=== PATIENT | female | born 1960 | race Caucasian/White ===

== ENCOUNTER 2021-01-13 15:55 | Outpatient (CLI) | payer MEDICARE, OTHER, SELFPAY ==
--- NOTE | 2021-01-13 | MR_ITS ---
WS: [id number] MRI RIGHT SHOULDER HISTORY: RIGHT ROTATOR CUFF COMPARISON: 12/24/2020 TECHNIQUE: Multiplanar sequences of the shoulder joint are submitted. Limited evaluation of the RIGHT shoulder. Patient refused to continue due to pain. Mild AC joint hypertrophy with fluid along the AC ligament. Small amount of fluid in the subacromial and subdeltoid bursa. Moderate size osteophyte from the distal acromion encroaches upon the rotator c uff. No os acromion. Biceps tendon remains in normal position. There is slight increased amount of fl uid along the tendon sheath. Subchondral cystic changes in the posterior lateral humeral head. Abnormal signal in the distal infraspinatus and supraspinatus muscles. There is marked tendinopathy, especially within the supraspinatus tendon with narrowing of the acromiohumeral space. There is a flu id gap in tear involving the insertion sites of the infraspinatus and supraspinatus tendons. Increase fluid in the glenohumeral joint. Severe narrowing of the glenohumeral joint due to osteophytes. MR/MR shoulder RT wo con* [id number] IMPRESSION: 1. Very limited evaluation of the shoulder. Patient was unable to tolerate thi s examination due to pain. 2. Moderate AC joint osteoarthritis with encroachment upon the supraspinatus m uscle and tendon. 3. Marked tendinopathy of the distal infraspinatus and supraspinatus tendons w ith additional insertion site tears. Additional evaluation of the rotator cuff tears is difficult without further sequences. 4. Advanced osteoarthritis at the glenohumeral joint. Loss of cartilage surrou nding the humeral head.
== END 2021-01-13 15:56 | disposition home or self-care (01) ==
PROVIDERS: PCP Family Medicine; Visit Provider Family Medicine
DX: M75.101 Unspecified rotator cuff tear or rupture of right shoulder, not specified as traumatic (principal); M19.011 Primary osteoarthritis, right shoulder
CPT/HCPCS: 73221

== ENCOUNTER 2021-02-10 15:03 | Outpatient (CLI) | payer MEDICARE, OTHER, SELFPAY ==
--- NOTE | 2021-02-10 15:10 | USCV_ITS ---
Lisa Magaña Age: 61 Gender: F : 1960 Exam Date: 02/10/2021 15:32 Ordering Phys: Fili Donahue MD Technologist: Sherin Rahman Exam Location: [facility] – [place] Indication: SVT BP: 159 / 107 HR: 102 Rhythm: Sinus Technical Quality: Very technically difficult study MEASUREMENTS (Male / Female) Normal Values 2D ECHO LV Diastolic Diameter PLAX 3.4 cm 4.2 - 5.9 / 3.9 - 5.3 cm LV Systolic Diameter PLAX 2.4 cm IVS Diastolic Thickness 1.9 cm 0.6 - 1.0 / 0.6 - 0.9 cm IVS Systolic Thickness 2.2 cm LVPW Diastolic Thickness 1.4 cm 0.6 - 1.0 / 0.6 - 0.9 cm LVPW Systolic Thickness 2.1 cm LVOT Diameter 2.0 cm LV Ejection Fraction 2D Teich 57.7 % LV Ejection Fraction MOD 2C 63.4 % LV Ejection Fraction 2C AL 63.4 % LA Diameter 3.5 cm Aorta at Sinotubular Diameter 3.0 cm M-MODE LV Diastolic Diameter MM 5.0 cm 4.2 - 5.9 / 3.9 - 5.3 cm LV Systolic Diameter MM 3.4 cm LV Ejection Fraction MM Teich 61.7 % IVS Diastolic Thickness MM 1.8 cm 0.6 - 1.0 / 0.6 - 0.9 cm IVS Systolic Thickness MM 2.6 cm LVPW Diastolic Thickness MM 1.4 cm 0.6 - 1.0 / 0.6 - 0.9 cm LVPW Systolic Thickness MM 2.1 cm Aortic Annulus Diameter 3.7 cm LA Ao Ratio MM 0.9 MV E Point Septal Separation 0.8 cm DOPPLER AV Peak Velocity 130.0 cm/s LVOT Peak Velocity 91.0 cm/s AV Area Cont Eq vti 2.3 cm squared AV Area Cont Eq pk 2.1 cm squared MV Area PHT 5.0 cm squared Mitral E to A Ratio 0.8 MV E' Velocity 41.2 cm/s Mitral E to MV E' Ratio 6.4 Mitral E to LV E' Lateral Ratio 5.3 Mitral E to LV E' Septal Ratio 8.0 TR Peak Velocity 314.0 cm/s TR Peak Gradient 39.4 mmHg Right Atrial Pressure 3.0 mmHg Pulmonary Artery Systolic Pressu 42.4 mmHg PV Peak Velocity 116.0 cm/s RV Acceleration Time 0.1 s RV Ejection Time 0.3 s RV AcT/ET 0.2 FINDINGS Left Ventricle Small left ventricle cavity, moderate left ventricular hypertrophy. Hyperdynamic left ventricular systolic function. Left ventricular ejection fraction is estimated at 75 %. Grade I/IV diastolic dysfunction (abnormal relaxation filling pattern), normal to mildly elevated filling pressures. Right Ventricle Right Atrium Left Atrium Mitral Valve Aortic Valve Aortic valve sclerosis. No aortic valve stenosis. Tricuspid Valve Pulmonic Valve Pericardium Aorta CONCLUSIONS Technically very difficult study therefore full interpretation is read is not possible 1-Small left ventricle cavity, moderate left ventricular hypertrophy. Hyperdynamic left ventricular systolic function. Left ventricular ejection fraction is estimated at 75 %. Grade I/IV diastolic dysfunction (abnormal relaxation filling pattern), normal to mildly elevated filling pressures. 2-Aortic valve sclerosis. No aortic valve stenosis. 3-Cannot comment on mitral tricuspid and pulmonic valves due to suboptimal study quality 4-Pulmonary artery systolic pressure is within normal limits. 5-There is no pericardial effusion. 6-Due to suboptimal quality study cannot compare with prior echocardiogram Shoshana Barreto MD (Electronically Signed) Final Date: 20 Feb 2021 18:52 S
== END 2021-02-10 15:04 | disposition home or self-care (01) ==
LOC: US 15:05
PROVIDERS: PCP Family Medicine; Visit Provider Family Medicine
DX: I47.1 Supraventricular tachycardia (principal); I35.8 Other nonrheumatic aortic valve disorders
CPT/HCPCS: 93306

== ENCOUNTER 2021-02-17 07:37 | Outpatient (CLI) | payer MEDICARE, OTHER, SELFPAY ==
--- NOTE | 2021-02-17 14:29 | PFTS_ITS ---
Date of Study:02/17/21 Date of Dictation: MECHANICS: Forced vital capacity (FVC) is normal. Forced expiratory volume in one second (FEV1) is normal. FEV1/FVC is normal. FLOW VOLUME LOOP: Normal. LUNG VOLUMES: Total lung capacity (TLC) is mildly reduced. Residual volume (RV) is reduced. DIFFUSING CAPACITY FOR CARBON MONOXIDE: Mild reduced. INTERPRETATION: The prebronchodilator spirometry is normal. Post bronchodilator spirometry was not performed. Lung volumes are consistent with mild restriction. A combination of normal spirometry with mildly reduced total lung capacity and residual volume could be seen in early interstitial lung disease. However, this could be a nonspecific finding as well. Gas exchange (DLCO) is mildly reduced. MTDD
== END 2021-02-17 07:38 | disposition home or self-care (01) ==
LOC: RT 07:41
PROVIDERS: PCP Family Medicine; Visit Provider Internal Medicine
DX: R06.02 Shortness of breath (principal)
CPT/HCPCS: 94060; 94726; 94729; J7611

== ENCOUNTER 2021-07-17 15:37 | Emergency (ER) | payer MEDICARE, OTHER, SELFPAY ==
[2021-07-17] VITALS (7 sets, daily range): BP systolic 113–134; BP diastolic 59–94; PULSE 80–88; RESP 17–28; TEMP 37.3; O2SAT 90–99; BMI 32.8
--- NOTE | 2021-07-17 15:38 | ED_ITS ---
HPI - Abdominal Pain General: Chief Complaint: Urogenital-Female Stated Complaint: FLANK PAIN Time Seen by Provider: 07/17/21 15:38 History of Present Illness: HPI narrative: Ms. Valladares is a 61-year-old lady with history of diabetes, breast and bladder cancer, extensive abdominal surgeries who presents emergency department due to pelvic pain. She reports a longstanding history of pressure which is primarily located along her perineum and radiates upwards however this typically improves with position changes and warm towels as well as medications which she takes for chronic pain. She has noticed over the past few weeks an increase in frequency as well as some incontinence when standing. Today she had recurrence of symptoms that is more intense, moderate to severe, and deep aching in the same location. She tried her typical treatments without significant improvement. She denies pain this bad in the past. No changes in bowel movements or blood in stool. She does have occasional episodes of chest discomfort primarily at night which is sharp and intermittent. No other specific changes in health, exacerbating, or relieving factors. Review of Systems General: Reports: 10 or more systems reviewed and unremarkable except in HPI and below PFSH ED PFSH: Medical History Depression Diabetes SVT (supraventricular tachycardia) Surgical History H/O total hysterectomy Hx of cholecystectomy Family History Father Diabetes Other Hypertension Social History Smoking and tobacco status: never smoked Physical Exam Narrative: EXAM NARRATIVE: GENERAL/CONSTITUTIONAL - well-appearing. Uncomfortable due to pain Eyes - PERRL, no conjunctival injection ENMT - Atraumatic external nose and ears. Moist mucous membranes NECK - supple. trachea midline CARDIOVASCULAR - regular rate and rhythm. Peripheral pulses 2+ and equal RESPIRATORY -clear to auscultation bilaterally. No retractions or accessory muscle use. ABDOMEN/GI - tenderness palpation in the lower abdomen.. No tenderness to percussion or evidence of peritonitis MSK - Extremities without obvious deformity or tenderness to palpation SKIN - Warm, Dry NEURO - alert and appropriately oriented. strength and sensation intact. Moves all extremities equally. PSYCH - Appropriate mood and affect Course ED course: - Patient was seen and evaluated by me at bedside - Patient placed on cardiac monitors, IV access obtained - Initial evaluation notable for uncomfortable due to pain, abdominal exam as noted above. Somewhat challenging history with many atypical features, patient is 61 and diabetic which expands the differential. She has a history of extensive abdominal surgeries as well which also further expands differential. -Symptom treatment ordered - Labs notable for no leukocytosis, microcytic anemia which is new since recent lab values though this was 2019. No significant metabolic abnormality to explain patient's symptoms. No evidence of urinary tract infection. - Imaging notable for negative chest x-ray. Nonspecific fat stranding noted on abdominal CT without other focal finding to explain patient's symptoms. - Upon serial reexamination after treatment the patient was improved with analgesia - Based on patient history, evaluation, labs, and imaging as interpreted the most likely cause of the patient's condition is unclear, the nature of patient's fat stranding is also unclear though given worsening of symptoms will be treated. Additionally I did offer patient pelvic exam though lower clinical suspicion in the absence of uterus and ovaries, given that patient has no vaginal discharge or vaginal pain/itching she deferred at this time. - The results of ED evaluation were discussed with the patient including prescriptions and/or symptomatic cares (if applicable) including appropriate and responsible use, followup plan, and return precautions. The patient verbalized understanding and felt safe for discharge. - Patient discharged in satisfactory condition. Vital Signs: Vital signs: Vital Signs Temperature 99.2 F 07/17/21 15:40 Pulse Rate 88 07/17/21 19:51 Respiratory Rate 22 H 07/17/21 20:38 Blood Pressure 113/59 07/17/21 19:51 Pulse Oximetry 98 07/17/21 19:51 MDM - Abdominal Pain Medical Records: Attestation: I reviewed the patient's medical records. Lab Data: Attestation: I reviewed the patient's lab results. Labs: Lab Results 07/17/21 07/17/21 07/17/21 16:04 16:04 16:04 WBC 5.7 10^3/uL 10^3/ uL (4.0-10.0) RBC 4.21 10^6/uL 10^6 /uL (4.1-5.3) Hgb 10.1 g/dL L g/dL (11.5-15.3) Hct 33.0 % L % (37.0-47.0) MCV 78.4 fl L fl (81-99) MCH 24.0 pg L pg (28.0-34.0) MCHC 30.6 g/dL g/dL (30.0-36.0) RDW 14.4 % % (12.1-15.1) Plt Count 200 10^3/cmm 10^3 /cmm (130-400) MPV 10.6 fL H fL (7.4-10.4) Neut % (Auto) 67.1 % % Lymph % (Auto) 19.4 % % [place] % (Auto) 9.4 % % Eos % (Auto) 2.8 % % Baso % (Auto) 1.0 % % Neut # (Auto) 3.84 10^3/uL 10^3 /uL (1.8-7.7) Lymph # (Auto) 1.1 10^3/uL 10^3/ uL (0.8-4.8) [place] # (Auto) 0.5 10^3/uL 10^3/ uL (0.2-0.9) Eos # (Auto) 0.2 10^3/uL 10^3/ uL (0.0-0.8) Baso # (Auto) 0.1 10^3/uL 10^3/ uL (0.0-0.1) Nucleated RBC % (a uto) 0 % % Nucleated RBCs # 0.0 /100WBC /100W BC Sodium 139 mmol/L mmol/L (136-145) Potassium 4.0 mmol/L mmol/L (3.5-5.1) Chloride 101 mmol/L mmol/L (98-107) Carbon Dioxide 25 mmol/L mmol/L (22-29) Anion Gap 17.0 (5-19) BUN 12 mg/dL mg/dL (8-23) Creatinine 0.5 mg/dL mg/dL (0.5-0.9) GFR Calculation 124.6 mL/min mL/m in (90-130) Glucose 191 mg/dL H mg/dL (65-115) Calculated Osmolal ity 293 mOsm/kg mOsm/ kg (285-295) Lactate 2.0 mmol/L mmol/L (0.5-2.2) Calcium 8.8 mg/dL mg/dL (8.5-10.5) Total Bilirubin 0.4 mg/dL mg/dL (0.15-1.2) AST 26 U/L U/L (0-32) ALT 15 U/L U/L (0-33) Alkaline Phosphata se 105 IU/L IU/L (35-105) Troponin T Baselin e Troponin T 120 Min [place] Troponin T Total Protein 6.8 g/dL g/dL (6.6-8.7) Albumin 3.9 g/dL g/dL (3.5-5.2) Globulin 2.9 g/dL g/dL (1.3-4.6) Lipase 58 U/L U/L (13-60) Urine Color Urine Appearance Urine pH Ur Specific Gravit y Urine Protein Urine Glucose (UA) Urine Ketones Urine Blood Urine Nitrate Urine Bilirubin Urine Urobilinogen Ur Leukocyte Isabel ase 07/17/21 07/17/21 07/17/21 16:04 16:36 18:10 WBC RBC Hgb Hct MCV MCH MCHC RDW Plt Count MPV Neut % (Auto) Lymph % (Auto) [place] % (Auto) Eos % (Auto) Baso % (Auto) Neut # (Auto) Lymph # (Auto) [place] # (Auto) Eos # (Auto) Baso # (Auto) Nucleated RBC % (a uto) Nucleated RBCs # Sodium Potassium Chloride Carbon Dioxide Anion Gap BUN Creatinine GFR Calculation Glucose Calculated Osmolal ity Lactate Calcium Total Bilirubin AST ALT Alkaline Phosphata se Troponin T Baselin e 8 ng/L ng/L (0-10) Troponin T 120 Min [place] 7.87 ng/L ng/L (0-10) Delta Troponin T -0.13 ABS# L ABS# (0-10) Total Protein Albumin Globulin Lipase Urine Color Straw (Yellow) Urine Appearance Clear (CLEAR) Urine pH 6 (5-7) Ur Specific Gravit y 1.005 (1.005-1.030) Urine Protein Neg (Negative) Urine Glucose (UA) Norm (Normal) Urine Ketones Negative (Negative) Urine Blood Neg (Negative) Urine Nitrate Negative (Negative) Urine Bilirubin Neg (Negative) Urine Urobilinogen Norm mg/dL mg/dL (Negative) Ur Leukocyte Isabel ase Negative (Negative) EKG Data ^: EKG 1: Attestation: I personally reviewed and interpreted this EKG as follows: EKG interpretation date: 07/17/21 EKG interpretation time: 16:52 Interpretation: Twelve-lead EKG shows a regular sinus rhythm at a rate of 84. CT interval 142, QRS duration 84, QTc 463. Left axis deviation. Interpretation: Sinus rhythm, occasional PVC. Discharge Plan Discharge Patient Disposition: Home Clinical Impression: Abdominal pain Condition: Stable Prescriptions: New Augmentin 875-125 mg tablet 1 tab PO BID Qty: 20 RF: 0 No Action metoprolol tartrate 50 mg tablet 50 mg PO BID RF: 0 metformin 500 mg tablet extended release 24 hr 500 mg PO DAILY RF: 0 pantoprazole 40 mg tablet,delayed release (DR/EC) 40 mg PO DAILY RF: 0 fluoxetine 20 mg capsule 20 mg PO DAILY RF: 0 zonisamide 100 mg capsule 200 mg PO DAILY RF: 0 clonazepam 0.5 mg tablet 0.25 mg PO TID PRN (Reason: Anxiety) RF: 0 trazodone 150 mg tablet 150 mg PO BEDTIME RF: 0 sumatriptan succinate [Imitrex] 100 mg tablet 100 mg PO Q2H PRN (Reason: Migraine Headache) RF: 0 Lantus U-100 Insulin 100 unit/mL Solution 8 unit SUBCUT BEDTIME RF: 0 acyclovir 400 mg tablet 400 mg PO BID RF: 0 oxycodone-acetaminophen 10-325 mg tablet 1 tab PO Q4H PRN (Reason: Pain) RF: 0 gabapentin 300 mg Capsule 300 mg PO TID RF: 0 Discharge Orders: Discharge ED (Routine); Ordered 07/17/21 Ordered By: Kenny Spring Referrals: Joseph Baker MD [Primary Care Provider] - Discharge Diet: Advance as tolerated Discharge Activity: Increase activity as tolerated Patient Instructions: Abdominal Pain (ED), Opioid Safety Activity Restrictions/Additional Instructions: Thank you for visiting the emergency department. You were seen and evaluated for abdominal pain. The exact cause of your symptoms is unclear, you have mild inflammation of intra-abdominal fat which could be infectious in nature or inflammatory. Please follow-up with your primary care provider. Please return the emergency department for uncontrolled symptoms or anything else that you are concerned about and feel needs emergency department evaluation. Coding Level of Care Code ED Spare Person for Magnolia Conley
--- NOTE | 2021-07-17 16:23 | CTR_ITS ---
PROCEDURE INFORMATION: Exam: CT Abdomen And Pelvis With Contrast Exam date and time: 07/17/2021 4:23 PM Age: 61 years old Clinical indication: Abdominal pain; Localized; Prior surgery; Surgery date: 6+ months; Surgery type: Gb, hyst, bladder, l-sp; Patient HX: C/O lower abd/pelvic pain and incontinence; Additional info: Lower abdominal/pelvic pain TECHNIQUE: Imaging protocol: Computed tomography of the abdomen and pelvis with contrast. Radiation optimization: All CT scans at this facility use at least one of these dose optimization techniques: automated exposure control; mA and/or kV adjustment per patient size (includes targeted exams where dose is matched to clinical indication); or iterative reconstruction. Contrast material: OMNI 300; Contrast volume: 95 ml; Contrast route: INTRAVENOUS (IV); COMPARISON: CT Abdomen/Pelvis w IV* [id number] 10/20/2018 6:54 PM RADIATION DOSE METRICS: Total DLP (mGy-cm): 1839.81 FINDINGS: Liver: Capsular surface of liver is mildly nodular. No focal intrahepatic mass. Gallbladder and bile ducts: Cholecystectomy. Nondilated biliary system. Pancreas: Atrophic pancreas without focal lesion. Spleen: Normal. No splenomegaly. Adrenal glands: Normal. No mass. Kidneys and ureters: Simple upper pole right renal cortical cyst. Negative for hydronephrosis. No renal stones. Stomach and bowel: Moderate fecal volume. No focal bowel wall mass identified. Negative for bowel obstruction. Negative for bowel perforation. Nonspecific fat stranding changes in the pericolic gutter regions of the lower abdomen. Appendix: No evidence of appendicitis. Intraperitoneal space: No free intraperitoneal air. No focal intraperitoneal fluid collection. Vasculature: Vascular structures are patent with no significant abnormality. Lymph nodes: Unremarkable. No enlarged lymph nodes. Urinary bladder: Unremarkable as visualized. Reproductive: Hysterectomy. Bones/joints: Multilevel laminectomy and posterior lumbar spine fusion extending L2 through L5 without complication. Soft tissues: No significant finding. Other findings: Nonspecific fat stranding changes in the perirectal space. CT/CT abdomen pelvis w con* [id number] IMPRESSION: 1. No focal acute abdominopelvic pathology is identified. 2. Mild nonspecific fat stranding changes in the pericolic gutters and the pelvis. 3. Mild nodularity of the liver capsular surface; underlying cirrhosis not excluded. COMMENTS: Consistent with the [employer]'s Incidental Findings Committee white paper (J Am Eda Radiol 2018): Any incidental renal lesion less than 1 cm or classified as too small to characterize, or any incidental cystic renal lesion characterized as simple-appearing, is likely benign. No follow-up imaging is recommended for these lesions per consensus recommendations based on imaging criteria. Radiation Dose CTDIVOL = (mGy): DLP = 1839.81 (mGy-cm)
--- NOTE | 2021-07-17 16:23 | XRR_ITS ---
PROCEDURE INFORMATION: Exam: XR Chest Exam date and time: 07/17/2021 4:23 PM Age: 61 years old Clinical indication: Pain; Chest pressure; Additional info: Chest pain TECHNIQUE: Imaging protocol: XR of the chest. Views: 1 view. COMPARISON: CR Chest 1 [place] [id number] 10/10/2018 2:19 PM FINDINGS: Lungs: Unremarkable. No consolidation. Pleural spaces: Unremarkable. No pleural effusion. No pneumothorax. Heart/Mediastinum: Unremarkable. No cardiomegaly. Bones/joints: Right shoulder arthroplasty. No acute thoracic fractures. Partially visible lower lumbar spine posterior fusion hardware. XR/XR chest 1V portable [id number] IMPRESSION: No focal acute pulmonary disease.
--- NOTE | 2021-07-17 16:24 | ECG_ITS ---
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1960 Requested By: Kenny Spring Order Number: [id number] Reading MD: JCARLOS THOMAS Measurements Intervals [place] Rate: 84 P: 83 CO: 142 QRS: -4 QRSD: 84 T: 46 QT: 390 QTc: 463 Interpretive Statements SINUS RHYTHM WITH OCCASIONAL SUPRAVENTRICULAR PREMATURE COMPLEXES NONSPECIFIC T-WAVE ABNORMALITY Compared to ECG 10/10/2018 22:02:16 Possible ischemia no longer present T-wave abnormality still present Electronically Signed On 07-17-2021 18:22:30 CDT by JCARLOS THOMAS [id number]
[2021-07-17 16:35] LABS: Basophils # 0.1 10^3/uL (0.0-0.1); Eosinophils # 0.2 10^3/uL (0.0-0.8); Eosinophils % 2.8 %; Hemoglobin 10.1 g/dL (11.5-15.3); Lymphocytes # 1.1 10^3/uL (0.8-4.8); Lymphocytes % 19.4 %; Mean Corpuscular HGB Conc 30.6 g/dL (30.0-36.0); Mean Corpuscular Volume 78.4 fl (81-99); Mean Platelet Volume 10.6 fL (7.4-10.4); Monocytes # 0.5 10^3/uL (0.2-0.9); Monocytes % 9.4 %; Neutrophils # 3.84 10^3/uL (1.8-7.7); Neutrophils % 67.1 %; Nucleated Red Blood Cells % 0 %; Platelet Count 200 10^3/cmm (130-400); Red Blood Count 4.21 10^6/uL (4.1-5.3); Red Cell Distribution Width 14.4 % (12.1-15.1); White Blood Count 5.7 10^3/uL (4.0-10.0)
[2021-07-17 16:42] LABS: Add Urine Microscopic? NO; Charge for UA Resulting for Rev
[2021-07-17 16:47] LABS: Bilirubin Urine Neg (Negative); Blood Urine Neg (Negative); Glucose Urine UA Norm (Normal); Ketones Urine Negative (Negative); Leukocyte Esterase Urine Negative (Negative); Nitrate Urine Negative (Negative); Protein Urine Neg (Negative); Specific Gravity, Urine 1.005 (1.005-1.030); Urine Appearance Clear (CLEAR); Urine Color Straw (Yellow); Urobilinogen Urine Norm (Negative); pH Urine 6 (5-7)
[2021-07-17] MEDS: ondansetron 2 mg/ML SDV 2 mL 4 MG IVP (16:52)
[2021-07-17] MEDS: morphine 4 mg/mL SDV 1 mL IVP (16:52)
[2021-07-17 17:04] LABS: Troponin(5th) Baseline 8 ng/L (0-10)
[2021-07-17 17:07] LABS: Alanine Aminotransferase 15 U/L (0-33); Albumin Level 3.9 g/dL (3.5-5.2); Alkaline Phosphatase 105 IU/L (35-105); Aspartate Amino Transferase 26 U/L (0-32); Blood Urea Nitrogen 12 mg/dL (8-23); Calcium 8.8 mg/dL (8.5-10.5); Carbon Dioxide 25 mmol/L (22-29); Chloride 101 mmol/L (98-107); Globulin 2.9 g/dL (1.3-4.6); Glomerular Filtration Rate 124.6 mL/min (90-130); Glucose 191 mg/dL (65-115); Lipase 58 U/L (13-60); Osmolality Calculated 293 mOsm/kg (285-295); Sodium 139 mmol/L (136-145); Total Bilirubin 0.4 mg/dL (0.15-1.2); Total Protein 6.8 g/dL (6.6-8.7)
[2021-07-17] MEDS: sodium chloride 0.9% 1,000 ML 999 ML IV (17:14)
[2021-07-17] MEDS: iohexol 300 mg/mL 100 mL Btl IV (17:37)
--- NOTE | 2021-07-17 18:24 | ECG_ITS ---
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
[2021-07-17 18:43] LABS: Troponin 5 2HR 7.87 ng/L (0-10)
[2021-07-17 18:56] LABS: Troponin 5 2HR Delta -0.13 ABS# (0-10)
--- NOTE | 2021-07-17 19:34 | PC.NURSE ---
dr in room at this time. still waiting on bladder scanner.
[2021-07-17] MEDS: morphine 4 mg/mL SDV 1 mL IM (20:38)
== END 2021-07-17 20:43 | disposition home or self-care (01) ==
PROVIDERS: Emergency Provider Emergency Medicine; PCP Family Medicine
DX: R10.9 Unspecified abdominal pain (principal); Z79.4 Long term (current) use of insulin; E11.9 Type 2 diabetes mellitus without complications
CPT/HCPCS: 71045; 74177; 80053; 81003; 83605; 83690; 84484; 85025; 93005; 96361; 96372; 96374; 96375; 99284; J2270; J2405; J7030; Q9967

== ENCOUNTER 2021-07-30 19:02 | Emergency (ER) | payer MEDICARE, OTHER, SELFPAY ==
[2021-07-30 19:17] VITALS: BP 164/90; PULSE 97; RESP 22; TEMP 36.9; O2SAT 97; BMI 33.4
--- NOTE | 2021-07-30 19:28 | W.ED.ABDPA2 ---
HPI - Abdominal Pain General: Chief Complaint: Abdominal Pain Stated Complaint: Abd pain Time Seen by Provider: 07/30/21 19:28 History of Present Illness: HPI narrative: Ms. Magaña is a 61-year-old lady with history of diabetes and abdominal pain who presents emergency department due to abdominal pain. Symptom onset was a few hours prior to presentation and acute. She was at her baseline health and had neck MRI earlier today. She had a large meal and subsequently developed severe lower abdominal pain and cramping. She denies abdominal trauma. Mild associated hematuria. No nausea or vomiting. She has been having normal bowel movements. Overall the course of symptoms has persisted. No other specific exacerbating or alleviating factors identified. Review of Systems General: Reports: 10 or more systems reviewed and unremarkable except in HPI and below PFSH ED PFSH: Medical History Depression Diabetes SVT (supraventricular tachycardia) Surgical History H/O total hysterectomy Hx of cholecystectomy Family History Father Diabetes Other Hypertension Social History Smoking and tobacco status: never smoked Physical Exam Narrative: EXAM NARRATIVE: GENERAL/CONSTITUTIONAL - well-appearing. Distress due to pain. Patient bent over in position of comfort. Eyes - PERRL, no conjunctival injection ENMT - Atraumatic external nose and ears. Moist mucous membranes NECK - supple. trachea midline CARDIOVASCULAR - regular rate and rhythm. RESPIRATORY -clear to auscultation bilaterally. ABDOMEN/GI -tenderness palpation in the lower quadrants. Degrees marked, no evidence of remote peritonitis MSK - Extremities without obvious deformity or tenderness to palpation SKIN - Warm, Dry NEURO - alert and appropriately oriented. Moves all extremities equally. Course ED course: - Patient was seen and evaluated by me at bedside - Patient placed on cardiac monitors, IV access obtained - Initial evaluation notable for marked discomfort. Nontoxic. No evidence of surgical abdomen. -Symptom treatment ordered - Labs notable for no leukocytosis, roughly the same hematologic abnormalities as previous, no significant metabolic abnormalities, no evidence of urinary tract infection however hematuria is present. - Imaging notable for colitis. No evidence of kidney stone. - Upon serial reexamination after treatment the patient was markedly improved - Based on patient history, evaluation, labs, and imaging as interpreted the most likely cause of the patient's condition is colitis. Patient's clinical presentation seemed more similar to kidney stone however no CT evidence is noted. Unclear etiology of blood in urine, may be a localized reaction in ureter secondary to intra-abdominal infection or some other cause - The results of ED evaluation were discussed with the patient including prescriptions and/or symptomatic cares (if applicable) including appropriate and responsible use, followup plan, and return precautions. The patient verbalized understanding and felt safe for discharge. - Patient discharged in satisfactory condition. Vital Signs: Vital signs: Vital Signs Temperature 98.4 F 07/30/21 19:17 Pulse Rate 78 07/31/21 00:07 Respiratory Rate 18 07/31/21 00:07 Blood Pressure 104/57 07/31/21 00:07 Pulse Oximetry 96 07/31/21 00:07 MDM - Abdominal Pain Medical Records: Attestation: I reviewed the patient's medical records. Lab Data: Attestation: I reviewed the patient's lab results. Labs: Lab Results 07/30/21 07/30/21 07/30/21 19:15 20:45 20:45 WBC 5.6 10^3/uL 10^3/ uL (4.0-10.0) RBC 4.34 10^6/uL 10^6 /uL (4.1-5.3) Hgb 10.0 g/dL L g/dL (11.5-15.3) Hct 33.0 % L % (37.0-47.0) MCV 76.0 fl L fl (81-99) MCH 23.0 pg L pg (28.0-34.0) MCHC 30.3 g/dL g/dL (30.0-36.0) RDW 13.8 % % (12.1-15.1) Plt Count 174 10^3/cmm 10^3 /cmm (130-400) MPV 9.5 fL fL (7.4-10.4) Neut % (Auto) 63.9 % % Lymph % (Auto) 22.6 % % Caldwell % (Auto) 9.0 % % Eos % (Auto) 3.2 % % Baso % (Auto) 1.1 % % Neut # (Auto) 3.56 10^3/uL 10^3 /uL (1.8-7.7) Lymph # (Auto) 1.3 10^3/uL 10^3/ uL (0.8-4.8) Caldwell # (Auto) 0.5 10^3/uL 10^3/ uL (0.2-0.9) Eos # (Auto) 0.2 10^3/uL 10^3/ uL (0.0-0.8) Baso # (Auto) 0.1 10^3/uL 10^3/ uL (0.0-0.1) Nucleated RBC % (a uto) 0 % % Nucleated RBCs # 0.0 /100WBC /100W BC Sodium 137 mmol/L mmol/L (136-145) Potassium 3.9 mmol/L mmol/L (3.5-5.1) Chloride 100 mmol/L mmol/L (98-107) Carbon Dioxide 22 mmol/L mmol/L (22-29) Anion Gap 18.9 (5-19) BUN 11 mg/dL mg/dL (8-23) Creatinine 0.5 mg/dL mg/dL (0.5-0.9) GFR Calculation 124.6 mL/min mL/m in (90-130) Glucose 169 mg/dL H mg/dL (65-115) Calculated Osmolal ity 287 mOsm/kg mOsm/ kg (285-295) Calcium 9.4 mg/dL mg/dL (8.5-10.5) Total Bilirubin 0.5 mg/dL mg/dL (0.15-1.2) AST 26 U/L U/L (0-32) ALT 10 U/L U/L (0-33) Alkaline Phosphata se 90 IU/L IU/L (35-105) Total Protein 6.8 g/dL g/dL (6.6-8.7) Albumin 4.0 g/dL g/dL (3.5-5.2) Globulin 2.8 g/dL g/dL (1.3-4.6) Lipase 56 U/L U/L (13-60) Urine Color Yellow (Yellow) Urine Appearance Sl hazy (CLEAR) Urine pH 5 (5-7) Ur Specific Gravit y 1.015 (1.005-1.030) Urine Protein Neg (Negative) Urine Glucose (UA) Norm (Normal) Urine Ketones Negative (Negative) Urine Blood 3+ H (Negative) Urine Nitrate Negative (Negative) Urine Bilirubin Neg (Negative) Urine Urobilinogen Norm mg/dL mg/dL (Negative) Ur Leukocyte Isabel ase Negative (Negative) Urine RBC 80-100 /hpf H /hp f (0-2) Urine WBC 0-4 /hpf H /hpf (0-5) Ur Squamous Epith Cells 0-4 /hpf H /hpf (0-5) Amorphous Sediment Not Reportable Urine Bacteria 1+ /hpf H /hpf (NONE) Discharge Plan Discharge Patient Disposition: Home Clinical Impression: Abdominal pain, Hematuria, Colitis Condition: Stable Prescriptions: New levofloxacin 750 mg tablet 750 mg PO DAILY 7 Days Qty: 7 RF: 0 oxycodone 5 mg tablet 5 mg PO Q4H PRN (Reason: pain) Qty: 10 RF: 0 No Action metoprolol tartrate 50 mg tablet 50 mg PO BID RF: 0 metformin 500 mg tablet extended release 24 hr 500 mg PO DAILY RF: 0 pantoprazole 40 mg tablet,delayed release (DR/EC) 40 mg PO DAILY RF: 0 fluoxetine 20 mg capsule 20 mg PO DAILY RF: 0 zonisamide 100 mg capsule 200 mg PO DAILY RF: 0 clonazepam 0.5 mg tablet 0.25 mg PO TID PRN (Reason: Anxiety) RF: 0 trazodone 150 mg tablet 150 mg PO BEDTIME RF: 0 sumatriptan succinate [Imitrex] 100 mg tablet 100 mg PO Q2H PRN (Reason: Migraine Headache) RF: 0 Lantus U-100 Insulin 100 unit/mL Solution 8 unit SUBCUT BEDTIME RF: 0 acyclovir 400 mg tablet 400 mg PO BID RF: 0 oxycodone-acetaminophen 10-325 mg tablet 1 tab PO Q4H PRN (Reason: Pain) RF: 0 gabapentin 300 mg Capsule 300 mg PO TID RF: 0 Augmentin 875-125 mg tablet 1 tab PO BID Qty: 20 RF: 0 Discharge Orders: Discharge ED (Routine); Ordered 07/30/21 Ordered By: Kenny Spring Referrals: Joseph Baker MD [Primary Care Provider] - Discharge Diet: Advance as tolerated and Clear Liquid Discharge Activity: Resume usual activity Patient Instructions: Hematuria (ED), Abdominal Pain (ED), Colitis (ED), Opioid Safety Activity Restrictions/Additional Instructions: Thank you for visiting the emergency department. You were seen and evaluated for abdominal pain. The exact cause of your symptoms is unclear however may be related to colitis. It is atypical that you would have recurrence of symptoms, will be sent with a new antibiotic. Please follow-up with your primary care provider. Please follow-up with GI. Please return the emergency department for anything that you are concerned about and feel needs emergency department evaluation. Coding Level of Care Code ED [employer] for [employer]
[2021-07-30 20:03] LABS: Add Urine Microscopic? YES; Bilirubin Urine Neg (Negative); Blood Urine 3+ (Negative); Glucose Urine UA Norm (Normal); Ketones Urine Negative (Negative); Leukocyte Esterase Urine Negative (Negative); Nitrate Urine Negative (Negative); Protein Urine Neg (Negative); Specific Gravity, Urine 1.015 (1.005-1.030); Urine Appearance SL Hazy (CLEAR); Urine Color Yellow (Yellow); Urobilinogen Urine Norm (Negative); pH Urine 5 (5-7)
--- NOTE | 2021-07-30 20:05 | CTR_ITS ---
PROCEDURE INFORMATION: Exam: CT Abdomen And Pelvis Without Contrast Exam date and time: 07/30/2021 8:05 PM Age: 61 years old Clinical indication: Abdominal pain; Prior surgery; Surgery type: Hysterectomy. Gb. ; Patient HX: Abd/back pain with hematuria. History of bladder cancer. ; Additional info: Abdominal pain, hematuria TECHNIQUE: Imaging protocol: Computed tomography of the abdomen and pelvis without contrast. Radiation optimization: All CT scans at this facility use at least one of these dose optimization techniques: automated exposure control; mA and/or kV adjustment per patient size (includes targeted exams where dose is matched to clinical indication); or iterative reconstruction. COMPARISON: CT abdomen pelvis w con* [id number] 07/17/2021 5:34 PM RADIATION DOSE METRICS: Total DLP (mGy-cm): 1865.89 FINDINGS: Liver: There is a mild nodular contour of the liver suggesting cirrhosis. Gallbladder and bile ducts: Status post cholecystectomy. Pancreas: Normal. No ductal dilation. Spleen: The spleen is mildly prominent measuring 15.1 cm AP dimension. Adrenal glands: Normal. No mass. Kidneys and ureters: There is a stable 2.5 cm cystic mass seen in the upper pole of the right kidney. Stomach and bowel: There are some persistent strandy and hazy opacity seen in the pelvic fat and fascia surrounding the rectum again appearing less prominent today. Appendix: No evidence of appendicitis. Intraperitoneal space: Strandy opacities are seen in the right pericolic gutter. There is some bowel wall thickening of the ascending colon seen and colitis cannot be excluded. This finding is similar to that seen on 07/17/2021. Minimal fluid and fat stranding is seen in the left pericolic gutter appearing less prominent today. Vasculature: Prominent perirectal portal veins are seen. Lymph nodes: Unremarkable. No enlarged lymph nodes. Urinary bladder: Unremarkable as visualized. Reproductive: Status post hysterectomy. Bones/joints: Status post PLIF L2-L5. Soft tissues: Unremarkable. CT/CT kidney stone [id number] IMPRESSION: 1. There is some bowel wall thickening of the ascending colon and surrounding fat stranding and haziness seen in the pericolonic fat, findings that may represent colitis. 2. Decreasing fat stranding seen in the left pericolic gutter and within the perirectal fat and fascia. 3. There is mild prominence of the perirectal portal veins. 4. Stable 2.5 cm upper pole right renal cyst. No further workup needed. 5. Mild nodular contour of the liver suggesting cirrhosis. 6. Mild splenomegaly Radiation Dose CTDIVOL = (mGy): DLP = 1865.89 (mGy-cm)
[2021-07-30 20:06] LABS: Add Urine Culture? Yes; Bacteria Urine 1+ /hpf; RBC Urine 80-100 /hpf (0-2); Squamous Epithelial Cell Urine 0-4 /hpf (0-5); WBC Urine 0-4 /hpf (0-5)
[2021-07-30] MEDS: lactated ringers 1,000 ML 999 ML IV (20:49)
[2021-07-30] MEDS: dicyclomine 10 mg Capsule PO (20:50)
[2021-07-30] MEDS: LORazepam 2 mg/mL INJ 1 mL 0.5 MG IVP (20:50)
[2021-07-30] MEDS: morphine 4 mg/mL SDV 1 mL IVP (20:50)
[2021-07-30 20:53] LABS: Basophils # 0.1 10^3/uL (0.0-0.1); Basophils % 1.1 %; Eosinophils # 0.2 10^3/uL (0.0-0.8); Eosinophils % 3.2 %; Lymphocytes # 1.3 10^3/uL (0.8-4.8); Lymphocytes % 22.6 %; Mean Corpuscular HGB Conc 30.3 g/dL (30.0-36.0); Mean Platelet Volume 9.5 fL (7.4-10.4); Monocytes # 0.5 10^3/uL (0.2-0.9); Neutrophils # 3.56 10^3/uL (1.8-7.7); Neutrophils % 63.9 %; Nucleated Red Blood Cells % 0 %; Platelet Count 174 10^3/cmm (130-400); Red Blood Count 4.34 10^6/uL (4.1-5.3); Red Cell Distribution Width 13.8 % (12.1-15.1); White Blood Count 5.6 10^3/uL (4.0-10.0)
[2021-07-30 21:12] VITALS: BP 172/93; PULSE 84; RESP 18; O2SAT 93
[2021-07-30 21:16] LABS: Alanine Aminotransferase 10 U/L (0-33); Alkaline Phosphatase 90 IU/L (35-105); Anion Gap 18.9 (5-19); Aspartate Amino Transferase 26 U/L (0-32); Blood Urea Nitrogen 11 mg/dL (8-23); Calcium 9.4 mg/dL (8.5-10.5); Carbon Dioxide 22 mmol/L (22-29); Chloride 100 mmol/L (98-107); Globulin 2.8 g/dL (1.3-4.6); Glomerular Filtration Rate 124.6 mL/min (90-130); Glucose 169 mg/dL (65-115); Lipase 56 U/L (13-60); Osmolality Calculated 287 mOsm/kg (285-295); Potassium 3.9 mmol/L (3.5-5.1); Sodium 137 mmol/L (136-145); Total Bilirubin 0.5 mg/dL (0.15-1.2); Total Protein 6.8 g/dL (6.6-8.7)
[2021-07-30] MEDS: acetaminophen 500 mg Tablet 1000 MG PO (22:38)
[2021-07-30] MEDS: ketorolac 30 mg/mL INJ 15 MG IVP (22:38)
[2021-07-30 22:39] VITALS: BP 106/66; PULSE 82; RESP 16; O2SAT 94
[2021-07-30 23:44] VITALS: RESP 22
[2021-07-30] MEDS: oxyCODONE 5 mg IR Tab/Cap PO (23:44)
[2021-07-31 00:07] VITALS: BP 104/57; PULSE 78; RESP 18; O2SAT 96
== END 2021-07-31 00:09 | disposition home or self-care (01) ==
PROVIDERS: Emergency Provider Emergency Medicine; PCP Family Medicine
DX: K52.9 Noninfective gastroenteritis and colitis, unspecified (principal); R31.9 Hematuria, unspecified; Z79.84 Long term (current) use of oral hypoglycemic drugs; Z79.4 Long term (current) use of insulin; E11.9 Type 2 diabetes mellitus without complications
CPT/HCPCS: 74176; 80053; 81001; 83690; 85025; 87086; 96361; 96374; 96375; 99284; J1885; J2060; J2270

== ENCOUNTER 2021-08-12 12:20 | Emergency (ER) | payer MEDICARE, OTHER, SELFPAY ==
[2021-08-12 12:50] VITALS: BP 162/97; PULSE 81; RESP 14; TEMP 36.9; O2SAT 95; BMI 33.4
[2021-08-12 16:56] LABS: Add Urine Microscopic? NO; Charge for UA Resulting for Rev
[2021-08-12 16:58] LABS: Urine Appearance Clear (CLEAR); Urine Color Yellow (Yellow)
[2021-08-12 16:59] LABS: Bilirubin Urine Neg (Negative); Blood Urine Neg (Negative); Glucose Urine UA Norm (Normal); Ketones Urine Negative (Negative); Leukocyte Esterase Urine Negative (Negative); Nitrate Urine Negative (Negative); Protein Urine Neg (Negative); Specific Gravity, Urine 1.005 (1.005-1.030); Urobilinogen Urine Norm (Negative); pH Urine 7 (5-7)
--- NOTE | 2021-08-12 17:05 | CTR_ITS ---
PROCEDURE INFORMATION: Exam: CT Abdomen And Pelvis With Contrast Exam date and time: 08/12/2021 5:05 PM Age: 61 years old Clinical indication: Nausea and vomiting; Abdominal pain; Generalized; Prior surgery; Surgery type: Back, gb, hyst, bladder; Additional info: Generalized pain TECHNIQUE: Imaging protocol: Computed tomography of the abdomen and pelvis with contrast. Total images: 258 Radiation optimization: All CT scans at this facility use at least one of these dose optimization techniques: automated exposure control; mA and/or kV adjustment per patient size (includes targeted exams where dose is matched to clinical indication); or iterative reconstruction. Contrast material: OMNI 300; Contrast volume: 95 ml; Contrast route: INTRAVENOUS (IV); COMPARISON: 1. CT kidney stone [id number] 07/30/2021 9:[address] abdomen pelvis w con* [id number] 07/17/2021 5:34:28 PM RADIATION DOSE METRICS: Total DLP (mGy-cm): 1619.04 FINDINGS: Lungs: Limited assessment of the lung bases fails to reveal evidence for active cardiopulmonary process. Liver: Hepatomegaly. Findings suggest the presence of mild cirrhosis of the liver. No visible hepatic mass or cystic structure. Gallbladder and bile ducts: Status post cholecystectomy. Pancreas: Pancreas is unremarkable. No visible pancreatic ductal ectasia. Spleen: Splenomegaly. Adrenal glands: Adrenal glands unremarkable. Kidneys and ureters: No hydronephrosis or perinephric fluid. No visible nephrolithiasis or visible ureterolithiasis. Stable simple cortical cyst superior pole right kidney. No follow-up recommended. Stomach and bowel: Nonobstructive bowel pattern. No visible adynamic or reactive ileus. Very heavy fecal residue consistent with constipation/obstipation. No evidence of significant diverticulosis coli or diverticulitis. Appendix: The appendix is visualized and appears noninflamed. Intraperitoneal space: No visible pneumoperitoneum or intraperitoneal ascites. Retroperitoneal space: Subtle haziness surrounding the celiac artery. Potential mild retroperitoneal fibrosis. This finding remains stable. Vasculature: Portal vein patent. The abdominal aorta is nonaneurysmal. Mild arteriosclerosis. Lymph nodes: No current visible evidence of active mesenteric or retroperitoneal lymphadenopathy. Urinary bladder: Urinary bladder unremarkable. Reproductive: Status post hysterectomy. Bones/joints: No visible active or acute osseous pathology. Status post inter pedicle screw and side bar fixation with fusion L2, L3, L4, and L5. Soft tissues: Unremarkable. Other findings: Obesity. CT/CT abdomen pelvis w con* [id number] IMPRESSION: 1. Currently no visible evidence for acute abdominal or pelvic pathologic process. 2. Marked constipation/obstipation. 3. Hepatosplenomegaly. 4. Findings of mild cirrhosis of the liver. 5. Other nonurgent, nonemergent, chronic, postoperative, and age related findings as detailed in text above. Radiation Dose CTDIVOL = (mGy): DLP = 1619.04 (mGy-cm)
--- NOTE | 2021-08-12 17:26 | ED_ITS ---
HPI - General Adult General: Chief complaint: General Medical Stated complaint: PCP SENT CONCERNS POSS GI BLEED Time Seen by Provider: 08/12/21 16:21 History of Present Illness: HPI narrative: 61-year-old female with a history of diabetes, recent back and shoulder surgery, fibromyalgia, bladder cancer in remission who presents the emergency room with complaints of generalized ache and upper abdominal pain x3 to 4 days. Patient says that she chronically has pain everywhere but over the last 3 to 4 days has had worsening of symptoms. Patient reports upper abdominal pain. Patient also reports occasional pelvic pain. Currently denies it. Patient denies any urinary symptoms, nausea/vomiting, fever/chills, decreased p.o. intake. Patient says that her medication at home has not been helping her with this pain. Patient follows with Dr. Espinoza as well as her primary care provider. Onset: 3 days ago Duration:3 days Location:home Severity: moderate Review of Systems Narrative: Constitutional: No fever, no chills. HEENT: No vision changes CV: No chest pain, no palpitations PULM: no cough, no dyspnea. GI: No abdominal pain, no N/V/D. : No dysuria MSKEL: No muscle pain SKIN: No new rashes, no lesions. NEURO: No headache, no focal weakness. +pain all over/+generalized weakness HEME: No visible bruises PSYCH: Normal mood PFSH ED PFSH: Medical History Depression Diabetes SVT (supraventricular tachycardia) Surgical History H/O total hysterectomy Hx of cholecystectomy Family History Father Diabetes Other Hypertension Social History Smoking and tobacco status: never smoked Physical Exam Narrative: EXAM NARRATIVE: Head: Atraumatic Eyes: PERRL, conjunctiva without injection ENT: Mucous membrane moist NECK: Supple, ROM intact LUNGS: LCTAB, no crackles/rhonchi CV: RRR ABDOMEN: Soft, + mild palpation to the upper abdomen, no guarding or rebound tenderness, no CVA tenderness, no suprapubic tenderness, no Ramirez sign, no McBurney's point tenderness EXTREMITY: Normal ROM SKIN: No rash or erythema NEURO: Awake and alert, no focal motor deficits PSYCH: Normal mood and affect Course Vital Signs: Vital signs: Vital Signs Temperature 98.5 F 08/12/21 12:50 Pulse Rate 84 08/12/21 20:09 Respiratory Rate 16 08/12/21 20:09 Blood Pressure 154/87 08/12/21 20:09 Pulse Oximetry 95 08/12/21 20:09 MDM - General Adult MDM Narrative: Medical decision making narrative: 61-year-old female with a history of shoulder and back surgery, fibromyalgia, prior bladder cancer who presents the emergency room for evaluation of generalized weakness and upper abdominal pain. Patient has no other GI symptoms at this time. On exam, patient has mild tenderness palpation in the upper abdomen. Rest of physical exam within normal limit Patient has a white count of 5.9 today. Abdominal labs within normal limit. CT did not show any signs of acute findings. Troponin x1 within normal limit. EKG is nonischemic this time. Patient received Toradol and morphine with significant improvement in pain. At this present time, I do not suspect any emergent intra-abdominal pathology. I doubt that this is ACS/unstable angina as patient has had symptoms for 3 days and has not had any troponin elevation or EKG changes. Patient is given strict follow-up with PCP today. Given unresolved pain, have given patient follow-up with rheumatology further evaluation at this time. I have given patient follow up with our pillowcase turner to be seen by our outpatient Rheumatology provider for further evaluation of pain. Patient aware of a call from our pillowcase turner to schedule for appointment(s) and verbalizes understanding of the importance of following up. Disposition: Discharge. Patient counseled regarding diagnostic impression, treatment plan. Patient given ED strict return precautions to return for continuation, worsening, or development of new symptoms. Instructed to f/u w/ PCP and Rheumatology regarding symptoms today. Patient verbalized understanding. Lab Data: Labs: Lab Results 08/12/21 08/12/21 08/12/21 16:48 17:20 17:20 WBC 5.9 10^3/uL 10^3/ uL (4.0-10.0) RBC 5.09 10^6/uL 10^6 /uL (4.1-5.3) Hgb 11.3 g/dL L g/dL (11.5-15.3) Hct 38.6 % % (37.0-47.0) MCV 75.8 fl L fl (81-99) MCH 22.2 pg L pg (28.0-34.0) MCHC 29.3 g/dL L g/dL (30.0-36.0) RDW 14.4 % % (12.1-15.1) Plt Count 204 10^3/cmm 10^3 /cmm (130-400) MPV 10.0 fL fL (7.4-10.4) Neut % (Auto) 63.7 % % Lymph % (Auto) 25.5 % % Bradley % (Auto) 8.8 % % Eos % (Auto) 1.2 % % Baso % (Auto) 0.5 % % Neut # (Auto) 3.75 10^3/uL 10^3 /uL (1.8-7.7) Lymph # (Auto) 1.5 10^3/uL 10^3/ uL (0.8-4.8) [place] # (Auto) 0.5 10^3/uL 10^3/ uL (0.2-0.9) Eos # (Auto) 0.1 10^3/uL 10^3/ uL (0.0-0.8) Baso # (Auto) 0.0 10^3/uL 10^3/ uL (0.0-0.1) Nucleated RBC % (a uto) 0 % % Nucleated RBCs # 0.0 /100WBC /100W BC Sodium 139 mmol/L mmol/L (136-145) Potassium 4.1 mmol/L mmol/L (3.5-5.1) Chloride 102 mmol/L mmol/L (98-107) Carbon Dioxide 25 mmol/L mmol/L (22-29) Anion Gap 16.1 (5-19) BUN 12 mg/dL mg/dL (8-23) Creatinine 0.6 mg/dL mg/dL (0.5-0.9) GFR Calculation 101.0 mL/min mL/m in (90-130) Glucose 130 mg/dL H mg/dL (65-115) Calculated Osmolal ity 290 mOsm/kg mOsm/ kg (285-295) Calcium 9.3 mg/dL mg/dL (8.5-10.5) Total Bilirubin 0.4 mg/dL mg/dL (0.15-1.2) AST 22 U/L U/L (0-32) ALT 11 U/L U/L (0-33) Alkaline Phosphata se 98 IU/L IU/L (35-105) Troponin T Gen 5 n g/L Total Protein 7.4 g/dL g/dL (6.6-8.7) Albumin 4.3 g/dL g/dL (3.5-5.2) Globulin 3.1 g/dL g/dL (1.3-4.6) Lipase Urine Color Yellow (Yellow) Urine Appearance Clear (CLEAR) Urine pH 7 (5-7) Ur Specific Gravit y 1.005 (1.005-1.030) Urine Protein Neg (Negative) Urine Glucose (UA) Norm (Normal) Urine Ketones Negative (Negative) Urine Blood Neg (Negative) Urine Nitrate Negative (Negative) Urine Bilirubin Neg (Negative) Urine Urobilinogen Norm mg/dL mg/dL (Negative) Ur Leukocyte Isabel ase Negative (Negative) 08/12/21 08/12/21 17:20 17:20 WBC RBC Hgb Hct MCV MCH MCHC RDW Plt Count MPV Neut % (Auto) Lymph % (Auto) [place] % (Auto) Eos % (Auto) Baso % (Auto) Neut # (Auto) Lymph # (Auto) Bradley # (Auto) Eos # (Auto) Baso # (Auto) Nucleated RBC % (a uto) Nucleated RBCs # Sodium Potassium Chloride Carbon Dioxide Anion Gap BUN Creatinine GFR Calculation Glucose Calculated Osmolal ity Calcium Total Bilirubin AST ALT Alkaline Phosphata se Troponin T Gen 5 n g/L 8 ng/L ng/L (0-10) Total Protein Albumin Globulin Lipase 63 U/L H U/L (13-60) Urine Color Urine Appearance Urine pH Ur Specific Gravit y Urine Protein Urine Glucose (UA) Urine Ketones Urine Blood Urine Nitrate Urine Bilirubin Urine Urobilinogen Ur Leukocyte Isabel ase Imaging Data^: Other Imaging: Radiologist's impression: [address] [id number] Scan ReportSigned Patient: Karoline Magaña #: [id number]: 8Acct#:[id number] x: 61 / FADM Date: 08/12/21Loc: ERRoom/Bed:Attending Dr: Ordering Provider/Ordering MD: Luis Hill MD Date of Service: 08/12/21 Procedure(s): CT abdomen pelvis w con* [id number] Accession Number(s): [id number] Report Number: [id number] PROCEDURE INFORMATION: Exam: CT Abdomen And Pelvis With Contrast Exam date and time: 08/12/2021 5:05 PM Age: 61 years old Clinical indication: Nausea and vomiting; Abdominal pain; Generalized; Prior surgery; Surgery type: Back, gb, hyst, bladder; Additional info: Generalized pain TECHNIQUE: Imaging protocol: Computed tomography of the abdomen and pelvis with contrast. Total images: 258 Radiation optimization: All CT scans at this facility use at least one of these dose optimization techniques: automated exposure control; mA and/or kV adjustment per patient size (includes targeted exams where dose is matched to clinical indication); or iterative reconstruction. Contrast material: OMNI 300; Contrast volume: 95 ml; Contrast route: INTRAVENOUS (IV); COMPARISON: 1. CT kidney stone [id number] 07/30/2021 9:[address] abdomen pelvis w con* [id number] 07/17/2021 5:34:28 PM RADIATION DOSE METRICS: Total DLP (mGy-cm): 1619.04 FINDINGS: Lungs: Limited assessment of the lung bases fails to reveal evidence for active cardiopulmonary process. Liver: Hepatomegaly. Findings suggest the presence of mild cirrhosis of the liver. No visible hepatic mass or cystic structure. Gallbladder and bile ducts: Status post cholecystectomy. Pancreas: Pancreas is unremarkable. No visible pancreatic ductal ectasia. Spleen: Splenomegaly. Adrenal glands: Adrenal glands unremarkable. Kidneys and ureters: No hydronephrosis or perinephric fluid. No visible nephrolithiasis or visible ureterolithiasis. Stable simple cortical cyst superior pole right kidney. No follow-up recommended. Stomach and bowel: Nonobstructive bowel pattern. No visible adynamic or reactive ileus. Very heavy fecal residue consistent with constipation/obstipation. No evidence of significant diverticulosis coli or diverticulitis. Appendix: The appendix is visualized and appears noninflamed. Intraperitoneal space: No visible pneumoperitoneum or intraperitoneal ascites. Retroperitoneal space: Subtle haziness surrounding the celiac artery. Potential mild retroperitoneal fibrosis. This finding remains stable. Vasculature: Portal vein patent. The abdominal aorta is nonaneurysmal. Mild arteriosclerosis. Lymph nodes: No current visible evidence of active mesenteric or retroperitoneal lymphadenopathy. Urinary bladder: Urinary bladder unremarkable. Reproductive: Status post hysterectomy. Bones/joints: No visible active or acute osseous pathology. Status post inter pedicle screw and side bar fixation with fusion L2, L3, L4, and L5. Soft tissues: Unremarkable. Other findings: Obesity. CT/CT abdomen pelvis w con* [id number] IMPRESSION: 1. Currently no visible evidence for acute abdominal or pelvic pathologic process. 2. Marked constipation/obstipation. 3. Hepatosplenomegaly. 4. Findings of mild cirrhosis of the liver. 5. Other nonurgent, nonemergent, chronic, postoperative, and age related findings as detailed in text above. Radiation Dose CTDIVOL = (mGy): DLP = 1619.04 (mGy-cm) Dictated By:Natalia Mckeon By:Natalia Mckeon Date/Time:08/12/211818DD/ 04 Discharge Plan Discharge Patient Disposition: Home Clinical Impression: Abdominal pain Condition: Stable Prescriptions: New Pepcid 20 mg tablet 20 mg PO BID PRN (Reason: abdominal pain) 10 Days Qty: 20 RF: 0 Maalox Advanced 1,000-60 mg tablet,chewable 1 tab PO TID PRN (Reason: abdominal pain) 10 Days Qty: 30 RF: 0 No Action metoprolol tartrate 50 mg tablet 50 mg PO BID RF: 0 metformin 500 mg tablet extended release 24 hr 500 mg PO DAILY RF: 0 pantoprazole 40 mg tablet,delayed release (DR/EC) 40 mg PO DAILY RF: 0 fluoxetine 20 mg capsule 20 mg PO DAILY RF: 0 zonisamide 100 mg capsule 200 mg PO DAILY RF: 0 clonazepam 0.5 mg tablet 0.25 mg PO TID PRN (Reason: Anxiety) RF: 0 trazodone 150 mg tablet 150 mg PO BEDTIME RF: 0 sumatriptan succinate [Imitrex] 100 mg tablet 100 mg PO Q2H PRN (Reason: Migraine Headache) RF: 0 Lantus U-100 Insulin 100 unit/mL Solution 8 unit SUBCUT BEDTIME RF: 0 acyclovir 400 mg tablet 400 mg PO BID RF: 0 oxycodone-acetaminophen 10-325 mg tablet 1 tab PO Q4H PRN (Reason: Pain) RF: 0 gabapentin 300 mg Capsule 300 mg PO TID RF: 0 Augmentin 875-125 mg tablet 1 tab PO BID Qty: 20 RF: 0 oxycodone 5 mg tablet 5 mg PO Q4H PRN (Reason: pain) Qty: 10 RF: 0 Discharge Orders: Discharge ED (Routine); Ordered 08/12/21 Ordered By: Luis Hill Referrals: Joseph Baker MD [Primary Care Provider] - Discharge Diet: Advance as tolerated Discharge Activity: Resume usual activity Patient Instructions: Abdominal Pain (ED) Coding Level of Care Code 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
[2021-08-12] MEDS: iohexol 300 mg/mL 100 mL Btl IV (17:28)
[2021-08-12 17:37] LABS: Basophils % 0.5 %; Eosinophils # 0.1 10^3/uL (0.0-0.8); Eosinophils % 1.2 %; Hematocrit 38.6 % (37.0-47.0); Hemoglobin 11.3 g/dL (11.5-15.3); Lymphocytes # 1.5 10^3/uL (0.8-4.8); Lymphocytes % 25.5 %; Mean Corpuscular HGB Conc 29.3 g/dL (30.0-36.0); Mean Corpuscular Hemoglobin 22.2 pg (28.0-34.0); Mean Corpuscular Volume 75.8 fl (81-99); Monocytes # 0.5 10^3/uL (0.2-0.9); Monocytes % 8.8 %; Neutrophils # 3.75 10^3/uL (1.8-7.7); Neutrophils % 63.7 %; Nucleated Red Blood Cells % 0 %; Platelet Count 204 10^3/cmm (130-400); Red Blood Count 5.09 10^6/uL (4.1-5.3); Red Cell Distribution Width 14.4 % (12.1-15.1); White Blood Count 5.9 10^3/uL (4.0-10.0)
[2021-08-12 18:03] LABS: Alanine Aminotransferase 11 U/L (0-33); Albumin Level 4.3 g/dL (3.5-5.2); Alkaline Phosphatase 98 IU/L (35-105); Anion Gap 16.1 (5-19); Aspartate Amino Transferase 22 U/L (0-32); Blood Urea Nitrogen 12 mg/dL (8-23); Calcium 9.3 mg/dL (8.5-10.5); Carbon Dioxide 25 mmol/L (22-29); Chloride 102 mmol/L (98-107); Globulin 3.1 g/dL (1.3-4.6); Glucose 130 mg/dL (65-115); Osmolality Calculated 290 mOsm/kg (285-295); Potassium 4.1 mmol/L (3.5-5.1); Sodium 139 mmol/L (136-145); Total Bilirubin 0.4 mg/dL (0.15-1.2); Total Protein 7.4 g/dL (6.6-8.7)
[2021-08-12 18:04] LABS: Lipase 63 U/L (13-60)
[2021-08-12] MEDS: ketorolac 30 mg/mL INJ IVP (18:20)
[2021-08-12 18:25] VITALS: RESP 18
[2021-08-12] MEDS: morphine 4 mg/mL SDV 1 mL IV (18:25)
--- NOTE | 2021-08-12 18:47 | ECG_ITS ---
[facility] Test Date: 2021-08-12 Pat Name: Lisa Magaña Department: Room: Gender: Female Hearing Care Practitioner: : 1960 Requested By: Luis Hill Order Number: [id number] Sary MD: Aida Trejo M.D. Measurements Intervals [place] Rate: 82 P: 264 MI: 145 QRS: -15 QRSD: 82 T: 25 QT: 371 QTc: 433 Interpretive Statements SINUS RHYTHM WITH OCCASIONAL VENTRICULAR PREMATURE COMPLEXES WITH FREQUENT SUPRAVENTRICULAR PREMATURE COMPLEXES NONSPECIFIC T-WAVE ABNORMALITY ABNORMAL RHYTHM ECG Compared to ECG 07/17/2021 18:33:01 Ventricular premature complex(es) now present T-wave abnormality still present Electronically Signed On 08-12-2021 23:57:44 CDT by Aida Trejo M.D. [email or web address] Softwaretwin city [id number] f
[2021-08-12 19:15] VITALS: BP 157/89; PULSE 80; RESP 16; O2SAT 95
[2021-08-12 19:51] LABS: Troponin T (5th) Once 8 ng/L (0-10)
[2021-08-12 20:09] VITALS: BP 154/87; PULSE 84; RESP 16; O2SAT 95
--- NOTE | 2021-08-13 12:52 | DCPLANNER ---
mine safety manager had message to schedule a follow up appointment for patient with rheumatology. mine safety manager called the rheumatology clinic. mine safety manager gave clinic patients information. mine safety manager was told that patients information would be printed and reviewed. Clinic will call patient with appointment information.
== END 2021-08-12 20:11 | disposition home or self-care (01) ==
PROVIDERS: Physician Assistant; Emergency Provider Emergency Medicine; PCP Family Medicine
DX: R10.10 Upper abdominal pain, unspecified (principal); R53.1 Weakness
CPT/HCPCS: 74177; 80053; 81003; 83690; 84484; 85025; 93005; 96374; 96375; 99284; J1885; J2270; Q9967

== ENCOUNTER 2021-08-30 18:23 | Emergency (ER) | payer MEDICARE, OTHER, SELFPAY ==
[2021-08-30 19:39] VITALS: BP 141/92; PULSE 80; RESP 18; TEMP 36.8; O2SAT 97; BMI 33.4
[2021-08-30 21:15] VITALS: BP 124/91; PULSE 75; RESP 18; O2SAT 95
[2021-08-30 22:08] LABS: Basophils % 0.1 %; Eosinophils % 0.1 %; Hematocrit 43.9 % (37.0-47.0); Hemoglobin 13.6 g/dL (11.5-15.3); Lymphocytes # 1.2 10^3/uL (0.8-4.8); Lymphocytes % 11.3 %; Mean Corpuscular Volume 74.3 fl (81-99); Mean Platelet Volume 10.1 fL (7.4-10.4); Monocytes # 1.2 10^3/uL (0.2-0.9); Neutrophils # 8.26 10^3/uL (1.8-7.7); Neutrophils % 77.2 %; Nucleated Red Blood Cells % 0 %; Platelet Count 196 10^3/cmm (130-400); Red Blood Count 5.91 10^6/uL (4.1-5.3); White Blood Count 10.7 10^3/uL (4.0-10.0)
[2021-08-30 22:29] LABS: Alanine Aminotransferase 22 U/L (0-33); Alkaline Phosphatase 69 IU/L (35-105); Anion Gap 19.8 (5-19); Aspartate Amino Transferase 21 U/L (0-32); Blood Urea Nitrogen 20 mg/dL (8-23); Calcium 9.1 mg/dL (8.5-10.5); Carbon Dioxide 18 mmol/L (22-29); Chloride 99 mmol/L (98-107); Globulin 3.2 g/dL (1.3-4.6); Glomerular Filtration Rate 72.4 mL/min (90-130); Glucose 182 mg/dL (65-115); Lipase 55 U/L (13-60); Osmolality Calculated 283 mOsm/kg (285-295); Potassium 3.8 mmol/L (3.5-5.1); Sodium 133 mmol/L (136-145); Total Bilirubin 0.5 mg/dL (0.15-1.2); Total Protein 7.2 g/dL (6.6-8.7)
--- NOTE | 2021-08-30 23:57 | W.ED.ABDPA2 ---
HPI - Abdominal Pain General: Chief Complaint: Abdominal Pain Stated Complaint: pain in bowels Time Seen by Provider: 08/30/21 23:57 History of Present Illness: HPI narrative: 61-year-old female comes in today with complaints of abdominal discomfort. Patient reports that she has had increased abdominal pain over the last month. Patient is awaiting a colonoscopy. Review of the record notes the patient's had 3 CT scans of the abdomen pelvis and the most is showing some colitis along with constipation. Patient appears mildly unwell but not toxic. Patient appears in mild to moderate pain. Review of Systems General: Reports: 10 or more systems reviewed and unremarkable except in HPI and below GI: Reports: abdominal pain PFSH ED PFSH: Medical History Depression Diabetes SVT (supraventricular tachycardia) Surgical History H/O total hysterectomy Hx of cholecystectomy Family History Father Diabetes Other Hypertension Social History Smoking and tobacco status: never smoked Physical Exam Const: COMMON NORMALS: no acute distress and patient oriented x3 GENERAL APPEARANCE: cooperative HENMT: COMMON NORMALS: normocephalic and Normal external nose present HEAD & SCALP: normal to inspection and normocephalic NOSE: Normal external nose present MOUTH: Normal oral and palatal mucosa present Eye: GENERAL EYE: appearance normal, both eyes and all related structures Neck/C-Spine: COMMON NORMALS: full ROM Lymph: LYMPHATIC: no lymphadenopathy noted Chest: COMMONS NORMALS: normal inspection of the chest Resp: COMMON NORMALS: normal respiratory effort EFFORT & INSPECTION: Yes able to speak in complete sentences Cardio: COMMON NORMALS: regular rate and regular rhythm RATE: regular rate RHYTHM: regular rhythm GI: COMMON NORMALS: Soft to palpation AUSCULTATION: Yes normoactive bowel sounds PALPATION: Yes Soft to palpation and Yes Tenderness to palpation present (GI) (Generalized, no guarding no rebound.) : COMMON NORMALS: Yes no CVA tenderness BLADDER/KIDNEY EXAM: Yes no CVA tenderness Back/Pelvis: COMMON NORMALS: no CVA tenderness and thoracic and lumbar spine normal to inspection Extremity: COMMON NORMALS: normal to inspection Neuro: COMMON NORMALS: patient oriented x3 and moves all extremities Psych: COMMON NORMALS: mental status grossly normal and cooperative Skin: COMMON NORMALS: no rashes or lesions noted GENERAL SKIN EXAM: no rashes or lesions noted Course Vital Signs: Vital signs: Vital Signs Temperature 98.2 F 08/30/21 19:39 Pulse Rate 72 08/31/21 01:00 Respiratory Rate 22 H 08/31/21 01:00 Blood Pressure 112/69 08/31/21 01:00 Pulse Oximetry 96 08/31/21 01:00 MDM - Abdominal Pain MDM Narrative: Medical decision making narrative: 61-year-old female comes in today with complaints of abdominal pain. Patient reports constipation. On exam abdomen soft with normal active bowel sounds. Skin is warm and dry. Vital signs are normal. Differential diagnosis includes but not limited to diverticulitis, colitis, constipation. Laboratory values were unremarkable. CT of the abdomen pelvis showed no acute abnormality. Urinalysis was clear. Patient was given 1 L of IV fluid and morphine for pain control. Patient had improvement in pain with morphine. There is no sign of significant abnormality or any sign for other concerns. Patient is very frustrated with the time he is taking for her to be set up for her colonoscopy and gastroenterology follow-up. I tried to reassure patient that there is nothing that indicates any acute illness at this time. I will place a case management request for assistance with colonoscopy follow-up with Dr. Chin as Dr. Baker has been trying to get. Maybe they can move her colonoscopy up for her. Patient was agreeable to this. I also recommended patient start using MiraLAX twice a day to help with her constipation. Lab Data: Labs: Lab Results 08/30/21 08/30/21 08/30/21 21:45 21:45 22:45 WBC 10.7 10^3/uL H 10 ^3/uL (4.0-10.0) RBC 5.91 10^6/uL H 10 ^6/uL (4.1-5.3) Hgb 13.6 g/dL g/dL (11.5-15.3) Hct 43.9 % % (37.0-47.0) MCV 74.3 fl L fl (81-99) MCH 23.0 pg L pg (28.0-34.0) MCHC 31.0 g/dL g/dL (30.0-36.0) RDW 18.0 % H % (12.1-15.1) Plt Count 196 10^3/cmm 10^3 /cmm (130-400) MPV 10.1 fL fL (7.4-10.4) Neut % (Auto) 77.2 % % Lymph % (Auto) 11.3 % % [place] % (Auto) 11.0 % % Eos % (Auto) 0.1 % % Baso % (Auto) 0.1 % % Neut # (Auto) 8.26 10^3/uL H 10 ^3/uL (1.8-7.7) Lymph # (Auto) 1.2 10^3/uL 10^3/ uL (0.8-4.8) [place] # (Auto) 1.2 10^3/uL H 10^ 3/uL (0.2-0.9) Eos # (Auto) 0.0 10^3/uL 10^3/ uL (0.0-0.8) Baso # (Auto) 0.0 10^3/uL 10^3/ uL (0.0-0.1) Nucleated RBC % (a uto) 0 % % Nucleated RBCs # 0.0 /100WBC /100W BC Sodium 133 mmol/L L mmol /L (136-145) Potassium 3.8 mmol/L mmol/L (3.5-5.1) Chloride 99 mmol/L mmol/L (98-107) Carbon Dioxide 18 mmol/L L mmol/ L (22-29) Anion Gap 19.8 H (5-19) BUN 20 mg/dL mg/dL (8-23) Creatinine 0.8 mg/dL mg/dL (0.5-0.9) GFR Calculation 72.4 mL/min L mL/ min (90-130) Glucose 182 mg/dL H mg/dL (65-115) Calculated Osmolal ity 283 mOsm/kg L mOs m/kg (285-295) Calcium 9.1 mg/dL mg/dL (8.5-10.5) Total Bilirubin 0.5 mg/dL mg/dL (0.15-1.2) AST 21 U/L U/L (0-32) ALT 22 U/L U/L (0-33) Alkaline Phosphata se 69 IU/L IU/L (35-105) Total Protein 7.2 g/dL g/dL (6.6-8.7) Albumin 4.0 g/dL g/dL (3.5-5.2) Globulin 3.2 g/dL g/dL (1.3-4.6) Lipase 55 U/L U/L (13-60) Urine Color Yellow (Yellow) Urine Appearance Clear (CLEAR) Urine pH 6.5 (5-7) Ur Specific Gravit y 1.010 (1.005-1.030) Urine Protein Neg (Negative) Urine Glucose (UA) Norm (Normal) Urine Ketones Negative (Negative) Urine Blood Neg (Negative) Urine Nitrate Negative (Negative) Urine Bilirubin Neg (Negative) Urine Urobilinogen Norm mg/dL mg/dL (Negative) Ur Leukocyte Isabel ase Negative (Negative) Discharge Plan Discharge Patient Disposition: Home Clinical Impression: Abdominal pain Qualifiers: Abdominal location: generalized Qualified Code(s): R10.84 - Generalized abdominal pain Constipation Qualifiers: Constipation type: unspecified constipation type Qualified Code(s): K59.00 - Constipation, unspecified Condition: Stable Prescriptions: New Miralax 17 gram powder in packet 17 g PO BID Qty: 60 RF: 0 No Action metoprolol tartrate 50 mg tablet 50 mg PO BID RF: 0 metformin 500 mg tablet extended release 24 hr 500 mg PO DAILY RF: 0 pantoprazole 40 mg tablet,delayed release (DR/EC) 40 mg PO DAILY RF: 0 fluoxetine 20 mg capsule 20 mg PO DAILY RF: 0 zonisamide 100 mg capsule 200 mg PO DAILY RF: 0 clonazepam 0.5 mg tablet 0.25 mg PO TID PRN (Reason: Anxiety) RF: 0 trazodone 150 mg tablet 150 mg PO BEDTIME RF: 0 sumatriptan succinate [Imitrex] 100 mg tablet 100 mg PO Q2H PRN (Reason: Migraine Headache) RF: 0 Lantus U-100 Insulin 100 unit/mL Solution 8 unit SUBCUT BEDTIME RF: 0 acyclovir 400 mg tablet 400 mg PO BID RF: 0 oxycodone-acetaminophen 10-325 mg tablet 1 tab PO Q4H PRN (Reason: Pain) RF: 0 gabapentin 300 mg Capsule 300 mg PO TID RF: 0 Augmentin 875-125 mg tablet 1 tab PO BID Qty: 20 RF: 0 oxycodone 5 mg tablet 5 mg PO Q4H PRN (Reason: pain) Qty: 10 RF: 0 Discharge Orders: Discharge ED (Routine); Ordered 08/31/21 Ordered By: David Spain Referrals: Joseph Baker MD [Primary Care Provider] - Discharge Diet: Usual diet Discharge Activity: Increase activity as tolerated Patient Instructions: Abdominal Pain (ED), Opioid Safety Activity Restrictions/Additional Instructions: home and rest, drink plenty of fluids. Follow-up with Dr. Baker office in morning. Return to ER for high fever or new concerns Coding Level of Care Code ED Graduate Internship for Chg Fwd Exam Comprehensive
--- NOTE | 2021-08-30 23:59 | CTR_ITS ---
PROCEDURE INFORMATION: Exam: CT Abdomen And Pelvis With Contrast Exam date and time: 08/30/2021 11:59 PM Age: 61 years old Clinical indication: Abdominal pain; Localized; Lower; Prior surgery; Surgery date: 6+ months; Surgery type: Gb, back, hyst; Additional info: Abd pain, R/O abscess or infection TECHNIQUE: Imaging protocol: Computed tomography of the abdomen and pelvis with contrast. Radiation optimization: All CT scans at this facility use at least one of these dose optimization techniques: automated exposure control; mA and/or kV adjustment per patient size (includes targeted exams where dose is matched to clinical indication); or iterative reconstruction. Contrast material: OMNI 300; Contrast volume: 95 ml; Contrast route: INTRAVENOUS (IV); COMPARISON: CT abdomen pelvis w con* [id number] 08/12/2021 5:24 PM RADIATION DOSE METRICS: Total DLP (mGy-cm): 1851.57 FINDINGS: Liver: Mild diffuse nodularity of the liver capsular surface. No focal liver mass. Gallbladder and bile ducts: Cholecystectomy. Nondilated biliary system. Pancreas: Small pancreatic cystic lesion in the distal body on axial series 2, image 33 measures 1.3 cm x 1.1 cm. Spleen: Normal. No splenomegaly. Adrenal glands: Normal. No mass. Kidneys and ureters: Simple right kidney upper pole cortical cyst measures 2.8 cm x 2.5 cm. Negative for hydronephrosis. No renal stones. Stomach and bowel: Unremarkable. No obstruction. No mucosal thickening. Appendix: No evidence of appendicitis. Intraperitoneal space: Unremarkable. No free air. No significant fluid collection. Vasculature: Unremarkable. No abdominal aortic aneurysm. Lymph nodes: Unremarkable. No enlarged lymph nodes. Urinary bladder: Unremarkable as visualized. Reproductive: Hysterectomy. Hysterectomy. Bones/joints: L2 through L5 posterior lumbar spine fusion without complication. Soft tissues: Unremarkable. CT/CT abdomen pelvis w con* [id number] IMPRESSION: Negative for acute abdominopelvic pathology. COMMENTS: Consistent with the [employer] [employer]'s Incidental Findings Committee white paper (J Am Eda Radiol 2018): Any incidental renal lesion less than 1 cm or classified as too small to characterize, or any incidental cystic renal lesion characterized as simple-appearing, is likely benign. No follow-up imaging is recommended for these lesions per consensus recommendations based on imaging criteria. Radiation Dose CTDIVOL = (mGy): DLP = 1851.57 (mGy-cm)
[2021-08-31] MEDS: morphine 4 mg/mL SDV 1 mL IVP ×2 (00:45→02:11)
[2021-08-31] MEDS: sodium chloride 0.9% 1,000 ML 999 ML IV (00:45)
[2021-08-31] MEDS: iohexol 300 mg/mL 100 mL Btl IV (00:46)
[2021-08-31 01:00] VITALS: BP 112/69; PULSE 72; RESP 22; O2SAT 96
[2021-08-31 01:07] LABS: Add Urine Microscopic? NO; Charge for UA Resulting for Rev
[2021-08-31 01:24] LABS: Bilirubin Urine Neg (Negative); Blood Urine Neg (Negative); Glucose Urine UA Norm (Normal); Ketones Urine Negative (Negative); Leukocyte Esterase Urine Negative (Negative); Nitrate Urine Negative (Negative); Protein Urine Neg (Negative); Urine Appearance Clear (CLEAR); Urine Color Yellow (Yellow); Urobilinogen Urine Norm (Negative); pH Urine 6.5 (5-7)
[2021-08-31 02:11] VITALS: RESP 18; O2SAT 99
[2021-08-31 02:12] VITALS: BP 145/101; PULSE 75; RESP 18; O2SAT 97
--- NOTE | 2021-08-31 12:27 | DCPLANNER ---
quality assurance test program manager had message to schedule a follow up appointment for patient with [facility] General Surgery. quality assurance test program manager emailed patients information to both Dary and Dolores at [facility] General Surgery / ENT clinic. Patients information will be printed and reviewed. Clinic will call patient with appointment information.
--- NOTE | 2021-09-01 14:16 | DCPLANNER ---
Addendum entered by Elena Arana 11/06/21 12:17: Patient had a follow up appointment scheduled with general surgery - patient did attend appointment. Original Note: Patient has a follow up appointment scheduled for Monday, September 06, 2021 at 9:[address] Sharp at [facility] General Surgery. Clinic will call patient with appointment information.
== END 2021-08-31 02:18 | disposition home or self-care (01) ==
PROVIDERS: Emergency Medicine; Emergency Provider Nurse Practitioner Family; PCP Family Medicine
DX: R10.84 Generalized abdominal pain (principal); K59.00 Constipation, unspecified; Z79.84 Long term (current) use of oral hypoglycemic drugs; Z79.4 Long term (current) use of insulin; E11.9 Type 2 diabetes mellitus without complications
CPT/HCPCS: 74177; 80053; 81003; 83690; 85025; 96361; 96374; 96376; 99284; J2270; J7030; Q9967

== ENCOUNTER → 2021-09-13 16:04 | Outpatient (BNVA) | payer MEDICARE, OTHER, SELFPAY | PROVIDERS: PCP Family Medicine; Visit Provider Surgery | DX: Z01.812 Encounter for preprocedural laboratory examination (principal); Z20.822 Contact with and (suspected) exposure to COVID-19 | CPT/HCPCS: 87635 ==

== ENCOUNTER 2021-09-15 09:35 | Day surgery (SDC) | payer MEDICARE, OTHER, SELFPAY ==
[2021-09-13 15:29] VITALS: BMI 33.4
--- NOTE | 2021-09-15 09:44 | W.PM.OPSUD ---
Surgery/Procedure H&P Update DATE OF PROCEDURE: September 15, 2021 DATE H&P PERFORMED: 09/06/21 H&P UPDATE INFORMATION: I have reviewed H&P completed within last 30 days, I have examined patient prior to procedure and No changes to prior documentation PREOP DIAGNOSIS: Change in bowel habits, anemia and abdominal pain PRIMARY INDICATION FOR PROCEDURE: The same PLANNED PROCEDURE: Operation Date: 09/15/21 11:00 Proposed Procedures p EGD [id number] k59.00 r10.84(Not Applicable) - Tommy Sharp MD s Colonoscopy(Not Applicable) - Tommy Sharp MD
--- NOTE | 2021-09-15 09:57 | P.ANESASSM_ITS ---
Pre-Anesthetic Assessment Pre-Anesthetic Assessment: Height/Weight: Height 1.73 m Weight 99.79 kg Preop Diagnosis: Change in bowel habits, anemia and abdominal pain Proposed Procedure: Operation Date: 09/15/21 11:00 Proposed Procedures p EGD [id number] k59.00 r10.84(Not Applicable) - Tommy Sharp MD s Colonoscopy(Not Applicable) - Tommy Sharp MD Was Beta Brook taken within 24 hours: Yes Was Clonidine taken within 24 hours: N/A Social: Social History: No alcohol and No tobacco Exam: Pre-Anes Outpt Exam: alert, oriented x 3, clear to auscultation bila terally and regular rate & rhythm Airway: Submandibular: WNL Cervical ROM: WNL MP: 2 Dentition: Chipped CV/HEM: CV/HEM: Anemia, Arrythmia (SVT) and HTN Metabolic: Metabolic: DM and Morbid obesity Neuropsych: Neuropsych: Anxiety and Depression Anesthetic Plan: ASA status: 3 Anesthesia: MAC Risk of > 500 ml blood loss (7ml/kg in children): No PFSH Anesthesia PFSH: Medical History Depression Diabetes SVT (supraventricular tachycardia) Surgical History H/O total hysterectomy Hx of cholecystectomy Family History Father Diabetes Other Hypertension Social History Smoking and tobacco status: never smoked Data Anesthesia Cardiac Studies: Holter Monitor 11/03/20
[2021-09-15 10:07] VITALS: BP 161/107; PULSE 97; RESP 18; TEMP 36.4; O2SAT 97
[2021-09-15] MEDS: sodium chloride 0.9% 1,000 ML 30 ML IV (10:13)
[2021-09-15 11:12] VITALS: BP 159/108; PULSE 111; RESP 16; TEMP 36.3; O2SAT 95
[2021-09-15 11:26] VITALS: BP 159/97; PULSE 101; RESP 15; O2SAT 97
--- NOTE | 2021-09-15 14:55 | ANE.PACU2 ---
Inpatient post-anesthesia follow up: Airway intact: Yes Vital signs: Temperature 97.3 F Pulse Rate 101 Respiratory Rate 15 Blood Pressure 159/97 Pulse Oximetry 97 Oxygen Delivery Me thod Room Air Oxygen Flow Rate Fraction of Inspir ed Oxygen Hydration adequate: Yes Nausea and vomiting: No Pain level: 1 Mental status: Baseline
[2021-09-16 12:54] LABS: H. Pylori / CLO Test Negative
== END 2021-09-15 12:20 | disposition home or self-care (01) ==
PROVIDERS: PCP Family Medicine; Visit Provider Surgery
PROC: 0DJ08ZZ Inspection of Upper Intestinal Tract, Via Natural or Artificial Opening Endoscopic (ICD-10-PCS; CPT 43235; principal; 2021-09-15 11:00)
PROC: 0DJD8ZZ Inspection of Lower Intestinal Tract, Via Natural or Artificial Opening Endoscopic (ICD-10-PCS; CPT 45378; 2021-09-15 11:00)
DX: K59.00 Constipation, unspecified (principal); R10.84 Generalized abdominal pain; K57.30 Diverticulosis of large intestine without perforation or abscess without bleeding; K21.00 Gastro-esophageal reflux disease with esophagitis, without bleeding; K29.70 Gastritis, unspecified, without bleeding; I10 Essential (primary) hypertension; E11.9 Type 2 diabetes mellitus without complications; E66.01 Morbid (severe) obesity due to excess calories; Z68.33 Body mass index [BMI] 33.0-33.9, adult; Z80.0 Family history of malignant neoplasm of digestive organs; Z79.4 Long term (current) use of insulin; Z79.84 Long term (current) use of oral hypoglycemic drugs; F32.9 Major depressive disorder, single episode, unspecified; Z82.49 Family history of ischemic heart disease and other diseases of the circulatory system; Z83.3 Family history of diabetes mellitus
CPT/HCPCS: 43239; 45378; 87077; 96360; 96361; J2405; J2704; J7030

== ENCOUNTER 2021-11-04 12:50 | Outpatient (CLI) | payer MEDICARE, OTHER, SELFPAY ==
[2021-11-04 13:35] VITALS: BP 118/87; PULSE 63; RESP 20; TEMP 36.5; O2SAT 96; BMI 32.5
[2021-11-04 14:06] VITALS: BP 95/65; PULSE 64; RESP 18; TEMP 36.5; O2SAT 93
[2021-11-04 14:59] VITALS: BP 95/70; PULSE 57; RESP 16; TEMP 36.5; O2SAT 93
== END 2021-11-04 12:51 | disposition home or self-care (01) ==
LOC: OPS 12:53
PROVIDERS: PCP Family Medicine; Visit Provider Family Medicine
DX: U07.1 COVID-19 (principal)
CPT/HCPCS: 96365

== ENCOUNTER 2021-12-01 18:00 | Outpatient (CLI) | payer MEDICARE, OTHER, SELFPAY ==
[2021-12-01 18:14] LABS: D Dimer 0.48 ug/mIFEU (0-0.59)
== END 2021-12-01 18:01 | disposition home or self-care (01) ==
PROVIDERS: PCP Family Medicine; Visit Provider Nurse Practitioner Family
DX: I49.9 Cardiac arrhythmia, unspecified (principal)
CPT/HCPCS: 85378

== ENCOUNTER 2022-06-07 18:13 | Emergency (ER) | payer MEDICARE, OTHER, SELFPAY ==
[2022-06-07 19:07] VITALS: PULSE 77; RESP 16; TEMP 36.4; O2SAT 93
[2022-06-07 20:42] VITALS: BP 120/76; PULSE 62; RESP 20; O2SAT 93
--- NOTE | 2022-06-07 20:48 | ECG_ITS ---
[facility] Test Date: 2022-06-07 Pat Name: Lisa Magaña Department: Room: Gender: Female [employer]: : 1960 Requested By: Candis Cates Order Number: [id number] Sary MD: Fili Donahue M.D. Measurements Intervals [place] Rate: 58 P: TX: QRS: 4 QRSD: 88 T: 52 QT: 435 QTc: 429 Interpretive Statements SINUS BRADYCARDIA NONSPECIFIC T-WAVE ABNORMALITY Compared to ECG 08/12/2021 18:56:50 Ventricular premature complex(es) no longer present T-wave abnormality still present Electronically Signed On 06-08-2022 0:16:42 CDT by Fili Donahue M.D. [id number]
--- NOTE | 2022-06-07 20:48 | XRR_ITS ---
PROCEDURE INFORMATION: Exam: XR Right Shoulder Exam date and time: 06/07/2022 8:58 PM Age: 62 years old Clinical indication: Injury or trauma; Fall; Blunt trauma (contusions or hematomas); Shoulder; Right TECHNIQUE: Imaging protocol: Radiologic exam of the Right shoulder. Views: 2 or more views. COMPARISON: MR shoulder RT wo con* [id number] 01/13/2021 4:30 PM FINDINGS: Bones/joints: Right shoulder hemiarthroplasty noted. Osseous structures are intact without fracture or dislocation. Soft tissues: Normal. XR/XR shoulder RT min 2V* [id number] IMPRESSION: No acute findings.
--- NOTE | 2022-06-07 20:48 | CTR_ITS ---
PROCEDURE INFORMATION: Exam: CT Head Without Contrast Exam date and time: 06/07/2022 9:15 PM Age: 62 years old Clinical indication: Injury or trauma; Fall; Blunt trauma (contusions or hematomas); Without loss of consciousness TECHNIQUE: Imaging protocol: Computed tomography of the head without contrast. Radiation optimization: All CT scans at this facility use at least one of these dose optimization techniques: automated exposure control; mA and/or kV adjustment per patient size (includes targeted exams where dose is matched to clinical indication); or iterative reconstruction. COMPARISON: MR cervical spin wo con* [id number] 03/21/2016 2:52 PM RADIATION DOSE METRICS: Total DLP (mGy-cm): 1111.67 FINDINGS: Brain: No hemorrhage. No edema. Mild diffuse cerebral atrophy. No significant white matter disease. No mass effect. Cerebral ventricles: No ventriculomegaly. Incidental note of intact cavum septum pellucidum and et vergae. Paranasal sinuses: Visualized sinuses are unremarkable. No fluid levels. Mastoid air cells: Visualized mastoid air cells are well aerated. Bones/joints: Unremarkable. No acute fracture. Soft tissues: Unremarkable. CT/CT head wo con* [id number] IMPRESSION: No acute intracranial abnormality.
--- NOTE | 2022-06-07 20:48 | CTR_ITS ---
PROCEDURE INFORMATION: Exam: CT Cervical Spine Without Contrast Exam date and time: 06/07/2022 9:21 PM Age: 62 years old Clinical indication: Injury or trauma; Blunt trauma; Patient HX: Patient sustained a fall yesterday. C/O neck pain. TECHNIQUE: Imaging protocol: Computed tomography of the cervical spine without contrast. Radiation optimization: All CT scans at this facility use at least one of these dose optimization techniques: automated exposure control; mA and/or kV adjustment per patient size (includes targeted exams where dose is matched to clinical indication); or iterative reconstruction. COMPARISON: MR cervical spin wo con* [id number] 03/21/2016 2:52 PM RADIATION DOSE METRICS: Total DLP (mGy-cm): 213.17 FINDINGS: Bones/joints: No acute fracture. Normal alignment. Discs/Spinal canal/Neural foramina: No significant disc protrusion. No severe spinal canal stenosis. No significant neural foraminal narrowing. Lungs: Lung apices are normal. Soft tissues: Unremarkable. CT/CT cervical spin wo con* [id number] IMPRESSION: No acute findings.
--- NOTE | 2022-06-07 20:48 | XRR_ITS ---
PROCEDURE INFORMATION: Exam: XR Left Knee Exam date and time: 06/07/2022 9:05 PM Age: 62 years old Clinical indication: Injury or trauma; Fall; Blunt trauma; Knee; Left TECHNIQUE: Imaging protocol: Radiologic exam of the Left knee. Views: 3 views. COMPARISON: CR XR knee LT 3V* [id number] 06/29/2020 11:45 AM FINDINGS: Bones/joints: Osseous structures are intact. Negative for fracture. Moderate DJD centered in the medial compartment. Soft tissues: Normal. XR/XR knee LT 3V* [id number] IMPRESSION: No acute findings.
--- NOTE | 2022-06-07 20:48 | CTR_ITS ---
PROCEDURE INFORMATION: Exam: CT Maxillofacial Without Contrast Exam date and time: 06/07/2022 9:17 PM Age: 62 years old Clinical indication: Injury or trauma; Fall; Blunt trauma (contusions or hematomas); Cheek bone and eyelid and forehead; Upper right TECHNIQUE: Imaging protocol: Computed tomography of the of the face without contrast. Radiation optimization: All CT scans at this facility use at least one of these dose optimization techniques: automated exposure control; mA and/or kV adjustment per patient size (includes targeted exams where dose is matched to clinical indication); or iterative reconstruction. COMPARISON: CT head wo con* [id number] 06/07/2022 9:15 PM RADIATION DOSE METRICS: Total DLP (mGy-cm): 560.88 FINDINGS: Orbital cavities: Orbits are normal. Globes are unremarkable. Bones/joints: No acute fracture. Paranasal sinuses: Normal. No air-fluid levels. Soft tissues: Right cheek laceration and hematoma noted. CT/CT facial bones wo con* [id number] IMPRESSION: No acute osseous abnormalities of the maxillofacial structures.
--- NOTE | 2022-06-07 20:56 | ED_ITS ---
HPI - Trauma General: Chief Complaint: Trauma Stated Complaint: fall sent by [facility] Time Seen by Provider: 06/07/22 20:41 Source: patient Mode of arrival: ambulatory Limitations: no limitations History of Present Illness: 62-year-old female states that she has been had anemia for quite some time and had presyncopal events for months. States that last night she had gotten up at midnight was walking felt lightheaded and fell. She states she did not syncopized but then she fell and landed into an iron dog gate. She did hit her head face has had neck pain large contusion right side of her face states she also has some right shoulder pain left knee pain. Denies any loss of consciousness rates her pain a 5 out of 10 been ambulatory since the event. Associated symptoms: Reports headache(s); Denies abdominal pain, chills, dental pain, fever(s), nausea or vomiting Review of Systems Const: Denies: fever(s), chills, body aches or change in appetite Eyes: Denies: blurry vision or eye discomfort ENMT: Denies: throat pain or dental pain Card: Reports: pre-syncope Resp: Denies: dyspnea GI: Denies: abdominal pain, nausea, vomiting or diarrhea : Denies: dysuria Musc: Reports: neck pain and extremity pain Skin/Breast: Denies: rash Neuro: Reports: headache(s) Psych: Denies: depression Hai/Lymph: Denies: easy bruising All/Imm: Denies: urticaria PFSH ED PFSH: Medical History Depression Diabetes SVT (supraventricular tachycardia) Surgical History H/O total hysterectomy Hx of cholecystectomy Family History Father Diabetes Other Hypertension Social History Smoking and tobacco status: never smoked Physical Exam Const: COMMON NORMALS: patient oriented x3 and healthy appearing HENMT: COMMON NORMALS: normocephalic; head/scalp not atraumatic (Contusion to right side of the head along with contusion right face) HEAD & SCALP: normocephalic; not atraumatic (Contusion to right side of the head along with contusion right face) Eye: COMMON NORMALS: Equal, round and reactive pupils present and EOMs intact bilaterally PUPIL: Yes Equal, round and reactive pupils present Neck/C-Spine: COMMON NORMALS: full ROM and supple Chest: COMMONS NORMALS: normal inspection of the chest and normal palpation of entire chest wall Resp: COMMON NORMALS: normal respiratory effort, No retractions, No use of accessory muscles and clear to auscultation bilaterally AUSCULTATION: clear to auscultation bilaterally Cardio: COMMON NORMALS: regular rate, regular rhythm and No murmurs present (Cardio) RATE: regular rate RHYTHM: regular rhythm GI: COMMON NORMALS: Normal to inspection, nondistended, normoactive bowel sounds present, Soft to palpation, non-tender and no masses PALPATION: Yes Soft to palpation Extremity: COMMON NORMALS: normal to inspection and full ROM Neuro: COMMON NORMALS: patient oriented x3, moves all extremities and no focal motor deficits Psych: COMMON NORMALS: mental status grossly normal, Normal thought process present and cooperative THOUGHT PROCESS: Normal thought process present Skin: COMMON NORMALS: no rashes or lesions noted and no wounds GENERAL SKIN EXAM: no rashes or lesions noted Course Vital Signs: Vital signs: Vital Signs Temperature 97.5 F L 06/07/22 19:07 Pulse Rate 66 06/07/22 22:50 Respiratory Rate 14 06/07/22 22:50 Blood Pressure 99/56 06/07/22 22:50 Pulse Oximetry 96 06/07/22 22:50 Oxygen Delivery Me thod 06/07/22 21:55 MDM - Trauma Medical Decision Making Patient presents here with closed head injury from a fall with a near syncopal event her blood work here is all normal her vitals been normal she is well- appearing here and stable for discharge she is to follow-up PCP and return if worsening. Lab Data : 06/07/22 22:00 06/07/22 22:00 Radiology Impressions Cervical Spine CT 06/07/22 20:48 IMPRESSION: No acute findings. Face CT 06/07/22 20:48 IMPRESSION: No acute osseous abnormalities of the maxillofacial structures. Head CT 06/07/22 20:48 IMPRESSION: No acute intracranial abnormality. Knee X-Ray 06/07/22 20:48 IMPRESSION: No acute findings. Shoulder X-Ray 06/07/22 20:48 IMPRESSION: No acute findings. Laboratory Results WBC 4.4 10^3/uL (4.0-10.0) 06/07/22 22:00 RBC 4.63 10^6/uL (4.1-5.3) 06/07/22 22:00 Hgb 14.0 g/dL (11.5-15.3) 06/07/22 22:00 Hct 42.2 % (37.0-47.0) 06/07/22 22:00 MCV 91.1 fl (81-99) 06/07/22 22:00 MCH 30.2 pg (28.0-34.0) 06/07/22 22:00 MCHC 33.2 g/dL (30.0-36.0) 06/07/22 22:00 RDW 13.2 % (12.1-15.1) 06/07/22 22:00 Plt Count 131 10^3/cmm (130-400) 06/07/22 22:00 MPV 10.2 fL (7.4-10.4) 06/07/22 22:00 Neut % (Auto) 49.7 % 06/07/22 22:00 Lymph % (Auto) 36.3 % 06/07/22 22:00 [place] % (Auto) 10.4 % 06/07/22 22:00 Eos % (Auto) 2.0 % 06/07/22 22:00 Baso % (Auto) 1.4 % 06/07/22 22:00 Neut # (Auto) 2.19 10^3/uL (1.8-7.7) 06/07/22 22:00 Lymph # (Auto) 1.6 10^3/uL (0.8-4.8) 06/07/22 22:00 [place] # (Auto) 0.5 10^3/uL (0.2-0.9) 06/07/22 22:00 Eos # (Auto) 0.1 10^3/uL (0.0-0.8) 06/07/22 22:00 Baso # (Auto) 0.1 10^3/uL (0.0-0.1) 06/07/22 22:00 Nucleated RBC % (auto) 0 % 06/07/22 22:00 Nucleated RBCs # 0.0 /100WBC 06/07/22 22:00 Sodium 140 mmol/L (136-145) 06/07/22 22:00 Potassium 3.9 mmol/L (3.5-5.1) 06/07/22 22:00 Chloride 102 mmol/L (98-107) 06/07/22 22:00 Carbon Dioxide 27 mmol/L (22-29) 06/07/22 22:00 Anion Gap 14.9 (5-19) 06/07/22 22:00 BUN 12 mg/dL (8-23) 06/07/22 22:00 Creatinine 0.6 mg/dL (0.5-0.9) 06/07/22 22:00 GFR Calculation 100.6 mL/min (90-130) 06/07/22 22:00 Glucose 114 mg/dL (65-115) 06/07/22 22:00 Calculated Osmolality 291 mOsm/kg (285-295) 06/07/22 22:00 Calcium 9.3 mg/dL (8.5-10.5) 06/07/22 22:00 Discharge Plan Discharge Patient Disposition: Home Clinical Impression: CHI (closed head injury), Contusion of face, Near syncope Condition: Stable Prescriptions: No Action metoprolol tartrate 50 mg tablet 50 mg PO BID metformin 500 mg tablet extended release 24 hr 500 mg PO DAILY pantoprazole 40 mg tablet,delayed release (DR/EC) 40 mg PO DAILY fluoxetine 20 mg capsule 20 mg PO DAILY zonisamide 100 mg capsule 200 mg PO DAILY clonazepam 0.5 mg tablet 0.25 mg PO TID PRN (Reason: Anxiety) trazodone 150 mg tablet 150 mg PO BEDTIME sumatriptan succinate [Imitrex] 100 mg tablet 100 mg PO Q2H PRN (Reason: Migraine Headache) Rx Instructions: do not exceed 2 doses per 24 hrs lactulose 10 gram/15 mL solution 15 ml PO BID 7 Days Qty: 210 3RF Lantus U-100 Insulin 100 unit/mL Solution 8 unit SUBCUT BEDTIME acyclovir 400 mg tablet 400 mg PO BID Discharge Orders: Discharge ED (Routine); Ordered 06/07/22 Ordered By: Candis Cates Referrals: Joseph Baker MD [Primary Care Provider] - 1-3 days Discharge Diet: Advance as tolerated Discharge Activity: Resume usual activity Patient Instructions: Head Injury (ED), Near Syncope (ED) Coding Level of Care Code ED Emergency Management System Director for [facility] Exam Comprehensive
[2022-06-07 21:55] VITALS: BP 106/65; PULSE 60; RESP 16; O2SAT 92
[2022-06-07 21:56] VITALS: RESP 16; O2SAT 96
[2022-06-07] MEDS: morphine 4 mg/mL SDV 1 mL IVP (21:56)
[2022-06-07] MEDS: ondansetron 2 mg/ML SDV 2 mL 4 MG IVP (21:56)
[2022-06-07 22:00] VITALS: BP 103/62; PULSE 59; RESP 15; O2SAT 91
[2022-06-07 22:06] LABS: Basophils # 0.1 10^3/uL (0.0-0.1); Basophils % 1.4 %; Eosinophils # 0.1 10^3/uL (0.0-0.8); Hematocrit 42.2 % (37.0-47.0); Lymphocytes # 1.6 10^3/uL (0.8-4.8); Lymphocytes % 36.3 %; Mean Corpuscular HGB Conc 33.2 g/dL (30.0-36.0); Mean Corpuscular Hemoglobin 30.2 pg (28.0-34.0); Mean Corpuscular Volume 91.1 fl (81-99); Mean Platelet Volume 10.2 fL (7.4-10.4); Monocytes # 0.5 10^3/uL (0.2-0.9); Monocytes % 10.4 %; Neutrophils # 2.19 10^3/uL (1.8-7.7); Neutrophils % 49.7 %; Nucleated Red Blood Cells % 0 %; Platelet Count 131 10^3/cmm (130-400); Red Blood Count 4.63 10^6/uL (4.1-5.3); Red Cell Distribution Width 13.2 % (12.1-15.1); White Blood Count 4.4 10^3/uL (4.0-10.0)
[2022-06-07 22:33] LABS: Anion Gap 14.9 (5-19); Blood Urea Nitrogen 12 mg/dL (8-23); Calcium 9.3 mg/dL (8.5-10.5); Carbon Dioxide 27 mmol/L (22-29); Chloride 102 mmol/L (98-107); Glomerular Filtration Rate 100.6 mL/min (90-130); Glucose 114 mg/dL (65-115); Osmolality Calculated 291 mOsm/kg (285-295); Potassium 3.9 mmol/L (3.5-5.1); Sodium 140 mmol/L (136-145)
[2022-06-07 22:50] VITALS: BP 99/56; PULSE 66; RESP 14; O2SAT 96
== END 2022-06-07 22:51 | disposition home or self-care (01) ==
PROVIDERS: Emergency Provider Emergency Medicine; PCP Family Medicine
DX: R55 Syncope and collapse (principal); S09.8XXA Other specified injuries of head, initial encounter; S00.83XA Contusion of other part of head, initial encounter; Z79.84 Long term (current) use of oral hypoglycemic drugs; Z79.4 Long term (current) use of insulin; E11.9 Type 2 diabetes mellitus without complications; W18.30XA Fall on same level, unspecified, initial encounter
CPT/HCPCS: 36415; 70450; 70486; 72125; 73030; 73562; 80048; 85025; 93005; 96374; 96375; 99285; J2270; J2405

== ENCOUNTER 2022-06-10 09:11 | Emergency (ER) | payer MEDICARE, OTHER, SELFPAY ==
[2022-06-10 09:46] VITALS: BP 123/73; PULSE 64; RESP 18; TEMP 36.8; O2SAT 95; BMI 31.3
--- NOTE | 2022-06-10 10:10 | ED_ITS ---
HPI - Dizziness General: Chief Complaint: Dizziness Stated Complaint: Pain on right side face, headaches Time Seen by Provider: 06/10/22 10:10 History of Present Illness: HPI Narrative: Ms. Magaña is a 62-year-old lady with significant past medical history of diabetes and recent ED visit on 06/07 for head trauma after fall presenting for concern over worsening generalized symptoms. She reports nausea, vomiting, dizziness, and headache. Additionally she has noticed intermittent spots in the vision of her right eye. She does endorse associated generalized malaise and abdominal pain which is exacerbated since the fall. Overall course of symptoms has worsened intensity is moderate to severe. No other specific changes in health, exacerbating, or alleviating factors identified. Onset (ago): day(s) Severity: severe Context: trauma Exacerbating factors: movement/ambulation Associated symptoms: Reports nausea, vomiting and other Review of Systems General: Reports: 10 or more systems reviewed and unremarkable except in HPI and below GI: Reports: nausea and vomiting PFS ED PFSH: Medical History Depression Diabetes SVT (supraventricular tachycardia) Surgical History H/O total hysterectomy Hx of cholecystectomy Family History Father Diabetes Other Hypertension Social History Smoking and tobacco status: never smoked Physical Exam Const: COMMON NORMALS: alert GENERAL APPEARANCE: cooperative and well developed HENMT: COMMON NORMALS: normocephalic HEAD & SCALP: normocephalic THROAT: posterior oropharynx normal OTHER: Ecchymosis noted to the right periorbital region and tracking down right side of face towards the mandible Eye: COMMON NORMALS: conjunctivae normal CONJUNCTIVA: Yes conjunctivae normal SCLERA: sclerae normal Neck/C-Spine: COMMON NORMALS: supple GENERAL: Yes trachea midline Resp: COMMON NORMALS: normal respiratory effort and clear to auscultation b ilaterally EFFORT & INSPECTION: Yes able to speak in complete sentences AUSCULTATION: clear to auscultation bilaterally Cardio: COMMON NORMALS: regular rate and regular rhythm RATE: regular rate RHYTHM: regular rhythm GI: COMMON NORMALS: Soft to palpation PALPATION: Yes Soft to palpation, Yes Tenderness to palpation present (GI), No Guarding due to palpation present (GI) and No Rigid due to palpation Extremity: GENERAL: Yes normal exam except as noted and No edema Neuro: COMMON NORMALS: moves all extremities SENSORIUM/ORIENTATION: Yes alert and No Orientation impaired Psych: COMMON NORMALS: mental status grossly normal and Normal thought process present THOUGHT PROCESS: Normal thought process present Course ED course: - Patient was seen and evaluated by me at bedside - Patient placed on cardiac monitors, IV access obtained - Initial evaluation notable for exam as above - Labs personally interpreted by me -Symptom treatment, analgesia, fluids given - Labs notable for no significant hematologic or metabolic abnormalities to explain symptoms. Urinalysis concerning for UTI. Antibiotic given. - Imaging notable for negative head CT. Abdominal CT without acute abnormality to explain symptoms. Incidental findings discussed. - Upon serial reexamination after treatment the patient was improved - Based on patient history, evaluation, and testing as interpreted the most likely cause of the patient's condition is UTI, postconcussive syndrome. - The results of ED evaluation were discussed with the patient including prescriptions and/or symptomatic cares (if applicable) including appropriate and responsible use, followup plan, and return precautions. The patient verbalized understanding and felt safe for discharge. - Patient discharged in satisfactory condition. Note: Click bubbles or prepopulated patel in note writing are used for assistance with data collection and billing and are inherently more limited than narrative and other text portions of this note. Please use narrative for additional clinical history and defer to narrative/free test for any case of contradictory information. If information appears in only free text or click bubble it should be considered present or absent as reported. Please contact note engineering technical writer for clarifications of clinical information or contradictory information. MDM is a brief summary, contradictory or erroneous seeming information should be clarified and full note should be reviewed. Vital Signs: Vital signs: Vital Signs Temperature 98.3 F 06/10/22 09:46 Pulse Rate 64 06/10/22 14:31 Respiratory Rate 16 06/10/22 14:31 Blood Pressure 111/67 06/10/22 14:31 Pulse Oximetry 96 06/10/22 14:31 Oxygen Delivery Me thod 06/10/22 09:46 MDM - Dizziness Medical Decision Making 62-year-old lady presenting with neurologic symptoms after head injury as well as abdominal symptoms. Most likely etiology is UTI and postconcussive syndrome. Satisfactory for outpatient management. Medical Records I reviewed the patient's medical records. Lab Data I reviewed the patient's lab results. : 06/10/22 10:54 06/10/22 10:54 Radiology Impressions Abdomen/Pelvis CT 06/10/22 11:44 IMPRESSION: 1. Incidental small fat-containing umbilical hernia. No herniated bowel. 2. Cirrhotic liver with mild splenomegaly. 3. Normal caliber abdominal aorta. 4. Normal appendix in the RIGHT lower quadrant. No evidence of acute ap pendicitis. 5. No other acute findings. Head CT 06/10/22 11:44 IMPRESSION: 1. No evidence of intracranial hemorrhage or mass effect. 2. Mild small vessel changes. Mild parenchymal line loss. 3. No acute intracranial findings. Laboratory Results WBC 5.0 10^3/uL (4.0-10.0) 06/10/22 10:54 RBC 4.56 10^6/uL (4.1-5.3) 06/10/22 10:54 Hgb 13.7 g/dL (11.5-15.3) 06/10/22 10:54 Hct 42.2 % (37.0-47.0) 06/10/22 10:54 MCV 92.5 fl (81-99) 06/10/22 10:54 MCH 30.0 pg (28.0-34.0) 06/10/22 10:54 MCHC 32.5 g/dL (30.0-36.0) 06/10/22 10:54 RDW 12.9 % (12.1-15.1) 06/10/22 10:54 Plt Count 132 10^3/cmm (130-400) 06/10/22 10:54 MPV 10.9 fL (7.4-10.4) H 06/10/22 10:54 Neut % (Auto) 54.8 % 06/10/22 10:54 Lymph % (Auto) 29.5 % 06/10/22 10:54 [place] % (Auto) 9.7 % 06/10/22 10:54 Eos % (Auto) 4.8 % 06/10/22 10:54 Baso % (Auto) 1.2 % 06/10/22 10:54 Neut # (Auto) 2.71 10^3/uL (1.8-7.7) 06/10/22 10:54 Lymph # (Auto) 1.5 10^3/uL (0.8-4.8) 06/10/22 10:54 [place] # (Auto) 0.5 10^3/uL (0.2-0.9) 06/10/22 10:54 Eos # (Auto) 0.2 10^3/uL (0.0-0.8) 06/10/22 10:54 Baso # (Auto) 0.1 10^3/uL (0.0-0.1) 06/10/22 10:54 Nucleated RBC % (auto) 0 % 06/10/22 10:54 Nucleated RBCs # 0.0 /100WBC 06/10/22 10:54 Sodium 142 mmol/L (136-145) 06/10/22 10:54 Potassium 4.3 mmol/L (3.5-5.1) 06/10/22 10:54 Chloride 104 mmol/L (98-107) 06/10/22 10:54 Carbon Dioxide 29 mmol/L (22-29) 06/10/22 10:54 Anion Gap 13.3 (5-19) 06/10/22 10:54 BUN 11 mg/dL (8-23) 06/10/22 10:54 Creatinine 0.5 mg/dL (0.5-0.9) 06/10/22 10:54 GFR Calculation 124.2 mL/min (90-130) 06/10/22 10:54 Glucose 137 mg/dL (65-115) H 06/10/22 10:54 Calculated Osmolality 296 mOsm/kg (285-295) H 06/10/22 10:54 Calcium 9.4 mg/dL (8.5-10.5) 06/10/22 10:54 Magnesium 1.7 mg/dL (1.7-2.3) 06/10/22 10:54 Total Bilirubin 0.8 mg/dL (0.15-1.2) 06/10/22 10:54 AST 24 U/L (0-32) 06/10/22 10:54 ALT 10 U/L (0-33) 06/10/22 10:54 Alkaline Phosphatase 69 U/L (35-105) 06/10/22 10:54 Total Protein 6.7 g/dL (6.6-8.7) 06/10/22 10:54 Albumin 3.9 g/dL (3.5-5.2) 06/10/22 10:54 Globulin 2.8 g/dL (1.3-4.6) 06/10/22 10:54 Lipase 41 U/L (13-60) 06/10/22 10:54 TSH 2.07 uIU/mL (0.27-4.20) 06/10/22 10:54 Urine Color Dark yellow (Yellow) 06/10/22 10:54 Urine Appearance Clear (CLEAR) 06/10/22 10:54 Urine pH 6.5 (5-7) 06/10/22 10:54 Ur Specific [place] 1.025 (1.005-1.030) 06/10/22 10:54 Urine Protein 1+ (Negative) H 06/10/22 10:54 Urine Glucose (UA) Norm (Normal) 06/10/22 10:54 Urine Ketones Negative (Negative) 06/10/22 10:54 Urine Blood 2+ (Negative) H 06/10/22 10:54 Urine Nitrate Positive (Negative) H 06/10/22 10:54 Urine Bilirubin 2+ (Negative) H 06/10/22 10:54 Urine Urobilinogen 4 mg/dL (Negative) H 06/10/22 10:54 Ur Leukocyte Esterase 1+ (Negative) H 06/10/22 10:54 Urine RBC Not Reportable 06/10/22 10:54 Urine WBC Not Reportable 06/10/22 10:54 Ur Squamous Epith Cells Not Reportable 06/10/22 10:54 Amorphous Sediment Not Reportable 06/10/22 10:54 Urine Bacteria Not Reportable 06/10/22 10:54 Discharge Plan Discharge Patient Disposition: Home Clinical Impression: Post concussive syndrome, UTI (urinary tract infection) Condition: Stable Prescriptions: New Reglan 10 mg tablet 10 mg PO Q6H PRN (Reason: nausea and vomiting) Qty: 20 0RF Benadryl 25 mg capsule 25 mg PO Q6H PRN (Reason: nausea and vomiting) Qty: 20 0RF No Action metoprolol tartrate 50 mg tablet 50 mg PO BID metformin 500 mg tablet extended release 24 hr 500 mg PO DAILY pantoprazole 40 mg tablet,delayed release (DR/EC) 40 mg PO DAILY fluoxetine 20 mg capsule 20 mg PO DAILY zonisamide 100 mg capsule 200 mg PO DAILY clonazepam 0.5 mg tablet 0.25 mg PO TID PRN (Reason: Anxiety) trazodone 150 mg tablet 150 mg PO BEDTIME sumatriptan succinate [Imitrex] 100 mg tablet 100 mg PO Q2H PRN (Reason: Migraine Headache) Rx Instructions: do not exceed 2 doses per 24 hrs lactulose 10 gram/15 mL solution 15 ml PO BID 7 Days Qty: 210 3RF Lantus U-100 Insulin 100 unit/mL Solution 8 unit SUBCUT BEDTIME acyclovir 400 mg tablet 400 mg PO BID Discharge Orders: Discharge ED (Routine); Ordered 06/10/22 Ordered By: Kenny Spring Referrals: Joseph Baker MD [Primary Care Provider] - Discharge Diet: Usual diet Discharge Activity: Increase activity as tolerated Patient Instructions: Urinary Tract Infection in Women (ED), Post Concussion Syndrome (ED) Activity Restrictions/Additional Instructions: Thank you for visiting the emergency department. You were seen and evaluated for symptoms after head injury. The most likely cause of this is postconcussive syndrome. The treatment, as discussed, is largely supportive including brain rest. Additionally I will prescribe medications for headache and other symptom control. You were found to have a urinary tract infection which will be treated with antibiotics. Please follow-up with your primary care provider. Please establish with a primary care provider if you do not currently have 1. For the visual disturbances I recommend following up with ophthalmology. Please return to the emergency department for anything that you are concerned about and feel needs emergency department evaluation. 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
[2022-06-10] MEDS: diphenhydrAMINE 50 mg/mL SDV 1mL 25 MG IVP (11:02)
[2022-06-10] MEDS: metoclopramide 5 mg/mL SDV 2 mL 10 MG IVP (11:05)
[2022-06-10] MEDS: ketorolac 30 mg/mL INJ 15 MG IVP (11:06)
[2022-06-10] MEDS: lactated ringers 1,000 ML 999 ML IV (11:10)
[2022-06-10 11:20] LABS: Basophils # 0.1 10^3/uL (0.0-0.1); Basophils % 1.2 %; Eosinophils # 0.2 10^3/uL (0.0-0.8); Eosinophils % 4.8 %; Hematocrit 42.2 % (37.0-47.0); Hemoglobin 13.7 g/dL (11.5-15.3); Lymphocytes # 1.5 10^3/uL (0.8-4.8); Lymphocytes % 29.5 %; Mean Corpuscular HGB Conc 32.5 g/dL (30.0-36.0); Mean Corpuscular Volume 92.5 fl (81-99); Mean Platelet Volume 10.9 fL (7.4-10.4); Monocytes # 0.5 10^3/uL (0.2-0.9); Monocytes % 9.7 %; Neutrophils # 2.71 10^3/uL (1.8-7.7); Neutrophils % 54.8 %; Nucleated Red Blood Cells % 0 %; Platelet Count 132 10^3/cmm (130-400); Red Blood Count 4.56 10^6/uL (4.1-5.3); Red Cell Distribution Width 12.9 % (12.1-15.1)
[2022-06-10 11:39] LABS: Charge for UA Resulting for Rev
[2022-06-10 11:44] LABS: Add Urine Microscopic? YES; Bilirubin Urine 2+ (Negative); Blood Urine 2+ (Negative); Glucose Urine UA Norm (Normal); Ketones Urine Negative (Negative); Leukocyte Esterase Urine 1+ (Negative); Nitrate Urine Positive (Negative); Protein Urine 1+ (Negative); Specific Gravity, Urine 1.025 (1.005-1.030); Urine Appearance Clear (CLEAR); Urine Color Dark Yellow (Yellow); Urobilinogen Urine 4 mg/dL (Negative); pH Urine 6.5 (5-7)
--- NOTE | 2022-06-10 11:44 | CT_ITS ---
WS: [id number] CT ABDOMEN PELVIS TECHNIQUE: Noncontrast CT of the abdomen and pelvis with coronal and sagittal reformatted images. CLINICAL INFORMATION: Periumbilical abdominal pain, nausea, vomiting COMPARISON: September 10, 2021 DLP: 1005.[address] scans at [facility] use at least one of these dose optimization techniques: automated e xposure control; mA and/or kV adjustment per patient size (includes targeted exams where dose is matc hed to clinical indication); or iterative reconstruction. FINDINGS: Cirrhotic liver. Mild splenomegaly. Normal GE junction. Lung bases are well aerated. Adrenal glands a re normal. No hydronephrosis in either kidney. RIGHT renal cyst measuring 2.4 CM. Pelvic phleboliths. Splenic artery calcification. Noncontrast pancreas appears normal. Cholecystectomy. Normal caliber a bdominal aorta. Mild aortic calcification. Normal sigmoid colon. Mild sigmoid colon constipation. No evidence of high-grade small or large bowel destruction. Low-lying cecum in the RIGHT lower quadrant. Normal appendix. No evidence of acute appe ndicitis. Small fat-containing umbilical hernia. Postoperative changes lumbar spine with pedicle scre w fixation CT/CT abdomen pelvis wo con [id number] IMPRESSION: 1. Incidental small fat-containing umbilical hernia. No herniated bowel. 2. Cirrhotic liver with mild splenomegaly. 3. Normal caliber abdominal aorta. 4. Normal appendix in the RIGHT lower quadrant. No evidence of acute appendici tis. 5. No other acute findings.
--- NOTE | 2022-06-10 11:44 | CT_ITS ---
WS: [id number] CT HEAD TECHNIQUE: Noncontrast CT of the head obtained from the skullbase to the vertex. CLINICAL INFORMATION: Severe postconcussive type symptoms COMPARISON: June 07, 2022 DLP: 1070.[address] scans at [facility] use at least one of these dose optimization techniques: automated e xposure control; mA and/or kV adjustment per patient size (includes targeted exams where dose is matc hed to clinical indication); or iterative reconstruction. FINDINGS: No evidence of intracranial hemorrhage or mass effect. Ventricular system and basal cisterns are aguila nt. Mild small vessel changes with mild parenchymal volume loss. Incidental cavum septum pellucidum a nd vergae. Dystrophic calcification along the falx. No extra-axial fluid collections. No evidence of mass or mass effect. Paranasal sinuses and mastoid air cells are well aerated. .Normal visualized soft tissues. CT/CT head wo con* [id number] IMPRESSION: 1. No evidence of intracranial hemorrhage or mass effect. 2. Mild small vessel changes. Mild parenchymal line loss. 3. No acute intracranial findings.
[2022-06-10 11:45] LABS: Add Urine Culture? Yes
[2022-06-10 11:56] LABS: Alanine Aminotransferase 10 U/L (0-33); Albumin Level 3.9 g/dL (3.5-5.2); Alkaline Phosphatase 69 U/L (35-105); Blood Urea Nitrogen 11 mg/dL (8-23); Calcium 9.4 mg/dL (8.5-10.5); Carbon Dioxide 29 mmol/L (22-29); Chloride 104 mmol/L (98-107); Globulin 2.8 g/dL (1.3-4.6); Glomerular Filtration Rate 124.2 mL/min (90-130); Glucose 137 mg/dL (65-115); Lipase 41 U/L (13-60); Magnesium 1.7 mg/dL (1.7-2.3); Osmolality Calculated 296 mOsm/kg (285-295); Sodium 142 mmol/L (136-145); Thyroid Stimulating Hormone 2.07 uIU/mL (0.27-4.20); Total Bilirubin 0.8 mg/dL (0.15-1.2); Total Protein 6.7 g/dL (6.6-8.7)
[2022-06-10 12:05] LABS: Anion Gap 13.3 (5-19); Aspartate Amino Transferase 24 U/L (0-32); Potassium 4.3 mmol/L (3.5-5.1)
[2022-06-10] MEDS: cefTRIAXone 1,000 MG in sodium chloride 0.9% (plus) 50 ML 100 MG IV (13:05)
[2022-06-10 13:39] VITALS: RESP 16; O2SAT 96
[2022-06-10] MEDS: morphine 4 mg/mL SDV 1 mL IVP (13:39)
[2022-06-10] MEDS: meclizine 25 mg tablet PO (13:39)
[2022-06-10 14:31] VITALS: BP 111/67; PULSE 64; RESP 16; O2SAT 96
== END 2022-06-10 14:32 | disposition home or self-care (01) ==
PROVIDERS: Emergency Provider Emergency Medicine; PCP Family Medicine
DX: F07.81 Postconcussional syndrome (principal); N39.0 Urinary tract infection, site not specified; Z79.84 Long term (current) use of oral hypoglycemic drugs; Z79.4 Long term (current) use of insulin; E11.9 Type 2 diabetes mellitus without complications
CPT/HCPCS: 70450; 74176; 80053; 81001; 81003; 83690; 83735; 84443; 85025; 87086; 96365; 96375; 99285; J0696; J1200; J1885; J2270; J2765; J8597

== ENCOUNTER 2022-12-13 09:31 | Outpatient (CLI) | payer MEDICARE, OTHER, SELFPAY ==
--- NOTE | 2022-12-13 09:40 | CT_ITS ---
WS: [id number] CT ABDOMEN AND PELVIS WITH CONTRAST HISTORY: ACUTE ABDOMINAL PAIN TECHNIQUE: Imaging performed of the abdomen and pelvis with IV contrast. Single phase imaging of the abdomen. Coronal and sagittal reformats are submitted. All CT scans at [facility] use at [address] one of these dose optimization techniques: automated exposure control; mA and/or kV adjustment per patient size (includes targeted exams where dose is matched to clinical indication); or iterative re construction. IV CONTRAST: Omnipaque 350; 100 mL IV. Oral contrast: Yes. DLP: 824.33 mGy.cm COMPARISON: 06/10/2022 Lower thorax: Lung bases are clear. Heart is normal size. No hiatal hernia. Liver/biliary system: Liver is normal size. Nodular surface of the liver from cirrhosis. No mass iden tified. No bile duct dilatation. No thrombus but very poor opacification of the portal vein. Gallbladder: Status post cholecystectomy. Pancreas: Normal size pancreas and pancreatic duct. No adjacent inflammation. Spleen: Normal size spleen. No mass or infarct. Adrenal glands: Normal. Right kidney: Normal size kidney. Simple cyst upper pole measures 3.1 cm. Minimal increase in size si nce 06/10/2022. No renal obstruction. Left kidney: Normal. Aorta: Mild atherosclerosis with no aneurysm. Lymphadenopathy: None. Free fluid: None. GI tract: Negative stomach. There is mild diffuse wall thickening involving the duodenal C-loop. Dive rticulum versus ulceration along the medial second portion of the duodenum. This was not definitely p resent on the prior study. Diffuse constipation. The appendix is normal. Cecum is medially displaced and markedly distended with fecal material. There are a few small diverticula associated with the cec um. Mild distal colonic diverticula. Abdominal wall: Fat containing umbilical hernia. Pelvis: Nondistended urinary bladder. No free fluid in the pelvis. Prior hysterectomy. Bones: Posterior lumbar fusion extends from L2 to L5. Large laminectomy defects posteriorly. CT/CT abdomen pelvis w con* [id number] IMPRESSION: 1. Circumferential soft tissue thickening involving the duodenal C-loop. This is new since 06/10/2022. Differential includes duodenitis and neoplasm. There is an additional ulceration versus diverticulum along the medial curvature of the second portion of the duodenum. Consider follow-up endoscopy to evaluate the s econd portion of the duodenum to exclude neoplasm. 2. Markedly distended cecum with fecal material. There are a few diverticula i n the cecum. 3. Normal appendix. 4. Prior cholecystectomy. 5. Cirrhotic liver. 6. RIGHT renal cyst. 7. Diffuse marked constipation.
[2022-12-13] MEDS: iohexol 350 mg/mL 500 mL Btl (per mL) PO (11:11)
[2022-12-13] MEDS: iohexol 350 mg/mL 500 mL Btl (per mL) IV (11:12)
== END 2022-12-13 09:32 | disposition home or self-care (01) ==
LOC: RAD 09:34
PROVIDERS: PCP Family Medicine; Visit Provider Family Medicine
DX: R10.9 Unspecified abdominal pain (principal); K74.60 Unspecified cirrhosis of liver; N28.1 Cyst of kidney, acquired
CPT/HCPCS: 74177; Q9967

== ENCOUNTER 2022-12-19 13:55 | Outpatient (CLI) | payer MEDICARE, OTHER, SELFPAY ==
--- NOTE | 2022-12-19 14:14 | MM_ITS ---
WS: [id number] BILATERAL 3D TOMOSYNTHESIS DIGITAL DIAGNOSTIC MAMMOGRAPHY WITH CAD CLINICAL INFORMATION: BREAST ASYNMMETRY HISTORY: LEFT breast pain COMPARISON: TECHNIQUE: Bilateral CC, MLO, and ML views. FINDINGS: History of breast reduction. Scattered fibroglandular densities bilaterally. Palpable marker upper outer LEFT breast. No underlyin g suspicious parenchymal abnormalities. Ultrasound described below. RIGHT breast is unchanged since 2016. ULTRASOUND BREAST LEFT TECHNIQUE: Ultrasound left breast focused area of concern. CLINICAL INFORMATION: BREAST ASYNMMETRY FINDINGS: Ultrasound 2:00 position area of concern. No cystic or solid lesions. Normal underlying parenchymal t issue. No suspicious findings. Recommend return to annual screening mammography. MM/[place] [id number] IMPRESSION: BI-RADS: 2-Benign FOLLOW UP: 1 Year Follow-up Recommend return to annual screening mammography.
== END 2022-12-19 13:56 | disposition home or self-care (01) ==
PROVIDERS: PCP Family Medicine; Visit Provider Family Medicine
DX: N64.89 Other specified disorders of breast (principal)
CPT/HCPCS: 76642; 77062; G0279

== ENCOUNTER 2023-03-18 19:51 | Emergency (ER) | payer MEDICARE, OTHER, SELFPAY ==
[2023-03-18 20:03] VITALS: BP 162/113; PULSE 122; RESP 16; TEMP 37.1; O2SAT 96; BMI 30.4
--- NOTE | 2023-03-18 20:07 | XRR_ITS ---
PROCEDURE INFORMATION: Exam: XR Chest Exam date and time: 03/18/2023 8:10 PM Age: 63 years old Clinical indication: Pain; Chest pressure; Additional info: Cp TECHNIQUE: Imaging protocol: Radiologic exam of the chest. Views: 1 view. COMPARISON: CR XR chest 1V portable [id number] 07/17/2021 5:00 PM FINDINGS: Lungs: Unremarkable. No consolidation. Pleural spaces: Unremarkable. No pleural effusion. No pneumothorax. Heart/Mediastinum: Unremarkable. No cardiomegaly. Bones/joints: Unremarkable. XR/XR chest 1V portable [id number] IMPRESSION: No acute findings.
--- NOTE | 2023-03-18 20:14 | ECG_ITS ---
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 Measurements Intervals [place] Rate: 130 P: 204 NH: 75 QRS: -10 QRSD: 95 T: 83 QT: 341 QTc: 502 Interpretive Statements SINUS TACHYCARDIA WITH SHORT NH INTERVAL MODERATE ST DEPRESSION [0.05+ mV ST DEPRESSION] Compared to ECG 06/07/2022 22:07:01 Short NH interval now present ST (T wave) deviation now present Sinus bradycardia no longer present T-wave abnormality no longer present Electronically Signed On 03-18-2023 22:33:14 CDT by Fili Donahue M.D. [email or web address]
[2023-03-18 20:51] VITALS: PULSE 112; RESP 19; O2SAT 95
[2023-03-18] MEDS: metoprolol tartrate 1 mg/1 mL SDV 5 mL 5 MG IVP (21:06)
[2023-03-18 21:09] VITALS: BP 163/113; PULSE 97; RESP 18; O2SAT 95
[2023-03-18 21:11] LABS: Basophils # 0.1 10^3/uL (0.0-0.1); Eosinophils # 0.1 10^3/uL (0.0-0.8); Eosinophils % 1.6 %; Hematocrit 41.8 % (37.0-47.0); Hemoglobin 13.8 g/dL (11.5-15.3); Lymphocytes # 1.7 10^3/uL (0.8-4.8); Mean Corpuscular Hemoglobin 28.6 pg (28.0-34.0); Mean Corpuscular Volume 86.5 fl (81-99); Mean Platelet Volume 9.8 fL (7.4-10.4); Monocytes # 0.7 10^3/uL (0.2-0.9); Neutrophils # 3.61 10^3/uL (1.8-7.7); Neutrophils % 58.1 %; Nucleated Red Blood Cells % 0 %; Platelet Count 157 10^3/cmm (130-400); Red Blood Count 4.83 10^6/uL (4.1-5.3); Red Cell Distribution Width 12.7 % (12.1-15.1); White Blood Count 6.2 10^3/uL (4.0-10.0)
--- NOTE | 2023-03-18 21:23 | W.ED.CHESTPA ---
HPI - Chest Pain General: Chief Complaint: Chest Pain Stated Complaint: chest pressuer/ SOB Time Seen by Provider: 03/18/23 20:30 History of Present Illness: 63-year-old female with a history of diabetes. She presents with left-sided chest/chest wall discomfort. This started last night. She noted it as a stabbing pain to the left upper chest. Her heart rate is also significantly elevated. She has been mildly short of breath. She has noticed some swelling to her lower extremities and as well. MD complaint: chest pain Pertinent past history: other Onset (ago): hour(s) Timing of current episode: constant Prior episodes: Yes Onset: during rest Pain location: left chest Pain radiation: left arm Quality: sharp Relieving factors: nothing Exacerbating factors: nothing Associated symptoms: Reports dyspnea, leg edema, nausea and palpitations; Deny abdominal pain, diaphoresis, fever(s) or vomiting Treatment prior to arrival: aspirin Review of Systems Const: Denies: fever(s) or diaphoresis Eyes: Denies: change in vision ENMT: Denies: throat pain Card: Reports: chest pain and palpitations Resp: Reports: dyspnea GI: Reports: nausea; Denies: abdominal pain or vomiting Musc: Reports: neck pain (Chronic) Skin/Breast: Denies: rash PFSH ED PFSH: Medical History Depression Diabetes SVT (supraventricular tachycardia) Surgical History H/O total hysterectomy Hx of cholecystectomy Family History Father Diabetes Other Hypertension Social History Smoking and tobacco status: never smoked Physical Exam Const: COMMON NORMALS: no acute distress GENERAL APPEARANCE: cooperative; not ill appearing and not frail appearing HENMT: COMMON NORMALS: normocephalic, atraumatic and Normal external nose present HEAD & SCALP: normocephalic and atraumatic FACE & SINUS: normal facial exam and face symmetric NOSE: Normal external nose present Eye: COMMON NORMALS: Equal, round and reactive pupils present and EOMs intact bilaterally PUPIL: Yes Equal, round and reactive pupils present Neck/C-Spine: GENERAL: Yes trachea midline Chest: CHEST: Yes Symmetrical chest wall rise and Yes tenderness (left chest wall) Resp: COMMON NORMALS: normal respiratory effort, No retractions, No use of accessory muscles and clear to auscultation bilaterally AUSCULTATION: clear to auscultation bilaterally Cardio: COMMON NORMALS: regular rhythm RATE: tachycardic RHYTHM: regular rhythm GI: COMMON NORMALS: Normal to inspection, nondistended, normoactive bowel sounds present Extremity: COMMON NORMALS: no pedal edema Neuro: CIERA COMA SCALE: document GCS findings [place] coma scale eye opening: Spontaneous [place] coma scale verbal response: Orientated [place] coma scale motor response: Obey commands [place] coma scale total score: 15 SENSORY EXAM: Yes extremities (intact) Psych: COMMON NORMALS: speech normal SPEECH: Yes normal speech Skin: COMMON NORMALS: no rashes or lesions noted GENERAL SKIN EXAM: no rashes or lesions noted Course Vital Signs: Vital signs: Vital Signs Temperature 98.8 F 03/18/23 20:03 Pulse Rate 88 03/18/23 22:53 Respiratory Rate 16 03/18/23 22:53 Blood Pressure 153/98 03/18/23 22:53 Pulse Oximetry 91 03/18/23 22:53 Oxygen Delivery Me thod Room Air 03/18/23 21:09 MDM - Chest Pain Medical Decision Making 63-year-old female with what seems like ongoing chest discomfort on and off. On arrival, her heart rate was in the 120s to 130s. She was hypertensive as well. Both of improved after administration of IV metoprolol. And her pain is resolving. CBC is normal. Bicarb level is 21. BMP is otherwise not remarkable. TSH is normal. Her troponin is 8. BNP is 174. D-dimer is normal at 0.52. Other electrolytes and renal function as well as liver enzymes are normal. Chest x-ray is negative. EKG shows clear P waves, but is irregular. This is improved significantly after 5 mg of IV metoprolol. She has had pain constantly for the past few days she says. With this history, would not expect her 2-hour troponin to change at all. Pain is improved after medication. Will increase dose of metoprolol from 50 twice daily to 100 twice daily given her tachycardia and hypertension. We will have her follow-up with cardiology. Lab Data 03/18/23 21:00 03/18/23 21:00 Radiology Impressions Chest X-Ray 03/18/23 20:07 IMPRESSION: No acute findings. Laboratory Results WBC 6.2 10^3/uL (4.0-10.0) 03/18/23 21:00 RBC 4.83 10^6/uL (4.1-5.3) 03/18/23 21:00 Hgb 13.8 g/dL (11.5-15.3) 03/18/23 21:00 Hct 41.8 % (37.0-47.0) 03/18/23 21:00 MCV 86.5 fl (81-99) 03/18/23 21:00 MCH 28.6 pg (28.0-34.0) 03/18/23 21:00 MCHC 33.0 g/dL (30.0-36.0) 03/18/23 21:00 RDW 12.7 % (12.1-15.1) 03/18/23 21:00 Plt Count 157 10^3/cmm (130-400) 03/18/23 21:00 MPV 9.8 fL (7.4-10.4) 03/18/23 21:00 Neut % (Auto) 58.1 % 03/18/23 21:00 Lymph % (Auto) 28.0 % 03/18/23 21:00 [place] % (Auto) 11.0 % 03/18/23 21:00 Eos % (Auto) 1.6 % 03/18/23 21:00 Baso % (Auto) 1.0 % 03/18/23 21:00 Neut # (Auto) 3.61 10^3/uL (1.8-7.7) 03/18/23 21:00 Lymph # (Auto) 1.7 10^3/uL (0.8-4.8) 03/18/23 21:00 [place] # (Auto) 0.7 10^3/uL (0.2-0.9) 03/18/23 21:00 Eos # (Auto) 0.1 10^3/uL (0.0-0.8) 03/18/23 21:00 Baso # (Auto) 0.1 10^3/uL (0.0-0.1) 03/18/23 21:00 Nucleated RBC % (auto) 0 % 03/18/23 21:00 Nucleated RBCs # 0.0 /100WBC 03/18/23 21:00 D-Dimer 0.52 ug/mIFEU (0-0.59) 03/18/23 21:00 Sodium 140 mmol/L (136-145) 03/18/23 21:00 Potassium 3.9 mmol/L (3.5-5.1) 03/18/23 21:00 Chloride 105 mmol/L (98-107) 03/18/23 21:00 Carbon Dioxide 21 mmol/L (22-29) L 03/18/23 21:00 Anion Gap 17.9 (5-19) 03/18/23 21:00 BUN 14 mg/dL (8-23) 03/18/23 21:00 Creatinine 0.6 mg/dL (0.5-0.9) 03/18/23 21:00 GFR Calculation 100.3 mL/min (90-130) 03/18/23 21:00 Glucose 120 mg/dL (65-115) H 03/18/23 21:00 Calculated Osmolality 292 mOsm/kg (285-295) 03/18/23 21:00 Calcium 8.8 mg/dL (8.5-10.5) 03/18/23 21:00 Total Bilirubin 0.4 mg/dL (0.15-1.2) 03/18/23 21:00 AST 29 U/L (0-32) 03/18/23 21:00 ALT 16 U/L (0-33) 03/18/23 21:00 Alkaline Phosphatase 88 U/L (35-105) 03/18/23 21:00 Troponin T Baseline 8 ng/L (0-10) 03/18/23 21:00 NT-Pro-B Natriuret Pep 174 pg/mL (0-125) H 03/18/23 21:00 Total Protein 6.7 g/dL (6.6-8.7) 03/18/23 21:00 Albumin 4.0 g/dL (3.5-5.2) 03/18/23 21:00 Globulin 2.7 g/dL (1.3-4.6) 03/18/23 21:00 TSH 1.29 uIU/mL (0.27-4.20) 03/18/23 21:00 Discharge Plan Discharge Patient Disposition: Home Clinical Impression: Chest pain, Hypertension, Sinus tachycardia Condition: Stable Prescriptions: New metoprolol tartrate 100 mg tablet 100 mg PO BID Qty: 60 0RF Discontinued metoprolol tartrate 50 mg tablet 50 mg PO BID No Action metformin 500 mg tablet extended release 24 hr 500 mg PO DAILY pantoprazole 40 mg tablet,delayed release (DR/EC) 40 mg PO DAILY fluoxetine 20 mg capsule 20 mg PO DAILY zonisamide 100 mg capsule 200 mg PO DAILY clonazepam 0.5 mg tablet 0.25 mg PO TID PRN (Reason: Anxiety) trazodone 150 mg tablet 150 mg PO BEDTIME sumatriptan succinate [Imitrex] 100 mg tablet 100 mg PO Q2H PRN (Reason: Migraine Headache) Rx Instructions: do not exceed 2 doses per 24 hrs lactulose 10 gram/15 mL solution 15 ml PO BID 7 Days Qty: 210 3RF Lantus U-100 Insulin 100 unit/mL Solution 8 unit SUBCUT BEDTIME acyclovir 400 mg tablet 400 mg PO BID Reglan 10 mg tablet 10 mg PO Q6H PRN (Reason: nausea and vomiting) Qty: 20 0RF Benadryl 25 mg capsule 25 mg PO Q6H PRN (Reason: nausea and vomiting) Qty: 20 0RF Discharge Orders: Discharge ED (Routine); Ordered 03/18/23 Ordered By: Julio Vivas Referrals: Joseph Baker MD [Primary Care Provider] - 1-3 days Patient Instructions: Hypertension (ED), Tachycardia (ED) Activity Restrictions/Additional Instructions: Increase your dose of metoprolol from 50 mg twice daily to 100 twice daily as we discussed. Monitor your heart rate and blood pressure at least twice daily. Report these numbers to your doctor. If you notice your heart rate going below 65, or your blood pressure sinking below 100 systolic (the top number), you may decrease your dosage back down to 50 mg twice daily return for repeated episodes of chest discomfort, worsening discomfort, worsening shortness of breath, or any other concerning symptoms. Case management will make you a follow-up with one of the heart doctors. 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
[2023-03-18 21:39] LABS: D Dimer 0.52 ug/mIFEU (0-0.59)
[2023-03-18 21:43] LABS: Troponin(5th) Baseline 8 ng/L (0-10)
[2023-03-18 21:51] LABS: Alanine Aminotransferase 16 U/L (0-33); Alkaline Phosphatase 88 U/L (35-105); Anion Gap 17.9 (5-19); Aspartate Amino Transferase 29 U/L (0-32); Blood Urea Nitrogen 14 mg/dL (8-23); Calcium 8.8 mg/dL (8.5-10.5); Carbon Dioxide 21 mmol/L (22-29); Chloride 105 mmol/L (98-107); Creatinine Clr Calc Pharmacy 82.5952; Globulin 2.7 g/dL (1.3-4.6); Glomerular Filtration Rate 100.3 mL/min (90-130); Glucose 120 mg/dL (65-115); NT Pro B Type Natriuretic Pept 174 pg/mL (0-125); Osmolality Calculated 292 mOsm/kg (285-295); Potassium 3.9 mmol/L (3.5-5.1); Sodium 140 mmol/L (136-145); Thyroid Stimulating Hormone 1.29 uIU/mL (0.27-4.20); Total Bilirubin 0.4 mg/dL (0.15-1.2); Total Protein 6.7 g/dL (6.6-8.7)
--- NOTE | 2023-03-18 22:02 | ECG_ITS ---
[facility] Test Date: 2023-03-18 Pat Name: Lisa Magaña Department: Room: Gender: Female Communications Department Head: : 1960 Requested By: Candis Cates Order Number: [id number] Sary MD: Fili Donahue M.D. Measurements Intervals [place] Rate: 91 P: 0 WI: 0 QRS: -8 QRSD: 95 T: 36 QT: 351 QTc: 433 Interpretive Statements Sinus rhythm with premature atrial complexes NONSPECIFIC T-WAVE ABNORMALITY Compared to ECG 03/18/2023 20:14:28 T-wave abnormality now present Sinus tachycardia no longer present Short WI interval no longer present ST (T wave) deviation no longer present Electronically Signed On 03-18-2023 22:34:51 CDT by Fili Donahue M.D. [id number]
[2023-03-18 22:53] VITALS: BP 153/98; PULSE 88; RESP 16; O2SAT 91
--- NOTE | 2023-03-20 08:21 | DCPLANNER ---
Addendum entered by Elena Arana 03/29/23 10:12: Patient had a follow up appointment scheduled with heart care - patient did attend appointment. Addendum entered by Elena Arana 03/21/23 09:22: Patient has a follow up appointment scheduled for Tuesday, March 28, 2023 at 12:[address] Quarles at [facility]. Original Note: [facility] had message to schedule a follow up appointment for patient with cardiology. [facility] sent patients information to the front office staff at [facility]. Patients information will be printed and reviewed. Clinic will call patient with appointment information.
== END 2023-03-18 22:52 | disposition home or self-care (01) ==
PROVIDERS: Emergency Medicine; Emergency Provider Emergency Medicine; PCP Family Medicine
DX: R07.89 Other chest pain (principal); I10 Essential (primary) hypertension; R00.0 Tachycardia, unspecified
CPT/HCPCS: 71045; 80053; 83880; 84443; 84484; 85025; 85378; 93005; 96374; 99285; J3490

== ENCOUNTER → 2023-03-28 11:58 | Outpatient (BNVA) | payer MEDICARE, OTHER, SELFPAY | PROVIDERS: PCP Family Medicine; Visit Provider Internal Medicine Cardiovascular Disease | DX: E11.9 Type 2 diabetes mellitus without complications (principal); Z79.4 Long term (current) use of insulin; F32.9 Major depressive disorder, single episode, unspecified; K21.9 Gastro-esophageal reflux disease without esophagitis; R07.9 Chest pain, unspecified; I47.1 Supraventricular tachycardia | CPT/HCPCS: 99214 ==

== ENCOUNTER 2023-04-19 09:24 | Outpatient (CLI) | payer MEDICARE, OTHER, SELFPAY ==
[2023-04-19 10:03] VITALS: BMI 30.4
--- NOTE | 2023-04-19 10:06 | ECG_ITS ---
[facility] Test Date: 2023-04-19 Pat Name: Lisa Magaña Department: Room: Gender: Female Clinical Science Consultant: : 1960 Requested By: Aleksandr Quarles Order Number: [id number] Sary MD: Aida Trejo M.D. Interpretive Statements NAME OF STUDY: LEXISCAN SESTAMIBI STRESS TEST INDICATION: Chest Pain PROCEDURE: At the baseline, the EKG revealed multifocal atrial tachycardia. The baseline heart was 135 bpm with a blood pressue of 151/104 mm of Hg Lexiscan was infused over a period of 20 seconds. A total of 0.4 milligrams of Lexiscan was infused. The stress phase was continued for a total of 5 minutes. Heart rate at the end of the stress phase was 139 bpm with a blood pressure 151/104 mm of Hg. The EKG at the peak infusion revealed no significant changes. Sestamibi was injected 20 seconds after the Lexiscan infusion. Heart rate at the end of the recovery phase was 128 bpm with a blood pressure of 137/94 mm of Hg. CONCLUSION: 1. No significant EKG changes with the LexiScan infusion 2. No LexiScan induced chest pain or cardiac arrhythmia 3. Normal blood pressure and heart rate response 4. Sestamibi/sestamibi perfusion scan pending; see separate report. Electronically Signed On 04-20-2023 18:02:08 CDT by Aida Trejo M.D. [id number]
--- NOTE | 2023-04-19 10:06 | NMCV_ITS ---
NM luisito perf SPECT r/s* [id number] Lisa Magaña Age: 63 Gender: F : 1960 Exam Date: 04/19/2023 10:06 Ordering Phys: Aleksandr Quarles MD ([email or web address]) Technologist: JUSTICE Pretty Exam Location: [facility] Indications: Chest Pain STRESS TEST Please see separate stress test report in [facility] for full findings IMAGE PROTOCOL Rest/Stress 1 Lexiscan Day Radiopharmaceutical Dose (mCi) Administration Site Administered by Rest: Tc-99m 11.0 IV JUSTICE Jimenez Sestamibi Stress:Tc-99m 32.6 IV JUSTICE Jimenez Sestamibi Rest: 19-Apr-2023 60 Discovery 630 Stress: 19-Apr-2023 30 Discovery 630 0.4mg Lexiscan. Images obtained in supine and prone position. SPECT RESULTS Technical Quality: Excellent Raw Data Analysis: Breast attenuation, Adequate Image Corrections: No attenuation or motion correction applied Summed Stress Score: 0 Summed Rest Score: 1 Summed Difference Score: 0 PERFUSION FINDINGS Fairly uniform myocardial tracer uptake with no significant perfusion abnormalities FUNCTIONAL RESULTS (calculated via Gated SPECT) Stress Image LV EF (%): 76 Stress EDV (mL):54 TID: 1.44 Stress ESV (mL):13 FUNCTIONAL FINDINGS: Segmental wall motion analysis revealing no gross wall motion abnormalities IMPRESSIONS 1. Unremarkable Myocardial perfusion imaging 2. Normal LV ejection fraction of 76% 3. LV wall motion analysis revealing no gross wall motion abnormalities. 4. Normal LV volume 5. Elevated transient ischemic dilatation ratio of 1.44 may suggest endocardial ischemia. However in the absence of any other abnormal objective findings, the positive predictive value of this finding is limited Dr Aida Trejo MD [facility] (Electronically Signed) Final Date: 19 April 2023 17:53 S
[2023-04-19] MEDS: regadenoson 0.4 Mg/5 ml Syringe IVP (11:18)
[2023-04-19] MEDS: aminophylline 25 mg/mL SDV 10 mL IVP (11:29)
[2023-04-19] MEDS: metoprolol tartrate 50 mg Tablet 100 MG PO (11:29)
[2023-04-19 11:55] VITALS: BP 132/86; PULSE 123
== END 2023-04-19 09:25 | disposition home or self-care (01) ==
LOC: CDL 09:25
PROVIDERS: PCP Family Medicine; Visit Provider Internal Medicine Cardiovascular Disease
DX: R07.9 Chest pain, unspecified (principal)
CPT/HCPCS: 36415; 78452; 93017; 96374; 96375; A9500; J0280; J2785

== ENCOUNTER 2023-05-20 11:30 | Emergency (ER) | payer MEDICARE, OTHER, SELFPAY ==
--- NOTE | 2023-05-20 12:01 | ECG_ITS ---
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 Measurements Intervals [place] Rate: 70 P: -62 MD: 132 QRS: -1 QRSD: 86 T: 35 QT: 383 QTc: 414 Interpretive Statements Normal sinus rhythm with a short MD interval LOW QRS VOLTAGE IN PRECORDIAL LEADS [QRS DEFLECTION < 1.0 mV IN CHEST LEADS] Nonspecific T wave changes ABNORMAL RHYTHM ECG Compared to ECG 03/18/2023 22:02:09 Junctional rhythm now present Low QRS voltage now present Sinus rhythm no longer present Atrial premature complex(es) no longer present Electronically Signed On 05-20-2023 13:10:21 CDT by Aida Trejo M.D. [id number]
--- NOTE | 2023-05-20 12:40 | ED_ITS ---
HPI - Chest Pain General: Chief Complaint: Chest Pain Stated Complaint: Swelling in legs, head pain, pain left arm Time Seen by Provider: 05/20/23 12:40 History of Present Illness: Ms. Magaña is a 63-year-old lady with complex history including diabetes, SVT, liver disease, psychiatric illness presenting to emergency department for generalized illness. She notes onset of symptoms probably yesterday and today. She recently traveled for vacation to [place] and has started to have chest pain with radiation of the left arm some shortness of breath, headache, generalized malaise, lower extremity swelling. Moderate intensity. Persistent course. No other specific changes in health, exacerbating, or alleviating factors identified. Onset (ago): day(s) Onset: awoke with symptoms Exacerbating factors: exertion Review of Systems General: Reports: 10 or more systems reviewed and unremarkable except in HPI and below PFSH ED PFSH: Medical History Depression Diabetes SVT (supraventricular tachycardia) Surgical History H/O total hysterectomy Hx of cholecystectomy Family History Father Diabetes Other Hypertension Social History Smoking and tobacco status: never smoked Physical Exam Const: COMMON NORMALS: alert GENERAL APPEARANCE: cooperative and well developed HENMT: COMMON NORMALS: normocephalic and atraumatic HEAD & SCALP: normocephalic and atraumatic Eye: COMMON NORMALS: conjunctivae normal CONJUNCTIVA: Yes conjunctivae normal SCLERA: sclerae normal Neck/C-Spine: COMMON NORMALS: supple GENERAL: Yes trachea midline Resp: COMMON NORMALS: clear to auscultation bilaterally EFFORT & INSPECTION: Yes able to speak in complete sentences AUSCULTATION: clear to auscultation bilaterally Cardio: COMMON NORMALS: regular rate and regular rhythm RATE: regular rate RHYTHM: regular rhythm GI: COMMON NORMALS: Soft to palpation PALPATION: Yes Soft to palpation and No Tenderness to palpation present (GI) Extremity: GENERAL: Yes normal exam except as noted and Yes edema Neuro: COMMON NORMALS: moves all extremities SENSORIUM/ORIENTATION: Yes alert and No Orientation impaired Psych: COMMON NORMALS: mental status grossly normal and Normal thought process present THOUGHT PROCESS: Normal thought process present Course Vital Signs: Vital signs: Vital Signs Pulse Rate 73 05/20/23 15:52 Respiratory Rate 18 05/20/23 13:18 Blood Pressure 151/87 05/20/23 15:11 Pulse Oximetry 92 05/20/23 15:52 Oxygen Delivery Me thod Room Air 05/20/23 15:00 MDM - Chest Pain Medical Decision Making 63-year-old lady presenting with generalized illness for weeks. Exam as above. Nontoxic. EKG demonstrates sinus rhythm with left axis deviation and nonspecific ST segment abnormalities, no STEMI. Labs notable for unremarkable hematologic panel with exception of mild thrombocytopenia. No evidence of bleeding on exam. Metabolic panel without electrolyte arrangement. BNP is elevated. No UTI. COVID-negative. Chest x-ray with no lobar consolidation or pneumothorax. Shoulder x-ray negative. Patient cannot be ruled out by PERC/Wells and therefore D-dimer obtained which was elevated. CTA without acute finding of the chest. Treated with aspirin, morphine, Zofran, Lasix, muscle relaxer. The results of ED evaluation were discussed with the patient including prescriptions and/or symptomatic cares (if applicable) including appropriate and responsible use, followup plan, and return precautions. The patient verbalized understanding and felt safe for discharge. Medical Records I reviewed the patient's medical records. Lab Data I reviewed the patient's lab results. 05/20/23 13:28 05/20/23 13:28 Radiology Impressions Chest X-Ray 05/20/23 12:51 IMPRESSION: 1. Metallic right shoulder arthroplasty in good position 2. Otherwise No acute chest abnormalities. Shoulder X-Ray 05/20/23 12:51 IMPRESSION: No acute findings. Chest CTA 05/20/23 13:54 IMPRESSION: No acute findings. Negative for pulmonary embolism. Negative for right heart strain. Negative for aortic aneurysm or dissection Laboratory Results WBC 4.2 10^3/uL (4.0-10.0) 05/20/23 13:28 RBC 4.63 10^6/uL (4.1-5.3) 05/20/23 13:28 Hgb 13.1 g/dL (11.5-15.3) 05/20/23 13:28 Hct 40.4 % (37.0-47.0) 05/20/23 13:28 MCV 87.3 fl (81-99) 05/20/23 13:28 MCH 28.3 pg (28.0-34.0) 05/20/23 13:28 MCHC 32.4 g/dL (30.0-36.0) 05/20/23 13:28 RDW 13.4 % (12.1-15.1) 05/20/23 13:28 Plt Count 106 10^3/cmm (130-400) L 05/20/23 13:28 MPV 10.2 fL (7.4-10.4) 05/20/23 13:28 Neut % (Auto) 63.5 % 05/20/23 13:28 Lymph % (Auto) 23.9 % 05/20/23 13:28 [place] % (Auto) 8.0 % 05/20/23 13:28 Eos % (Auto) 3.5 % 05/20/23 13:28 Baso % (Auto) 0.9 % 05/20/23 13:28 Neut # (Auto) 2.68 10^3/uL (1.8-7.7) 05/20/23 13:28 Lymph # (Auto) 1.0 10^3/uL (0.8-4.8) 05/20/23 13:28 [place] # (Auto) 0.3 10^3/uL (0.2-0.9) 05/20/23 13:28 Eos # (Auto) 0.2 10^3/uL (0.0-0.8) 05/20/23 13:28 Baso # (Auto) 0.0 10^3/uL (0.0-0.1) 05/20/23 13:28 Nucleated RBC % (auto) 0 % 05/20/23 13:28 Nucleated RBCs # 0.0 /100WBC 05/20/23 13:28 D-Dimer 0.87 ug/mIFEU (0-0.59) H 05/20/23 13:28 Sodium 140 mmol/L (136-145) 05/20/23 13:28 Potassium 4.3 mmol/L (3.5-5.1) 05/20/23 13:28 Chloride 103 mmol/L (98-107) 05/20/23 13:28 Carbon Dioxide 27 mmol/L (22-29) 05/20/23 13:28 Anion Gap 14.3 (5-19) 05/20/23 13:28 BUN 13 mg/dL (8-23) 05/20/23 13:28 Creatinine 0.5 mg/dL (0.5-0.9) 05/20/23 13:28 GFR Calculation 123.8 mL/min (90-130) 05/20/23 13:28 Glucose 133 mg/dL (65-115) H 05/20/23 13:28 Calculated Osmolality 292 mOsm/kg (285-295) 05/20/23 13:28 Calcium 9.2 mg/dL (8.5-10.5) 05/20/23 13:28 Total Bilirubin 0.7 mg/dL (0.15-1.2) 05/20/23 13:28 AST 25 U/L (0-32) 05/20/23 13:28 ALT 15 U/L (0-33) 05/20/23 13:28 Alkaline Phosphatase 87 U/L (35-105) 05/20/23 13:28 Troponin T Baseline 7 ng/L (0-10) 05/20/23 13:28 NT-Pro-B Natriuret Pep 1090 pg/mL (0-125) H 05/20/23 13:28 Total Protein 6.6 g/dL (6.6-8.7) 05/20/23 13:28 Albumin 4.0 g/dL (3.5-5.2) 05/20/23 13:28 Globulin 2.6 g/dL (1.3-4.6) 05/20/23 13:28 Lipase 33 U/L (13-60) 05/20/23 13:28 Urine Color Dark yellow (Yellow) 05/20/23 14:35 Urine Appearance Clear (CLEAR) 05/20/23 14:35 Urine pH 7 (5-7) 05/20/23 14:35 Ur Specific [place] 1.010 (1.005-1.030) 05/20/23 14:35 Urine Protein Neg (Negative) 05/20/23 14:35 Urine Glucose (UA) Norm (Normal) 05/20/23 14:35 Urine Ketones Negative (Negative) 05/20/23 14:35 Urine Blood Neg (Negative) 05/20/23 14:35 Urine Nitrate Negative (Negative) 05/20/23 14:35 Urine Bilirubin 1+ (Negative) H 05/20/23 14:35 Urine Urobilinogen 8 mg/dL (Negative) H 05/20/23 14:35 Ur Leukocyte Esterase Negative (Negative) 05/20/23 14:35 SARS-CoV-2 Ag (Rapid) negative (Negative) 05/20/23 13:28 Discharge Plan Discharge Patient Disposition: Home Clinical Impression: Malaise and fatigue, Chest pain, Edema, Arm pain Condition: Stable Prescriptions: New Lasix 20 mg tablet 20 mg PO DAILY Qty: 7 0RF potassium chloride 8 mEq capsule, extended release 8 meq PO DAILY Qty: 7 0RF Valium 2 mg tablet 2 mg PO TID PRN (Reason: muscle spasm) Qty: 10 0RF No Action metformin 500 mg tablet extended release 24 hr 500 mg PO QAM pantoprazole 40 mg tablet,delayed release (DR/EC) 40 mg PO DAILY fluoxetine 20 mg capsule 40 mg PO QAM clonazepam 0.5 mg tablet 0.5 mg PO TID sumatriptan succinate [Imitrex] 100 mg tablet 100 mg PO Q2H PRN (Reason: Migraine Headache) Rx Instructions: do not exceed 2 doses per 24 hrs gabapentin 100 mg capsule See Rx Instructions .ROUTE .COMPLEX Rx Instructions: 3 caps (300mg) qam and 2 caps (200mg) qpm acyclovir 400 mg tablet 400 mg PO BID metoprolol tartrate 100 mg tablet 100 mg PO BID Qty: 60 0RF hydrocodone-acetaminophen 5-325 mg tablet 1 tab PO TID PRN (Reason: Pain) ondansetron HCl 8 mg tablet 8 mg PO Q8H PRN (Reason: Nausea And Vomiting) rosuvastatin 10 mg tablet 10 mg PO DAILY duloxetine 60 mg capsule,delayed release(DR/EC) 60 mg PO DAILY Levemir FlexPen 100 unit/mL (3 mL) insulin pen 8 unit SUBCUT BEDTIME ferrous gluconate 324 mg (38 mg iron) tablet 324 mg PO DAILY Discharge Orders: Discharge ED (Routine); Ordered 05/20/23 Ordered By: Kenny Spring Referrals: Joseph Baker MD [Primary Care Provider] - Discharge Diet: Usual diet Discharge Activity: Increase activity as tolerated Patient Instructions: Furosemide (By mouth), Diazepam (By mouth), Chest Pain (ED), Leg Edema (ED), Arm Pain (ED), Opioid Safety Activity Restrictions/Additional Instructions: Thank you for visiting the emergency department. You were seen and followed for chest pain, arm pain, generalized illness, leg swelling. The exact cause of your symptoms is unclear. You may have evidence of slight volume overload based on BNP. Given prior evaluation I do not believe that you need hospitalization at this time We will prescribe muscle relaxer called Valium, use this cautiously as it can cause sedation and do not combine it with other benzodiazepines or pain/sedating medications. You may use [id number] medications such as acetaminophen and ibuprofen for pain however please do not exceed the daily recommended dosage as listed on the packaging and please keep in mind that many namebrand medications contain the same active ingredients. Please avoid these medications if prev iously instructed to do so by another physician due to other underlying medical condition. Follow-up with your primary care provider. I will message case management for cardiology follow-up. I will prescribe Lasix for 1 week as discussed. Return for uncontrolled symptoms or anything else that you are concerned about and feel needs emergency department evaluation. 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
--- NOTE | 2023-05-20 12:51 | XRR_ITS ---
PROCEDURE INFORMATION: Exam: XR Chest Exam date and time: 05/20/2023 1:02 PM Age: 63 years old Clinical indication: Shortness of breath; Additional info: Pee, ESCOBAR TECHNIQUE: Imaging protocol: Radiologic exam of the chest. Views: 1 view. COMPARISON: CR XR chest 1V portable [id number] 03/18/2023 8:10 PM FINDINGS: Lungs: Unremarkable. No consolidation. Pleural spaces: Unremarkable. No pleural effusion. No pneumothorax. Heart/Mediastinum: Unremarkable. No cardiomegaly. Bones/joints: Metallic right shoulder arthroplasty is present in good position. XR/XR chest 1V portable [id number] IMPRESSION: 1. Metallic right shoulder arthroplasty in good position 2. Otherwise No acute chest abnormalities.
--- NOTE | 2023-05-20 12:51 | XRR_ITS ---
PROCEDURE INFORMATION: Exam: XR Left Shoulder Exam date and time: 05/20/2023 1:02 PM Age: 63 years old Clinical indication: Pain; Shoulder; Left; Additional info: Pain, weakness TECHNIQUE: Imaging protocol: Radiologic exam of the left shoulder. Views: 2 or more views. COMPARISON: CR XR chest 1V portable [id number] 03/18/2023 8:10 PM FINDINGS: Bones/joints: Normal. Soft tissues: Normal. XR/XR shoulder LT min 2V* [id number] IMPRESSION: No acute findings.
--- NOTE | 2023-05-20 12:59 | ECG_ITS ---
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 Measurements Intervals [place] Rate: 69 P: -11 [place]: 146 QRS: -15 QRSD: 96 T: 12 QT: 388 QTc: 418 Interpretive Statements SINUS RHYTHM LOW QRS VOLTAGE IN PRECORDIAL LEADS [QRS DEFLECTION < 1.0 mV IN CHEST LEADS] PATTERN CONSISTENT WITH PULMONARY DISEASE Compared to ECG 05/20/2023 12:03:51 Junctional rhythm no longer present Electronically Signed On 05-20-2023 13:10:30 CDT by Aida Trejo M.D. [id number]
[2023-05-20 13:18] VITALS: RESP 18
[2023-05-20] MEDS: aspirin 81 mg Chew Tablet 324 MG PO (13:18)
[2023-05-20] MEDS: methocarbamol 750 mg Tablet PO (13:18)
[2023-05-20] MEDS: ketorolac 30 mg/mL INJ 15 MG IVP (13:18)
[2023-05-20] MEDS: morphine 4 mg/mL SDV 1 mL IVP (13:18)
[2023-05-20] MEDS: ondansetron 2 mg/ML SDV 2 mL 4 MG IVP (13:18)
[2023-05-20 13:34] VITALS: BP 147/92; PULSE 70; O2SAT 93
[2023-05-20 13:39] LABS: Basophils % 0.9 %; Eosinophils # 0.2 10^3/uL (0.0-0.8); Eosinophils % 3.5 %; Hematocrit 40.4 % (37.0-47.0); Hemoglobin 13.1 g/dL (11.5-15.3); Lymphocytes % 23.9 %; Mean Corpuscular HGB Conc 32.4 g/dL (30.0-36.0); Mean Corpuscular Hemoglobin 28.3 pg (28.0-34.0); Mean Corpuscular Volume 87.3 fl (81-99); Mean Platelet Volume 10.2 fL (7.4-10.4); Monocytes # 0.3 10^3/uL (0.2-0.9); Neutrophils # 2.68 10^3/uL (1.8-7.7); Neutrophils % 63.5 %; Nucleated Red Blood Cells % 0 %; Platelet Count 106 10^3/cmm (130-400); Red Blood Count 4.63 10^6/uL (4.1-5.3); Red Cell Distribution Width 13.4 % (12.1-15.1); White Blood Count 4.2 10^3/uL (4.0-10.0)
--- NOTE | 2023-05-20 13:40 | PC.NURSE ---
Patient hooked up to continuous bedside cardiac monitoring.
[2023-05-20 13:49] LABS: D Dimer 0.87 ug/mIFEU (0-0.59)
--- NOTE | 2023-05-20 13:54 | CTR_ITS ---
PROCEDURE INFORMATION: Exam: CTA Chest With Contrast Exam date and time: 05/20/2023 2:37 PM Age: 63 years old Clinical indication: Pain; Chest pressure; Prior surgery; Surgery date: 6+ months; Surgery type: RT shoulde, lumbar; Additional info: Travel, chest pain, shortness of breath, elevated d-dimer TECHNIQUE: Imaging protocol: Computed tomographic angiography of the chest with contrast. Exam focused on the arteries. 3D rendering (Not supervised by radiologist): MIP and/or 3D reconstructed images were created by the technologist. Radiation optimization: All CT scans at this facility use at least one of these dose optimization techniques: automated exposure control; mA and/or kV adjustment per patient size (includes targeted exams where dose is matched to clinical indication); or iterative reconstruction. Contrast material: OMNI 350; Contrast volume: 80 ml; Contrast route: INTRAVENOUS (IV); REPORTING DATA: Count of CT and Cardiac NM exams in prior 12 months: This patient has received 7 known CTs and 0 known cardiac nuclear medicine studies in the 12 months prior to the current study. COMPARISON: CR XR chest 1V portable [id number] 05/20/2023 1:02 PM RADIATION DOSE METRICS: Total DLP (mGy-cm): 501.79 FINDINGS: Pulmonary arteries: Normal. No pulmonary emboli. Aorta: Unremarkable. No aortic aneurysm. No aortic dissection. Lungs: Unremarkable. No consolidation. No masses. Pleural spaces: Unremarkable. No pneumothorax. No pleural effusion. Heart: Unremarkable. No cardiomegaly. No pericardial effusion. Lymph nodes: Unremarkable. No enlarged lymph nodes. Bones/joints: Dorsal spine osteoarthritis No acute fracture. Soft tissues: Unremarkable. CT/CT angio chest PE protcl [id number] IMPRESSION: No acute findings. Negative for pulmonary embolism. Negative for right heart strain. Negative for aortic aneurysm or dissection
[2023-05-20 14:00] LABS: SARS Covid-2 Antigen negative (Negative)
[2023-05-20 14:08] LABS: Troponin(5th) Baseline 7 ng/L (0-10)
[2023-05-20 14:23] LABS: Alanine Aminotransferase 15 U/L (0-33); Alkaline Phosphatase 87 U/L (35-105); Anion Gap 14.3 (5-19); Aspartate Amino Transferase 25 U/L (0-32); Blood Urea Nitrogen 13 mg/dL (8-23); Calcium 9.2 mg/dL (8.5-10.5); Carbon Dioxide 27 mmol/L (22-29); Chloride 103 mmol/L (98-107); Creatinine Clr Calc Pharmacy 82.5952; Globulin 2.6 g/dL (1.3-4.6); Glomerular Filtration Rate 123.8 mL/min (90-130); Glucose 133 mg/dL (65-115); Lipase 33 U/L (13-60); NT Pro B Type Natriuretic Pept 1090 pg/mL (0-125); Osmolality Calculated 292 mOsm/kg (285-295); Potassium 4.3 mmol/L (3.5-5.1); Sodium 140 mmol/L (136-145); Total Bilirubin 0.7 mg/dL (0.15-1.2); Total Protein 6.6 g/dL (6.6-8.7)
[2023-05-20] MEDS: iohexol 350 mg/mL 500 mL Btl (per mL) IV (14:41)
[2023-05-20 14:47] LABS: Add Urine Microscopic? NO; Charge for UA Resulting for Rev
--- NOTE | 2023-05-20 14:52 | ECG_ITS ---
[facility] Test Date: 2023-05-20 Pat Name: Lisa Magaña Department: Room: Gender: Female Whizzer: : 1960 Requested By: Kenny Spring Order Number: [id number] Sary MD: Aida Trejo M.D. Measurements Intervals [place] Rate: 74 P: 12 ID: 150 QRS: 3 QRSD: 80 T: 20 QT: 386 QTc: 429 Interpretive Statements SINUS RHYTHM LOW QRS VOLTAGE IN PRECORDIAL LEADS [QRS DEFLECTION < 1.0 mV IN CHEST LEADS] Compared to ECG 05/20/2023 12:59:18 No significant changes Electronically Signed On 05-21-2023 19:57:32 CDT by Aida Trejo M.D. [id number]
[2023-05-20 14:56] LABS: Bilirubin Urine 1+ (Negative); Blood Urine Neg (Negative); Glucose Urine UA Norm (Normal); Ketones Urine Negative (Negative); Leukocyte Esterase Urine Negative (Negative); Nitrate Urine Negative (Negative); Protein Urine Neg (Negative); Urine Appearance Clear (CLEAR); Urine Color Dark Yellow (Yellow); Urobilinogen Urine 8 mg/dL (Negative); pH Urine 7 (5-7)
--- NOTE | 2023-05-20 14:59 | PC.PHAR ---
pt states she takes care of her own medications-ext shows clonazepam 0.5mg tid prn filled 04/27/23 pt states she takes 0.5mg tid-pt states she takes fluoxetine 40mg qam ext shows last filled 03/20/23 90d/s 20mg qam-
[2023-05-20 15:00] VITALS: BP 161/100; PULSE 76; O2SAT 91
[2023-05-20 15:11] VITALS: BP 151/87
[2023-05-20] MEDS: FUROsemide 10 mg/mL SDV 2mL 20 MG IVP (15:42)
[2023-05-20] MEDS: diazePAM 2 mg Tablet PO (15:42)
[2023-05-20 15:52] VITALS: PULSE 73; O2SAT 92
== END 2023-05-20 15:57 | disposition home or self-care (01) ==
PROVIDERS: Emergency Provider Emergency Medicine; PCP Family Medicine
DX: R07.9 Chest pain, unspecified (principal); R60.0 Localized edema; R53.81 Other malaise; R53.83 Other fatigue; M79.602 Pain in left arm; E11.9 Type 2 diabetes mellitus without complications; Z79.4 Long term (current) use of insulin; Z79.84 Long term (current) use of oral hypoglycemic drugs; Z20.822 Contact with and (suspected) exposure to COVID-19
CPT/HCPCS: 71045; 71275; 73030; 80053; 81003; 83690; 83880; 84484; 85025; 85378; 87426; 93005; 96374; 96375; 99285; J1885; J1940; J2270; J2405; Q9967

== ENCOUNTER 2024-03-03 06:51 | Emergency (ER) | payer MEDICARE, SELFPAY ==
[2024-03-03 07:09] VITALS: BP 181/112; PULSE 75; RESP 18; TEMP 36.4; O2SAT 97; BMI 30.4
--- NOTE | 2024-03-03 07:09 | XRR_ITS ---
PROCEDURE INFORMATION: Exam: XR Left Knee Exam date and time: 03/03/2024 7:15 AM Age: 64 years old Clinical indication: Pain; Left; Prior surgery; Surgery date: <1 month; Surgery type: Lt knee; Additional info: Knee pain TECHNIQUE: Imaging protocol: Radiologic exam of the left knee. Views: 3 views. COMPARISON: CR XR knee LT 3V* [id number] 06/07/2022 9:05 PM FINDINGS: Bones/joints: A left knee arthroplasty appears appropriately positioned. No hardware complication is identified. Probable knee joint effusion. No acute fracture, dislocation or subluxation is identified. Soft tissues: Soft tissue swelling about the knee. XR/XR knee LT 3V* [id number] IMPRESSION: 1. A left knee arthroplasty appears appropriately positioned. No hardware complication is identified. 2. Probable knee joint effusion. 3. Soft tissue swelling about the knee.
--- NOTE | 2024-03-03 07:34 | ED_ITS ---
HPI - Extremity Problem 2 General: Chief complaint: Extremity Injury, Lower Stated complaint: left leg pain, knee replacement 02/28/24 Time Seen by Provider: 03/03/24 06:55 Source: patient Mode of arrival: ambulatory History of Present Illness: Six 4-year-old female presents emergency room she is postop 4 days from a left knee arthroplasty immediately postop states she had little to no pain she was actually very active doing as much activity as allowed last several days she got home she twisted yesterday felt a popping sensation/crunching sensation while she was doing some exercises and's been increasingly painful since she has not had any fevers or chills no chest pain or shortness of breath minimal swelling in the lower extremity. She is not on any anticoagulants. Associated symptoms: Deny chest pain, fever(s) or rash Review of Systems 2 Const: Denies: fever(s) or chills Card: Denies: chest pain Resp: Denies: dyspnea GI: Denies: abdominal pain : Denies: dysuria, urinary frequency or urinary urgency Musc: Denies: neck pain or back pain Skin/Breast: Denies: rash, pruritus or erythema PFSH ED 2 PFSH: Medical History SVT (supraventricular tachycardia) Depression Diabetes Surgical History H/O total hysterectomy Hx of cholecystectomy Family History Father Diabetes Other Hypertension Social History Smoking and tobacco/nicotine status: never used tobacco/nicotine Physical Exam 2 Const: COMMON NORMALS: no acute distress GENERAL APPEARANCE: cooperative and comfortable ORIENTATION/CONSCIOUSNESS: Yes awake, Yes oriented to person, Yes oriented to place and Yes oriented to time HENMT: COMMON NORMALS: normocephalic, atraumatic and hearing grossly normal bilaterally HEAD & SCALP: normocephalic and atraumatic Resp: COMMON NORMALS: normal respiratory effort, No retractions, No use of accessory muscles and clear to auscultation bilaterally AUSCULTATION: clear to auscultation bilaterally Cardio: COMMON NORMALS: regular rate, regular rhythm and No murmurs present (Cardio) RATE: regular rate RHYTHM: regular rhythm GI: COMMON NORMALS: Soft to palpation and No hepatosplenomegaly present A USCULTATION: Yes normoactive bowel sounds PALPATION: Yes Soft to palpation, No Tenderness to palpation present (GI), No Guarding due to palpation present (GI) and Yes No hepatosplenomegaly present Extremity: COMMON NORMALS: capillary refill normal, no clubbing, cyanosis or edema, no calf tenderness and no pedal edema OTHER: Posterior thigh bruising consistent with recent surgery wound edges well approximated no sign of dehiscence no localized erythema or swelling and no drainage no induration. No calf tenderness Neuro: SENSORIUM/ORIENTATION: Yes oriented to person, Yes oriented to place and Yes oriented to time Skin: COMMON NORMALS: no rashes or lesions noted GENERAL SKIN EXAM: no rashes or lesions noted Course 2 Vital Signs: Vital signs: Vital Signs Temperature 97.6 F 03/03/24 07:09 Pulse Rate 75 03/03/24 07:09 Respiratory Rate 18 03/03/24 07:09 Blood Pressure 181/112 03/03/24 07:09 Pulse Oximetry 97 03/03/24 07:09 Oxygen Delivery Me thod Room Air 03/03/24 07:09 MDM - Extremity (Nontraumatic) Medical Decision Making Significant amount of posterior thigh bruising consistent with recent surgery. Wound is well-healed no sign of dehiscence no significant swelling erythema or induration. X-ray shows hardware in good position no white count. Suspect this may be related to activity will increase her pain medications Percocet and lieu of the hydrocodone and have her follow-up with her orthopedist tomorrow. Medical Records I reviewed the patient's medical records. Lab Data I reviewed the patient's lab results. 03/03/24 08:16 Radiology Impressions Knee X-Ray 03/03/24 07:09 IMPRESSION: 1. A left knee arthroplasty appears appropriately positioned. No hardware complication is identified. 2. Probable knee joint effusion. 3. Soft tissue swelling about the knee. Laboratory Results Sodium 139 mmol/L (136-145) 03/03/24 08:16 Potassium 4.2 mmol/L (3.5-5.1) 03/03/24 08:16 Chloride 106 mmol/L (98-107) 03/03/24 08:16 Carbon Dioxide 21 mmol/L (22-29) L 03/03/24 08:16 Anion Gap 16.2 (5-19) 03/03/24 08:16 BUN 20 mg/dL (8-23) 03/03/24 08:16 Creatinine 0.5 mg/dL (0.5-0.9) 03/03/24 08:16 GFR Calculation 123.4 mL/min (90-130) 03/03/24 08:16 Glucose 166 mg/dL (65-115) H 03/03/24 08:16 Calculated Osmolality 294 mOsm/kg (285-295) 03/03/24 08:16 Calcium 8.8 mg/dL (8.5-10.5) 03/03/24 08:16 Total Bilirubin 1.1 mg/dL (0.15-1.2) 03/03/24 08:16 AST 26 U/L (0-32) 03/03/24 08:16 ALT 12 U/L (0-33) 03/03/24 08:16 Alkaline Phosphatase 100 U/L (35-105) 03/03/24 08:16 Total Protein 6.5 g/dL (6.6-8.7) L 03/03/24 08:16 Albumin 3.6 g/dL (3.5-5.2) 03/03/24 08:16 Globulin 2.9 g/dL (1.3-4.6) 03/03/24 08:16 All radiology interpretation(s) finalized by discharge Discharge Plan Discharge Patient Disposition: Home Clinical Impression: S/P total knee arthroplasty Condition: Stable Prescriptions: New Percocet 5-325 mg tablet 1 tab PO Q6H PRN (Reason: pain) Qty: 20 0RF No Action metformin 500 mg tablet extended release 24 hr 500 mg PO QAM pantoprazole 40 mg tablet,delayed release (DR/EC) 40 mg PO DAILY fluoxetine 20 mg capsule 40 mg PO QAM clonazepam 0.5 mg tablet 0.5 mg PO TID sumatriptan succinate [Imitrex] 100 mg tablet 100 mg PO Q2H PRN (Reason: Migraine Headache) Rx Instructions: do not exceed 2 doses per 24 hrs gabapentin 100 mg capsule See Rx Instructions .ROUTE .COMPLEX Rx Instructions: 3 caps (300mg) qam and 2 caps (200mg) qpm acyclovir 400 mg tablet 400 mg PO BID metoprolol tartrate 100 mg tablet 100 mg PO BID Qty: 60 0RF hydrocodone-acetaminophen 5-325 mg tablet 1 tab PO TID PRN (Reason: Pain) ondansetron HCl 8 mg tablet 8 mg PO Q8H PRN (Reason: Nausea And Vomiting) rosuvastatin 10 mg tablet 10 mg PO DAILY duloxetine 60 mg capsule,delayed release(DR/EC) 60 mg PO DAILY Levemir FlexPen 100 unit/mL (3 mL) insulin pen 8 unit SUBCUT BEDTIME ferrous gluconate 324 mg (38 mg iron) tablet 324 mg PO DAILY Lasix 20 mg tablet 20 mg PO DAILY Qty: 7 0RF potassium chloride 8 mEq capsule, extended release 8 meq PO DAILY Qty: 7 0RF Valium 2 mg tablet 2 mg PO TID PRN (Reason: muscle spasm) Qty: 10 0RF Discharge Orders: Discharge ED (Routine); Ordered 03/03/24 Ordered By: Shahriar Mir Referrals: Joseph Baker MD [Primary Care Provider] - Discharge Diet: Usual diet Discharge Activity: Limit activity as instructed Patient Instructions: Opioid Safety, Pain Management Activity Restrictions/Additional Instructions: Thank you for choosing [facility] for your healthcare needs today. Please realize this is an emergency room and that we are providing you with a medical screening exam and this may not be complete and all inclusive of all the testing and or work up that you may need to determine your ailment or severity of your illness. It is very important that you follow up as instructed or that you return to the Emergency Department should you have concerns or if your condition changes or worsens in any way. You were seen today for knee pain there is bruising consistent with your recent surgery clinically on exam there is no evidence of DVT. 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
[2024-03-03 08:43] LABS: Alanine Aminotransferase 12 U/L (0-33); Albumin Level 3.6 g/dL (3.5-5.2); Alkaline Phosphatase 100 U/L (35-105); Aspartate Amino Transferase 26 U/L (0-32); Blood Urea Nitrogen 20 mg/dL (8-23); Calcium 8.8 mg/dL (8.5-10.5); Carbon Dioxide 21 mmol/L (22-29); Chloride 106 mmol/L (98-107); Creatinine Clr Calc Pharmacy 81.4939; Globulin 2.9 g/dL (1.3-4.6); Glomerular Filtration Rate 123.4 mL/min (90-130); Glucose 166 mg/dL (65-115); Osmolality Calculated 294 mOsm/kg (285-295); Sodium 139 mmol/L (136-145); Total Bilirubin 1.1 mg/dL (0.15-1.2); Total Protein 6.5 g/dL (6.6-8.7)
[2024-03-03 08:54] LABS: Anion Gap 16.2 (5-19); Potassium 4.2 mmol/L (3.5-5.1)
== END 2024-03-03 09:22 | disposition home or self-care (01) ==
PROVIDERS: Emergency Provider Family Medicine; PCP Family Medicine
DX: S70.12XA Contusion of left thigh, initial encounter (principal); Z96.652 Presence of left artificial knee joint; E11.9 Type 2 diabetes mellitus without complications; Z79.84 Long term (current) use of oral hypoglycemic drugs; Z79.4 Long term (current) use of insulin; X58.XXXA Exposure to other specified factors, initial encounter
CPT/HCPCS: 73562; 80053; 99283

== ENCOUNTER 2025-04-05 06:39 | Emergency (ER) | payer MEDICARE, OTHER, SELFPAY ==
[2025-04-05 06:54] VITALS: BP 152/98; PULSE 94; RESP 18; TEMP 36.7; O2SAT 98; BMI 33.4
--- NOTE | 2025-04-05 07:02 | W.ED.HEATRA ---
HPI - Head Injury General: Chief complaint: Head Injury Stated complaint: fall Time Seen by Provider: 04/05/25 06:40 History of Present Illness: 65-year-old female who presents to the emergency room for ground-level mechanical fall. She tripped and fell 2 days ago hit her head she has bruising bilaterally to her eyes. She has also some mild discomfort to her knees she previous had bilateral knee arthroplasties there is no loss conscious she does have a bit of a residual headache no vomiting or diarrhea she is began have some bruising around the eyes. She was not seen after the initial fall denies any chest or abdominal pain. Associated symptoms: Deny neck pain Related Data Home Medications ?Medication ?Instructions ?Recorded ?Confirmed clonazepam 0.5 mg tablet 0.5 mg PO TID 01/18/21 05/20/23 fluoxetine 20 mg capsule 40 mg PO QAM 01/18/21 05/20/23 metformin 500 mg tablet,extended 500 mg PO QAM 01/18/21 05/20/23 release 24 hr pantoprazole 40 mg tablet,delayed 40 mg PO DAILY 01/18/21 05/20/23 release sumatriptan succinate 100 mg 100 mg PO Q2H PRN Migraine Headache 01/18/21 05/20/23 tablet (Imitrex) acyclovir 400 mg tablet 400 mg PO BID 07/17/21 05/20/23 gabapentin 100 mg capsule See Rx Instructions .Route .COMPLEX 03/28/23 05/20/23 duloxetine 60 mg capsule,delayed 60 mg PO DAILY 05/20/23 05/20/23 release ferrous gluconate 324 mg (38 mg 324 mg PO DAILY 05/20/23 05/20/23 iron) tablet hydrocodone 5 mg-acetaminophen 325 1 tab PO TID PRN Pain 05/20/23 05/20/23 mg tablet insulin detemir U-100 100 unit/mL 8 unit SUBCUT BEDTIME 05/20/23 05/20/23 (3 mL) subcutaneous pen (Levemir FlexPen) ondansetron HCl 8 mg tablet 8 mg PO Q8H PRN Nausea And Vomiting 05/20/23 05/20/23 rosuvastatin 10 mg tablet 10 mg PO DAILY 05/20/23 05/20/23 Previous Rx's ?Medication ?Instructions ?Recorded metoprolol tartrate 100 mg tablet 100 mg PO BID #60 tabs 03/18/23 diazepam 2 mg tablet (Valium) 2 mg PO TID PRN muscle spasm #10 05/20/23 tabs furosemide 20 mg tablet (Lasix) 20 mg PO DAILY #7 tabs 05/20/23 potassium chloride 8 mEq 8 meq PO DAILY #7 caps 05/20/23 capsule,extended release oxycodone-acetaminophen 5 mg-325 1 tab PO Q6H PRN pain #20 tabs 03/03/ mg tablet (Percocet) Allergies Allergy/AdvReac Type Severity Reaction Status Date / Time No Known Allergies Allergy Verified 05/20/23 14:51 Review of Systems Const: Denies: fever(s) or chills Card: Denies: chest pain Resp: Denies: dyspnea GI: Denies: abdominal pain : Denies: dysuria, urinary frequency or urinary urgency Musc: Denies: neck pain or back pain Skin/Breast: Denies: rash PFSH ED PFSH: Medical History SVT (supraventricular tachycardia) Depression Diabetes Surgical History H/O total hysterectomy Hx of cholecystectomy Family History Father Diabetes Other Hypertension Social History Smoking and tobacco/nicotine status: never used tobacco/nicotine Physical Exam Const: GENERAL APPEARANCE: cooperative ORIENTATION/CONSCIOUSNESS: Yes awake, Yes oriented to person, Yes oriented to place and Yes oriented to time HENMT: COMMON NORMALS: normocephalic and hearing grossly normal bilaterally HEAD & SCALP: normocephalic OTHER: Bruising across the forehead with ecchymosis extending to the lower eyelids. Examination eyes pupils equal rectal extraocular is intact no subconjunctival hematomas no hyphema. Abrasion on the upper forehead and over the left left zygomatic arch laterally Resp: COMMON NORMALS: normal respiratory effort, No retractions, No use of accessory muscles and clear to auscultation bilaterally AUSCULTATION: clear to auscultation bilaterally Cardio: COMMON NORMALS: regular rate, regular rhythm and No murmurs present (Cardio) RATE: regular rate RHYTHM: regular rhythm GI: COMMON NORMALS: Soft to palpation and No hepatosplenomegaly present AUSCULTATION: Yes normoactive bowel sounds PALPATION: Yes Soft to palpation, No Tenderness to palpation present (GI), No Guarding due to palpation present (GI) and Yes No hepatosplenomegaly present Extremity: COMMON NORMALS: normal to inspection, capillary refill normal, no clubbing, cyanosis or edema, no calf tenderness and no pedal edema Neuro: SENSORIUM/ORIENTATION: Yes oriented to person, Yes oriented to place and Yes oriented to time Skin: COMMON NORMALS: no rashes or lesions noted GENERAL SKIN EXAM: no rashes or lesions noted Course Vital Signs: Vital signs: Vital Signs Temperature 98.1 F 04/05/25 06:54 Pulse Rate 80 04/05/25 08:14 Respiratory Rate 18 04/05/25 06:54 Blood Pressure 130/81 04/05/25 08:14 Pulse Oximetry 98 04/05/25 08:14 Oxygen Delivery Me thod Room Air 04/05/25 06:54 MDM - Head Injury Medcial Decision Making Labs and imaging reviewed. No acute fractures or significantly abnormal findings patient's tetanus is not up-to-date will give her Tdap. Additionally can use topical antibiotic ointment [id number] to the wounds. Tylenol ibuprofen for the aches and pains or previously prescribed pain medications. Medical Records I reviewed the patient's medical records. Lab Data I reviewed the patient's lab results. 04/05/25 07:13 04/05/25 07:13 Radiology Impressions Cervical Spine CT 04/05/25 07:14 IMPRESSION: No acute cervical spine fracture. Face CT 04/05/25 07:14 IMPRESSION: No acute findings. Head CT 04/05/25 07:14 IMPRESSION: No acute intracranial abnormality. Knee X-Ray 04/05/25 07:14 IMPRESSION: No acute findings. Laboratory Results WBC 3.74 10^3/uL (3.29-11.43) 04/05/25 07:13 RBC 4.83 10^6/uL (3.85-5.65) 04/05/25 07:13 Hgb 14.20 g/dL (11.27-16.99) 04/05/25 07:13 Hct 43.8 % (36-47) 04/05/25 07:13 MCV 90.7 fl (85-98) 04/05/25 07:13 MCH 29.4 pg (27-33) 04/05/25 07:13 MCHC 32.4 g/dL (30-55) 04/05/25 07:13 RDW 12.4 % (12.1-15.1) 04/05/25 07:13 Plt Count 106 10^3/cmm (157-399) L 04/05/25 07:13 MPV 10.3 fL (7.4-10.4) 04/05/25 07:13 Neut % (Auto) 59.6 % 04/05/25 07:13 Lymph % (Auto) 27.5 % 04/05/25 07:13 [place] % (Auto) 8.6 % 04/05/25 07:13 Eos % (Auto) 2.9 % 04/05/25 07:13 Baso % (Auto) 1.1 % 04/05/25 07:13 Neut # (Auto) 2.23 10^3/uL (1.8-7.7) 04/05/25 07:13 Lymph # (Auto) 1.0 10^3/uL (0.8-4.8) 04/05/25 07:13 [place] # (Auto) 0.3 10^3/uL (0.2-0.9) 04/05/25 07:13 Eos # (Auto) 0.1 10^3/uL (0.0-0.8) 04/05/25 07:13 Baso # (Auto) 0.0 10^3/uL (0.0-0.1) 04/05/25 07:13 Nucleated RBC % (auto) 0 % 04/05/25 07:13 Nucleated RBCs # 0.0 /100WBC 04/05/25 07:13 Sodium 142 mmol/L (136-145) 04/05/25 07:13 Potassium 4.1 mmol/L (3.5-5.1) 04/05/25 07:13 Chloride 105 mmol/L (98-107) 04/05/25 07:13 Carbon Dioxide 25 mmol/L (22-29) 04/05/25 07:13 Anion Gap 16.1 (5-19) 04/05/25 07:13 BUN 11 mg/dL (8-23) 04/05/25 07:13 Creatinine 0.5 mg/dL (0.5-0.9) 04/05/25 07:13 GFR Calculation 123.1 mL/min (90-130) 04/05/25 07:13 Glucose 133 mg/dL (65-115) H 04/05/25 07:13 Calculated Osmolality 295 mOsm/kg (285-295) 04/05/25 07:13 Calcium 9.2 mg/dL (8.5-10.5) 04/05/25 07:13 Total Bilirubin 1.2 mg/dL (0.15-1.2) 04/05/25 07:13 AST 28 U/L (0-32) 04/05/25 07:13 ALT 14 U/L (0-33) 04/05/25 07:13 Alkaline Phosphatase 77 U/L (35-105) 04/05/25 07:13 Total Protein 6.3 g/dL (6.6-8.7) L 04/05/25 07:13 Albumin 4.1 g/dL (3.5-5.2) 04/05/25 07:13 Globulin 2.2 g/dL (1.3-4.6) 04/05/25 07:13 All radiology interpretation(s) finalized by discharge Discharge Plan Discharge Patient Disposition: Home Clinical Impression: Fall Qualifiers: Encounter type: initial encounter Qualified Code(s): W19.XXXA - Unspecified fall, initial encounter Abrasion of face Qualifiers: Encounter type: initial encounter Qualified Code(s): S00.81XA - Abrasion of other part of head, initial encounter Condition: Stable Prescriptions: No Action metformin 500 mg tablet extended release 24 hr 500 mg PO QAM pantoprazole 40 mg tablet,delayed release (DR/EC) 40 mg PO DAILY fluoxetine 20 mg capsule 40 mg PO QAM clonazepam 0.5 mg tablet 0.5 mg PO TID sumatriptan succinate [Imitrex] 100 mg tablet 100 mg PO Q2H PRN (Reason: Migraine Headache) Rx Instructions: do not exceed 2 doses per 24 hrs gabapentin 100 mg capsule See Rx Instructions .ROUTE .COMPLEX Rx Instructions: 3 caps (300mg) qam and 2 caps (200mg) qpm acyclovir 400 mg tablet 400 mg PO BID Percocet 5-325 mg tablet 1 tab PO Q6H PRN (Reason: pain) Qty: 20 0RF metoprolol tartrate 100 mg tablet 100 mg PO BID Qty: 60 0RF hydrocodone-acetaminophen 5-325 mg tablet 1 tab PO TID PRN (Reason: Pain) ondansetron HCl 8 mg tablet 8 mg PO Q8H PRN (Reason: Nausea And Vomiting) rosuvastatin 10 mg tablet 10 mg PO DAILY duloxetine 60 mg capsule,delayed release(DR/EC) 60 mg PO DAILY Levemir FlexPen 100 unit/mL (3 mL) insulin pen 8 unit SUBCUT BEDTIME ferrous gluconate 324 mg (38 mg iron) tablet 324 mg PO DAILY Lasix 20 mg tablet 20 mg PO DAILY Qty: 7 0RF potassium chloride 8 mEq capsule, extended release 8 meq PO DAILY Qty: 7 0RF Valium 2 mg tablet 2 mg PO TID PRN (Reason: muscle spasm) Qty: 10 0RF Discharge Orders: Discharge ED (Routine); Ordered 04/05/25 Ordered By: Shahriar Mir Referrals: Joseph Baker MD [Primary Care Provider, Family Practice] Discharge Diet: Usual diet Discharge Activity: Resume usual activity Patient Instructions: Opioid Safety, Pain Management Activity Restrictions/Additional Instructions: Thank you for choosing [facility] for your healthcare needs today. It is very important that you follow up as instructed or that you return to the Emergency Department should you have concerns or if your condition changes or worsens in any way. You were seen in the emergency room after a fall. Labs and imaging were normal. Can apply topical antibiotic ointment to the abrasions on the face until they are healed. 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
--- NOTE | 2025-04-05 07:14 | CTR_ITS ---
PROCEDURE INFORMATION: Exam: CT Maxillofacial Without Contrast Exam date and time: 04/05/2025 7:28 AM Age: 65 years old Clinical indication: Injury or trauma; Fall; Blunt trauma (contusions or hematomas); Forehead and orbit/periorbital; Bilateral TECHNIQUE: Imaging protocol: Computed tomography of the face without contrast. Radiation optimization: All CT scans at this facility use at least one of these dose optimization techniques: automated exposure control; mA and/or kV adjustment per patient size (includes targeted exams where dose is matched to clinical indication); or iterative reconstruction. COMPARISON: CT facial bones wo con* [id number] 06/07/2022 9:17 PM RADIATION DOSE METRICS: Total DLP (mGy-cm): 482.2 FINDINGS: Paranasal sinuses: No air-fluid levels. Orbital cavities: Orbits are normal. Globes are unremarkable. Bones: No acute fracture. Soft tissues: Unremarkable. CT/CT facial bones wo con* [id number] IMPRESSION: No acute findings.
--- NOTE | 2025-04-05 07:14 | XRR_ITS ---
PROCEDURE INFORMATION: Exam: XR Left Knee Exam date and time: 04/05/2025 7:32 AM Age: 65 years old Clinical indication: Injury or trauma; Fall; Blunt trauma; Knee; Bilateral TECHNIQUE: Imaging protocol: Radiologic exam of the left knee. Views: 3 views. COMPARISON: CR XR knee LT 3V* [id number] 03/03/2024 7:15 AM FINDINGS: Bones/joints: Total knee replacement. Anatomic alignment. Bone and metal are intact. No fracture or dislocation.. Soft tissues: Normal. XR/XR knee LT 3V* [id number] IMPRESSION: No acute findings.
--- NOTE | 2025-04-05 07:14 | XRR_ITS ---
PROCEDURE INFORMATION: Exam: XR Right Knee Exam date and time: 04/05/2025 7:35 AM Age: 65 years old Clinical indication: Injury or trauma; Fall; Blunt trauma; Knee; Bilateral TECHNIQUE: Imaging protocol: Radiologic exam of the right knee. Views: 3 views. COMPARISON: CR XR knee RT 3V* [id number] 06/29/2020 11:54 AM FINDINGS: Bones/joints: Total knee replacement. Anatomic alignment. Bone and metal are intact. No fracture or dislocation. Soft tissues: Normal. XR/XR knee RT 3V* [id number] IMPRESSION: Normal following replacement.
--- NOTE | 2025-04-05 07:14 | CTR_ITS ---
PROCEDURE INFORMATION: Exam: CT Head Without Contrast Exam date and time: 04/05/2025 7:28 AM Age: 65 years old Clinical indication: Injury or trauma; Fall; Blunt trauma (contusions or hematomas); Without loss of consciousness TECHNIQUE: Imaging protocol: Computed tomography of the head without contrast. Radiation optimization: All CT scans at this facility use at least one of these dose optimization techniques: automated exposure control; mA and/or kV adjustment per patient size (includes targeted exams where dose is matched to clinical indication); or iterative reconstruction. COMPARISON: CT head wo con* [id number] 06/10/2022 11:58 AM RADIATION DOSE METRICS: Total DLP (mGy-cm): 311 FINDINGS: Brain: Normal. No hemorrhage. Unremarkable white matter. No mass effect. Cerebral ventricles: No ventriculomegaly. Cavum septum pellucidum. Paranasal sinuses: Visualized sinuses are unremarkable. No fluid levels. Mastoid air cells: Visualized mastoid air cells are well aerated. Bones: Unremarkable. No acute fracture. Soft tissues: Unremarkable. CT/CT head wo con* [id number] IMPRESSION: No acute intracranial abnormality.
--- NOTE | 2025-04-05 07:14 | CTR_ITS ---
PROCEDURE INFORMATION: Exam: CT Cervical Spine Without Contrast Exam date and time: 04/05/2025 7:28 AM Age: 65 years old Clinical indication: Injury or trauma; Fall; Blunt trauma TECHNIQUE: Imaging protocol: Computed tomography of the cervical spine without contrast. Radiation optimization: All CT scans at this facility use at least one of these dose optimization techniques: automated exposure control; mA and/or kV adjustment per patient size (includes targeted exams where dose is matched to clinical indication); or iterative reconstruction. COMPARISON: CT cervical spin wo con* [id number] 06/07/2022 9:21 PM RADIATION DOSE METRICS: Total DLP (mGy-cm): 263.4 FINDINGS: Bones: No acute fracture. Normal alignment. No significant disc bulge or herniation. No severe spinal canal stenosis. No significant neural foraminal narrowing. Lungs: Lung apices are normal. Soft tissues: Unremarkable. CT/CT cervical spin wo con* [id number] IMPRESSION: No acute cervical spine fracture.
[2025-04-05 07:30] LABS: Basophils % 1.1 %; Eosinophils # 0.1 10^3/uL (0.0-0.8); Eosinophils % 2.9 %; Hematocrit 43.8 % (36-47); Lymphocytes % 27.5 %; Mean Corpuscular HGB Conc 32.4 g/dL (30-55); Mean Corpuscular Hemoglobin 29.4 pg (27-33); Mean Corpuscular Volume 90.7 fl (85-98); Mean Platelet Volume 10.3 fL (7.4-10.4); Monocytes # 0.3 10^3/uL (0.2-0.9); Monocytes % 8.6 %; Neutrophils # 2.23 10^3/uL (1.8-7.7); Neutrophils % 59.6 %; Nucleated Red Blood Cells % 0 %; Platelet Count 106 10^3/cmm (157-399); Red Blood Count 4.83 10^6/uL (3.85-5.65); Red Cell Distribution Width 12.4 % (12.1-15.1); White Blood Count 3.74 10^3/uL (3.29-11.43)
[2025-04-05 07:45] LABS: Alanine Aminotransferase 14 U/L (0-33); Albumin Level 4.1 g/dL (3.5-5.2); Alkaline Phosphatase 77 U/L (35-105); Aspartate Amino Transferase 28 U/L (0-32); Blood Urea Nitrogen 11 mg/dL (8-23); Calcium 9.2 mg/dL (8.5-10.5); Carbon Dioxide 25 mmol/L (22-29); Chloride 105 mmol/L (98-107); Creatinine Clr Calc Pharmacy 84.3018; Globulin 2.2 g/dL (1.3-4.6); Glomerular Filtration Rate 123.1 mL/min (90-130); Glucose 133 mg/dL (65-115); Osmolality Calculated 295 mOsm/kg (285-295); Sodium 142 mmol/L (136-145); Total Bilirubin 1.2 mg/dL (0.15-1.2); Total Protein 6.3 g/dL (6.6-8.7)
[2025-04-05 08:03] LABS: Anion Gap 16.1 (5-19); Potassium 4.1 mmol/L (3.5-5.1)
[2025-04-05 08:14] VITALS: BP 130/81; PULSE 80; O2SAT 98
== END 2025-04-05 08:16 | disposition home or self-care (01) ==
PROVIDERS: Emergency Provider Family Medicine; PCP Family Medicine
DX: S00.81XA Abrasion of other part of head, initial encounter (principal); W19.XXXA Unspecified fall, initial encounter; E11.9 Type 2 diabetes mellitus without complications
CPT/HCPCS: 36415; 70450; 70486; 72125; 73562; 80053; 85025; 99284

== ENCOUNTER 2025-09-15 21:17 | Emergency (ER) | payer MEDICARE, OTHER, SELFPAY ==
[2025-09-15] VITALS (16 sets, daily range): BP systolic 143–155; BP diastolic 87–95; PULSE 102–111; RESP 11–28; TEMP 39.3; O2SAT 93–97; BMI 31.9
--- OUTSIDE RECORDS SUMMARY | 2025-09-15 21:25 | XMS_ITS | Encounter Summary ---
Author Organization [facility] Address [address] [place] [address] Care Team Providers Care Auto Body Service Mechanic Name Role Phone Joseph Baker MD Primary Care Provider [phone] Reason for Visit * Reason Onset Date Comments Hospital Follow Up 04/08/2021 Day 2 Encounter Details Date Type Department Care Team (Late st Contact Info) Description 04/08/2021 Telephone [facility] Case Management [address] [place] [address] Damian Winn MD [address] [place] [address] Hospital Follow Up (Day 2) Social History Tobacco Use Types Packs/Day Years Used Date Smoking Tobacco: Never Smokeless Tobacco: Never Alcohol Use Standard Drinks/Week Comments No 0 (1 standard drink = 0.6 oz pur e alcohol) Comments No Sex and Gender Information Value Date Recorded Sex Assigned at Not on file Legal Sex Female 3:39 AM ADDICTION PSYCHIATRIST Gender Identity Not on file Sexual Orientation Not on file COVID-19 Exposure Response Date Recorded In the last month, have you been in contact with someone who was confirmed or suspected to have Coronavirus / COVID-19? No / Unsure 04/05/2021 7:24 AM CDT documented as of this encounter Plan of Treatment Not on file documented as of this encounter Visit Diagnoses Not on filedocumented in this encounter Care Teams Auto Body Service Mechanic Relationship Specialty Start Date End Date Joseph Baker MD [address] [address] PCP - General 12/09/08 documented as of this encounter
--- OUTSIDE RECORDS SUMMARY | 2025-09-15 21:25 | XMS_ITS | Clinical Summary ---
Author Organization [facility] Address [address] [place] [address] Care Team Providers Care Marketing Support Coordinator Name Role Phone Joseph Baker MD Primary Care Provider [phone] Allergies No known active allergies Medications IMITREX 100 mg Oral TabIndications: Lumbar radiculopathy,C ervical radiculopathy,T horacic radiculitis Take 100 mg by mouth see administration instructions. Active clonazePAM (KlonoPIN) 0.5 mg Tablet Take 0.5 mg by mouth 4 times daily . Active cpap medical librarian 2 L . Active acyclovir (ZOVIRAX) 400 mg tabletIndicatio ns:Lumbosacral spondylosis without myelopathy,Thor acic spondylosis without myelopathy,Thor acic radiculitis,Idi opathic peripheral neuropathy Take 400 mg by mouth 2 times daily. 10/06/20 16 Active metoprolol tartrate (LOPRESSOR) 25 mg tablet Take 25 mg by mouth 2 times daily . 12/27/19 17 Active pramipexole (MIRAPEX) 0.5 mg tablet 10/22/19 19 Active traZODone (DESYREL) 150 mg tablet 10/22/19 19 Active ondansetron (ZOFRAN) 8 mg Tablet 06/10/20 19 Active pantoprazole (PROTONIX) 40 mg Tablet, Delayed Release (E.C.) 06/10/20 19 Active pregabalin (LYRICA) 75 mg Capsule 06/04/20 19 Active DULoxetine (CYMBALTA) 60 mg Capsule, Delayed Release(E.C.) 06/10/20 19 Active cyclobenzaprine (FLEXERIL) 10 mg tabletIndicatio ns:Sacroiliac pain,Lumbosacra l spondylosis without myelopathy,Thor acic spondylosis without myelopathy,Thor acic radiculitis,Idi opathic peripheral neuropathy,Spas m TAKE 1 TABLET BY MOUTH THREE TIMES DAILY NEEDED FOR SPASM 90 Tablet 1 03/01/20 21 Active Zonisamide (ZONEGRAN) 100 mg capsule Take 100 mg by mouth daily. Active insulin glargine (LANTUS) 100 unit/mL injection Inject 8 Units by subcutaneous injection one time only. Evening Active semaglutide (Ozempic) 0.25 mg or 0.5 mg(2 mg/1.5 mL) Pen Injector Inject 0.25 mg by subcutaneous injection. Once a week on Fridays. Active ondansetron (Zofran) 4 mg Tablet Take 1 Tablet (4 mg) by mouth every 6 hours as needed for Nausea. 15 Tablet 04/05/20 21 Active oxyCODONE-aceta minophen (Percocet) 5-325 mg tabletIndicatio ns:S/P shoulder replacement, right Take 1 Tablet by mouth every 4 hours as needed for Pain, Moderate or Pain, Severe. Max Daily Amount: 6 Tablets 42 Tablet 04/06/2021 3:16 PM CDT 04/05/20 21 Active naloxone (NARCAN) 4 mg/spray [place], Non-Aerosol EMERGENCY USE ONLY: Administer 1 spray (4 mg) in one nostril one time. May repeat in alternating nostrils every 2-3 min until responsive or EMS arrives. 2 Each 3 04/06/20 21 Active Active Problems Problem Noted Date Diagnosed Date S/P shoulder replacement, right 04/05/2021 Chronic right shoulder pain 03/25/2021 GERD (gastroesophageal reflux disease) Type 2 diabetes mellitus wit h hyperglycemia, with long-term current use of insulin 03/25/2021 Obesity (BMI 30.0-34.9) 03/25/2021 Elevated SGOT (AST) 03/25/2021 Preoperative general physical examination 2016 Tachycardia 05/11/2017 Essential hypertension 05/11/2017 Lumbosacral spondylosis without myelopathy 11/01 Thoracic spondylosis without myelopathy 11/01/19 17 Thoracic radiculitis 11/01/2016 Idiopathic peripheral neuropathy 11/01/2016 Cervical radiculitis 01/14/2009 Post-operative nausea and vomiting Renal cyst, right Overview (05/11/2017): Per patient Anxiety and depression Confusion Hypoxia Family History Medical History Relation Name Comments Crohn's Disease Brother Ham Healthy Daughter 1 Suzanne Healthy Daughter 2 Karmen Diabetes Father Heart Disease Father Kidney Disease Father Healthy Mother Diabetes Sister 1 Cheo Diabetes Sister 2 Winifred Relation Name Status Comments Brother Ham Alive Daughter 1 Suzanne Alive Daughter 2 Karmen Alive Father (Age 75) Mother Alive Sister 1 Cheo Alive Sister 2 Winifred Alive Social History Tobacco Use Types Packs/Day Years Used Date Smoking Tobacco: Never Smokeless Tobacco: Never Alcohol Use Standard Drinks/Week Comments No 0 (1 standard drink = 0.6 oz pur e alcohol) Comments No Sex and Gender Information Value Date Recorded Sex Assigned at Not on file 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 Sex 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 Gender Identity Not on file Sexual Orientation Not on file Last Filed Vital Signs Vital Sign Reading Time Taken Comments Blood Pressure 140/72 04/06/2021 3:40 PM CDT Pulse 88 04/06/2021 3:40 PM CDT Temperature 37.1 C (98.8 F) 04/06/2021 3:40 PM CDT Respiratory Rate 16 04/06/2021 3:40 PM CDT Oxygen Saturation 94% 04/06/2021 3:40 PM CDT Inhaled Oxygen Concentration - - Weight 106.1 kg (234 lb) 04/05/2021 6:20 AM CDT Height 172.7 cm (5' 8 ) 04/05/2021 6:20 AM CDT Body Mass Index 35.58 04/05/2021 6:20 AM CDT Plan of Treatment Health Maintenance Due Date Last Done Comments DIABETES ANNUAL FOOT EXAM 01/18/1976 DIABETES ANNUAL RETINAL EXAM 01/18/1976 DIABETES MICROALBUMIN ANNUAL SCREEN 01/18/1976 DTAP/TDAP/TD VACCINES (1 - Tdap) 1977 PNEUMOCOCCAL VACCINE 50+ YEARS (1 of 2 - PCV) 01/17/19 77 LDL CHOLESTEROL ANNUAL 10/13/2001 10/13/2000 FIT-DNA Q 3 years 2003 FIT/FOBT Q 1 year 2003 Flex Sig/CT Colonography Q 5 years 2003 RSV VACCINE (60+ or ) (1 - Risk 50-74 years 1-dose series) 01/18/2008 ZOSTER VACCINE (1 of 2) 01/18/2008 BREAST CANCER SCREENING 03/21/2017 03/21/2016 DIABETES HBA1C Q 6 MONTHS 09/24/2021 03/25/2021 OSTEOPOROSIS SCREENING 2023 INFLUENZA VACCINE (#1) 2025 COLORECTAL SCREENING 11/30/2028 11/30/2018 Colorectal Cancer Screening 11/30/2028 Medical Devices Implanted Type Area Supervisor Broadloom Device Identifier Shelf Expiration Date Model / Serial / Lot Cement Palacos Mv Zirconium Dioxide St Lf Disp [id number] - [id number] Implanted:Qty : 1 on 04/05/2021 by Damian Winn MD at [facility] Cement Right: Shoulder [employer] [id number] 11/15/2022 [id number] / / [id number] Hemostatic Gelfoam Powder 1gm [id number] - Sn/A Implanted:Qty : 2 on 05/24/2017 by Guillermo Talley MD at [facility] Hemostatic N/A: Spine Lumbar PFIZER- PHARM 08/15/2019 [id number] / N/A / [id number] Hemostatic Gelfoam Spng 12-7mm [id number] - Csc - Sn/A Implanted:Qty : 1 on 05/24/2017 by Guillermo Talley MD at [facility] Hemostatic N/A: Spine Lumbar PFIZER- PHARM 06/15/2019 [id number] / N/A / [id number] Bubba Xia3 Ti Riccardo Rad [id number] - [id number] Implanted:Qty : 1 on 05/24/2017 by Guillermo Talley MD at [facility] Bubba GAYATRI- SPINE [id number] / / [id number] Bubba Xia3 Ti Riccardo Rad [id number] - [id number] Implanted:Qty : 1 on 05/24/2017 by Guillermo Talley MD at [facility] Bubba GAYATRI- SPINE [id number] / / [id number] Screw Xia3 Pa 6.5x50mm [id number] - [id number] Implanted:Qty : 4 on 05/24/2017 by Guillermo Talley MD at [facility] Screw GAYATRI- SPINE [id number] / / [id number] Screw Xia3 Pa 7.0x50mm [id number] - [id number] Implanted:Qty : 4 on 05/24/2017 by Guillermo Talley MD at [facility] Screw GAYATRI- SPINE [id number] / / [id number] Head Hum Simpliciti [id number] - [id number] Implanted:Qty : 1 on 04/05/2021 by Damian Winn MD at [facility] Shoulder Right: Shoulder [employer] 11/04/2025 [id number] / / [id number] Comp Head Hum Simpliciti Nucls Sz2 [id number] - [id number] Implanted:Qty : 1 on 04/05/2021 by Damian Winn MD at [facility] Shoulder Right: Shoulder [employer] [id number] 11/19/2025 [id number] / / 2025-11-19 Comp Cortiloc Rt 15 Med [id number] - [id number] Implanted:Qty : 1 on 04/05/2021 by Damian Winn MD at [facility] Shoulder Right: Shoulder [employer] [id number] 04/22/2025 [id number] / / 2025-04-22 Brook Xia3 [id number] - [id number] Implanted:Qty : 8 on 05/24/2017 by Guillermo Talley MD at [facility] Spine GAYATRI- SPINE [id number] / / [id number] Crsscnctr Xia3 43-54mm [id number] - [id number] Implanted:Qty : 1 on 05/24/2017 by Guillermo Talley MD at [facility] Spine GAYATRI- SPINE [id number] / / [id number] Explanted Type Area Supervisor Broadloom Device Identifier Shelf Expiration Date Model / Serial / Lot Screw Xia3 Pa 6.5x50mm [id number] - [id number] Implanted:Guillermo Talley MD (Quantity not on file) Explanted:Qty: 1 on 05/24/2017 by Guillermo Talley MD at [facility] Screw GAYATRI- SPINE [id number] / / [id number] Brook Xia3 [id number] - [id number] Implanted:Guillermo Talley MD (Quantity not on file) Explanted:Qty: 1 on 05/24/2017 by Guillermo Talley MD at [facility] Spine GAYATRI- SPINE [id number] / / [id number] Procedures Procedure Name Priority Date/Time Associated Diagnosis Comments HEMOGLOBIN A1C Routine 03/25/2021 8:44 AM CDT from Last 3 Months or Most Recently Relevant to Health Maintenance Results * (ABNORMAL) HEMOGLOBIN A1C (03/25/2021 8:44 AM CDT) HEMOGLOBIN A1C 6.4(H) <=5.6 % 03/25/2021 9:23 AM CDT [facility] EST. AVG GLUCOSE, A1C 137 mg/dL 03/25/2021 9:[address] [facility] Blood Venipuncture / Unknown 03/25/2021 8:44 AM CDT 03/25/2021 8:52 AM CDT Narrative [facility] - 03/25/2021 9:23 AM CDT HGB A1C INTERPRETATION NORMAL: <5.7% PRE-DIABETES: 5.7 - 6.4% DIABETES: 6.5% OR GREATER us Simon Acosta MD CHEMISTRY ORDERABLES Final Resu lt [facility] CLIA #[id number] [address] [place] [address] from Last 3 Months or Most Recently Relevant to Health Maintenance Insurance MEDICARE PART A AND B [facility] RX [employer] RX Member Subscriber Plan / Payer (Ef fective 2021-Present) Name:Benja Magañabari Camargo Relation to Subscriber:Not on file Name:BENJA MAGAÑABARI Camargo Subscriber ID:Not on file Payer ID:Not on file Group ID:[id number] Type:RX Medicare Part D Address: [address] Advance Directives For more information, please contact: [phone] * Full Code (Latest Code Status on File) Date Activated Date Inactivated Comments 04/05/2021 11:59 AM 04/06/2021 7:17 PM * Full Code Date Activated Date Inactivated Comments 04/05/2021 6:49 AM 04/05/2021 11:59 AM * Full Code Date Activated Date Inactivated Comments 04/05/2021 6:22 AM 04/05/2021 6:48 AM * Full Code Date Activated Date Inactivated Comments 05/24/2017 7:43 PM 05/28/2017 4:51 PM Care Teams Marketing Support Coordinator Relationship Specialty Start Date End Date Joseph Baker MD [address] [phone] PCP - General 12/09/08
--- OUTSIDE RECORDS SUMMARY | 2025-09-15 21:26 | XMS_ITS | Encounter Summary ---
Author Organization [facility] Address [address] [place] [address] Care Team Providers Care Velvet Cutter Name Role Phone Joseph Baker MD Primary Care Provider [phone] Encounter Details Date Type Department Care Team (Latest Contact Info) Description 10/27/2003 Outpatient Historical [facility] Operating Room [address] [place] [id number] Levon Ho MD NO ADDRESS ON FILE FIBROSCLEROSIS OF BREAST (Primary Dx) Social History Tobacco Use Types Packs/Day Years Used Date Smoking Tobacco: Never Assessed Comments Unknown Sex and Gender Information Value Date Recorded Sex Assigned at Not on file Legal Sex Female 3:39 AM 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
--- OUTSIDE RECORDS SUMMARY | 2025-09-15 21:26 | XMS_ITS | Encounter Summary ---
Author Organization [facility] Address [address] [place] [address] Care Team Providers Care Paper Rewinder Operator Name Role Phone Joseph Baker MD Primary Care Provider [phone] Encounter Details Date Type Department Care Team (Latest Contact Info) Description 06/04/2007 Outpatient Historical [facility] [address] [facility] [address] [place] [address] Chino Addison Unspecified Backache (Primary Dx) Social History Tobacco Use Types Packs/Day Years Used Date Smoking Tobacco: Never Assessed Comments Unknown Sex and Gender Information Value Date Recorded Sex Assigned at Not on file Legal Sex Female 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
--- OUTSIDE RECORDS SUMMARY | 2025-09-15 21:26 | XMS_ITS | Encounter Summary ---
Author Organization [facility] Address [address] [place] [address] Care Team Providers Care Fish Drier Name Role Phone Joseph Baker MD Primary Care Provider [phone] Encounter Details Date Type Department Care Team (Latest Contact Info) Description 11/15/2001 Outpatient Historical [facility] Otto Aldridge MD [address] [place] [address] LUMBAGO (Primary Dx); DEPRESSIVE DISORDER NEC; MYALGIA AND MYOSITIS NOS; MIGRAINE NOS W/O MENTN INTRACTABLE Social History Tobacco Use Types Packs/Day Years Used Date Smoking Tobacco: Never Assessed Comments Unknown Sex and Gender Information Value Date Recorded Sex Assigned at Not on file Legal Sex Female 3:39 AM COMMERCIAL CENSUS TAKER Gender Identity Not on file Sexual Orientation Not on file documented as of this encounter Plan of Treatment Not on file documented as of this encounter Visit Diagnoses Diagnosis Lumbago- Primary Depressive disorder, not elsewhere classified Myalgia and myositis, unspecified Mylagia and myositis, unspecified Migraine, unspecified, without mention of intractable migraine without mention of status migrainosus documented in this encounter Care Teams Fish Drier Relationship Specialty Start Date End Date Joseph Baker MD [address] [place] [address] [place] [phone] PCP - General 12/09/08 documented as of this encounter
--- OUTSIDE RECORDS SUMMARY | 2025-09-15 21:26 | XMS_ITS | Encounter Summary ---
Author Organization [facility] Address [address] [place] [address] Care Team Providers Care Defect Cutter Name Role Phone Joseph Baker MD Primary Care Provider [phone] Encounter Details Date Type Department Care Team (Late st Contact Info) Description 09/15/2008 Outpatient Historical [facility] [address] [place] [address] Chino Addison Social History Tobacco Use Types Packs/Day Years Used Date Smoking Tobacco: Never Assessed Comments Unknown Sex and Gender Information Value Date Recorded Sex Assigned at Not on file Legal Sex Female 3:39 AM GUSSET RIPPER Gender Identity Not on file Sexual Orientation Not on file documented as of this encounter Plan of Treatment Not on file documented as of this encounter Visit Diagnoses Not on filedocumented in this encounter Care Teams Defect Cutter Relationship Specialty Start Date End Date Joseph Baker MD 5 [facility] 1 [place] [address] PCP - General 12/09/08 documented as of this encounter
--- OUTSIDE RECORDS SUMMARY | 2025-09-15 21:26 | XMS_ITS | Encounter Summary ---
Author Organization [facility] Address [address] [place] [address] Care Team Providers Care Auction Assistant Name Role Phone Joseph Baker MD Primary Care Provider [phone] Encounter Details Date Type Department Care Team (Latest Contact Info) Description 12/13/2005 Outpatient Historical [facility] [address] [place] [phone] Chino Addison LUMBOSACRAL NEURITIS NOS (Primary Dx); Thoracic disc displacmnt Social History Tobacco Use Types Packs/Day Years Used Date Smoking Tobacco: Never Assessed Comments Unknown Sex and Gender Information Value Date Recorded Sex Assigned at Not on file Legal Sex Female 3:39 AM TEACHER AIDE Gender Identity Not on file Sexual Orientation Not on file documented as of this encounter Plan of Treatment Not on file documented as of this encounter Visit Diagnoses Diagnosis Thoracic or lumbosacral neuritis or radiculitis, unspecified- Primary Thoracic disc displacmnt Displacement of thoracic intervertebral disc without myelopathy documented in this encounter Care Teams Auction Assistant Relationship Specialty Start Date End Date Joseph Baker MD 805 [facility] 1 [place] [address] PCP - General 12/09/08 documented as of this encounter
--- OUTSIDE RECORDS SUMMARY | 2025-09-15 21:26 | XMS_ITS | Encounter Summary ---
Author Organization [facility] Address [address] [place] [address] Care Team Providers Care External Relations Manager Name Role Phone Joseph Baker MD Primary Care Provider [phone] Encounter Details Date Type Department Care Team (Late st Contact Info) Description 12/01/2005 Outpatient [facility] [address] [place] [address] [facility] [address] [place] [address] [place] [address] [facility] [address] [place] [address] LUMB/LUMBOSAC DISC DEGEN (Primary Dx) Social History Tobacco Use Types Packs/Day Years Used Date Smoking Tobacco: Never Assessed Comments Unknown Sex and Gender Information Value Date Recorded Sex Assigned at Not on file Legal Sex Female 3:39 AM OPERATIONS AGENT Gender Identity Not on file Sexual Orientation Not on file documented as of this encounter Plan of Treatment Not on file documented as of this encounter Visit Diagnoses Diagnosis Degeneration of lumbar or lumbosacral intervertebral disc- Primary documented in this encounter Care Teams External Relations Manager Relationship Specialty Start Date End Date Joseph Baker MD [address] [facility] 1 [place] [phone] PCP - General 12/09/08 documented as of this encounter
--- OUTSIDE RECORDS SUMMARY | 2025-09-15 21:26 | XMS_ITS | Encounter Summary ---
Author Organization [facility] Address [address] [place] [address] Care Team Providers Care Chemistry Intern Name Role Phone Joseph Baker MD Primary Care Provider [phone] Encounter Details Date Type Department Care Team (Late st Contact Info) Description 10/04/2005 Outpatient Historical [facility] [place] Social History Tobacco Use Types Packs/Day Years Used Date Smoking Tobacco: Never Assessed Comments Unknown Sex and Gender Information Value Date Recorded Sex Assigned at Not on file Legal Sex Female 3:39 AM ANESTHESIOLOGY FACULTY Gender Identity Not on file Sexual Orientation Not on file documented as of this encounter Plan of Treatment Not on file documented as of this encounter Visit Diagnoses Not on filedocumented in this encounter Care Teams Chemistry Intern Relationship Specialty Start Date End Date Joseph Baker MD 805 [facility] 1 [place] [phone] PCP - General 12/09/08 documented as of this encounter
--- OUTSIDE RECORDS SUMMARY | 2025-09-15 21:26 | XMS_ITS | Encounter Summary ---
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
--- OUTSIDE RECORDS SUMMARY | 2025-09-15 21:26 | XMS_ITS | Encounter Summary ---
Author Organization [facility] Address [address] [place] [address] Care Team Providers Care Service Station Equipment Mechanic Name Role Phone Joseph Baker MD Primary Care Provider [phone] Encounter Details Date Type Department Care Team (Latest Contact Info) Description 12/16/2003 Outpatient Historical HIS [facility] Levon Ho MD NO ADDRESS ON FILE HYPERTROPHY OF BREAST (Primary Dx) Social History Tobacco Use Types Packs/Day Years Used Date Smoking Tobacco: Never Assessed Comments Unknown Sex and Gender Information Value Date Recorded Sex Assigned at Not on file Legal Sex Female 3:39 AM MANAGER SAFE Gender Identity Not on file Sexual Orientation Not on file documented as of this encounter Plan of Treatment Not on file documented as of this encounter Visit Diagnoses Diagnosis Hypertrophy of breast- Primary documented in this encounter Care Teams Service Station Equipment Mechanic Relationship Specialty Start Date End Date Joseph Baker MD 5 [facility] 1 [place] [address] PCP - General 12/09/08 documented as of this encounter
--- OUTSIDE RECORDS SUMMARY | 2025-09-15 21:26 | XMS_ITS | Encounter Summary ---
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
--- OUTSIDE RECORDS SUMMARY | 2025-09-15 21:26 | XMS_ITS | Encounter Summary ---
Author Organization [facility] Address [address] [place] [address] Care Team Providers Care Pairing Machine Operator Name Role Phone Joseph Baker MD Primary Care Provider [phone] Encounter Details Date Type Department Care Team (Late st Contact Info) Description 09/19/2005 Outpatient [facility] [address] [place] [address] [facility] [address] [place] [address] [place] [address] [facility] [address] [place] [address] LUMB/LUMBOSAC DISC DEGEN (Primary Dx) Social History Tobacco Use Types Packs/Day Years Used Date Smoking Tobacco: Never Assessed Comments Unknown Sex and Gender Information Value Date Recorded Sex Assigned at Not on file Legal Sex Female 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
--- OUTSIDE RECORDS SUMMARY | 2025-09-15 21:26 | XMS_ITS | Encounter Summary ---
Author Organization [facility] Address [address] [place] [address] Care Team Providers Care Electromechanic Name Role Phone Joseph Baker MD Primary Care Provider [phone] Encounter Details Date Type Department Care Team (Latest Contact Info) Description 07/11/2007 Outpatient Historical [facility] Pain Management Procedures [address] [place] [phone] [place] Unspecified Backache (Primary Dx) Social History Tobacco Use Types Packs/Day Years Used Date Smoking Tobacco: Never Assessed Comments Unknown Sex and Gender Information Value Date Recorded Sex Assigned at Not on file Legal Sex Female 3:39 AM BREAD WRAPPER Gender Identity Not on file Sexual Orientation Not on file documented as of this encounter Plan of Treatment Not on file documented as of this encounter Visit Diagnoses Diagnosis Backache, unspecified- Primary documented in this encounter Care Teams Electromechanic Relationship Specialty Start Date End Date Joseph Baker MD 805 [facility] 1 [place] [address] PCP - General 12/09/08 documented as of this encounter
--- OUTSIDE RECORDS SUMMARY | 2025-09-15 21:26 | XMS_ITS | Encounter Summary ---
Author Organization [facility] Address [address] [place] [address] Care Team Providers Care Mold Stacker Name Role Phone Joseph Baker MD Primary Care Provider [phone] Encounter Details Date Type Department Care Team (Latest Contact Info) Description 06/19/2007 Outpatient Historical [place] [facility] Pain Management Procedures [address] [place] [phone] [place] Pain in Thoracic Spine (Primary Dx) Social History Tobacco Use Types Packs/Day Years Used Date Smoking Tobacco: Never Assessed Comments Unknown Sex and Gender Information Value Date Recorded Sex Assigned at Not on file Legal Sex Female 3:39 AM DRAW BENCH OPERATOR Gender Identity Not on file Sexual Orientation Not on file documented as of this encounter Plan of Treatment Not on file documented as of this encounter Visit Diagnoses Diagnosis Pain in thoracic spine- Primary documented in this encounter Care Teams Mold Stacker Relationship Specialty Start Date End Date Joseph Baker MD 805 [facility] 1 [place] [address] PCP - General 12/09/08 documented as of this encounter
--- OUTSIDE RECORDS SUMMARY | 2025-09-15 21:26 | XMS_ITS | Encounter Summary ---
Author Organization [facility] Address [address] [place] [address] Care Team Providers Care Study Abroad Advisor Name Role Phone Joseph Baker MD Primary Care Provider [phone] Encounter Details Date Type Department Care Team (Latest Contact Info) Description 03/25/1998 Outpatient Historical [facility] [place] [address] [place] [address] Dipesh Magana MD [address] [place] [address] Painful respiration (Primary Dx) Social History Tobacco Use Types Packs/Day Years Used Date Smoking Tobacco: Never Assessed Comments Unknown Sex and Gender Information Value Date Recorded Sex Assigned at Not on file Legal Sex Female 3:39 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
--- OUTSIDE RECORDS SUMMARY | 2025-09-15 21:26 | XMS_ITS | Encounter Summary ---
Author Organization [facility] Address [address] [place] [address] Care Team Providers Care Finish Patcher Name Role Phone Joseph Baker MD Primary Care Provider [phone] Encounter Details Date Type Department Care Team (Late st Contact Info) Description 03/20/1998 Outpatient Historical [facility] [place] [address] [place] [address] Social History Tobacco Use Types Packs/Day Years Used Date Smoking Tobacco: Never Assessed Comments Unknown Sex and Gender Information Value Date Recorded Sex Assigned at Not on file Legal Sex Female 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
--- OUTSIDE RECORDS SUMMARY | 2025-09-15 21:26 | XMS_ITS | Encounter Summary ---
Author Organization [facility] [facility] Address [address] [place] [address] Care Team Providers Care Tool Trouble Shooter Name Role Phone Joseph Baker MD Primary Care Provider [phone] Encounter Details Date Type Department Care Team (Latest Contact Info) Description 08/26/2002 Outpatient Historical HIS [facility] Otto Aldridge MD [address] [place] [phone] DYSURIA (Primary Dx); LUMBAGO; MYALGIA AND MYOSITIS NOS; SOMATIC DYSFUNCTION NEC Social History Tobacco Use Types Packs/Day Years Used Date Smoking Tobacco: Never Assessed Comments Unknown Sex and Gender Information Value Date Recorded Sex Assigned at Not on file Legal Sex Female 3:39 AM DIET COUNSELOR Gender Identity Not on file Sexual Orientation Not on file documented as of this encounter Plan of Treatment Not on file documented as of this encounter Visit Diagnoses Diagnosis Dysuria- Primary Lumbago Myalgia and myositis, unspecified Mylagia and myositis, unspecified Nonallopathic lesion of abdomen and other sites, not elsewhere classified documented in this encounter Care Teams Tool Trouble Shooter Relationship Specialty Start Date End Date Joseph Baker MD 805 [facility] 1 [place] [address] PCP - General 12/09/08 documented as of this encounter
--- OUTSIDE RECORDS SUMMARY | 2025-09-15 21:26 | XMS_ITS | Encounter Summary ---
Author Organization [facility] Address [address] [place] [address] Care Team Providers Care Hydrologist Name Role Phone Joseph Baker MD Primary Care Provider [phone] Encounter Details Date Type Department Care Team (Latest Contact Info) Description 07/20/2000 Outpatient Historical HIS [facility] Otto Aldridge MD [address] [place] [address] Insomnia, unspecified (Primary Dx); Depressive disorder, not elsewhere classified Social History Tobacco Use Types Packs/Day Years Used Date Smoking Tobacco: Never Assessed Comments Unknown Sex and Gender Information Value Date Recorded Sex Assigned at Not on file Legal Sex Female 3:39 AM MOLD HOLDER Gender Identity Not on file Sexual Orientation Not on file documented as of this encounter Plan of Treatment Not on file documented as of this encounter Visit Diagnoses Diagnosis Insomnia, unspecified- Primary Depressive disorder, not elsewhere classified documented in this encounter Care Teams Hydrologist Relationship Specialty Start Date End Date Joseph Baker MD 805 [facility] 1 [place] [address] PCP - General 12/09/08 documented as of this encounter
--- OUTSIDE RECORDS SUMMARY | 2025-09-15 21:26 | XMS_ITS | Encounter Summary ---
Author Organization [facility] Address [address] [place] [address] Care Team Providers Care Residential Manager Name Role Phone Joseph Baker MD Primary Care Provider [phone] Encounter Details Date Type Department Care Team (Latest Contact Info) Description 09/19/2008 Outpatient Historical [facility] Pain Management Procedures [address] [place] [phone] [place] Brachial Neuritis or Radiculitis NOS; Unspecified Arthropathy, Site Unspecified; Depressive Disorder, not Elsewhere Classified Social History Tobacco Use Types Packs/Day Years Used Date Smoking Tobacco: Never Assessed Comments Unknown Sex and Gender Information Value Date Recorded Sex Assigned at Not on file Legal Sex Female 3:39 AM FLASK PUSHER Gender Identity Not on file Sexual Orientation Not on file documented as of this encounter Plan of Treatment Not on file documented as of this encounter Procedures Procedure Name Priority Date/Time Associated Diagnosis Comments XR FLUORO GREATER THAN 1 HOUR Routine 09/22/2008 12:24 PM FLASK PUSHER documented in this encounter Results * XR FLUORO > 1 HOUR (09/22/2008 12:24 PM FLASK PUSHER) Anatomical Region Laterality Modality Other 09/22/2008 12:2 4 PM FLASK PUSHER Narrative 04/17/2013 8:33 AM CDT This exam has been autofinalized. Procedure Note Sgf Vida Bo, Radiologist, - 04/17/2013 This exam has been autofinalized. us [place] DIAGNOSTIC IMAGING ORDERABLES Fi nal Result documented in this encounter Visit Diagnoses Diagnosis Brachial neuritis or radiculitis NOS Brachial neuritis or radiculitis nos Arthropathy, unspecified, site unspecified Depressive disorder, not elsewhere classified documented in this encounter Care Teams Residential Manager Relationship Specialty Start Date End Date Joseph Baker MD [address] [phone] PCP - General 12/09/08 documented as of this encounter
--- OUTSIDE RECORDS SUMMARY | 2025-09-15 21:26 | XMS_ITS | Encounter Summary ---
Author Organization [facility] Address [address] [place] [address] Care Team Providers Care Novelty Twister Operator Name Role Phone Joseph Baker MD Primary Care Provider [phone] Encounter Details Date Type Department Care Team (Late st Contact Info) Description 07/18/2007 Outpatient Historical [facility] Pain Management Procedures [address] [place] [phone] [place] Social History Tobacco Use Types Packs/Day Years Used Date Smoking Tobacco: Never Assessed Comments Unknown Sex and Gender Information Value Date Recorded Sex Assigned at Not on file Legal Sex Female 3:39 AM PHOTO SPECIALIST Gender Identity Not on file Sexual Orientation Not on file documented as of this encounter Plan of Treatment Not on file documented as of this encounter Visit Diagnoses Not on filedocumented in this encounter Care Teams Novelty Twister Operator Relationship Specialty Start Date End Date Joseph Baker MD 5 [facility] 1 [place] [address] PCP - General 12/09/08 documented as of this encounter
--- OUTSIDE RECORDS SUMMARY | 2025-09-15 21:26 | XMS_ITS | Encounter Summary ---
Author Organization [facility] Address [address] [place] [address] Care Team Providers Care Business Analysis Consultant Name Role Phone Joseph Baker MD Primary Care Provider [phone] Encounter Details Date Type Department Care Team (Latest Contact Info) Description 02/26/1998 Outpatient Historical [facility] Cardiology- [place] [address] [place] [address] Dipesh Magana MD [address] [place] [address] Chest pain, unspecified (Primary Dx) Social History Tobacco Use Types Packs/Day Years Used Date Smoking Tobacco: Never Assessed Comments Unknown Sex and Gender Information Value Date Recorded Sex Assigned at Not on file Legal Sex Female 3:39 AM STAFFING RECRUITER Gender Identity Not on file Sexual Orientation Not on file documented as of this encounter Plan of Treatment Not on file documented as of this encounter Visit Diagnoses Diagnosis Chest pain, unspecified- Primary documented in this encounter Care Teams Business Analysis Consultant Relationship Specialty Start Date End Date Joseph Baker MD 805 [facility] 1 [place] [address] PCP - General 12/09/08 documented as of this encounter
--- OUTSIDE RECORDS SUMMARY | 2025-09-15 21:26 | XMS_ITS | Encounter Summary ---
Author Organization [facility] [facility] Address [address] [place] [address] Care Team Providers Care Field Laboratory Operator Name Role Phone Joseph Baker MD Primary Care Provider [phone] Encounter Details Date Type Department Care Team (Latest Contact Info) Description 05/17/2000 Outpatient Historical HIS [facility] Phil Estrella MD [address] [facility] [place] [address] Follow-up examination following surgery (Primary Dx) Social History Tobacco Use Types Packs/Day Years Used Date Smoking Tobacco: Never Assessed Comments Unknown Sex and Gender Information Value Date Recorded Sex Assigned at Not on file Legal Sex Female 3:39 AM SAFETY AND HEALTH MANAGER Gender Identity Not on file Sexual Orientation Not on file documented as of this encounter Plan of Treatment Not on file documented as of this encounter Visit Diagnoses Diagnosis Follow-up examination following surgery- Primary documented in this encounter Care Teams Field Laboratory Operator Relationship Specialty Start Date End Date Joseph Baker MD 805 [facility] 1 [place] [address] PCP - General 12/09/08 documented as of this encounter
--- OUTSIDE RECORDS SUMMARY | 2025-09-15 21:26 | XMS_ITS | Encounter Summary ---
Author Organization [facility] Address [address] [place] [address] Care Team Providers Care Form Tamper Name Role Phone Joseph Baker MD Primary Care Provider [phone] Encounter Details Date Type Department Care Team (Late st Contact Info) Description 09/19/2005 Outpatient Historical [facility] [address] [place] [address] [place] [address] [facility] [address] [place] [address] LUMB/LUMBOSAC DISC DEGEN (Primary Dx); BACKACHE NOS; OTHER BACK SYMPTOMS Social History Tobacco Use Types Packs/Day Years Used Date Smoking Tobacco: Never Assessed Comments Unknown Sex and Gender Information Value Date Recorded Sex Assigned at Not on file Legal Sex Female 3:39 AM GRAPPLE OPERATOR Gender Identity Not on file Sexual Orientation Not on file documented as of this encounter Plan of Treatment Not on file documented as of this encounter Visit Diagnoses Diagnosis Degeneration of lumbar or lumbosacral intervertebral disc- Primary Backache, unspecified Other symptoms referable to back documented in this encounter Care Teams Form Tamper Relationship Specialty Start Date End Date Joseph Baker MD 805 [facility] 1 [place] [address] PCP - General 12/09/08 documented as of this encounter
--- OUTSIDE RECORDS SUMMARY | 2025-09-15 21:26 | XMS_ITS | Encounter Summary ---
Author Organization [facility] Address [address] [place] [address] Care Team Providers Care Meat Cutting Teacher Name Role Phone Joseph Baker MD Primary Care Provider [phone] Encounter Details Date Type Department Care Team (Latest Contact Info) Description 06/04/2007 Outpatient Historical [facility] [address] [place] [address] Nano Morlaes PA NO ADDRESS ON FILE Lumbosacral Spondylosis (Primary Dx); Thoracic or Lumbosacral Neuritis or Radiculitis, Unspecified; Thoracic Spondylosis Social History Tobacco Use Types Packs/Day Years Used Date Smoking Tobacco: Never Assessed Comments Unknown Sex and Gender Information Value Date Recorded Sex Assigned at Not on file Legal Sex Female 3:39 AM SWITCHER Gender Identity Not on file Sexual Orientation Not on file documented as of this encounter Plan of Treatment Not on file documented as of this encounter Visit Diagnoses Diagnosis Lumbosacral spondylosis- Primary Lumbosacral spondylosis without myelopathy Thoracic or lumbosacral neuritis or radiculitis, unspecified Thoracic spondylosis Thoracic spondylosis without myelopathy documented in this encounter Care Teams Meat Cutting Teacher Relationship Specialty Start Date End Date Joseph Baker MD 805 [facility] 1 [place] [address] PCP - General 12/09/08 documented as of this encounter
--- OUTSIDE RECORDS SUMMARY | 2025-09-15 21:26 | XMS_ITS | Encounter Summary ---
Author Organization [facility] Address [address] [place] [address] Care Team Providers Care Medical Device Name Role Phone Joseph Baker MD Primary Care Provider [phone] Encounter Details Date Type Department Care Team (Latest Contact Info) Description 08/26/2003 Outpatient Historical [facility] Levon Ho MD NO ADDRESS ON FILE HYPERTROPHY OF BREAST (Primary Dx); CERVICALGIA; JOINT PAIN-SHLDER Social History Tobacco Use Types Packs/Day Years Used Date Smoking Tobacco: Never Assessed Comments Unknown Sex and Gender Information Value Date Recorded Sex Assigned at Not on file Legal Sex Female 3: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
--- OUTSIDE RECORDS SUMMARY | 2025-09-15 21:26 | XMS_ITS | Encounter Summary ---
Author Organization [facility] Address [address] [place] [address] Care Team Providers Care Gui Developer Name Role Phone Joseph Baker MD Primary Care Provider [phone] Encounter Details Date Type Department Care Team (Late st Contact Info) Description 12/01/2005 Outpatient Historical [facility] [address] [place] [id number] [place] [id number] [facility] [address] [place] [address] LUMB/LUMBOSAC DISC DEGEN (Primary Dx); OTHER BACK SYMPTOMS Social History Tobacco Use Types Packs/Day Years Used Date Smoking Tobacco: Never Assessed Comments Unknown Sex and Gender Information Value Date Recorded Sex Assigned at Not on file Legal Sex Female 3:39 AM TIME SIGNAL WIRER Gender Identity Not on file Sexual Orientation Not on file documented as of this encounter Plan of Treatment Not on file documented as of this encounter Visit Diagnoses Diagnosis Degeneration of lumbar or lumbosacral intervertebral disc- Primary Other symptoms referable to back documented in this encounter Care Teams Gui Developer Relationship Specialty Start Date End Date Joseph Baker MD [address] [facility] [address] [place] [phone] PCP - General 12/09/08 documented as of this encounter
--- OUTSIDE RECORDS SUMMARY | 2025-09-15 21:26 | XMS_ITS | Encounter Summary ---
[facility] Organization [facility] Address [address] [place] [address] Care Team Providers Care Dev Manager Name Role Phone Joseph Baker MD Primary Care Provider [phone] Encounter Details Date Type Department Care Team (Latest Contact Info) Description 09/27/2006 Outpatient Historical [facility] CANCELLED ADMISSION [facility] Encounters for Unspecified Administrative Purpose (Primary Dx) Social History Tobacco Use Types Packs/Day Years Used Date Smoking Tobacco: Never Assessed Comments Unknown Sex and Gender Information Value Date Recorded Sex Assigned at Not on file Legal Sex Female 3:39 AM [employer]OCHET BEADER Gender Identity Not on file Sexual Orientation Not on file documented as of this encounter Plan of Treatment Not on file documented as of this encounter Visit Diagnoses Diagnosis Encounters for unspecified administrative purpose- Primary documented in this encounter Care Teams Dev Manager Relationship Specialty Start Date End Date Joseph Baker MD [address] [place] [id number] PCP - General 12/09/08 documented as of this encounter
--- OUTSIDE RECORDS SUMMARY | 2025-09-15 21:26 | XMS_ITS | Data Portability ---
Author Organization [facility]IANA Gomez [facility] Address [address] [facility] [address] [place] [address] Care Team Providers Care Reptile Keeper Name Role Phone BAKERKEELY Valles Primary Care Provider Assessment Encounter Date Assessment Date Assessment LastModified by Organization Details LastModified Time 06/26/2024 06/26/2024 sugars are much better controlled with some around 100-110 so i will not increase basal insulin Not available 06/26/2024 10:28:31 Plan of Treatment Reminders Order Date Submit Date Provider Last Modified By Organization Details Last Modified Time Details Appointments None recorded. Lab microalbumi n/creatinin e, mass ratio, urine 2024 025 [facility], [address] [place] [address], [facility] [address] [place], [address], 16:19:10 hemoglobin A1C/hemoglo bin total, QN, blood 2024 025 [facility], [address] [facility], [facility] [address], [place], [address], 11:29:39 PT/INR 2024 025 [facility] ([facility]), [address] [place], [address], 11:19:53 afp (alpha-feto protein) tumor marker, serum or plasma 2024 025 [facility], [address] [place] [address] 248, [address], [place], [address], 5 16:19:11 CMP, serum or plasma 2024 025 [facility], [address], [facility] 1, [place], [address], 11:59:21 CBC 2024 025 [facility], [address], [facility] 1, [place], [address], 5 11:20:37 lipid panel, blood 2024 025 [facility], [address], [facility] 1, [place], [address], 11:59:23 urinalysis, complete [email or web address] [place] [address] Lab, [address], [facility] 1, [place], [address], 16:10:26 culture, urine 2024 025 [facility], [address] [place] [address] 248, [address] [place], [address], 5 20:11:25 CMP, serum or plasma 2024 025 [facility], [address], [facility] 1, [place], [address], 5 16:49:23 hemoglobin A1C/hemoglo bin total, QN, blood 2024 025 [email or web address] [facility], [address], [address], [place], [address], 5 16:59:09 microalbumi n/creatinin e, mass ratio, urine 2024 025 [facility], [address] [place] [address] 248, [address], [place], [place], [address], 5 12:35:28 hemoglobin A1C/hemoglo bin total, QN, blood 2024 025 [facility], [address], [address], [place], [address], 5 16:23:50 PT/INR 2024 025 [facility] ([facility]), [address] [place] [address], [address], 5 16:11:55 afp (alpha-feto protein) tumor marker, serum or plasma 2024 025 [facility], [address] [place] [address], [address], [place], [address], 5 12:35:30 CBC 2024 025 [facility], [address], [address], [place], [address], 5 16:18:10 urinalysis, complete 2023 024 [facility] ([facility]), [address] [place], [address], 4 11:06:44 culture, urine 2023 024 [facility], [address] [place] [address], [address], [place], [address], 4 16:15:01 CBC 2023 024 [facility] [employer] [facility], [address], [address], 4 11:05:53 ferritin, serum or plasma 2023 024 [email or web address] [facility], [address] [place] [address], [address], [place], [address], 4 08:17:58 vitamin B12, serum 2023 024 NABEEL [facility], [address] [place] [address], [address], [place], [address], 4 16:15:00 folate, serum 2023 024 [place] [facility], [address] [place] [address], [address], [place], [address], 4 16:15:00 iron + TIBC + ferritin, serum 2023 024 [employer] [facility], [address] [place] [address], [address], [place], [address], 4 16:14:59 ESR (erythrocyt e sedimentati on rate), blood 2023 024 [facility] ([facility]), [address] [place], [address], 4 12:12:11 Referral psychiatris t referral 2024 025 [email or web address] [facility], [address] [place], [address], 5 14:52:47 Procedures None recorded. Surgeries None recorded. Imaging US, duplex, venous, lower extremity, unilateral - [id number] Right Leg 2023 024 [facility] ([facility]), [address] [place], [address], 09:58:36 Medication Orders bisacodyl 5 mg tablet 2024 025 NABEEL [facility], [address] [place] [address], [address], [place], [id number], 15:21:25 doxycycline hyclate 100 mg capsule 2024 025 [email or web address] [facility], [address] [place] [address], [address], [place], [place], [id number], 14:56:55 Patient TargetsNo targets recorded. Patient Instructions Encounter Date Encounter Id Patient Instructions Last Modified By Organization Details Last Modified Time 01/15/2025 [id number] mask fitting* [email or web address] Not available 0 01/22/2025 08:07:07 Reason for Referral Psychiatrist Referral for Ch ronic depression Referring Physician: Keely Baker, Family Medicine, Encounter Date: 08/04/2025 Results Created Date Observation Date Name Description Value Unit Range Abnormal Flag Note LastModifiedBy Organization Detail LastModifiedTime 06/13/2006/13/2024 CBC WBC 6.9 x10 4.0-10 .5 Not Available [facility] [address] [facility] 1, [place], [address], 06/13/2024 11:55:09 06/13/20 24 06/13/2024 CBC RBC 3.66 x10 3.50-5 .50 Not Available [facility] [address] [facility] 1, [place], [address], 06/13/2024 11:55:09 06/13/20 24 06/13/2024 CBC HGB 10.1 g/dL 12.0-1 6.0 low Not Available [facility] [address] [facility] 1, [place], [address], 06/13/2024 11:55:09 06/13/20 24 06/13/2024 CBC HCT 30.9 % 37.0-4 7.0 low Not Available [facility] [address] [facility] 1, [place], [address], 06/13/2024 11:55:09 06/13/20 24 06/13/2024 CBC MCV 84.5 fL 80.0-9 9.9 Not Available [facility] [address] [facility] 1, [place], [address], 06/13/2024 11:55:09 06/13/20 24 06/13/2024 CBC MCH 27.7 pg 27.0-3 2.0 Not Available [facility] [address] [place] [facility] 1, [place], [address], 06/13/2024 11:55:09 06/13/20 24 06/13/2024 CBC MCHC 32.8 g/dL 32.0-3 6.0 Not Available [facility] [address] [facility] 1, [place], [address], 06/13/2024 11:55:09 06/13/20 24 06/13/2024 CBC RDW 16.3 % 11.5-1 4.5 high Not Available [facility] [address] [facility] 1, [place], [address], 06/13/2024 11:55:09 06/13/20 24 06/13/2024 CBC plt 222.5 x10 140.0- 451.0 Not Available [facility] [address] [facility] 1, [place], [address], 06/13/2024 11:55:09 06/13/20 24 06/13/2024 CBC lymphocytes % 14.5 % 20.0-5 0.0 low Not Available [facility] [address] [facility] 1, [place], [address], 06/13/2024 11:55:09 06/13/20 24 06/13/2024 CBC granulcytes % 72.1 % 30.0-7 0.0 high Not Available [facility] [address] [facility] [facility] 1, [place], [address], 06/13/2024 11:55:09 06/13/20 24 06/13/2024 CBC monocytes % 9.4 % 2.0-16 .0 Not Available [facility] [address] [place] [facility], [place], [address], 06/13/2024 11:55:09 06/13/20 24 06/13/2024 CBC granulcytes# 5.0 x10 Not Veronica ilable [facility] [address] [address], [place], [address], 06/13/2024 11:55:09 06/13/20 24 06/13/2024 CBC lymphocytes # 1.0 x10 Not Available [facility] [address] [facility], [place], [address], 06/13/2024 11:55:09 06/13/20 24 06/13/2024 CBC monocytes # 0.7 x10 Not Avai lable [facility] [address] [facility], [place], [address], 06/13/2024 11:55:09 06/13/20 24 06/13/2024 CMP (FEMA LE) glucose 240.0 mg/dL 60.0-9 9.0 high Not Available [facility] [address] [place] [facility], [place], [address], 06/13/2024 12:22:50 06/13/20 24 06/13/2024 CMP (FEMA LE) BUN (blood urea nitrogen) 13.0 mg/dL 10.0-2 6.0 Not Available [facility] [address] [facility], [place], [address], 06/13/2024 12:22:50 06/13/20 24 06/13/2024 CMP (FEMA LE) creatinine (serum) 0.6 mg/dL 0.4-1. 5 Not Available [facility] [address] [facility] 1, [place], [address], 06/13/2024 12:22:50 06/13/20 24 06/13/2024 CMP (FEMA LE) BUN/creatini ne ratio 23.21 ratio Not Available [facility] [address] [facility] 1, [place], [address], 06/13/2024 12:22:50 06/13/20 24 06/13/2024 CMP (FEMA LE) eGFR calculated 115.1 Not Available [facility] [address] [facility] 1, [place], [address], 06/13/2024 12:22:50 06/13/20 24 06/13/2024 CMP (FEMA LE) total protein 6.5 g/dL 6.0-8. 5 Not Available [facility] [address] [address], [place], [address], 06/13/2024 12:22:50 06/13/20 24 06/13/2024 CMP (FEMA LE) total bilirubin 1.4 mg/dL 0.2-1. 3 high Not Available [facility] [address] [facility] 1, [place], [address], 06/13/2024 12:22:50 06/13/20 24 06/13/2024 CMP (FEMA LE) albumin 3.8 g/dL 3.5-5. 5 Not Available [facility] [address] [place] [facility] 1, [place], [address], 06/13/2024 12:22:50 06/13/20 24 06/13/2024 CMP (FEMA LE) globulin 2.7 calc Not Available [facility] [address] [facility] 1, [place], [address], 06/13/2024 12:22:50 06/13/20 24 06/13/2024 CMP (FEMA LE) AST (SGOT) 42.0 U/L 0.0-46 .0 Not Available [facility] [address] [facility] 1, [place], [address], 06/13/2024 12:22:50 06/13/20 24 06/13/2024 CMP (FEMA LE) altv (SGPT) 19.0 U/L 13.0-6 9.0 normal Not Available [facility] [address] [facility] 1, [place], [address], 06/13/2024 12:22:50 06/13/20 24 06/13/2024 CMP (FEMA LE) A/G ratio 1.4 ratio Not Available [facility] [address] [address], [place], [address], 06/13/2024 12:22:50 06/13/20 24 06/13/2024 CMP (FEMA LE) ALP phos 142.0 U/L 30.0-1 40.0 abnormal Not Available [facility] [address] [facility] 1, [place], [address], 06/13/2024 12:22:50 06/13/20 24 06/13/2024 CMP (FEMA LE) calcium 8.9 mg/dL 8.4-10 .5 Not Available [facility] [address] [facility] [facility] 1, [place], [address], 06/13/2024 12:22:50 06/13/20 24 06/13/2024 CMP (FEMA LE) sodium 141.0 mmol/ L 136.0- 145.0 Not Available [facility] [address] [facility] [address], [place], [address], 06/13/2024 12:22:50 06/13/20 24 06/13/2024 CMP (FEMA LE) potassium 4.2 mmol/ L 3.5-5. 1 Not Available [facility] [address] [facility] 1, [place], [address], 06/13/2024 12:22:50 06/13/20 24 06/13/2024 CMP (FEMA LE) chloride 112.0 mmol/ L 98.0-1 10.0 abnormal Not Available [facility] [address] [facility] 1, [place], [address], 06/13/2024 12:22:50 06/13/20 24 06/13/2024 CMP (FEMA LE) C02 24.0 mmol/ L 22.0-3 1.0 Not Available [facility] [address] [facility] 1, [place], [address], 06/13/2024 12:22:50 06/13/20 24 06/13/2024 CMP (FEMA LE) anion gap 5.0 calc Not Available [facility] [address] [facility] 1, [place], [address], 06/13/2024 12:22:50 06/13/20 24 06/13/2024 CMP (FEMA LE) osmolality 298.3 calc Not Available [facility] [address] [facility] 1, [place], [address], 06/13/2024 12:22:50 06/13/20 24 06/14/2024 ALBUM IN, RANDO M URINE W/CRE ATINI NE creatinine, random urine 172 mg/dL 20-275 normal Not Available [address] [address] [place], [address], 06/14/2024 15:18:06 06/13/20 24 06/14/2024 ALBUM IN, RANDO M URINE W/CRE ATINI NE albumin, urine 5.7 mg/dL see note: normal Refer ence Range : Refer ence Range Not estab lishe d Not Available [address] [address] [place], [address], 06/14/2024 15:18:06 06/13/20 24 06/14/2024 ALBUM IN, RANDO M URINE W/CRE ATINI NE albumin/crea tinine ratio, random urine 33 mg/g_ creat <30 high The ADA defin es abnor malit ies in album in excre tion as follo ws: Album inuri a Categ ory Resul t (mg/g creat inine ) Mariann l to Mildl y incre ased <30 Moder ately incre ased 30-29 9 Sever di incre ased > OR = 300 The ADA recom mends that at least two of three speci mens colle cted withi n a 3-6 month perio d be abnor mal befor e consi mira g a patie nt to be withi n a diagn ostic categ ory. Not Available [address], [address], 06/14/2024 15:18:06 06/13/20 24 06/14/2024 C-DENISE CTIVE PROTE IN C-reactive protein 9.7 mg/L <8.0 high Not Available [address], [address], 06/14/2024 15:18:06 06/13/20 24 06/13/2024 HbA1c (hemo globi n A1c), blood HbA1c 6.9 Not Available [facility] ([facility]) [address] [place], [address], 06/13/2024 10:50:02 06/26/20 24 06/26/2024 CBC WBC 6.7 x10 4.0-10 .5 Not Available [facility] [address] [facility] 1, [place], [address], 06/26/2024 11:05:53 06/26/20 24 06/26/2024 CBC RBC 4.46 x10 3.50-5 .50 Not Available [facility] [address] [facility] 1, [place], [address], 06/26/2024 11:05:53 06/26/20 24 06/26/2024 CBC HGB 11.7 g/dL 12.0-1 6.0 low Not Available [facility] [address] [facility] 1, [place], [address], 06/26/2024 11:05:53 06/26/20 24 06/26/2024 CBC HCT 35.7 % 37.0-4 7.0 low Not Available [facility] [address] [facility] 1, [place], [address], 06/26/2024 11:05:53 06/26/20 24 06/26/2024 CBC MCV 80.1 fL 80.0-9 9.9 Not Available [facility] [address] [facility] 1, [place], [address], 06/26/2024 11:05:53 06/26/20 24 06/26/2024 CBC MCH 26.3 pg 27.0-3 2.0 low Not Available [facility] [address] [facility] 1, [place], [address], 06/26/2024 11:05:53 06/26/20 24 06/26/2024 CBC MCHC 32.9 g/dL 32.0-3 6.0 Not Available [facility] [address] [facility] 1, [place], [address], 06/26/2024 11:05:53 06/26/20 24 06/26/2024 CBC RDW 15.8 % 11.5-1 4.5 high Not Available [facility] [address] [facility] 1, [place], [address], 06/26/2024 11:05:53 06/26/20 24 06/26/2024 CBC plt 255.7 x10 140.0- 451.0 Not Available [facility] [address] [facility] 1, [place], [address], 06/26/2024 11:05:53 06/26/20 24 06/26/2024 CBC lymphocytes % 23.4 % 20.0-5 0.0 Not Available [facility] [address] [facility] 1, [place], [address], 06/26/2024 11:05:53 06/26/20 24 06/26/2024 CBC granulcytes % 61.4 % 30.0-7 0.0 Not Available [facility] [address] [facility] 1, [place], [address], 06/26/2024 11:05:53 06/26/20 24 06/26/2024 CBC monocytes % 10.3 % 2.0-16 .0 Not Available [facility] [address] [facility] 1, [place], [address], 06/26/2024 11:05:53 06/26/2006/26/2024 CBC granulcytes# 4.1 x10 Not Veronica ilable [facility] [address] [facility] 1, [place], [address], 06/26/2024 11:05:53 06/26/20 24 06/26/2024 CBC lymphocytes # 1.6 x10 Not Available [facility] [address] [facility] [address], [place], [address], 06/26/2024 11:05:53 06/26/20 24 06/26/2024 CBC monocytes # 0.7 x10 Not Avai lable [facility] [address] [facility] [address], [place], [address], 06/26/2024 11:05:53 06/26/20 24 06/28/2024 IRON, TIBC AND CHRISTINE TIN PANEL iron, total 54 mcg/d L 45-160 normal Not Available [address], [address], 06/28/2024 16:14:59 06/26/20 24 06/28/2024 IRON, TIBC AND CHRISTINE TIN PANEL iron binding capacity 580 mcg/d L_(ca lc) 250-45 0 high Not Available [address], [address], 06/28/2024 16:14:59 06/26/20 24 06/28/2024 IRON, TIBC AND CHRISTINE TIN PANEL % saturation 9 %_(ca lc) 16-45 low Not Available [address], [address], 06/28/2024 16:14:59 06/26/20 24 06/28/2024 IRON, TIBC AND CHRISTINE TIN PANEL ferritin 31 NG/mL 16-288 normal Not Available [address], [address], 06/28/2024 16:14:59 06/26/20 24 06/28/2024 FOLAT E, SERUM folate, serum 13.7 NG/mL normal Refer ence Range Low: <3.4 Borde rline : 3.4-5 .4 Mariann l: >5.4 Not Available [address] [place], [address], 06/28/2024 16:15:00 06/26/20 24 06/28/2024 VITAM IN B12 vitamin B12 431 pg/mL 200-11 00 normal Not Available [facility] [address] [address] [place], [address], 06/28/2024 16:15:00 06/26/20 24 06/28/2024 CULTU RE, URINE , ROUTI NE culture, urine, routine SEE NOTE abnormal CULTU RE, URINE , ROUTI NE Micro Numbe r: [id number] Test Statu s: Final Speci men Sourc e: Urine Speci men Quali ty: Adequ ate Resul t: Great er than 100,0 00 CFU/m L of Klebs iella pneum oniae K.pne umoni ae ----- ----- ----- - INT NILE AMOX/ CLAVU LANAT E S <=2 AMP/S ULBAC CAGLE S 4 CEFAZ MILLER NR <=4 2 CEFEP BRAULIO S <=0.1 2 CEFTA ZIDIM E S <=1 CEFTR IAXON E S <=0.2 5 CIPRO FLOXA WILLIAMS S <=0.0 6 GENTA MICIN S <=1 IMIPE NEM S <=0.2 5 LEVOF LOXAC IN S <=0.1 2 MEROP ENEM S <=0.2 5 NITRO FURAN TOIN S <=16 PIP/T AZOBA CTAM S <=4 TRIME THOPR IM/MCDONALD LFA S <=20 S = Susce ptibl e I = Inter media te R = Resis tant NS = Not susce ptibl e SDD = Susce ptibl e Dose Depen dent * = Not Teste d NR = Not Repor luis antonio NN = See Thera py Comme nts THERA PY COMME NTS Note 1: For infec tions other than uncom plica luis antonio UTI cause d by E. coli, K. pneum oniae or P. mirab ilis: Cefaz miller is resis tant if NILE > or = 8 mcg/m L. (Dist ingui shing susce ptibl e versu s inter media te for isola gwendolyn with NILE < or = 4 mcg/m L requi res addit ional testi ng.) Note 2: For uncom plica luis antonio UTI cause d by E. coli, K. pneum oniae or P. mirab ilis: Cefaz miller is susce ptibl e if NILE <32 mcg/m L and predi cts susce ptibl e to the oral agent s cefac aleshia, cefdi azucena, cefpo doxim e, cefpr ozil, cefur oxime , cepha lexin and lorac arbef . Not Available [facility] [address] [place], [address], 06/28/2024 16:15:01 06/26/20 24 06/26/2024 ESR (eryt hrocy te sedim entat ion rate) , blood SedRate 37 Not Available [facility] ([facility]) [address] [place] [address], [address], 06/26/2024 10:30:07 06/26/20 24 06/26/2024 urina lysis , compl ete color yellow Not Available [facility] ([facility]) [address] [place], [address], 06/26/2024 10:22:59 06/26/20 24 06/26/2024 urina lysis , compl ete clarity slight ly cloudy clear abnormal Not Available [facility] ([facility]) [address] [place], [address], 06/26/2024 10:22:59 06/26/20 24 06/26/2024 urina lysis , compl ete glucose NG negati ve Not Available [facility] ([facility]) [address] [place], [address], 06/26/2024 10:22:59 06/26/20 24 06/26/2024 urina lysis , compl ete bilirubin NG negati ve Not Available [facility] ([facility]) [address] [place], [address], 06/26/2024 10:22:59 06/26/20 24 06/26/2024 urina lysis , compl ete ketones NG negati ve Not Available [facility] ([facility]) [address] [place], [address], 06/26/2024 10:22:59 06/26/20 24 06/26/2024 urina lysis , compl ete specific gravity >=1.03 0 1.005- 1.025 Not Available [facility] ([facility]) [address] [place], [address], 06/26/2024 10:22:59 06/26/20 24 06/26/2024 urina lysis , compl ete pH 5.5 5.0-7. 0 Not Available [facility] ([facility]) [address] [place], [address], 06/26/2024 10:22:59 06/26/20 24 06/26/2024 urina lysis , compl ete protein trace abnormal Not Available [facility] ([facility]) [address] [place], [address], 06/26/2024 10:22:59 06/26/20 24 06/26/2024 urina lysis , compl ete uro 1.0 Not Available [facility] ([facility]) [address] [place], [address], 06/26/2024 10:22:59 06/26/20 24 06/26/2024 urina lysis , compl ete nitrate positi ve negati ve abnormal Not Available [facility] ([facility]) [address] [place], [address], 06/26/2024 10:22:59 06/26/20 24 06/26/2024 urina lysis , compl ete blood trace negati ve abnormal Not Available [facility] ([facility]) [address] [place], [address], 06/26/2024 10:22:59 06/26/20 24 06/26/2024 urina lysis , compl ete leukocytes 1+ negati ve abnormal Not Available [facility] ([facility]) [address] [place], [address], 06/26/2024 10:22:59 06/26/20 24 06/26/2024 urina lysis , compl ete WBC >100 packed 0 abnormal Not Available [facility] ([facility]) [address] [place], [address], 06/26/2024 10:22:59 06/26/20 24 06/26/2024 urina lysis , compl ete RBC NG 0 Not Available [facility] ([facility]) [address] [place], [address], 06/26/2024 10:22:59 06/26/20 24 06/26/2024 urina lysis , compl ete epi cells NG 0 Not Available [facility] ([facility]) [address] [place], [address], 06/26/2024 10:22:59 06/26/20 24 06/26/2024 urina lysis , compl ete bacteria NG Not Available [facility] ([facility]) [address] [place], [address], 06/26/2024 10:22:59 06/26/20 24 06/26/2024 urina lysis , compl ete other NG Not Available [facility] ([facility]) [address] [place], [address], 06/26/2024 10:22:59 01/16/20 25 01/15/2025 URINA LYSIS WITH MICRO color YELLOW Not Available [facility] [address], [place], [address], 01/15/2025 15:33:59 01/16/20 25 01/15/2025 URINA LYSIS WITH MICRO clarity CLEAR Not Available [facility] [address], [place], [address], 01/15/2025 15:33:59 01/16/20 25 01/15/2025 URINA LYSIS WITH MICRO glu NEGATI VE Not Available [facility] [address], [place], [address], 01/15/2025 15:33:59 01/16/20 25 01/15/2025 URINA LYSIS WITH MICRO bili NEGATI VE Not Available [facility] [address], [place], [address], 01/15/2025 15:33:59 01/16/20 25 01/15/2025 URINA LYSIS WITH MICRO ket NEGATI VE Not Available [facility] [address], [place], [address], 01/15/2025 15:33:59 01/16/20 25 01/15/2025 URINA LYSIS WITH MICRO S.g >1.030 1.005- 1.025 high > Not Available [facility] [address], [place], [address], 01/15/2025 15:33:59 01/16/20 25 01/15/2025 URINA LYSIS WITH MICRO pH 6.0 5.0-7. 0 Not Available [facility] [address], [place], [address], 01/15/2025 15:33:59 01/16/20 25 01/15/2025 URINA LYSIS WITH MICRO pro 1+ Not Available [facility] [address], [place], [address], 01/15/2025 15:33:59 01/16/20 25 01/15/2025 URINA LYSIS WITH MICRO uro 2.0 E.U./D L Not Available [facility] [address], [place], [address], 01/15/2025 15:33:59 01/16/20 25 01/15/2025 URINA LYSIS WITH MICRO nit NEGATI VE Not Available [facility] [address], [place], [address], 01/15/2025 15:33:59 01/16/20 25 01/15/2025 URINA LYSIS WITH MICRO blo NEGATI VE Not Available [facility] [address] [facility] [address], [place], [address], 01/15/2025 15:33:59 01/16/20 25 01/15/2025 URINA LYSIS WITH MICRO maverick NEGATI VE Not Available [facility] [address] [facility] [address], [place], [address], 01/15/2025 15:33:59 01/16/20 25 01/15/2025 URINA LYSIS WITH MICRO WBC 1-2 Not Available [facility] [address] [facility], [place], [address], 01/15/2025 15:33:59 01/16/20 25 01/15/2025 URINA LYSIS WITH MICRO RBC 0-1 Not Available [facility] [address], [place], [address], 01/15/2025 15:33:59 01/16/20 25 01/15/2025 URINA LYSIS WITH MICRO epi cells 12-15 abnormal Not Available [facility] [address] [facility] 1, [place], [address], 01/15/2025 15:33:59 01/16/20 25 01/15/2025 URINA LYSIS WITH MICRO bacteria TRACE OF MIXED KINDRA abnormal Not Available [facility] [address] [facility], [place], [address], 01/15/2025 15:33:59 01/16/20 25 01/15/2025 URINA LYSIS WITH MICRO other NG Not Available [facility] [address] [facility], [place], [address], 01/15/2025 15:33:59 02/05/20 25 02/04/2025 CBC WBC 6.7 x10 4.0-10 .5 Not Available [facility] [address] [facility], [place], [address], 02/04/2025 16:18:10 02/05/20 25 02/04/2025 CBC RBC 4.97 x10 3.50-5 .50 Not Available [facility] [address] [facility], [place], [address], 02/04/2025 16:18:10 02/05/20 25 02/04/2025 CBC HGB 14.9 g/dL 12.0-1 6.0 Not Available [facility] [address] [facility], [place], [address], 02/04/2025 16:18:10 02/05/20 25 02/04/2025 CBC HCT 45.1 % 37.0-4 7.0 Not Available [facility] [address] [facility] 1, [place], [address], 02/04/2025 16:18:10 02/05/20 25 02/04/2025 CBC MCV 90.8 fL 80.0-9 9.9 Not Available [facility] [address] [facility] 1, [place], [address], 02/04/2025 16:18:10 02/05/20 25 02/04/2025 CBC MCH 30.0 pg 27.0-3 2.0 Not Available [facility] [address] [facility], [place], [address], 02/04/2025 16:18:10 02/05/20 25 02/04/2025 CBC MCHC 33.1 g/dL 32.0-3 6.0 Not Available [facility] [address] [facility] 1, [place], [address], 02/04/2025 16:18:10 02/05/20 25 02/04/2025 CBC RDW 15.0 % 11.5-1 4.5 high Not Available [facility] [address] [facility], [place], [address], 02/04/2025 16:18:10 02/05/20 25 02/04/2025 CBC plt 152.3 x10 140.0- 451.0 Not Available [facility] [address] [facility], [place], [address], 02/04/2025 16:18:10 02/05/20 25 02/04/2025 CBC lymphocytes % 22.5 % 20.0-5 0.0 Not Available [facility] [address] [facility] 1, [place], [address], 02/04/2025 16:18:10 02/05/20 25 02/04/2025 CBC granulcytes % 65.1 % 30.0-7 0.0 Not Available [facility] [address] [facility] 1, [place], [address], 02/04/2025 16:18:10 02/05/20 25 02/04/2025 CBC monocytes % 11.0 % 2.0-16 .0 Not Available [facility] [address] [facility] [address] [address], [place], [address], 02/04/2025 16:18:10 02/05/20 25 02/04/2025 CBC granulcytes# 4.4 x10 Not Veronica ilable [facility] [address] [address], [place], [address], 02/04/2025 16:18:10 02/05/20 25 02/04/2025 CBC lymphocytes # 1.5 x10 Not Available [facility] [address] [address], [place], [address], 02/04/2025 16:18:10 02/05/20 25 02/04/2025 CBC monocytes # 0.7 x10 Not Avai lable [facility] [address] [address], [place], [address], 02/04/2025 16:18:10 02/05/20 25 02/04/2025 HBA1C hemaglobin A1C 7.3 4.2-6. 5 high Not Available [facility] [address] [address], [place], [address], 02/04/2025 16:23:49 02/05/20 25 02/04/2025 CMP (FEMA LE) glucose 126.0 mg/dL 60.0-9 9.0 high Not Available [facility] [address] [address], [place], [address], 02/04/2025 16:49:23 02/05/20 25 02/04/2025 CMP (FEMA LE) BUN (blood urea nitrogen) 18.0 mg/dL 10.0-2 6.0 Not Available [facility] [address] [facility] [address] [address], [place], [address], 02/04/2025 16:49:23 02/05/20 25 02/04/2025 CMP (FEMA LE) creatinine (serum) 0.7 mg/dL 0.4-1. 5 Not Available [facility] [address] [facility], [place], [address], 02/04/2025 16:49:23 02/05/20 25 02/04/2025 CMP (FEMA LE) BUN/creatini ne ratio 25.71 ratio Not Available [facility] [address] [facility], [place], [address], 02/04/2025 16:49:23 02/05/20 25 02/04/2025 CMP (FEMA LE) eGFR calculated 88.7 Not Available [facility] [address] [facility] [address] [address], [place], [address], 02/04/2025 16:49:23 02/05/20 25 02/04/2025 CMP (FEMA LE) total protein 7.5 g/dL 6.0-8. 5 Not Available [facility] [address] [facility] [address] [address], [place], [address], 02/04/2025 16:49:23 02/05/20 25 02/04/2025 CMP (FEMA LE) total bilirubin 1.3 mg/dL 0.2-1. 3 Not Available [facility] [address] [facility] [address] [address], [place], [address], 02/04/2025 16:49:23 02/05/20 25 02/04/2025 CMP (FEMA LE) albumin 4.5 g/dL 3.5-5. 5 Not Available [facility] [address] [facility] [address] [address], [place], [address], 02/04/2025 16:49:23 02/05/20 25 02/04/2025 CMP (FEMA LE) globulin 3.0 calc Not Available [facility] [address] [facility] [address], [place], [address], 02/04/2025 16:49:23 02/05/20 25 02/04/2025 CMP (FEMA LE) AST (SGOT) 34.0 U/L 0.0-46 .0 Not Available [facility] [address] [facility] [address], [place], [address], 02/04/2025 16:49:23 02/05/20 25 02/04/2025 CMP (FEMA LE) altv (SGPT) 27.0 U/L 13.0-6 9.0 normal Not Available [facility] [address] [facility] [address], [place], [address], 02/04/2025 16:49:23 02/05/20 25 02/04/2025 CMP (FEMA LE) A/G ratio 1.5 ratio Not Available [facility] [address] [facility] [address], [place], [address], 02/04/2025 16:49:23 02/05/20 25 02/04/2025 CMP (FEMA LE) ALP phos 59.0 U/L 30.0-1 40.0 normal Not Available [facility] [address] [facility] [address], [place], [address], 02/04/2025 16:49:23 02/05/20 25 02/04/2025 CMP (FEMA LE) calcium 9.6 mg/dL 8.4-10 .5 Not Available [facility] [address] [facility] [address], [place], [address], 02/04/2025 16:49:23 02/05/20 25 02/04/2025 CMP (FEMA LE) sodium 140.0 mmol/ L 136.0- 145.0 Not Available [facility] [address] [facility] [address], [place], [address], 02/04/2025 16:49:23 02/05/20 25 02/04/2025 CMP (FEMA LE) potassium 4.2 mmol/ L 3.5-5. 1 Not Available [facility] [address] [facility] [address], [place], [address], 02/04/2025 16:49:23 02/05/20 25 02/04/2025 CMP (FEMA LE) chloride 106.0 mmol/ L 98.0-1 10.0 normal Not Available [facility] [address] [facility] [address], [place], [address], 02/04/2025 16:49:23 02/05/20 25 02/04/2025 CMP (FEMA LE) C02 26.0 mmol/ L 22.0-3 1.0 Not Available [facility] [address] [facility] [address], [place], [address], 02/04/2025 16:49:23 02/05/20 25 02/04/2025 CMP (FEMA LE) anion gap 8.0 calc Not Available [facility] [address] [facility] [address], [place], [address], 02/04/2025 16:49:23 02/05/20 25 02/04/2025 CMP (FEMA LE) osmolality 292.3 calc Not Available [facility] [address] [facility] 1, [place], [address], 02/04/2025 16:49:23 02/05/20 25 02/05/2025 CULTU RE, URINE , ROUTI NE culture, urine, routine SEE NOTE CULTU RE, URINE , ROUTI NE Micro Numbe r: [id number] Test Statu s: Final Speci men Sourc e: Urine Speci men Quali ty: Adequ ate Resul t: Mixed genit al kindra isola luis antonio. These super ficia l bacte wendy are not indic ative of a urina ry tract infec tion. No furth er organ ism ident ifica tion is warra nted on this speci men. If clini rosibel indic ated, recol lect clean -catc h, mid-s tream urine and trans zeke immed iatel y to Urine Cultu re Trans port Tube. Not Available [address] [address] [place], [address], 02/05/2025 20:11:25 02/05/20 25 02/06/2025 ALBUM IN, RANDO M URINE W/CRE ATINI NE creatinine, random urine 264 mg/dL 20-275 normal Not Available [address] [address] [place], [address], 02/06/2025 12:35:28 02/05/20 25 02/06/2025 ALBUM IN, RANDO M URINE W/CRE ATINI NE albumin, urine 2.0 mg/dL see note: normal Refer ence Range : Refer ence Range Not estab lishe d Not Available [address] [address] [place], [address], 02/06/2025 12:35:28 02/05/20 25 02/06/2025 ALBUM IN, RANDO M URINE W/CRE ATINI NE albumin/crea tinine ratio, random urine 8 mg/g_ creat <30 normal The ADA defin es abnor malit ies in album in excre tion as follo ws: Album inuri a Categ ory Resul t (mg/g creat inine ) Mariann l to Mildl y incre ased <30 Moder ately incre ased 30-29 9 Sever di incre ased > OR = 300 The ADA recom mends that at least two of three speci mens colle cted withi n a 3-6 month perio d be abnor mal befor e consi mira g a patie nt to be withi n a diagn ostic categ ory. Not Available [facility] [address] [place], [address], 02/06/2025 12:35:28 02/05/20 25 02/06/2025 ALPHA FETOP ROTEI N, TUMOR MARKE R alpha fetoprotein, tumor marker 6.2 NG/mL high Refer ence Range : <6.1 The use of AFP as a tumor marke r in pregn ant femal es is not recom dudley d. This test was perfo rmed using the Beckm an Coult er chemi lumin escen t metho d. Value s obtai melissa from diffe rent assay metho ds canno t be used inter [place] eably . AFP level s, regar dless of value , shoul d not be inter prete d as absol capitan grande evide nce of the prese nce or absen ce of disea se. Not Available [facility] [address] [place], [address], 02/06/2025 12:35:30 02/06/20 25 02/05/2025 PT/IN R Protime 13.0 Not Available [facility] ([facility]) [address] [place] [address], [address], 01/15/2025 15:21:37 02/06/20 25 02/05/2025 PT/IN R INR 1.1 Not Available [facility] ([facility]) [address] [place] [address], [address], 01/15/2025 15:21:37 07/17/20 25 07/17/2025 CBC WBC 4.5 x10 4.0-10 .5 Not Available [place] [address], [address], 07/17/2025 11:20:37 07/17/20 25 07/17/2025 CBC RBC 5.18 x10 3.50-5 .50 Not Available [facility] [address] [place], [address], 07/17/2025 11:20:37 07/17/2007/17/2025 CBC HGB 15.5 g/dL 12.0-1 6.0 Not Available [facility] [address] [facility] 1, [place], [address], 07/17/2025 11:20:37 07/17/2007/17/2025 CBC HCT 46.9 % 37.0-4 7.0 Not Available [facility] [address] [facility] 1, [place], [address], 07/17/2025 11:20:37 07/17/2007/17/2025 CBC MCV 90.6 fL 80.0-9 9.9 Not Available [facility] [address] [facility] [facility] 1, [place], [address], 07/17/2025 11:20:37 07/17/20 25 07/17/2025 CBC MCH 29.9 pg 27.0-3 2.0 Not Available [facility] [address] [facility] 1, [place], [address], 07/17/2025 11:20:37 07/17/20 25 07/17/2025 CBC MCHC 33.1 g/dL 32.0-3 6.0 Not Available [facility] [address] [facility] 1, [place], [address], 07/17/2025 11:20:37 07/17/20 25 07/17/2025 CBC RDW 13.9 % 11.5-1 4.5 Not Available [facility] [address] [facility] 1, [place], [address], 07/17/2025 11:20:37 07/17/20 25 07/17/2025 CBC plt 109.3 x10 140.0- 451.0 low Not Available [facility] [address] [facility] [address], [place], [address], 07/17/2025 11:20:37 07/17/20 25 07/17/2025 CBC lymphocytes % 21.7 % 20.0-5 0.0 Not Available [facility] [address] [facility] [address], [place], [address], 07/17/2025 11:20:37 07/17/20 25 07/17/2025 CBC granulcytes % 69.1 % 30.0-7 0.0 Not Available [facility] [address] [facility] [address], [place], [address], 07/17/2025 11:20:37 07/17/20 25 07/17/2025 CBC monocytes % 7.5 % 2.0-16 .0 Not Available [facility] [address] [address], [place], [address], 07/17/2025 11:20:37 07/17/20 25 07/17/2025 CBC granulcytes# 3.1 x10 Not Veronica ilable [facility] [address] [facility] [address], [place], [address], 07/17/2025 11:20:37 07/17/20 25 07/17/2025 CBC lymphocytes # 1.0 x10 Not Available [facility] [address] [address], [place], [address], 07/17/2025 11:20:37 07/17/20 25 07/17/2025 CBC monocytes # 0.3 x10 Not Avai lable [facility] [address] [facility] [address], [place], [address], 07/17/2025 11:20:37 07/17/20 25 07/17/2025 HBA1C hemaglobin A1C 5.9 4.2-6. 5 Not Available [facility] [address] [facility] 1, [place], [address], 07/17/2025 11:29:38 07/17/20 25 07/17/2025 CMP (FEMA LE) glucose 165.0 mg/dL 60.0-9 9.0 high Not Available [facility] [address] [facility] 1, [place], [address], 07/17/2025 11:59:21 07/17/20 25 07/17/2025 CMP (FEMA LE) BUN (blood urea nitrogen) 11.0 mg/dL 10.0-2 6.0 Not Available [facility] [address] [facility] 1, [place], [address], 07/17/2025 11:59:21 07/17/20 25 07/17/2025 CMP (FEMA LE) creatinine (serum) 0.6 mg/dL 0.4-1. 5 Not Available [facility] [address] [facility] 1, [place], [address], 07/17/2025 11:59:21 07/17/20 25 07/17/2025 CMP (FEMA LE) BUN/creatini ne ratio 18.33 ratio Not Available [facility] [address] [facility] 1, [place], [address], 07/17/2025 11:59:21 07/17/20 25 07/17/2025 CMP (FEMA LE) eGFR calculated 106.0 Not Available [facility] [address] [facility] 1, [place], [address], 07/17/2025 11:59:21 07/17/20 25 07/17/2025 CMP (FEMA LE) total protein 7.2 g/dL 6.0-8. 5 Not Available [facility] [address] [facility] 1, [place], [address], 07/17/2025 11:59:21 07/17/20 25 07/17/2025 CMP (FEMA LE) total bilirubin 1.2 mg/dL 0.2-1. 3 Not Available [facility] [address] [facility] 1, [place], [address], 07/17/2025 11:59:21 07/17/20 25 07/17/2025 CMP (FEMA LE) albumin 4.3 g/dL 3.5-5. 5 Not Available [facility] [address] [facility], [place], [address], 07/17/2025 11:59:21 07/17/20 25 07/17/2025 CMP (FEMA LE) globulin 2.9 calc Not Available [facility] [address] [facility], [place], [address], 07/17/2025 11:59:21 07/17/20 25 07/17/2025 CMP (FEMA LE) AST (SGOT) 38.0 U/L 0.0-46 .0 Not Available [facility] [address] [facility], [place], [address], 07/17/2025 11:59:21 07/17/20 25 07/17/2025 CMP (FEMA LE) altv (SGPT) 21.0 U/L 13.0-6 9.0 normal Not Available [facility] [address] [facility], [place], [address], 07/17/2025 11:59:21 07/17/20 25 07/17/2025 CMP (FEMA LE) A/G ratio 1.5 ratio Not Available [facility] [address] [facility], [place], [address], 07/17/2025 11:59:21 10/02/20 25 07/17/2025 CMP (FEMA LE) ALP phos 81.0 U/L 30.0-1 40.0 normal Not Available [facility] [address] [facility] 1, [place], [address], 07/17/2025 11:59:21 07/17/20 25 07/17/2025 CMP (FEMA LE) calcium 9.7 mg/dL 8.4-10 .5 Not Available [facility] [address] [facility] 1, [place], [address], 07/17/2025 11:59:21 07/17/2007/17/2025 CMP (FEMA LE) sodium 141.0 mmol/ L 136.0- 145.0 Not Available [facility] [address] [facility] 1, [place], [address], 07/17/2025 11:59:21 07/17/20 25 07/17/2025 CMP (FEMA LE) potassium 4.6 mmol/ L 3.5-5. 1 Not Available [facility] [address] [facility] 1, [place], [address], 07/17/2025 11:59:21 07/17/20 25 07/17/2025 CMP (FEMA LE) chloride 104.0 mmol/ L 98.0-1 10.0 normal Not Available [facility] [address] [facility] 1, [place], [address], 07/17/2025 11:59:21 07/17/20 25 07/17/2025 CMP (FEMA LE) C02 30.0 mmol/ L 22.0-3 1.0 Not Available [facility] [address] [facility] 1, [place], [address], 07/17/2025 11:59:21 07/17/2007/17/2025 CMP (FEMA LE) anion gap 7.0 calc Not Available [facility] [address] [facility] [address], [place], [address], 07/17/2025 11:59:21 07/17/20 25 07/17/2025 CMP (FEMA LE) osmolality 293.9 calc Not Available [facility] [address] [facility] [address], [place], [address], 07/17/2025 11:59:21 07/17/20 25 07/17/2025 LIPID PROFI LE (FEMA LE) cholesterol 186.0 mg/dL 0.0-20 0.0 Not Available [facility] [address] [facility] [address], [place], [address], 07/17/2025 11:59:23 07/17/20 25 07/17/2025 LIPID PROFI LE (FEMA LE) trig 131.0 mg/dL 0.0-15 0.0 Not Available [facility] [address] [facility] [address], [place], [address], 07/17/2025 11:59:23 07/17/20 25 07/17/2025 LIPID PROFI LE (FEMA LE) HDL - direct 49.0 mg/dL >40.0 Not Available [facility] [address] [facility] 1, [place], [address], 07/17/2025 11:59:23 07/17/20 25 07/17/2025 LIPID PROFI LE (FEMA LE) VLDL - direct 26.2 mg/dL Not Available [facility] [address] [facility] 1, [place], [address], 07/17/2025 11:59:23 07/17/20 25 07/17/2025 LIPID PROFI LE (FEMA LE) LDL - direct 110.8 mg/dL 0.0-13 0.0 Not Available [facility] [address] [facility] [address], [place], [address], 07/17/2025 11:59:23 07/17/2007/23/2025 ALBUM IN, RANDO M URINE W/CRE ATINI NE creatinine, random urine 55 mg/dL 20-275 normal Not Available [place] [address] [place], [address], 07/23/2025 16:19:10 07/17/2007/23/2025 ALBUM IN, RANDO M URINE W/CRE ATINI NE albumin, urine 0.3 mg/dL see note: normal Refer ence Range : Refer ence Range Not estab lishe d Not Available [place] [address] [place], [address], 07/23/2025 16:19:10 07/17/20 25 07/23/2025 ALBUM IN, RANDO M URINE W/CRE ATINI NE albumin/crea tinine ratio, random urine 5 mg/g_ creat <30 normal The ADA defin es abnor malit ies in album in excre tion as follo ws: Album inuri a Categ ory Resul t (mg/g creat inine ) Mariann l to Mildl y incre ased <30 Moder ately incre ased 30-29 9 Sever di incre ased > OR = 300 The ADA recom mends that at least two of three speci mens colle cted withi n a 3-6 month perio d be abnor mal befor e consi mira g a patie nt to be withi n a diagn ostic categ ory. Not Available [facility] [address] [place], [address], 07/23/2025 16:19:10 07/17/2007/23/2025 ALPHA FETOP ROTEI N, TUMOR MARKE R alpha fetoprotein, tumor marker 6.1 NG/mL high Refer ence Range : <6.1 The use of AFP as a tumor marke r in pregn ant femal es is not recom dudley d. This test was perfo rmed using the Beckm an Coult er chemi lumin escen t metho d. Value s obtai melissa from diffe rent assay metho ds canno t be used inter [place] eamaddie . AFP level s, regar dless of value , shoul d not be inter prete d as absol capitan grande evide nce of the prese nce or absen ce of disea se. Not Available [facility] [address] [place], [address], 07/23/2025 16:19:11 07/17/20 25 07/17/2025 PT/IN R Protime 12.7 Not Available [facility] ([facility]) [address] [place], [address], 07/17/2025 10:33:44 07/17/20 25 07/17/2025 PT/IN R INR 1.1 Not Available [facility] ([facility]) [address] [place], [address], 07/17/2025 10:33:44 06/27/20 24 06/26/2024 , anatoly x, kevin s, [facility] mity, unila teral No observ ation record ed. [email or web address] [place], [address], 06/27/2024 14:07:02 01/28/20 25 12/05/2013 polys omnog fanta , with CPAP (PROC ) No observ ation record ed. [id number] Not Available 01/28 09:33:57 Result Notes None recorded. Problems Name Problem SNOMED Code Status Onset Date Resolution Date Notes Provider Name and Address Organization Details Recorded Time Gastroes ophageal reflux disease 085566683 Active SHU ramires [facility], [facility] 13:39:46 Gastriti s 5161269 Completed 04/28/2025 hx of Mago ramires [facility] 5 20:58:30 Anxiety state 738197922 Completed 201102/02/2012 anxiety - Status is Inactive ; 02/02/20 12 1:42PM by Shu Bean LPN, Annotati on/Adden dum; Promoted ; acuity set as *; Not Available [facility] 03:08:48 Oophorec roxane Completed 201210/23/2012 oophorec roxane, unilater al - Status is Inactive ; pt is unsure which one was removed; 10/23/19 13 2:07PM by Keely Baker MD, Annotati on/Adden dum; Promoted ; acuity set as *; Not Available [facility] 3 03:08:48 Migraine 55371772 Active 2022 SHU BEAN null, [facility] 5 13:41:33 Fibromya lgia 616699496 Active 2022 SHU BEAN null, [facility] 5 13:41:27 Generali zed anxiety disorder 94814590 Active 2022 SHU BEAN null, [facility] 5 13:39:47 Type 2 diabetes mellitus 89032693 Active 2022 SHU BEAN null, [facility] 4 14:56:32 Hyperlip idemia 53658115 Active 2022 SHU BEAN null, [facility] 5 13:39:47 Chronic neck pain 88856338105 07 Active 2022 SHU BEAN null, [facility] [facility] 5 13:39:47 Chronic back pain 395753640 Active 2022 SHU BEAN null, [facility] 5 13:39:47 Non-alco holic fatty liver 694462965 Active 2022 Not Available [facility] 3 22:05:43 Chronic respirat ory failure 96821051 Active 2022 SHU ramires, [facility] 5 10:43:40 Disorder of nerve root and/or plexus 904167952 Active 2022 Not Available [facility] 3 22:05:43 Iron deficien cy 37081236 Active 2022 Not Available [facility] 3 22:05:43 Restless legs syndrome 35999959 Active 2022 Not Available [facility] 3 22:05:43 [facility] hyperten tuyet 99128381 Active 2022 Not Available [facility] 3 22:05:43 History of neoplasm of urinary bladder 776621541 Active 2022 Not Available [facility] 3 22:05:43 Pulmonar y hyperten tuyet 48104514 Active 2022 Not Available [facility] 3 22:05:43 Obstruct carolin sleep apnea syndrome 33620078 Active 2022 SHU ramires, [facility] 5 10:56:24 Cirrhosi s of liver 95659256 Active 2023 SHU ramires, [facility] 4 14:59:01 Supraven tricular tachycar kelly 6542337 Active 2023 SHU ramires [facility] 5 13:39:47 Deficien cy of vitamin D3 244467337 Active 2023 SHU ramires [facility] 5 13:39:47 Insulin treated type 2 diabetes mellitus 072537799 Active 2023 SHU ramires [facility] 5 13:39:47 Moderate recurren t major depressi on 45589757 Active 2024 SHU ramires [facility] 5 14:01:11 Dysuria 37162741 Completed 202404/28/2025 Mago ramires [facility] 5 20:58:17 Constipa tion 39304014 Completed 202404/28/2025 Mago ramires [facility] 5 20:58:11 Gingivit is 54004781 Active 2024 SHU ramires [facility] 5 10:36:02 Problem Notes None recorded. Procedures Surgical History Date Name Laterality Status Provider Name and Address Organization Details Recorded Time 2023 total knee replacement completed SHU BEAN [facility] 4 13:51:48 2022 esophagogastroduodenoscopy completed ALESSANDRA CAZARES [facility] 3 16:47:49 2022 repair of umbilical hernia completed ALESSANDRA BEAN [facility] 3 09:18:48 2020 colonoscopy completed SHU BEAN [facility] 3 18:03:01 2016 laminectomy completed SHU BEAN [facility] 3 17:56:13 total knee replacement completed HARRY BEAN [facility] 4 14:37:15 cholecystectomy completed SHU BEAN [facility] 3 17:51:44 Breast reduction completed [facility], [place] 3 17:51:51 hysterectomy completed [facility] [place] 3 17:55:31 reconstruction of pe lvic floor completed [facility] [place] 3 17:56:26 Imaging Results None recorded. Procedure Notes None recorded. Medical Equipment None Reported. Allergies Allergen ID Allergen Name Allergen Category Reaction Reaction Severity Criticality Documentation Date Start Date Code Code System Note Provider Name and Address Organization Details Recorded Time 42791 No known allergy (situatio n) Not available Not available Not available Not available 05/09/2024 22154 6003 SNOMED G[facility]nesis [facility] [place] 4 15:40:43 No known drug allergies Medications Name Sig Start Date Stop Date Status Note LastModified by Organization Details LastModified Time celecoxib 200 mg capsule 1 twice daily 01/15 completed Not Available Not Available Not Available fluoxetin e 40 mg capsule TAKE 1 CAPSULE BY MOUTH DAILY 2024 active Not Available Not Available Not Avai lable amoxicill in 500 mg capsule TAKE 2 CAPSULES BY MOUTH TWICE A DAY FOR 10 DAYS 03/12 completed Not Available Not Available Not Available doxycycli ne hyclate 100 mg capsule TAKE 1 CAPSULE BY MOUTH TWICE A DAY FOR 7 DAYS 08/04 completed Not Available Not Available Not Available metoprolo l tartrate 100 mg tablet TAKE 1 TABLET BY MOUTH TWICE DAILY 03/19 completed Not Available Not Available Not Available tizanidin e 4 mg tablet TAKE 1 TABLET BY MOUTH EVERY 6 HOURS NEEDED FOR SPASM. 01/15 completed Not Available Not Available Not Available fluconazo le 150 mg tablet TAKE 1 TABLET BY MOUTH NOW MAY REPEAT IN 1 WEEK IF NEEDED 01/15 completed Not Available Not Available Not Available sumatript an 100 mg tablet TAKE 1 TABLET BY MOUTH AT ONSET OF HEADACHE , MAY REPEAT IN 2HRS, MAX 2/DAY active Not Available Not Available No t Available hydrocodo ne 5 mg-acetam inophen 325 mg tablet TAKE 1 TABLET BY MOUTH THREE TIMES A DAY NEEDED FOR 30 DAYS active Not Available Not Available No t Available ondansetr on HCl 8 mg tablet TAKE 1 TABLET BY MOUTH EVERY 8 HOURS NEEDED active Not Available Not Available No t Available phenazopy ridine 200 mg tablet TAKE 1 TABLET BY MOUTH THREE TIMES A DAY active Not Available Not Available No t Available clonazepa m 0.5 mg tablet TAKE ONE TABLET THREE TIMES DAILY NEEDED 03/19 completed Not Available Not Available Not Available acyclovir 400 mg tablet TAKE 1 TABLET BY MOUTH TWICE A DAY active Not Available Not Available No t Available sulfameth oxazole 800 mg-trimet hoprim 160 mg tablet TAKE 1 TABLET BY MOUTH TWICE A DAY 03/29 completed Not Available Not Available Not Available aspirin 81 mg tablet,de layed release Take 1 tablet twice a day by oral route. active Not Available Not Available No t Available tramadol 50 mg tablet TAKE 1 TABLET BY MOUTH EVERY 6 HOURS NEEDED FOR PAIN. 01/15 completed Not Available Not Available Not Available pramipexo le 0.5 mg tablet Take 1 tablet every day by oral route at bedtime. 03/26 completed Not Available Not Available Not Available zonisamid e 100 mg capsule Take 2 capsules every day by oral route at bedtime. 03/19 completed Not Available Not Available Not Available meloxicam 7.5 mg tablet TAKE 1 TABLET BY MOUTH EVERY DAY active Not Available Not Available No t Available oxycodone -acetamin ophen 5 mg-325 mg tablet 03/19 completed Not Available Not Available Not Available amoxicill in 875 mg tablet TAKE 1 TABLET BY MOUTH TWICE A DAY 03/29 completed Not Available Not Available Not Available famotidin e 20 mg tablet Take 1 tablet twice a day by oral route. active Not Available Not Available No t Available lorazepam 0.5 mg tablet PLEASE SEE ATTACHED FOR DETAILED DIRECTIO NS active Not Available Not Available No t Available potassium chloride ER 8 mEq tablet,ex tended release 12/06 completed Not Available Not Available Not Available diazepam 2 mg tablet 07/04 completed Not Available Not Available Not Available cephalexi n 500 mg capsule TAKE 1 CAPSULE BY MOUTH TWICE A DAY 03/29 completed Not Available Not Available Not Available pantopraz ole 40 mg tablet,de layed release TAKE 1 TABLET BY MOUTH DAILY 2024 active Not Available Not Available Not Avai lable promethaz ine 25 mg tablet TAKE 1 TABLET BY MOUTH EVERY 6 HOURS NEEDED FOR NAUSEA/E MESIS. active Not Available Not Available No t Available metoprolo l tartrate 50 mg tablet TAKE 1 TABLET BY MOUTH TWICE DAILY 2024 active Not Available Not Available Not Avai lable gabapenti n 300 mg capsule TAKE 1 CAPSULE BY MOUTH 3 TIMES DAILY 2024 active Not Available Not Available Not Avai lable Banophen 25 mg capsule TAKE 1 CAPSULE BY MOUTH EVERY 6 HOURS NEEDED 03/29 completed Not Available Not Available Not Available furosemid e 20 mg tablet 12/06 completed Not Available Not Available Not Available gabapenti n 100 mg capsule TAKE 1 CAPSULE BY MOUTH IN THE MORNING, 1 CAPSULE AT NOON AND 3 CAPSULES AT BEDTIME 03/19 completed Not Available Not Available Not Available diazepam 10 mg tablet 01/15 completed Not Available Not Available Not Available scopolami ne 1 mg over 3 days transderm al patch APPLY 1 PATCH BEHIND THE LEFT EAR EVERY 3 DAYS 01/15 completed Not Available Not Available Not Available ondansetr on 4 mg disintegr ating tablet 06/26 completed Not Available Not Available Not Available cefdinir 300 mg capsule Take 1 capsule every 12 hours by oral route for 5 days. 01/15 completed Not Available Not Available Not Available fluoxetin e 20 mg capsule TAKE 1 CAPSULE BY MOUTH DAILY 03/19 completed Not Available Not Available Not Available metformin ER 500 mg tablet,ex tended release 24 hr TAKE 1 TABLET BY MOUTH DAILY 2024 active Not Available Not Available Not Avai lable metoclopr amide 10 mg tablet TAKE 1 TABLET BY MOUTH EVERY 6 HOURS NEEDED FOR NAUSEA/V OMITING 03/29 completed Not Available Not Available Not Available oxycodone 5 mg tablet TAKE 2 TABLETS BY MOUTH EVERY 4 HOURS NEEDED FOR PAIN. NO MORE THAN 6 TABS DAILY MAX 60MG 01/15 completed Not Available Not Available Not Available bisacodyl 5 mg tablet Take 1 tablet every day by oral route. 2024 active Not Available Not Available Not Avai lable Novolog FlexPen U-100 Insulin aspart 100 unit/mL (3 mL) subcutane ous PER MILD SLIDING SCALE BEFORE MEALS THREE TIMES DAILY. MAX DOSE 27 UNITS DAILY active Not Available Not Available No t Available rosuvasta tin 10 mg tablet TAKE 1 TABLET BY MOUTH DAILY 2024 active Not Available Not Available Not Avai lable duloxetin e 60 mg capsule,d elayed release TAKE 1 CAPSULE BY MOUTH EVERY DAY 06/13 completed Not Available Not Available Not Available chlorhexi dine gluconate 0.12 % mouthwash PLACE 15 ML TWICE A DAY BY MUCOUS MEMBRANE ROUTE active Not Available Not Available No t Available ondansetr on HCl every 8 hour as needed for nausea 07/04 completed Recorded 12/23/19 23 3:16PM by Keely Baker MD, Office Visit; Refill Quantity : 15; Tablet; Not Available Not Available Not Available acetamino phen 650mg q6h active Not Available Not Available No t Available acyclovir two times daily 07/04 completed 436; Recorded 11/21/19 23 10:34AM by Shu Bean LPN (Authori erind through Keely Baker MD), Refill Request; Refill Quantity : 180; Tablet; Not Available Not Available Not Available EpiPen once 2014 active take at the first sign of throat closing Not Available Not Available Not Available aspirin 81mg bid 06/26 completed Not Available Not Available Not Available fluoxetin e daily 07/04 completed 436; Recorded 09/12/20 22 2:11PM by Shu Bean LPN (Authori zed through Keely Baker MD), Refill Request; Mail Order Quantity : 90 Capsule; Mail Order Days: 90 Days; Refill Quantity : 90; Capsule; Not Available Not Available Not Available metoprolo l tartrate two times daily 07/04 completed 436; Recorded 12/26/19 21 9:02AM by Shu Bena LPN (Authori dee through Keely Baker MD), Annotati on/Adden dum; Refill Quantity : 180; Tablet; Not Available Not Available Not Available ferrous gluconate daily 07/04 completed take with 500 units Vitamin C; 436; Recorded 03/17/20 22 5:35PM by Shu Bean LPN (Authori dee through Keely Baker MD), Refill Request; Refill Quantity : 90; Tablet; Not Available Not Available Not Available Pyridium three times daily 07/04 completed Recorded 09/27/20 22 12:14PM by Berta Ocampo RN, Office Visit; Refill Quantity : 30; Tablet; Not Available Not Available Not Available metformin daily 07/04 completed 436; Recorded 05/16/20 22 7:46AM by Shu Bean LPN (Authori dee through Keely Baker MD), Refill Request; Refill Quantity : 90; Tablet; Not Available Not Available Not Available Transderm -Scop behind the left ear every 3 days 07/04 completed Recorded 12/23/19 23 3:19PM by Keely Baker MD, Office Visit; Refill Quantity : 3; Patch; Not Available Not Available Not Available gabapenti n three times daily 05/22 completed 436; Recorded 09/12/20 22 2:20PM by Shu Bean LPN (Authori dee through Keely Baker MD), Refill Request; Mail Order Quantity : 450 Capsule; Refill Quantity : 90; Capsule; Not Available Not Available Not Available Pen Needle daily 06/26 completed Not Available Not Available Not Available Cymbalta daily 07/04 completed 436; Recorded 08/15/20 22 7:18AM by Shu Bean LPN (Authori erind through Keely Baker MD), Annotati on/Adden dum; Mail Order Quantity : 90 Capsule; Mail Order Days: 90 Days; Refill Quantity : 90; Capsule; Not Available Not Available Not Available Levemir FlexPen 100 unit/mL (3 mL) solution subcutane ous insulin pen INJECT SUBCUTAN EOUSLY 8 UNITS DAILY 2023 active Not Available Not Available Not Avai lable ferrous gluconate 324 mg (38 mg iron) tablet TAKE 1 TABLET BY MOUTH EVERY DAY active Not Available Not Available No t Available cholecalc iferol (vitamin D3) 1,250 mcg (50,000 unit) capsule Take 1 capsule every week by oral route for 30 days. 03/19 completed Not Available Not Available Not Available oxycodone 10 mg tablet 03/19 completed Not Available Not Available Not Available tranexami c acid 650 mg tablet 06/13 completed Not Available Not Available Not Available polyethyl buck glycol (bulk) 06/26 completed Not Available Not Available Not Available Levemir FlexTouch U100 Insulin daily 07/04 completed pre-fill ed pens; 436; Recorded 04/26/20 22 9:22AM by Berta Ocampo RN (Authori dee through Keely Baker MD), Annotati on/Adden dum; Refill Quantity : 5; Each; Not Available Not Available Not Available Trulicity 1.5 mg/0.5 mL subcutane ous pen injector Inject 1.5 mg every week by subcutan eous route for 90 days. 06/26 completed Not Available Not Available Not Available Trulicity 0.75 mg/0.5 mL subcutane ous pen injector Inject 0.75 mg every week by subcutan eous route for 30 days. 01/23 completed Not Available Not Available Not Available Ozempic 0.25 mg or 0.5 mg (2 mg/1.5 mL) subcutane ous pen injector Inject 0.5 mg every week by subcutan eous route. 01/09 completed Not Available Not Available Not Available Ozempic weekly 07/04 completed dispense 90 days supply 3 pre-fill ed pens; 436; Recorded 12/20/19 12:20PM by Shu Bean LPN (Authori dee through Keely Baker MD), Annotati on/Adden dum; Mail Order Quantity : 3 Each; Mail Order Days: 90 Days; Refill Quantity : 3; Each; Not Available Not Available Not Available BD Brenda 2nd Gen Pen Needle 32 gauge x 5/32 use as directed with insulin 2023 active Not Available Not Available Not Avai lable Ozempic 0.25 mg or 0.5 mg (2 mg/3 mL) subcutane ous pen injector INJECT 0.25 MG UNDER THE SKIN WEEKLY FOR 4 WEEKS, THEN INCREASE TO 0.5 MG WEEKLY. active Not Available Not Available No t Available Vitals Date Recorded Body height Body mass index (BMI) Body weight Body temperature Heart rate Oxygen saturation Systolic And Diastolic Provider Name and Address Organization Details Last Updated DateTime 5 170.18 cm 34.1 kg/m2 32618.1 4 g 97.1 [degF] 90 /min 96 % 132/74 mm[facility]Hg[facility] 5 14:57:34 Date Recorded Body height Body mass index (BMI) Body weight Oxygen saturation Heart rate Respiratory rate Body temperature Systolic And Diastolic Systolic And Diastolic Provider Name and Address Organization Details Last Updated DateTime 5 170.18 cm 34.1 kg/m2 14728.1 4 g 98 % 75 /min 18 /min 97.3 [degF] 148/100 mm[Hg] 152/100 mm[Hg] Mago Spencer [facility] 5 12:51:09 Date Recorded Body height Body mass index (BMI) Body weight Body temperature Heart rate Oxygen saturation Systolic And Diastolic Provider Name and Address Organization Details Last Updated DateTime 4 170.18 cm 34 kg/m2 49948.5 4 g 97.8 [degF] 77 /min 98 % 138/86 mm[Hg] [facility] 4 10:03:09 Date Recorded Body height Body mass index (BMI) Body weight Body temperature Heart rate Oxygen saturation Systolic And Diastolic Provider Name and Address Organization Details Last Updated DateTime 5 170.18 cm 33.7 kg/m2 22578.3 6 g 96.9 [degF] 100 /min 92 % 148/88 mm[Hg] Berta Garza [facility] 5 15:00:32 Social History Question Answer Notes LastModified by [employer] Details LastModified Time Tobacco Smoking Status Never Smoker SHU GENEVA ramires [facility] 07/04/2023 09:17:37 Do You Or Have You Ever Used Marijuana? Never Used Information not available 08/04/2025 What Was The Date Of Your Most Recent Tobacco Screening? 08/04/2025 Information not available 08/04/2025 Sex: Unknown Functional Status Question Answer Note LastModified by [employer] Details LastModified Time Do you use any illicit or recreational drugs? No [email or web address] Information not available 07/04/2023 Do you or have you ever used any other forms of tobacco or nicotine? No [email or web address] Information not available 07/04/2023 What is your level of alcohol consumption? None [email or web address] Information not available 07/04/2023 Do you or have you ever used any nicotine-free cigarettes, vape, or chewing tobacco? No [email or web address] Information not available 06/26/2024 Mental Status None recorded. Family History Relationship Description Onset Age of this Age Resolved Age Notes LastModified by Organization Details LastModified Time Sister Diabetes mellitus [email or web address] Not available 07/04 17:51:23 Father Diabetes mellitus [email or web address] Not available 07/04 17:51:23 Medical History No medical history recorded. Gynecological HistoryNo gynecological history recorded. Obstetrics History GPAL:G 0 P 0 0 0 0 Immunizations Vaccine Type Date Status Note Provider Nam e and Address Organization Details Recorded Time Pneumococcal conjugate PCV20, polysaccharide [id number] conjugate, adjuvant, PF 5 completed SHU ramires [facility] 01/15/2025 16:02:51 Influenza, split virus, trivalent, preservative 0 completed Not Available [facility] 12/06/2023 14:50:46 COVID-19, mRNA, LNP-S, PF, 100 mcg/0.5mL dose or 50 mcg/0.25mL dose 1 completed Not Available [facility] 12/06/2023 14:50:46 COVID-19, mRNA, LNP-S, PF, 100 mcg/0.5mL dose or 50 mcg/0.25mL dose 1 completed Not Available [facility] 12/06/2023 14:50:46 Influenza, adjuvanted, trivalent, PF 5 completed SHU BEAN null, [facility] 08/05/2025 08:17:11 Influenza, split virus, quadrivalent, PF 8 completed G[place]is [place] null, [facility] 05/09/2024 15:40:34 zoster recombinant 4 completed SHU BEAN null, [facility] 01/15/2025 14:54:21 Influenza, high-dose, trivalent, PF 4 completed SHU BEAN null, [facility] 01/15/2025 14:54:21 zoster recombinant 2 completed Not Available [facility] 10/02/2023 22:05:43 COVID-19, mRNA, LNP-S, bivalent, PF, 50 mcg/0.5 mL or 25mcg/0.25 mL dose 2 completed Not Available [facility] 10/02/2023 22:05:43 Influenza, split virus, quadrivalent, PF 2 completed Not Available [facility] 10/02/2023 22:05:43 Past Encounters Encounter ID Performer Location Encounter Start Date Encounter Closed Date Diagnosis/Indication Diagnosis SNOMED-CT Code Diagnosis ICD10 Code Diagnosis IMO Codes Diagnosis Note [id number] Keely Baker MD [facility] ([facility]) [address] [place] [address] [id number] 5 03/29/2023 08:10:58 03/29/2023 20:22:01 Palpitations 90708420 R00.2 Chronic pain 35389417 G8 9.29 this is an oh by the way request and i will send her pain management records later [id number] Keely Baker MD [facility] ([facility]) [address] [place] [address] [id number] 5 07/04/2023 08:38:37 07/04/2023 12:50:18 Chronic neck pain 3514060726 107 M54.2 Chronic back pain 348974 002 M54.9 Pain of ri ght shoulder joint 1296807431 3993639 M25.511 we discussed referral options and went through recommenda tions etc. she has a shoulder specialist at [facility]. she has an arthrogram scheduled it sounds like. she feels comfortabl e. Pain of le ft shoulder joint 3453307618 3787603 M25.512 Anxiety disorder 2504641 06 F41.9 Cervical radiculitis 110 35036 M54.12 [id number] Keely Baker MD [facility] ([facility]) [address] [place] [address] [id number] 5 12/06/2023 14:50:30 12/06/2023 16:59:55 Chronic respiratory failure 73293864 J96.10 Pulmonary hypertension 99826995 I27.20 Type 2 kelly betes mellitus 50648944 E11.9 Generalize d anxiety disorder 60460288 F41.1 Cirrhosis - non-alcoholic 217102592 K74.60 Supraventr icular tachycardia 2895656 I47.10 Cough 42937063 R05.9 Uncontroll ed type 2 diabetes mellitus 238483147 E11.65 Migraine 87749063 G43.90 9 Nausea 556092254 R11.0 Depressive disorder 3548 9007 F32.A Acute maxi llary sinusitis 32772930 J01.00 Epigastric pain 49840892 R10.13 Iron deficiency 18455069 E61.1 Nutritiona l deficiency disorder 56849326 E63.9 [id number] Keely Baker MD [facility] ([facility]) [address] [place] [address] [id number] 5 03/19/2024 10:49:14 03/19/2024 12:25:51 Cirrhosis of liver 92168177 K74.60 Confusional state 487698 003 F44.89 Obstructiv e sleep apnea syndrome 85101048 G47.33 Generalize d anxiety disorder 15989448 F41.1 Chronic pain 14359044 G8 9.29 [id number] Keely Baker MD [facility] ([facility]) [address] [place] [address] [id number] 5 03/26/2024 09:42:03 03/26/2024 10:34:35 Chronic low back pain 405390383 M54.50 Obstructiv e sleep apnea syndrome 83158876 G47.33 Cirrhosis of liver 06340 007 K74.60 Confusional state 934362 003 F44.89 Generalize d anxiety disorder 43293961 F41.1 well controlled with lorazepam at lower dose. this will be better metabolize d. Chronic pain 41102232 G8 9.29 [id number] Keely Baker MD [facility] ([facility]) [address] [place] [address] [id number] 5 06/13/2024 09:57:41 06/13/2024 14:25:39 Type 2 diabetes mellitus 87091494 E11.9 this is a 6 months f/u for her dm labs where are not yet completed. her previous control was good a1c 6.8 Insulin tr eated type 2 diabetes mellitus 045669460 Z79.4 will ask for a CGM device and attempt to get some post prandial sugars. likely may need Generalize d anxiety disorder 76229423 F41.1 Nausea and vomiting 1693 2000 R11.2 [id number] Keely Baker MD [facility] ([facility]) [address] [place] [address] [id number] 5 06/26/2024 10:00:54 06/26/2024 12:54:16 Pain of right calf 6052794605 577674 M79.661 Increased frequency of urination 573096000 R35.0 Dysuria 39672423 R30.0 improved with azo the last few days. Anemia 716207286 D50.9 [id number] Keely Baker MD [facility] ([facility]) [address] [place] [address] [id number] 5 06/26/2024 10:42:11 06/27/2024 10:44:29 [id number] Keely Baker MD [facility] ([facility]) [address] [place] [address] [id number] 5 01/15/2025 14:34:24 01/16/2025 07:36:47 Chronic respiratory failure 75045338 J96.10 Cirrhosis of liver 007 K74.60 Essential hypertension 00605397 I10 Pulmonary hypertension 85070341 I27.20 Supraventr icular tachycardia 0056629 I47.10 Generalize d anxiety disorder 06592150 F41.1 Chronic back pain 456763 002 M54.9 Moderate r ecurrent major depression 20796075 F33.1 Type 2 kelly betes mellitus 45858795 E11.69 Insulin tr eated type 2 diabetes mellitus 705225686 Z79.4 will ask for a CGM device and attempt to get some post prandial sugars. likely may need Dysuria 07675672 R30.0 improved with azo the last few days. Mixed sleep apnea 355922 001 G47.39 Administra tion of pneumococcal vaccine 51684481 Z23 Acute bronchitis 2009545 2 J20.9 [id number] Keely Baker MD [facility] ([facility]) [address] [place] [address] 5 04/28/2025 12:39:40 04/30/2025 10:20:01 Chronic respiratory failure 70224457 J96.10 Type 2 kelly betes mellitus 29680830 E11.69 Moderate r ecurrent major depression 64120623 F33.1 Chronic back pain 589900 002 M54.9 Generalize d anxiety disorder 89846373 F41.1 [id number] Keely Baker MD [facility] ([facility]) [address] [place] [address] [id number] 5 07/17/2025 10:29:40 07/18/2025 09:48:42 Essential hypertension 01770241 I10 Type 2 kelly betes mellitus 88066281 E11.69 Hyperlipidemia 97882344 E78.5 Cirrhosis of liver 007 K74.60 [id number] Keely Baker MD [facility] ([facility]) [address] [place] [address] [id number] 5 08/04/2025 13:51:20 08/05/2025 15:43:24 Constipation 73263937 K59.00 Chronic depression 13665 0009 F32.A [id number] she has failed so many medication s. feels blah more depressed not suicidal. has been referred for tms previously . i once again recommende d psychiatri c evaluation and considerat ion of tms. Obstructiv e sleep apnea syndrome 44547778 G47.33 Cirrhosis of liver 007 K74.60 Health Concerns Section Related Observation LastModified by Organization Detai ls LastModified Time None Recorded Concern Status LastModified by Organization Details LastModified Time None Recorded Advance Directives Directive None Recorded Payers Insurance Date Sequence Insurance Name Policy Number Policy Salazar Covered Member ID Salazar Member ID Guarantor Name 04/27/2023 2 A[employer] (MEDICARE SUPPLEMENT) Lisa Camargo Malcommirna [id number] Lisa Camargo Malcommirna 09/08/2025 2 [employer] (MEDICARE SUPPLEMENT) Lisa Magaña [id number] Lisa Magaña 09/08/2025 1 [place] Lisa Camargo Malcommirna [id number] Lisa Magaña 04/27/2023 2 [employer] [place] (MEDICARE SUPPLEMENT) Lisa Magaña [id number] Lisa Magaña 09/08/2025 [place] A - [facility] (MEDICARE) Lisa Magaña [id number] Lisa Magaña 04/25/2023 2 UNSPECIFIED REMIT PAYOR Lisa Magaña 05/11/2023 2 UNSPECIFIED REMIT PAYOR Lisa Magaña Notes Date Note Type Note Provider Name and Address Organization Details Recorded Time 4 text/html DiabetesReported by PatientHPIFor control, patient reportstreated with insulinandhemoglobin a1c has been less than 7. For compliance, patient reportscompliant with medicationsandcompliant with follow-up visits. For self care, patient reportsmonitoring glucose 4 times per day. AnemiaReported by PatientHPIFor context, patient reportsprevious hemoglobin: (10.1). For associated symptoms, patient reportsshortness of breath,weakness,fatigue, andproblems with balance (patient fell one week ago when she had an episode of dizziness)but reportsno blood in stool. see scanned form. fastng prandial and postprandial sugars are quite labile before lunch sugars show the best control. recent prandial dinner sugars are well controlled post prandial dinner [id number] breakfast 140-319 she no longer has black or tarry stool. Keely Baker MD [address] [place] [address], [phone], [facility], [facility]. 06/26/2024 10:34:06 5 text/html DiabetesReported by PatientHPIFor duration, patient reportschronic. For control, patient reportstreated with insulinandhemoglobin a1c has been less than 7. For compliance, patient reportscompliant with medicationsandcompliant with follow-up visits. For self care, patient reportsmonitoring glucose 4 times per day. Anxiety/DepressionReported by PatientHPIFor context, patient reportschronic pain. For associated symptoms, patient reportsanxietyanddepression . For duration, patient reportschronic. For onset/timing, patient reportsgradual.Pt states that she is on a lower dose of fluoxetine than she used to be along with the lorazepam. She says that she has been able to get out more and go do things. Lower Urinary Tract Symptoms (LUTS)Reported by PatientHPIFor associated symptoms, patient reportsurgency,frequency, anddysuriabut reportsno abdominal painandno fever. For duration, patient reportsacuteand< 1 week (3 days). For quality, (dysuria).ROS as noted in the HPI she has sustained 50 lb weight loss ofver 7 years. Keely Baker MD [address] [place] [address], [phone], [facility], [facility]. 01/15/2025 15:42:03 5 text/html Fall UCReported by Patient no labs this visit f/u for prescription refills, patient fell about 3 weeks ago. she went to ER after the fall. she still has a knot on her left forehead that hurts. she feels here anxiety/depression medication needs increase. she is very tearful. i just cry at the drop of a hat. her mother passed a month ago, she says. she is anxious all the time. Keely Baker MD [address] [place] [address], [phone], [facility], [facility]. 04/28/2025 13:27:28 5 text/html DiabetesReported by PatientHPIFor duration, patient reportschronic. For control, patient reportstreated with insulinandhemoglobin a1c has been less than 7(a1c: 5.9). For compliance, patient reportscompliant with medicationsandcompliant with follow-up visits. For self care, patient reportsmonitoring glucose 4 times per day(120-140). Obstructive Sleep ApneaReported by PatientPt is compliant with her cpap usage and is benefiting from its use. She states her equipment is about 5 years old and needs to be replaced. She wears oxygen bled into her cpap. She does not have portable oxygen and would like to get a portable oxygen concentrator as it is hard for her to bring bottles of oxygen with her with her back pain. Anxiety/DepressionReported by PatientHPIFor context, patient reportschronic pain. For associated symptoms, patient reportsanxiety,depression, andpanic symptoms. For duration, patient reportschronic. For onset/timing, patient reportsgradual.Pt states that she feels her depression and anxiety are very bad right now.ROS as noted in the HPI Pt is here to discuss labs. Keely Baker MD [address] [place] [address], [phone], [facility] 08/04/2025 15:27:05 OBGyn Episode No OBEpisode recorded.
--- OUTSIDE RECORDS SUMMARY | 2025-09-15 21:26 | XMS_ITS | Encounter Summary ---
Author Organization [employer] [facility] Address [address] [place] [address] Care Team Providers Care Human Resources Assistant Name Role Phone Joseph Baker MD Primary Care Provider [phone] Encounter Details Date Type Department Care Team (Latest Contact Info) Description 08/31/2001 Outpatient Historical [facility] Otto Aldridge MD [address] [place] [id number] MYALGIA AND MYOSITIS NOS (Primary Dx); DEPRESSIVE DISORDER NEC; LUMBAGO; CLASS MIGRAIN W/O MENTN INTRACTABLE Social History Tobacco Use Types Packs/Day Years Used Date Smoking Tobacco: Never Assessed Comments Unknown Sex and Gender Information Value Date Recorded Sex Assigned at Not on file 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 Gender Identity Not on file Sexual Orientation Not on file documented as of this encounter Plan of Treatment Not on file documented as of this encounter Visit Diagnoses Diagnosis Myalgia and myositis, unspecified- Primary Mylagia and myositis, unspecified Depressive disorder, not elsewhere classified Lumbago Migraine with aura, without mention of intractable migraine without mention of status migrainosus documented in this encounter Care Teams Human Resources Assistant Relationship Specialty Start Date End Date Joseph Baker MD [address] [place] [phone] PCP - General 12/09/08 documented as of this encounter
--- OUTSIDE RECORDS SUMMARY | 2025-09-15 21:26 | XMS_ITS | Encounter Summary ---
Author Organization [facility] Address [address] [place] [address] Care Team Providers Care Nail Technician Name Role Phone Joseph Baker MD Primary Care Provider [phone] Encounter Details Date Type Department Care Team (Latest Contact Info) Description 11/01/2002 Outpatient Historical [facility] Otto Aldridge MD [address] [place] [phone] MASTODYNIA (Primary Dx); BREAST DISORDERS NEC Social History Tobacco Use Types Packs/Day Years Used Date Smoking Tobacco: Never Assessed Comments Unknown Sex and Gender Information Value Date Recorded Sex Assigned at Not on file 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
--- OUTSIDE RECORDS SUMMARY | 2025-09-15 21:26 | XMS_ITS | Encounter Summary ---
Author Organization [facility] Address [address] [place] [address] Care Team Providers Care Client Service Administrator Name Role Phone Joseph Baker MD Primary Care Provider [phone] Reason for Visit * Reason Onset Date Comments Medication Refill 03/12/2024 Encounter Details Date Type Department Care Team (Late st Contact Info) Description 03/12/2024 Refill [facility] [address] [place] [address] Junior Jasmine MD [address] [place] [phone] Status post total knee replacement, unspecified laterality Social History Tobacco Use Types Packs/Day Years Used Date Smoking Tobacco: Never Smokeless Tobacco: Never Alcohol Use Standard Drinks/Week Comments No 0 (1 standard drink = 0.6 oz pur e alcohol) Feeling Safe Answer Date Recorded Are you in a relationship wi th someone who hurts you emotionally and/or physically? 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
--- OUTSIDE RECORDS SUMMARY | 2025-09-15 21:26 | XMS_ITS | Encounter Summary ---
Author Organization [facility] Address [address] [place] [address] Care Team Providers Care Analyst Name Role Phone Joseph Baker MD Primary Care Provider Encounter Details Date Type Department Care Team (Latest Contact Info) Description 12/20/2005 Outpatient Historical [facility] [address] 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
--- OUTSIDE RECORDS SUMMARY | 2025-09-15 21:26 | XMS_ITS | Encounter Summary ---
Author Organization [facility] Address [address] [place] [address] Care Team Providers Care V Belt Coverer Name Role Phone Joseph Baker MD Primary Care Provider [phone] Encounter Details Date Type Department Care Team (Latest Contact Info) Description 07/11/2007 Outpatient Historical [facility] [address] 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
--- OUTSIDE RECORDS SUMMARY | 2025-09-15 21:26 | XMS_ITS | Encounter Summary ---
Author Organization [facility] Address [address] [place] [address] Care Team Providers Care Application Development Liaison Name Role Phone Joseph Baker MD Primary Care Provider [phone] Encounter Details Date Type Department Care Team (Latest Contact Info) Description 11/04/2003 Outpatient Historical [facility] PLASTIC SURGERY Levon Ho MD NO ADDRESS ON FILE POSTSURG AFTERCARE OTHER SPECIFIED (Primary Dx); PLASTIC SURGERY NEC Social History Tobacco Use Types Packs/Day Years Used Date Smoking Tobacco: Never Assessed Comments Unknown Sex and Gender Information Value Date Recorded Sex Assigned at Not on file 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
--- OUTSIDE RECORDS SUMMARY | 2025-09-15 21:26 | XMS_ITS | Encounter Summary ---
Author Organization [facility] Address [address] [place] [address] Care Team Providers Care Welding Machine Assembler Name Role Phone Joseph Baker MD Primary Care Provider [phone] Encounter Details Date Type Department Care Team (Latest Contact Info) Description 11/25/2003 Outpatient Historical [facility] PLASTIC SURGERY Levon Ho MD NO ADDRESS ON FILE HYPERTROPHY OF BREAST (Primary Dx) Social History Tobacco Use Types Packs/Day Years Used Date Smoking Tobacco: Never Assessed Comments Unknown Sex and Gender Information Value Date Recorded Sex Assigned at Not on file 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
--- OUTSIDE RECORDS SUMMARY | 2025-09-15 21:26 | XMS_ITS | Encounter Summary ---
Author Organization [facility] Address [address] [place] [address] Care Team Providers Care Field Nurse Case Manager Name Role Phone Joseph Baker MD Primary Care Provider [phone] Encounter Details Date Type Department Care Team (Latest Contact Info) Description 03/20/1998 Outpatient [facility] [address] [place] [address] Raj Yi MD [address] [facility] [address] [place] [phone] Chest pain, unspecified (Primary Dx) Social History Tobacco Use Types Packs/Day Years Used Date Smoking Tobacco: Never Assessed Comments Unknown Sex and Gender Information Value Date Recorded Sex Assigned at Not on file 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
--- OUTSIDE RECORDS SUMMARY | 2025-09-15 21:26 | XMS_ITS | Continuity of Care Document ---
Author Organization MARIANA Gomez [facility] [place] Gus[place], [facility] ([facility]) Address [address] [place] [address] Care Team Providers Care Supervisor Industrial [employer] Name Role Phone KEELY BAKER Primary Care Provider [phone] Assessment No assessment recorded. Plan of Treatment Reminders Order Date Submit Date Provider Last Modified By Organization Details Last Modified Time Details Appointments None recorded. Lab microalbumi n/creatinin e, mass ratio, urine 2024 025 [facility], [address] [place] [address], [address], [place], [address], 16:19:10 hemoglobin A1C/hemoglo bin total, QN, blood 2024 025 [facility], [address] [facility], [facility] 1, [place], [address], 11:29:39 PT/INR 2024 025 [facility] ([facility]), [address] [place], [address], 5 11:19:53 afp (alpha-feto protein) tumor marker, serum or plasma 2024 025 [facility], [address] [place] [address] [address], [address], [place], [address], 16:19:11 CMP, serum or plasma 2024 025 [facility], [address], [address], [place], [address], 11:59:21 CBC 2024 025 [facility], [address], [address], [place], [address], 11:20:37 lipid panel, blood 2024 025 [facility], [address], [facility] 1, [place], [address], 11:59:23 Referral None recorded. Procedures None recorded. Surgeries None recorded. Imaging None recorded. Medication Orders None recorded. Patient TargetsNo targets recorded. Patient InstructionsNo instructions recorded. Reason for Referral None Reported. Results Created Date Observation Date Name Description Value Unit Range Abnormal Flag Note LastModifiedBy Organization Detail LastModifiedTime 07/17/2007/17/2025 CBC WBC 4.5 x10 4.0-10 .5 Not Available [facility] [address], [place], [address], 07/17/2025 11:20:37 07/17/20 25 07/17/2025 CBC RBC 5.18 x10 3.50-5 .50 Not Available [facility] [address], [place], [address], 07/17/2025 11:20:37 07/17/2007/17/2025 CBC HGB 15.5 g/dL 12.0-1 6.0 Not Available [facility] [address], [place], [address], 07/17/2025 11:20:37 07/17/2007/17/2025 CBC HCT 46.9 % 37.0-4 7.0 Not Available [facility] [address] [facility] 1, [place], [address], 07/17/2025 11:20:37 07/17/20 25 07/17/2025 CBC MCV 90.6 fL 80.0-9 9.9 Not Available [facility] [address] [facility], [place], [address], 07/17/2025 11:20:37 07/17/20 25 07/17/2025 CBC MCH 29.9 pg 27.0-3 2.0 Not Available [facility] [address] [facility] 1, [place], [address], 07/17/2025 11:20:37 07/17/20 25 07/17/2025 CBC MCHC 33.1 g/dL 32.0-3 6.0 Not Available [facility] [address] [facility] 1, [place], [address], 07/17/2025 11:20:37 07/17/2007/17/2025 CBC RDW 13.9 % 11.5-1 4.5 Not Available [facility] [address] [facility] 1, [place], [address], 07/17/2025 11:20:37 07/17/2007/17/2025 CBC plt 109.3 x10 140.0- 451.0 low Not Available [facility] [address] [facility] 1, [place], [address], 07/17/2025 11:20:37 07/17/20 25 07/17/2025 CBC lymphocytes % 21.7 % 20.0-5 0.0 Not Available [facility] [address] [facility] 1, [place], [address], 07/17/2025 11:20:37 07/17/20 25 07/17/2025 CBC granulcytes % 69.1 % 30.0-7 0.0 Not Available [facility] [address] [facility], [place], [address], 07/17/2025 11:20:37 07/17/20 25 07/17/2025 CBC monocytes % 7.5 % 2.0-16 .0 Not Available [facility] [address] [facility] [address], [place], [address], 07/17/2025 11:20:37 07/17/2007/17/2025 CBC granulcytes# 3.1 x10 Not Veronica ilable [facility] [address] [facility], [place], [address], 07/17/2025 11:20:37 07/17/20 25 07/17/2025 CBC lymphocytes # 1.0 x10 Not Available [facility] [address] [facility], [place], [address], 07/17/2025 11:20:37 07/17/20 25 07/17/2025 CBC monocytes # 0.3 x10 Not Avai lable [facility] [address] [address], [place], [address], 07/17/2025 11:20:37 07/17/20 25 07/17/2025 HBA1C hemaglobin A1C 5.9 4.2-6. 5 Not Available [facility] [address] [facility] [address], [place], [address], 07/17/2025 11:29:38 07/17/20 25 07/17/2025 CMP (FEMA LE) glucose 165.0 mg/dL 60.0-9 9.0 high Not Available [facility] [address] [facility] 1, [place], [address], 07/17/2025 11:59:21 07/17/20 25 07/17/2025 CMP (FEMA LE) BUN (blood urea nitrogen) 11.0 mg/dL 10.0-2 6.0 Not Available [facility] [address] [facility], [place], [address], 07/17/2025 11:59:21 07/17/20 25 07/17/2025 CMP (FEMA LE) creatinine (serum) 0.6 mg/dL 0.4-1. 5 Not Available [facility] [address] [facility] 1, [place], [address], 07/17/2025 11:59:21 07/17/20 25 07/17/2025 CMP (FEMA LE) BUN/creatini ne ratio 18.33 ratio Not Available [facility] [address] [facility] 1, [place], [address], 07/17/2025 11:59:21 07/17/20 25 07/17/2025 CMP (FEMA LE) eGFR calculated 106.[address] [facility] [address] [facility] 1, [place], [address], 07/17/2025 11:59:21 07/17/20 25 07/17/2025 CMP (FEMA LE) total protein 7.2 g/dL 6.0-8. 5 Not Available [facility] [address] [facility] 1, [place], [address], 07/17/2025 11:59:21 07/17/20 25 07/17/2025 CMP (FEMA LE) total bilirubin 1.2 mg/dL 0.2-1. 3 Not Available [facility] [address] [facility] 1, [place], [address], 07/17/2025 11:59:21 07/17/20 25 07/17/2025 CMP (FEMA LE) albumin 4.3 g/dL 3.5-5. 5 Not Available [facility] [address] [facility] 1, [place], [address], 07/17/2025 11:59:21 07/17/20 25 07/17/2025 CMP (FEMA LE) globulin 2.9 calc Not Available [facility] [address] [facility], [place], [address], 07/17/2025 11:59:21 07/17/20 25 07/17/2025 CMP (FEMA LE) AST (SGOT) 38.0 U/L 0.0-46 .0 Not Available [facility] [address] [facility], [place], [address], 07/17/2025 11:59:21 07/17/20 25 07/17/2025 CMP (FEMA LE) altv (SGPT) 21.0 U/L 13.0-6 9.0 normal Not Available [facility] [address] [facility], [place], [address], 07/17/2025 11:59:21 07/17/20 25 07/17/2025 CMP (FEMA LE) A/G ratio 1.5 ratio Not Available [facility] [address] [facility] 1, [place], [address], 07/17/2025 11:59:21 07/17/20 25 07/17/2025 CMP (FEMA LE) ALP phos 81.0 U/L 30.0-1 40.0 normal Not Available [facility] [address] [facility] 1, [place], [address], 07/17/2025 11:59:21 07/17/20 25 07/17/2025 CMP (FEMA LE) calcium 9.7 mg/dL 8.4-10 .5 Not Available [facility] [address] [facility], [place], [address], 07/17/2025 11:59:21 07/17/20 25 07/17/2025 CMP (FEMA LE) sodium 141.0 mmol/ L 136.0- 145.0 Not Available [facility] [address] [facility] 1, [place], [address], 07/17/2025 11:59:21 07/17/20 25 07/17/2025 CMP (FEMA LE) potassium 4.6 mmol/ L 3.5-5. 1 Not Available [facility] [address] [facility], [place], [address], 07/17/2025 11:59:21 07/17/20 25 07/17/2025 CMP (FEMA LE) chloride 104.0 mmol/ L 98.0-1 10.0 normal Not Available [facility] [address] [facility], [place], [address], 07/17/2025 11:59:21 07/17/2007/17/2025 CMP (FEMA LE) C02 30.0 mmol/ L 22.0-3 1.0 Not Available [facility] [address] [facility] 1, [place], [address], 07/17/2025 11:59:21 07/17/2007/17/2025 CMP (FEMA LE) anion gap 7.[address] [facility] [address] [facility] 1, [place], [address], 07/17/2025 11:59:21 07/17/2007/17/2025 CMP (FEMA LE) osmolality 293.9 calc Not Available [facility] [address] [facility], [place], [address], 07/17/2025 11:59:21 07/17/20 25 07/17/2025 LIPID PROFI LE (FEMA LE) cholesterol 186.0 mg/dL 0.0-20 0.0 Not Available [facility] [address] [facility] 1, [place], [address], 07/17/2025 11:59:23 07/17/20 25 07/17/2025 LIPID PROFI LE (FEMA LE) trig 131.0 mg/dL 0.0-15 0.0 Not Available [facility] [address] [facility] 1, [place], [address], 07/17/2025 11:59:23 07/17/20 25 07/17/2025 LIPID PROFI LE (FEMA LE) HDL - direct 49.0 mg/dL >40.0 Not Available [facility] [address] [facility] 1, [place], [address], 07/17/2025 11:59:23 07/17/20 25 07/17/2025 LIPID PROFI LE (FEMA LE) VLDL - direct 26.2 mg/dL Not Available [facility] [address] [facility] 1, [place], [address], 07/17/2025 11:59:23 07/17/20 25 07/17/2025 LIPID PROFI LE (FEMA LE) LDL - direct 110.8 mg/dL 0.0-13 0.0 Not Available [facility] [address] [facility] 1, [place], [address], 07/17/2025 11:59:23 07/17/20 25 07/23/2025 ALBUM IN, RANDO M URINE W/CRE ATINI NE creatinine, random urine 55 mg/dL 20-275 normal Not Available [facility] [address], [place], [address], 07/23/2025 16:19:10 07/17/20 25 07/23/2025 ALBUM IN, RANDO M URINE W/CRE ATINI NE albumin, urine 0.3 mg/dL see note: normal Refer ence Range : Refer ence Range Not estab lishe d Not Available [address] [address] [place], [address], 07/23/2025 16:19:10 07/17/20 25 07/23/2025 ALBUM IN, [...] a diagn ostic categ ory. Not Available [address] [address] [facility] [place], [address], 07/23/2025 16:19:10 07/17/20 25 07/23/2025 ALPHA FETOP ROTEI N, TUMOR MARKE R [...] not be inter prete d as absol [place] evide nce of the prese nce or absen ce of disea se. Not Available [facility] [address] [address] [place], [address], 07/23/2025 16:19:11 07/17/20 25 07/17/2025 PT/IN R Protime 12.[address] [facility] ([facility]) [address] [place] [address], [address], 07/17/2025 10:33:44 07/17/20 25 07/17/2025 PT/IN R INR 1.[address] [facility] ([facility]) [address] [place], [address], 07/17/2025 10:33:44 Result Notes None recorded. Problems Name Problem SNOMED Code Status Onset Date Resolution Date Notes Provider Name and Address Organization Details Recorded Time Gastroes ophageal reflux disease 719459046 Active SHU ramires [facility] 5 13:39:46 Gastriti s 8306590 Completed 04/28/2025 hx of Mago Tj ramires [facility] 5 20:58:30 Anxiety state 020581867 Completed 201102/02/2012 anxiety - Status is Inactive ; 02/02/20 12 1:42PM by Shu Bean LPN, Annotati on/Adden dum; Promoted ; acuity set as *; Not Available [facility] 3 03:08:48 [facility] Completed 201210/23/2012 [facility] roxane, unilater al - Status is Inactive ; pt is unsure which one was removed; 10/23/19 13 2:07PM by Keely Baker MD, Annotati on/Adden dum; Promoted ; acuity set as *; Not Available [facility] 3 03:08:48 Migraine 33089995 Active 2022 SHU ramires [facility] 5 13:41:33 Fibromya lgia 799882895 Active 2022 [facility] ramires [facility] 5 13:41:27 Generali zed anxiety disorder 19990703 Active 2022 SHU BEAN null, [facility] 5 13:39:47 Type 2 diabetes mellitus 13539704 Active 2022 SHU BEAN null, [facility] 4 14:56:32 Hyperlip idemia 80587653 Active 2022 SHU BEAN null, [facility] 5 13:39:47 Chronic neck pain 52647734539 07 Active 2022 SHU BEAN null, [facility] 5 13:39:47 Chronic back pain 229173582 Active 2022 SHU BEAN null, [facility] 5 13:39:47 Non-alco holic fatty liver 076722546 Active 2022 Not Available [facility] 3 22:05:43 Chronic respirat ory failure 70780941 Active 2022 SHU BEAN null, [facility] 5 10:43:40 Disorder of nerve root and/or plexus 480222111 Active 2022 Not Available [facility] 3 22:05:43 Iron deficien cy 66526516 Active 2022 Not Available [facility] 3 22:05:43 Restless legs syndrome 11139044 Active 2022 Not Available [facility] 3 22:05:43 [facility] hyperten tuyet 82745011 Active 2022 Not Available [facility] 3 22:05:43 History of neoplasm of urinary bladder 683671360 Active 2022 Not Available [facility] 3 22:05:43 Pulmonar y hyperten tuyet 39495729 Active 2022 Not Available [facility] 3 22:05:43 Obstruct carolin sleep apnea syndrome 34375787 Active 2022 SHU ramires [facility] 5 10:56:24 Cirrhosi s of liver 32121239 Active 2023 SHU ramires, [facility], Missy.Missy.[facility] 4 14:59:01 Supraven tricular tachycar kelly 6784022 Active 2023 SHU ramires [facility], [place] 5 13:39:47 Deficien cy of vitamin D3 286607709 Active 2023 SHU ramires [facility] [place] 5 13:39:47 Insulin treated type 2 diabetes mellitus 151853355 Active 2023 SHU ramires [facility] 5 13:39:47 Moderate recurren t major depressi on 43227518 Active 2024 SHU ramires [facility] 5 14:01:11 Dysuria 58554651 Completed 202404/28/2025 Mago ramires [facility] Missy.L[facility] 5 20:58:17 Constipa tion 96761084 Completed 202404/28/2025 Mago ramires [facility], LGinoLGino[facility]ino 5 20:58:11 Gingivit is 04255155 Active 2024 SHU ramires [facility] 5 10:36:02 Problem Notes None recorded. Procedures Surgical History Date Name Laterality Status Provider Name and Address Organization Details Recorded Time 2023 total knee replacement completed [facility] 4 13:51:48 2022 esophagogastroduodenoscopy completed [facility] 3 16:47:49 2022 repair of umbilical hernia completed [facility] 3 09:18:48 2020 colonoscopy completed [facility] 3 18:03:01 2016 laminectomy completed [facility] 3 17:56:13 [facility] 4 14:37:15 cholecystectomy completed [facility] 3 17:51:44 Breast reduction completed [facility] 3 17:51:51 hysterectomy completed [facility] 3 17:55:31 reconstruction of pe lvic floor completed [facility] 3 17:56:26 Imaging Results None recorded. Procedure Notes None recorded. Medical Equipment None Reported. Allergies Allergen ID Allergen Name Allergen Category Reaction Reaction Severity Criticality Documentation Date Start Date Code Code System Note Provider Name and Address Organization Details Recorded Time 62989 No known allergy (situatio n) Not available Not available Not available Not available 05/09/2024 46610 6003 SNOMED [facility] 4 15:40:43 No known drug allergies Medications [...] 23 10:34AM by Shu Bean LPN (Authori zed through Keely Baker MD), Refill Request; Refill [...] 436; Recorded 12/26/19 21 9:02AM by Shu Bean LPN (Authori zed through Keely Baker MD), Annotati on/Adden dum; Refill Quantity : 180; Tablet; Not Available Not Available Not Available ferrous gluconate daily 07/04 completed take with 500 units Vitamin C; 436; Recorded 03/17/20 22 5:35PM by Shu Bean LPN (Authori zed through Keely Baker MD), Refill Request; Refill Quantity : 90; Tablet; Not Available Not Available Not Available Pyridium three times daily 07/04 completed Recorded 09/27/20 22 12:14PM by Berta Ocampo RN, Office Visit; Refill Quantity : 30; Tablet; Not Available Not Available Not Available metformin daily 07/04 completed 436; Recorded 05/16/20 22 7:46AM by Shu Bean LPN (Authori zed through Keely Baker MD), Refill Request; Refill Quantity : 90; Tablet; Not Available Not Available Not Available Transderm -Scop behind the left ear every 3 days 07/04 completed Recorded 12/23/19 23 3:19PM by Keely Baker MD, Office Visit; Refill Quantity : 3; Patch; Not Available Not Available Not Available gabapenti n three times daily 05/22 completed 436; Recorded 09/12/20 2:20PM by Shu Bean LPN (Authori dee through Keely Baker MD), Refill Request; Mail Order Quantity : 450 Capsule; Refill Quantity : 90; Capsule; Not Available Not Available Not Available Pen Needle daily 06/26 completed Not Available Not Available Not Available Cymbalta daily 07/04 completed 436; Recorded 08/15/20 7:18AM by Shu Bean LPN (Authori dee through [...] completed pre-fill ed pens; 436; Recorded 04/26/20 9:22AM by Berta Ocampo RN (Authori dee [...] 12/20/19 12:20PM by Shu Bean LPN (Authori zed through Keely Baker MD), Annotati on/Adden dum; [...] Available Not Available No t Available Vitals None Recorded Social History Question Answer Notes LastModified by Dimeresat ion Details LastModified Time Tobacco Smoking Status Never Smoker SHU BEAN [facility] 07/04/2023 09:17:37 Do You Or Have You Ever Used Marijuana? Never Used Information not available 08/04/2025 What Was The Date Of Your Most Recent Tobacco Screening? 08/04/2025 Information not available 08/04/2025 Sex: Unknown Functional Status Question Answer Note LastModified by Organizat ion Details LastModified Time Do you use any illicit or recreational drugs? No [email or web address] Information not available 07/04/2023 Do you or have you ever used any other forms of tobacco or nicotine? No [email or web address] Information not available 07/04/2023 What is your level of alcohol consumption? None [email or web address] Information not available 07/04/2023 Do you or have you ever used any nicotine-free cigarettes, vape, or chewing tobacco? No [email or web address] Information not available 06/26/2024 Mental Status None recorded. Family History Relationship Description Onset Age of this Age Resolved Age Notes LastModified by Organization Details LastModified Time Sister Diabetes mellitus [email or web address] Not available 07/04 17:51:23 Father Diabetes mellitus [email or web address] Not available 07/04 17:51:23 Medical History No medical history recorded. Gynecological HistoryNo gynecological history recorded. Obstetrics History GPAL:G 0 P 0 0 0 0 Immunizations Vaccine Type Date Status Note Provider Nam e and Address Organization Details Recorded Time Pneumococcal conjugate PCV20, polysaccharide KWN086 conjugate, adjuvant, PF 5 completed SHU ramires [facility] 01/15/2025 16:02:51 Influenza, split virus, trivalent, preservative 0 completed Not Available [facility] 12/06/2023 14:50:46 COVID-19, mRNA, LNP-S, PF, 100 mcg/0.5mL dose or 50 mcg/0.25mL dose 1 completed Not Available [facility] 12/06/2023 14:50:46 COVID-19, mRNA, LNP-S, PF, 100 mcg/0.5mL dose or 50 mcg/0.25mL dose 1 completed Not Available [facility] 12/06/2023 14:50:46 Influenza, adjuvanted, trivalent, PF 5 completed SHU ramires [facility] 08/05/2025 08:17:11 Influenza, split virus, quadrivalent, PF 8 completed Génesis ramires [facility] 05/09/2024 15:40:34 zoster recombinant 4 completed SHU ramires [facility] 01/15/2025 14:54:21 Influenza, high-dose, trivalent, PF 4 completed SHU BEAN ike, [facility] 01/15/2025 14:54:21 zoster recombinant 2 completed Not Available [facility] 10/02/2023 22:05:43 COVID-19, mRNA, LNP-S, bivalent, PF, 50 mcg/0.5 mL or 25mcg/0.25 mL dose 2 completed Not Available [facility] 10/02/2023 22:05:43 Influenza, split virus, quadrivalent, PF 2 completed Not Available [facility] 10/02/2023 22:05:43 Past Encounters Encounter ID Performer Location Encounter Start Date Encounter Closed Date Diagnosis/Indication Diagnosis SNOMED-CT Code Diagnosis ICD10 Code Diagnosis IMO Codes Diagnosis Note [id number] Keely Baker MD [facility] ([facility]) [address] [place] [address] 07/17/2025 10:29:40 07/18/2025 09:48:42 Essential hypertension 54316982 I10 Type 2 kelly betes mellitus 68225327 E11.69 Hyperlipidemia 62515125 E78.5 Cirrhosis of liver 43016 007 K74.60 Health Concerns Section Related Observation LastModified by Organization Detai ls LastModified Time None Recorded Concern Status LastModified by Organization Details LastModified Time None Recorded Payers Encounter Date Sequence Insurance Name Policy Number Policy Salazar Covered Member ID Salazar Member ID Guarantor Name 07/17/2025 1 [place]IC[place]: [place] Lisa Magaña [id number] Lisa Magaña 07/17/2025 2 [employer] (MEDICARE SUPPLEMENT) Lisa Magaña [id number] Lisa Magaña OBGyn Episode No OBEpisode recorded.
--- OUTSIDE RECORDS SUMMARY | 2025-09-15 21:26 | XMS_ITS | Encounter Summary ---
Author Organization [employer] [facility] Address [address] [place] [address] Care Team Providers [employer] Secretary Name Role Phone Joseph Baker MD Primary Care Provider [phone] Encounter Details Date Type Department Care Team (Latest Contact Info) Description 10/13/2000 Outpatient Historical [facility] Otto Aldridge MD [address] [place] [phone] Other malaise and fatigue (Primary Dx); Other and unspecified hyperlipidemia; Unspecified hypothyroidism; Unspecified disorder of kidney and ureter Social History Tobacco Use Types Packs/Day Years Used Date Smoking Tobacco: Never Assessed Comments Unknown Sex and Gender Information Value Date Recorded Sex Assigned at Not on file Legal Sex Female 3:39 AM [employer] WORK[employer] Gender Identity Not on file Sexual Orientation Not on file documented as of this encounter Plan of Treatment Not on file documented as of this encounter Visit Diagnoses Diagnosis Other malaise and fatigue- Primary Other and unspecified hyperlipidemia Unspecified hypothyroidism Unspecified disorder of kidney and ureter documented in this encounter Care [employer] Corporation Secretary Relationship Specialty Start Date End Date Joseph Baker MD [address] [facility] [address] [place] [id number] PCP - General 12/09/08 documented as of this encounter
--- OUTSIDE RECORDS SUMMARY | 2025-09-15 21:26 | XMS_ITS | Encounter Summary ---
Author Organization [facility] Address [address] [place] [address] Care Team Providers Care Personal Lines Agent Name Role Phone Joseph Baker MD Primary Care Provider [phone] Encounter Details Date Type Department Care Team (Latest Contact Info) Description 09/29/2008 Outpatient Historical [facility] Pain Management Procedures [address] 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 Procedure Note Sgf Vida Bo, Radiologist, - 04/17/2013 This exam has been autofinalized. Chino Addison DIAGNOSTIC IMAGING ORDERABLES Fi nal Result documented in this encounter Visit Diagnoses Diagnosis Arthropathy, unspecified, site unspecified Depressive disorder, not elsewhere classified documented in this encounter Care Teams Personal Lines Agent Relationship Specialty Start Date End Date Joseph Baker MD [address] [phone] PCP - General 12/09/08 documented as of this encounter
--- OUTSIDE RECORDS SUMMARY | 2025-09-15 21:26 | XMS_ITS | Encounter Summary ---
Author Organization [facility] Address [address] [place] [address] Care Team Providers Care Aviation Technical Systems Specialist Name Role Phone Joseph Baker MD Primary Care Provider [phone] Encounter Details Date Type Department Care Team (Late st Contact Info) Description 08/01/2008 Outpatient Historical [facility] [address] [facility] [address] [place] [address] Chino Addison Social History Tobacco Use Types Packs/Day Years Used Date Smoking Tobacco: Never Assessed Comments Unknown Sex and Gender Information Value Date Recorded Sex Assigned at Not on file Legal Sex Female 3:39 AM SOLE ROUNDER Gender Identity Not on file Sexual Orientation Not on file documented as of this encounter Plan of Treatment Not on file documented as of this encounter Visit Diagnoses Not on filedocumented in this encounter Care Teams Aviation Technical Systems Specialist Relationship Specialty Start Date End Date Joseph Baker MD 5 [facility] 1 [place] [address] PCP - General 12/09/08 documented as of this encounter
--- OUTSIDE RECORDS SUMMARY | 2025-09-15 21:26 | XMS_ITS | Encounter Summary ---
[facility] Organization [facility] Address [address] [place] [address] Care Team Providers Care Trolley Collector Name Role Phone Joseph Baker MD Primary Care Provider [phone] Encounter Details Date Type Department Care Team (Latest Contact Info) Description 12/13/2005 Outpatient Historical [facility] Pain Management Procedures [address] 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
--- OUTSIDE RECORDS SUMMARY | 2025-09-15 21:26 | XMS_ITS | Encounter Summary ---
Author Organization [employer] [facility] Address [address] [place] [address] Care Team Providers Care Ruffler Name Role Phone Joseph Baker MD Primary Care Provider [phone] Encounter Details Date Type Department Care Team (Latest Contact Info) Description 05/07/2002 Outpatient Historical [facility] Otto Aldridge MD [address] [place] [phone] MIGRAINE NOS W/O MENTN INTRACTABLE (Primary Dx); DEPRESSIVE DISORDER NEC; ALLERGIC RHINITIS NOS Social History Tobacco Use Types Packs/Day Years Used Date Smoking Tobacco: Never Assessed Comments Unknown Sex and Gender Information Value Date Recorded Sex Assigned at Not on file Legal Sex Female 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
--- OUTSIDE RECORDS SUMMARY | 2025-09-15 21:26 | XMS_ITS | Encounter Summary ---
Author Organization [facility] Address [address] [place] [address] Care Team Providers Care Dry Kiln Worker Name Role Phone Joseph Baker MD Primary Care Provider [phone] Encounter Details Date Type Department Care Team (Late st Contact Info) Description 10/24/2005 Outpatient Historical [place] [address] [facility] [address] [place] [address] Social History Tobacco Use Types Packs/Day Years Used Date Smoking Tobacco: Never Assessed Comments Unknown Sex and Gender Information Value Date Recorded Sex Assigned at Not on file Legal Sex Female 3:39 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
--- OUTSIDE RECORDS SUMMARY | 2025-09-15 21:26 | XMS_ITS | Encounter Summary ---
Author Organization [facility] Address [address] [place] [address] Care Team Providers Care Crime Data Specialist Name Role Phone Joseph Baker MD Primary Care Provider [phone] Encounter Details Date Type Department Care Team (Late st Contact Info) Description 09/07/2009 [facility] [address] 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 Gender Identity Not on file Sexual Orientation Not on file documented as of this encounter Plan of Treatment Not on file documented as of this encounter Results * XR FLUORO NEEDLE GUIDANCE (09/07/2009 12:35 PM COMPUTER SALESPERSON RETAIL) Anatomical Region Laterality Modality Computed Radiogr aphy us Chino Addison DIAGNOSTIC IMAGING ORDERABLES Fi nal Result documented in this encounter Visit Diagnoses Diagnosis Radiculitis, cervical Brachial neuritis or radiculitis nos documented in this encounter Care Teams Crime Data Specialist Relationship Specialty Start Date End Date Joseph Baker MD 805 [facility] 1 [place] [phone] PCP - General 12/09/08 documented as of this encounter
--- OUTSIDE RECORDS SUMMARY | 2025-09-15 21:26 | XMS_ITS | Encounter Summary ---
Author Organization [employer] [facility] Address [address] [place] [address] Care Team Providers Care Pulverizer Name Role Phone Joseph Baker MD Primary Care Provider [phone] Encounter Details Date Type Department Care Team (Latest Contact Info) Description 05/08/2000 Outpatient Historical [facility] Phil Estrella MD [address] [facility] [address] [place] [phone] Calculus of gallbladder without mention of cholecystitis or obstruction (Primary Dx) Social History Tobacco Use Types Packs/Day Years Used Date Smoking Tobacco: Never Assessed Comments Unknown Sex and Gender Information Value Date Recorded Sex Assigned at Not on file Legal Sex Female 3:39 AM 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
--- OUTSIDE RECORDS SUMMARY | 2025-09-15 21:26 | XMS_ITS | Encounter Summary ---
Author Organization [employer] Address [address] [place] [address] Care Team Providers Care Manager Park Name Role Phone Joseph Baker MD Primary Care Provider [phone] Encounter Details Date Type Department Care Team (Latest Contact Info) Description 12/11/2006 Outpatient Historical [facility] Chino Addison Encounters for Unspecified Administrative Purpose (Primary Dx) Social History Tobacco Use Types Packs/Day Years Used Date Smoking Tobacco: Never Assessed Comments Unknown Sex and Gender Information Value Date Recorded Sex Assigned at Not on file Legal Sex Female 3:39 AM SOCIAL WORK ASSISTANT Gender Identity Not on file Sexual Orientation Not on file documented as of this encounter Plan of Treatment Not on file documented as of this encounter Visit Diagnoses Diagnosis Encounters for unspecified administrative purpose- Primary documented in this encounter Care Teams Manager Park Relationship Specialty Start Date End Date Joseph Baker MD 5 [facility] 1 [place] [phone] PCP - General 12/09/08 documented as of this encounter
--- OUTSIDE RECORDS SUMMARY | 2025-09-15 21:26 | XMS_ITS | Encounter Summary ---
Author Organization [facility] Address [address] [place] [address] Care Team Providers Care Sweatband Perforator Name Role Phone Joseph Baker MD Primary Care Provider [phone] Encounter Details Date Type Department Care Team (Latest Contact Info) Description 05/29/2000 Outpatient Historical [facility] Otto Aldridge MD [address] [place] [phone] Myalgia and myositis, unspecified (Primary Dx); Generalized anxiety disorder; Depressive disorder, not elsewhere classified Social History Tobacco Use Types Packs/Day Years Used Date Smoking Tobacco: Never Assessed Comments Unknown Sex and Gender Information Value Date Recorded Sex Assigned at Not on file Legal Sex Female 3:39 AM STUD SETTER Gender Identity Not on file Sexual Orientation Not on file documented as of this encounter Plan of Treatment Not on file documented as of this encounter Visit Diagnoses Diagnosis Myalgia and myositis, unspecified- Primary Mylagia and myositis, unspecified Generalized anxiety disorder Depressive disorder, not elsewhere classified documented in this encounter Care Teams Sweatband Perforator Relationship Specialty Start Date End Date Joseph Baker MD 805 [facility] 1 [place] [address] PCP - General 12/09/08 documented as of this encounter
--- OUTSIDE RECORDS SUMMARY | 2025-09-15 21:26 | XMS_ITS | Encounter Summary ---
Author Organization [facility] Address [address] [place] [address] Care Team Providers Care Fuse Maker Name Role Phone Joseph Baker MD Primary Care Provider [phone] Encounter Details Date Type Department Care Team (Latest Contact Info) Description 08/16/2006 Outpatient Historical [facility] Pain Management Procedures [address] 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
--- OUTSIDE RECORDS SUMMARY | 2025-09-15 21:26 | XMS_ITS | Encounter Summary ---
Author Organization [facility] Address [address] [place] [address] Care Team Providers Care Plant Guard Name Role Phone Joseph Baker MD Primary Care Provider [phone] Encounter Details Date Type Department Care Team (Latest Contact Info) Description 09/29/[address] [facility] Pain Management Procedures [address] 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
--- OUTSIDE RECORDS SUMMARY | 2025-09-15 21:26 | XMS_ITS | Encounter Summary ---
Author Organization [email or web address] [facility] Address [address] [place] [address] Care Team Providers Care Plate Preparer Name Role Phone Joseph Baker MD Primary Care Provider [phone] Encounter Details Date Type Department Care Team (Latest Contact Info) Description 11/03/2000 Outpatient Historical [facility] Otto Aldridge MD [address] [place] [phone] Other and unspecified hyperlipidemia (Primary Dx) Social History Tobacco Use Types Packs/Day Years Used Date Smoking Tobacco: Never Assessed Comments Unknown Sex and Gender Information Value Date Recorded Sex Assigned at Not on file Legal Sex Female 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
--- OUTSIDE RECORDS SUMMARY | 2025-09-15 21:26 | XMS_ITS | Encounter Summary ---
Author Organization [facility] Address [address] [place] [address] Care Team Providers Care Survey And Mapping Technician Name Role Phone Joseph Baker MD Primary Care Provider [phone] Encounter Details Date Type Department Care Team (Latest Contact Info) Description 08/16/2006 Outpatient Historical [facility] [address] 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
--- OUTSIDE RECORDS SUMMARY | 2025-09-15 21:26 | XMS_ITS | Encounter Summary ---
Author Organization [facility] Address [address] [place] [address] Care Team Providers Care Journalism Internship Name Role Phone Joseph Baker MD Primary Care Provider [phone] Encounter Details Date Type Department Care Team (Latest Contact Info) Description 06/19/2001 Outpatient Historical [facility] Otto Aldridge MD [address] [place] [phone] Myalgia and myositis, unspecified (Primary Dx); Pain in joint, site unspecified; Allergic rhinitis, cause unspecified; General symptoms NEC Social History Tobacco Use Types Packs/Day Years Used Date Smoking Tobacco: Never Assessed Comments Unknown Sex and Gender Information Value Date Recorded Sex Assigned at Not on file Legal Sex Female 3:39 AM PACU NURSE Gender Identity Not on file Sexual Orientation Not on file documented as of this encounter Plan of Treatment Not on file documented as of this encounter Visit Diagnoses Diagnosis Myalgia and myositis, unspecified- Primary Mylagia and myositis, unspecified Pain in joint, site unspecified Allergic rhinitis, cause unspecified General symptoms NEC Other general symptoms documented in this encounter Care Teams Journalism Internship Relationship Specialty Start Date End Date Joseph Baker MD 805 [facility] 1 [place] [phone] PCP - General 12/09/08 documented as of this encounter
--- OUTSIDE RECORDS SUMMARY | 2025-09-15 21:26 | XMS_ITS | Clinical Summary ---
Author Organization [facility] Address [address] [place] [address] Care Team Providers Care Tiedown Operator Name Role Phone Joseph Baker MD Primary Care Provider [phone] Allergies No known active allergies Medications insulin glargine (LANTUS) 100 unit/mL injection Inject 8 Units by subcutaneous injection daily at bedtime. 021 Active ondansetron (ZOFRAN) 4 mg Tablet Take 1 Tablet (4 mg) by mouth every 6 hours as needed for Nausea. 15 Tablet 0 Active Additional Information Patient taking differently: 8 mgOralEVERY 8 HOURS PRN, Reported on 05/21/2024 naloxone (NARCAN) 4 mg/spray [place], Non-Aerosol EMERGENCY USE ONLY: Administer 1 spray (4 mg) in one nostril one time. May repeat in alternating nostrils every 2-3 min until responsive or EMS arrives. 2 Each 3 021 Active gabapentin (NEURONTIN) 300 mg capsuleIndicat ions:Status post total shoulder arthroplasty, right Take 1 Capsule (300 mg) by mouth 3 times daily. 90 Capsule 021 Active acyclovir (ZOVIRAX) 400 mg tabletIndicati ons:Lumbosacra l spondylosis without myelopathy,Tho racic spondylosis without myelopathy,Tho racic radiculitis,Id iopathic peripheral neuropathy Take 400 mg by mouth 2 times daily. 016 Active cpap medical education specialist 2 L . 016 Active metFORMIN (GLUCOPHAGE XR) 500 mg Extended Release 24 hour tablet Take 500 mg by mouth daily with breakfast. Active rosuvastatin (CRESTOR) 10 mg tablet Take 10 mg by mouth daily at bedtime. 023 Active phenazopyridin e 200 mg tablet Take 200 mg by mouth 3 times daily as needed. 023 Active SUMAtriptan (IMITREX) 100 mg tablet Take 100 mg by mouth see administration instructions. Active FLUoxetine (PROzac) 40 mg capsule Take 40 mg by mouth daily. 024 Active metoprolol tartrate (LOPRESSOR) 50 mg tablet Take 50 mg by mouth 2 times daily. Active LORazepam (ATIVAN) 0.5 mg tablet Take 0.5 mg by mouth 3 times daily as needed. Active promethazine (PHENERGAN) 25 mg tablet TAKE 1 TABLET BY MOUTH EVERY 6 HOURS NEEDED FOR NAUSEA/EMESIS. 28 Tablet 024 Active meloxicam (MOBIC) 7.5 mg tablet TAKE 1 TABLET BY MOUTH EVERY DAY 30 Tablet 025 Active meloxicam (MOBIC) 7.5 mg tablet TAKE 1 TABLET BY MOUTH EVERY DAY 30 Tablet 025 2024 Discontinued Active Problems Problem Noted Date Diagnosed Date Status post total right knee replacement 024 Primary osteoarthritis of right knee 05/21/2024 Muscle spasm 05/21/2024 Primary osteoarthritis of left knee 02/06/2024 RICKEY on CPAP 02/06/2024 Dyspnea 02/06/2024 CHAI (generalized anxiety disorder) 02/06/2024 Moderate episode of recurrent major depressive d isorder 02/06/2024 History of bladder cancer 02/06/2024 RLS (restless legs syndrome) 02/06/2024 Somatic complaints, multiple 02/06/2024 Intermittent vomiting 02/06/2024 S/P shoulder replacement, right 04/05/2021 Chronic right shoulder pain 03/25/2021 GERD (gastroesophageal reflux disease) Type 2 diabetes mellitus wit h stage 3 chronic kidney disease, with long-term current use of insulin 03/25/2021 Obesity (BMI 30.0-34.9) 03/25/2021 Elevated SGOT (AST) 03/25/2021 Preop general physical exam 05/11/2017 Tachycardia 05/11/2017 Essential hypertension 05/11/2017 Lumbosacral spondylosis without myelopathy 11/01 Idiopathic peripheral neuropathy 11/01/2016 Thoracic spondylosis without myelopathy 11/01/19 17 Thoracic radiculitis 11/01/2016 Cervical radiculitis 01/14/2009 Renal cyst, right Overview (02/11/2021): Per patient Post-operative nausea and vomiting Anxiety and depression Resolved Problems Problem Noted Date Diagnosed Date Resolved Date Non-cardiac chest pain 02/06/202405/21 Confusion 05/21/2024 Hypoxia 05/21/2024 Encounters Date Type Department Care Team Description 08/24/2025 [place] [id number] [facility] [place] [address] Sherley Sutton PA 07/28/2025 [place] [address] [facility] [place] [address] Sherley Sutton PA 07/01/2025 External Device Data [facility] ABSTRACTION Provider, Abstract 07/01/2025 External Device Data [place] ABSTRACTION Provider, Abstract 06/27/2025 [place] [address] [place] [address] Sherley Sutton PA from Last 3 Months Family History Medical History Relation Name Comments Crohn's Disease Brother Ham Healthy Daughter 1 Karmen Healthy Daughter 2 Suzanne Blood Clots Father Diabetes Father Heart Attack Father 65 yo Heart Disease Father DC 65yo Kidney Disease Father Healthy Mother Diabetes Sister 1 Winifred Diabetes Sister 2 Cheo Relation Name Status Comments Brother Ham Alive Daughter 1 Karmen Alive Daughter 2 Suzanne Alive Father (Age 75) Mother Alive Sister 1 Winifred Alive Sister 2 Cheo Alive Social History Tobacco Use Types Packs/Day Years Used Date Smoking Tobacco: Never Smokeless Tobacco: Never Tobacco Cessation:Counseling Given: Not Answered Alcohol Use Standard Drinks/Week Comments No 0 (1 standard drink = 0.6 oz pur e alcohol) Feeling Safe Answer Date Recorded Are you in a relationship wi th someone who hurts you emotionally and/or physically? 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 Gender Identity Not on file Sexual Orientation Not on file Last Filed Vital Signs Vital Sign Reading Time Taken Comments Blood Pressure 127/70 02/24/2025 12:01 PM CDT Pulse 76 02/24/2025 12:01 PM CDT Temperature 36.3 C (97.4 F) 12/16/2024 7:30 AM MOLD MAKER APPRENTICE Respiratory Rate 16 02/24/2025 12:01 PM CDT Oxygen Saturation 95% 02/24/2025 12:01 PM CDT Inhaled Oxygen Concentration - - Weight 101.2 kg (223 lb) 02/24/2025 12:01 PM CDT Height 172.7 cm (5' 8 ) 02/24/2025 12:01 PM CDT Body Mass Index 33.91 02/24/2025 12:01 PM CDT Plan of Treatment Health Maintenance Due Date Last Done Comments DIABETES ANNUAL FOOT EXAM 01/18/1976 DIABETES ANNUAL RETINAL EXAM 01/18/1976 DIABETES MICROALBUMIN ANNUAL SCREEN 01/18/1976 LDL CHOLESTEROL ANNUAL 01/18/1976 DTAP/TDAP/TD VACCINES (1 - Tdap) 1977 FIT-DNA Q 3 years 2003 FIT/FOBT Q 1 year 2003 Flex Sig/CT Colonography Q 5 years 2003 RSV VACCINE (60+ or ) (1 - Risk 50-74 years 1-dose series) 01/18/2008 BREAST CANCER SCREENING 03/21/2017 03/21/2016 OSTEOPOROSIS SCREENING 2023 INFLUENZA VACCINE (#1) 2025 , 09/26/2022, 10/13/2018, Additional history exists COVID-19 Vaccine (2024-2 6 season) 2025 09/26/2022, 05/31/2021, 05/02/2021 DIABETES HBA1C Q 6 MONTHS 08/06/20252024, 02/06/2024, 09/27/2022, Additional history exists COLORECTAL SCREENING 09/15/2031 09/15/2021, 09/15/2021, 09/14/2021, Additional history exists Colorectal Cancer Screening 09/15/2031 ZOSTER VACCINE Completed 09/26/2024, 09/27/2022 PNEUMOCOCCAL VACCINE 50+ YEARS Completed 01/15/2025 Medical Devices Implanted Type Area Certified Real Estate Appraiser Device Identifier Shelf Expiration Date Model / Serial / Lot Cement Palacos Mv Zirconium Dioxide St Lf Disp [id number] - [id number] Implanted:Qty : 1 on 04/05/2021 by Damian Winn MD Cement Right: Shoulder [employer] [id number] 11/15/2022 [id number] / / [id number] Hemostatic Gelfoam Powder 1gm [id number] - Sn/A Implanted:Qty : 2 on 05/24/2017 by Guillermo Talley MD Hemostatic N/A: Spine Lumbar P[employer]ER- PHARM 08/15/2019 [id number] / N/A / [id number] Hemostatic Gelfoam Spng 12-7mm [id number] - Csc - Sn/A Implanted:Qty : 1 on 05/24/2017 by Guillermo Talley MD Hemostatic N/A: Spine Lumbar [employer]ARM 06/15/2019 [id number] / N/A / [id number] Insert Tib Attune Aox Fb Medial Stblzd Sz7 6mm Rt 1520-20-706 - [id number] Implanted:Qty : 1 on 05/30/2024 by Junior Jasmine MD at [facility] Knee Right: Knee [employer] 12/14/2031 1520-20-706 / / [id number] Comp Fem Attune Poro Cr Sz 7 Rt [facility] 1504-01-207 - [id number] Implanted:Qty : 1 on 05/30/2024 by Junior Jasmine MD at [facility] Knee Right: Knee [employer] [id number] 03/15/2034 [id number] / / [id number] Bubba Xia3 Ti Riccardo Rad 3u550db [id number] - [id number] Implanted:Qty : 1 on 05/24/2017 by Guillermo Talley MD Bubba GAYATRI- SPINE [id number] / / [id number] Bubba Xia3 Ti Riccardo Rad 4t466he [id number] - [id number] Implanted:Qty : 1 on 05/24/2017 by Guillermo Talley MD Bubba [employer] SPINE [id number] / / LD#[id number] Screw Xia3 Pa 6.5x50mm [id number] - [id number] Implanted:Qty : 4 on 05/24/2017 by Guillermo Talley MD Screw G[employer]AT[employer] SPINE [id number] / / LD#[id number] Screw Xia3 Pa 7.0x50mm [id number] - [id number] Implanted:Qty : 4 on 05/24/2017 by Guillermo Talley MD Screw [employer]INE [id number] / / [id number] Comp Cortiloc Rt 15 Med [id number] - [id number] Implanted:Qty : 1 on 04/05/2021 by Damian Winn MD Shoulder Right: Shoulder [employer] [id number] 04/22/2025 [id number] / / 2025-04-22 Comp Head Hum Simpliciti Nucls Sz2 [id number] - [id number] Implanted:Qty : 1 on 04/05/2021 by Damian Winn MD Shoulder Right: Shoulder [employer] [id number] 11/19/2025 [id number] / / 2025-11-19 Head Hum Simpliciti 65l28uw [id number] - [id number] Implanted:Qty : 1 on 04/05/2021 by Damian Winn MD Shoulder Right: Shoulder [employer] 11/04/2025 [id number] / / [id number] Brook Xia3 [id number] - [id number] Implanted:Qty : 8 on 05/24/2017 by Guillermo Talley MD Spine GAYAT[employer]- SPINE [id number] / / [id number] Crsscnctr Xia3 43-54mm [id number] - [id number] Implanted:Qty : 1 on 05/24/2017 by Guillermo Talley MD Spine [employer]AY[employer] SPINE [id number] / / [id number] Tibial Insert Implanted:Qty : 1 on 02/21/2024 by Junior Jasmine MD at [facility] Left: Knee 01/13/2031 [id number] 0-806 / / [id number] Bsplt Tib Attune Fix Brng Sz 7 Implanted:Qty : 1 on 02/21/2024 by Junior Jasmine MD at [facility] Left: Knee [id number] 10/15/2032 [id number] / / [id number] Comp Fem Attune Sz8 Implanted:Qty : 1 on 02/21/2024 by Junior Jasmine MD at [facility] Left: Knee [id number] 05/15/2033 [id number] / / [id number] Bsplt Tib Attune Fix Brng Sz 7 Implanted:Qty : 1 on 05/30/2024 by Junior Jasmine MD at [facility] Right: Knee [id number] 03/15/2034 [id number] / / [id number] Explanted Type Area Certified Real Estate Appraiser Device Identifier Shelf Expiration Date Model / Serial / Lot Screw Xia3 Pa 6.5x50mm [id number] - [id number] Implanted:Guillermo Talley MD (Quantity not on file) Explanted:Qty: 1 on 05/24/2017 by Guillermo Talley MD Screw GAY[employer] SPINE [id number] / / [id number] Brook Xia3 [id number] - [id number] Implanted:Guillermo Talley MD (Quantity not on file) Explanted:Qty: 1 on 05/24/2017 by Guillermo Talley MD Spine GAYAT[employer] SPINE [id number] / / [id number] Procedures Procedure Name Priority Date/Time Associated Diagnosis Comments HEMOGLOBIN A1C Routine 02/06/2024 10:12 AM CDT from Last 3 Months or Most Recently Relevant to Health Maintenance Results * (ABNORMAL) HEMOGLOBIN A1C (02/06/2024 10:12 AM CDT) HEMOGLOBIN A1C 5.7(H) <=5.6 % 02/06/2024 10:33 AM CDT [facility] EST. AVG GLUCOSE, A1C 117 mg/dL 02/06/2024 10:33 AM CDT [facility] Blood Venipuncture / Unknown 02/06/2024 10:12 AM CDT 02/06/2024 10:15 AM CDT Narrative [facility] - 02/06/2024 10:33 AM CDT HGB A1C INTERPRETATION NORMAL: <5.7% PRE-DIABETES: 5.7 - 6.4% DIABETES: 6.5% OR GREATER Simon Acosta MD CHEMISTRY ORDERABLES Final Resu lt [facility] CLIA #[id number] [address] [place] [address] from Last 3 Months or Most Recently Relevant to Health Maintenance Insurance [address] [place] [address] MEDICARE PART A AND B [employer] LIFE [employer] SUPP * Guarantor: ATSIA MAGAÑA Account Type Relation to Patient Date of Phone Billing Address Personal/Family [address] [place] [address] RX [employer] RX Member Subscriber Plan / Payer (Ef fective 2021-Present) Name:GómezTasia Iam Relation to Subscriber:Self Name:TASIA MAGAÑA Subscriber ID:Not on file Payer ID:Not on file Group ID:[id number] Type:RX Medicare Part D Address: [place] RX [employer] RX Member Subscriber Plan / Payer (Ef fective 2017-Present) Name:Tasia Magaña Relation to Subscriber:Self Name:MalcommirnaTasia Payer ID:Not on file Group ID:[id number] Type:RX Medicare Part D Address: [place] MEDICARE PART A AND B [employer] LIFE INS SUPP [place] [id number] Advance Directives For more information, please contact: [phone] * Full Code (Latest Code Status on File) Date Activated Date Inactivated Comments 05/30/2024 3:59 PM 05/31/2024 6:12 PM * Full Code Date Activated Date Inactivated Comments 02/21/2024 4:04 PM 02/22/2024 3:39 PM * Full Code Date Activated Date Inactivated Comments 02/21/2024 11:25 AM 02/21/2024 4:04 PM Care Teams Tiedown Operator Relationship Specialty Start Date End Date Joseph Baker MD [address] [place] [phone] PCP - General 12/09/08
--- OUTSIDE RECORDS SUMMARY | 2025-09-15 21:26 | XMS_ITS | Encounter Summary ---
Author Organization [facility] Address [address] [place] [address] Care Team Providers Care Bill Poster Installer Name Role Phone Joseph Baker MD Primary Care Provider [phone] Encounter Details Date Type Department Care Team (Latest Contact Info) Description 12/20/[address] [facility] Pain Management Procedures [address] 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
--- OUTSIDE RECORDS SUMMARY | 2025-09-15 21:27 | XMS_ITS | Encounter Summary ---
Author Organization [facility] Address [address] [place] [address] Care Team Providers Care U.S. Revenue Officer Name Role Phone Joseph Baker MD Primary Care Provider [phone] Encounter Details Date Type Department Care Team (Latest Contact Info) Description 05/03/2006 Outpatient Historical [facility] [address] [place] [phone] [place] Addison Brachial Neuritis or Radiculitis NOS (Primary Dx); Cervical Spondylosis; Thoracic or Lumbosacral Neuritis or Radiculitis, Unspecified; Lumbosacral Spondylosis Social History Tobacco Use Types Packs/Day Years Used Date Smoking Tobacco: Never Assessed Comments Unknown Sex and Gender Information Value Date Recorded Sex Assigned at Not on file Legal Sex Female 3:39 AM BUDDHIST MONK Gender Identity Not on file Sexual Orientation Not on file documented as of this encounter Plan of Treatment Not on file documented as of this encounter Visit Diagnoses Diagnosis Brachial neuritis or radiculitis NOS- Primary Brachial neuritis or radiculitis nos Cervical spondylosis Cervical spondylosis without myelopathy Thoracic or lumbosacral neuritis or radiculitis, unspecified Lumbosacral spondylosis Lumbosacral spondylosis without myelopathy documented in this encounter Care Teams U.S. Revenue Officer Relationship Specialty Start Date End Date Joseph Baker MD [address] [facility] [address] [place] [phone] PCP - General 12/09/08 documented as of this encounter
--- OUTSIDE RECORDS SUMMARY | 2025-09-15 21:27 | XMS_ITS | Encounter Summary ---
Author Organization [facility] Address [address] [place] [address] Care Team Providers Care Visual Artist Name Role Phone Joseph Baker MD Primary Care Provider [phone] Encounter Details Date Type Department Care Team (Latest Contact Info) Description 06/21/2006 Outpatient Historical [facility] [place] Addison Lumbosacral Spondylosis without Myelopathy (Primary Dx) Social History Tobacco Use Types Packs/Day Years Used Date Smoking Tobacco: Never Assessed Comments Unknown Sex and Gender Information Value Date Recorded Sex Assigned at Not on file Legal 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
--- OUTSIDE RECORDS SUMMARY | 2025-09-15 21:27 | XMS_ITS | Encounter Summary ---
Author Organization [facility] Address [address] [place] [address] Care Team Providers Care Chief Technician X Ray Name Role Phone Joseph Baker MD Primary Care Provider [phone] Encounter Details Date Type Department Care Team (Latest Contact Info) Description 05/03/2006 Outpatient Historical [facility] [address] [facility] [address] [place] [address] [place] Addison Thoracic or Lumbosacral Neuritis or Radiculitis, Unspecified (Primary Dx) Social History Tobacco Use Types Packs/Day Years Used Date Smoking Tobacco: Never Assessed Comments Unknown Sex and Gender Information Value Date Recorded Sex Assigned at Not on file Legal Sex Female 3:39 AM ADHESION TESTER Gender Identity Not on file Sexual Orientation Not on file documented as of this encounter Plan of Treatment Not on file documented as of this encounter Visit Diagnoses Diagnosis Thoracic or lumbosacral neuritis or radiculitis, unspecified- Primary documented in this encounter Care Teams Chief Technician X Ray Relationship Specialty Start Date End Date Joseph Baker MD [address] [facility] 1 [place] [phone] PCP - General 12/09/08 documented as of this encounter
--- OUTSIDE RECORDS SUMMARY | 2025-09-15 21:27 | XMS_ITS | Encounter Summary ---
Author Organization [facility] Address [address] [place] [address] Care Team Providers Care Publication Editor Name Role Phone Joseph Baker MD Primary Care Provider [phone] Encounter Details Date Type Department Care Team (Latest Contact Info) Description 06/22/2006 Outpatient Historical [facility] [address] 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
--- OUTSIDE RECORDS SUMMARY | 2025-09-15 21:27 | XMS_ITS | Encounter Summary ---
Author Organization [facility] Address [address] [place] [address] Care Team Providers Care Associate Professor Of Engineering Name Role Phone Joseph Baker MD Primary Care Provider [phone] Encounter Details Date Type Department Care Team (Late st Contact Info) Description 05/31/2006 Outpatient [facility] [address] [place] [phone] Social History Tobacco Use Types Packs/Day Years Used Date Smoking Tobacco: Never Assessed Comments Unknown Sex and Gender Information Value Date Recorded Sex Assigned at Not on file Legal Sex Female 3:39 AM GENERAL DENTIST/OWNER Gender Identity Not on file Sexual Orientation Not on file documented as of this encounter Plan of Treatment Not on file documented as of this encounter Visit Diagnoses Not on filedocumented in this encounter Care Teams Associate Professor Of Engineering Relationship Specialty Start Date End Date Joseph Baker MD 5 [facility] 1 [place] [address] PCP - General 12/09/08 documented as of this encounter
--- OUTSIDE RECORDS SUMMARY | 2025-09-15 21:27 | XMS_ITS | Encounter Summary ---
Author Organization [facility] Address [address] [place] [address] Care Team Providers Care Supervisor Line Department Name Role Phone Joseph Baker MD Primary Care Provider Encounter Details Date Type Department Care Team (Latest Contact Info) Description 05/31/2006 Outpatient Historical [facility] [place] Unspecified Orthopedic Aftercare (Primary Dx) Social History Tobacco Use Types Packs/Day Years Used Date Smoking Tobacco: Never Assessed Comments Unknown Sex and Gender Information Value Date Recorded Sex Assigned at Not on file Legal Sex Female 3:39 AM LEAD BASED 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
--- OUTSIDE RECORDS SUMMARY | 2025-09-15 21:27 | XMS_ITS | Encounter Summary ---
Author Organization [facility] Address [address] [place] [address] Care Team Providers Care Mixer Blender Name Role Phone Joseph Baker MD Primary Care Provider [phone] Encounter Details Date Type Department Care Team (Latest Contact Info) Description 08/02/2006 Outpatient Historical [facility] Pain Management Procedures [address] [place] [phone] [place] Addison Thoracic or Lumbosacral Neuritis or Radiculitis, Unspecified (Primary Dx) Social History Tobacco Use Types Packs/Day Years Used Date Smoking Tobacco: Never Assessed Comments Unknown Sex and Gender Information Value Date Recorded Sex Assigned at Not on file Legal Sex Female 3:39 AM ENTRY LEVEL FINANCE Gender Identity Not on file Sexual Orientation Not on file documented as of this encounter Plan of Treatment Not on file documented as of this encounter Visit Diagnoses Diagnosis Thoracic or lumbosacral neuritis or radiculitis, unspecified- Primary documented in this encounter Care Teams Mixer Blender Relationship Specialty Start Date End Date Joseph Baker MD [address] [facility] 1 [place] [phone] PCP - General 12/09/08 documented as of this encounter
--- OUTSIDE RECORDS SUMMARY | 2025-09-15 21:27 | XMS_ITS | Encounter Summary ---
Author Organization [facility] Address [address] [place] [address] Care Team Providers Care Perianesthesia Rn Name Role Phone Joseph Baker MD Primary Care Provider [phone] Encounter Details Date Type Department Care Team (Late st Contact Info) Description 07/05/2006 Outpatient Historical [facility] Pain Management Procedures [address] [place] [id number] [place] Addison Social History Tobacco Use Types Packs/Day Years Used Date Smoking Tobacco: Never Assessed Comments Unknown Sex and Gender Information Value Date Recorded Sex Assigned at Not on file Legal Sex Female 3:39 AM [employer] Gender Identity Not on file Sexual Orientation Not on file documented as of this encounter Plan of Treatment Not on file documented as of this encounter Visit Diagnoses Not on filedocumented in this encounter Care Teams Perianesthesia Rn Relationship Specialty Start Date End Date Joseph Baker MD [address] [facility] [address] [place] [id number] PCP - General 12/09/08 documented as of this encounter
--- OUTSIDE RECORDS SUMMARY | 2025-09-15 21:27 | XMS_ITS | Continuity of Care Document ---
Author Organization MARIANA [facility], [facility] ([facility]) Address [address] [address] Care Team Providers Care Psychotherapist Counselor Name Role Phone EKELY MAYNARD Primary Care Provider Assessment No assessment recorded. Plan of Treatment Reminders Order Date Submit Date Provider Last Modified By Organization Details Last Modified Time Details Appointments None recorded. Lab None recorded. Referral psychiatris t referral 2024 025 [email or web address] [facility], [address] [place], [address], 14:52:47 Procedures None recorded. Surgeries None recorded. Imaging None recorded. Medication Orders bisacodyl 5 mg tablet 2024 025 NABEEL [facility], [facility] [address], [address], [place], [place], [id number], 15:21:25 Patient TargetsNo targets recorded. Patient InstructionsNo instructions recorded. Reason for Referral Psychiatrist Referral for Ch ronic depression Referring Physician: Keely Maynard, Family Medicine, Encounter Date: 08/04/2025 Results Created Date Observation Date Name Description Value Unit Range Abnormal Flag Note LastModifiedBy Organization Detail LastModifiedTime 07/17/2007/17/2025 CBC WBC 4.5 x10 4.0-10 .5 Not Available [facility] [address], [place], [address], 07/17/2025 11:20:37 07/17/20 25 07/17/2025 CBC RBC 5.18 x10 3.50-5 .50 Not Available [facility] [address] [facility] 1, [place], [address], 07/17/2025 11:20:37 07/17/20 25 07/17/2025 CBC HGB 15.5 g/dL 12.0-1 6.0 Not Available [facility] [address] [facility] 1, [place], [address], 07/17/2025 11:20:37 07/17/2007/17/2025 CBC HCT 46.9 % 37.0-4 7.0 Not Available [facility] [address] [facility] 1, [place], [address], 07/17/2025 11:20:37 07/17/20 25 07/17/2025 CBC MCV 90.6 fL 80.0-9 9.9 Not Available [facility] [address] [facility] 1, [place], [address], 07/17/2025 11:20:37 07/17/20 25 07/17/2025 CBC MCH 29.9 pg 27.0-3 2.0 Not Available [facility] [address] [facility] 1, [place], [address], 07/17/2025 11:20:37 07/17/20 25 07/17/2025 CBC MCHC 33.1 g/dL 32.0-3 6.0 Not Available [facility] [address] [facility] 1, [place], [address], 07/17/2025 11:20:37 07/17/20 25 07/17/2025 CBC RDW 13.9 % 11.5-1 4.5 Not Available [facility] [address] [facility] 1, [place], [address], 07/17/2025 11:20:37 07/17/20 25 07/17/2025 CBC plt 109.3 x10 140.0- 451.0 low Not Available [facility] [address] [facility], [place], [address], 07/17/2025 11:20:37 07/17/20 25 07/17/2025 CBC lymphocytes % 21.7 % 20.0-5 0.0 Not Available [facility] [address] [facility] 1, [place], [address], 07/17/2025 11:20:37 07/17/20 25 07/17/2025 CBC granulcytes % 69.1 % 30.0-7 0.0 Not Available [facility] [address] [address], [place], [address], 07/17/2025 11:20:37 07/17/20 25 07/17/2025 CBC monocytes % 7.5 % 2.0-16 .0 Not Available [facility] [address] [address], [place], [address], 07/17/2025 11:20:37 07/17/20 25 07/17/2025 CBC granulcytes# 3.1 x10 Not Veronica ilable [facility] [address] [address], [place], [address], 07/17/2025 11:20:37 07/17/20 25 07/17/2025 CBC lymphocytes # 1.0 x10 Not Available [facility] [address] [address], [place], [address], 07/17/2025 11:20:37 07/17/20 25 07/17/2025 CBC monocytes # 0.3 x10 Not Avai lable [facility] [address] [facility] 1, [place], [address], 07/17/2025 11:20:37 07/17/2007/17/2025 HBA1C hemaglobin A1C 5.9 4.2-6. 5 Not Available [facility] [address] [facility] 1, [place], [address], 07/17/2025 11:29:38 07/17/2007/17/2025 CMP (FEMA LE) glucose 165.0 mg/dL 60.0-9 9.0 high Not Available [facility] [address] [facility] 1, [place], [address], 07/17/2025 11:59:21 07/17/20 25 07/17/2025 CMP (FEMA LE) BUN (blood urea nitrogen) 11.0 mg/dL 10.0-2 6.0 Not Available [facility] [address] [facility] 1, [place], [address], 07/17/2025 11:59:21 07/17/20 25 07/17/2025 CMP (FEMA LE) creatinine (serum) 0.6 mg/dL 0.4-1. 5 Not Available [facility] [address] [address], [place], [address], 07/17/2025 11:59:21 07/17/20 25 07/17/2025 CMP (FEMA LE) BUN/creatini ne ratio 18.33 ratio Not Available [facility] [address] [facility] 1, [place], [address], 07/17/2025 11:59:21 07/17/20 25 07/17/2025 CMP (FEMA LE) eGFR calculated 106.0 Not Available [facility] [address] [facility] 1, [place], [address], 07/17/2025 11:59:21 07/17/20 25 07/17/2025 CMP (FEMA LE) total protein 7.2 g/dL 6.0-8. 5 Not Available [facility] [address] [facility] 1, [place], [address], 07/17/2025 11:59:21 07/17/20 25 07/17/2025 CMP (FEMA LE) total bilirubin 1.2 mg/dL 0.2-1. 3 Not Available [facility] [address] [facility] Janet [facility] 1, [place], [address], 07/17/2025 11:59:21 07/17/2007/17/2025 CMP (FEMA LE) albumin 4.3 g/dL 3.5-5. 5 Not Available [facility] [address] [facility] 1, [place], [address], 07/17/2025 11:59:21 07/17/20 25 07/17/2025 CMP (FEMA LE) globulin 2.9 calc Not Available [facility] [address] [facility], [place], [address], 07/17/2025 11:59:21 07/17/20 25 07/17/2025 CMP (FEMA LE) AST (SGOT) 38.0 U/L 0.0-46 .0 Not Available [facility] [address] [facility], [place], [address], 07/17/2025 11:59:21 07/17/20 25 07/17/2025 CMP (FEMA LE) altv (SGPT) 21.0 U/L 13.0-6 9.0 normal Not Available [facility] [address] [facility] Janet [facility] 1, [place], [address], 07/17/2025 11:59:21 07/17/20 25 07/17/2025 CMP (FEMA LE) A/G ratio 1.5 ratio Not Available [facility] [address] [facility] 1, [place], [address], 07/17/2025 11:59:21 07/17/20 25 07/17/2025 CMP (FEMA LE) ALP phos 81.0 U/L 30.0-1 40.0 normal Not Available [facility] [address] [facility] 1, [place], [address], 07/17/2025 11:59:21 07/17/20 25 07/17/2025 CMP (FEMA LE) calcium 9.7 mg/dL 8.4-10 .5 Not Available [facility] [address] [facility] 1, [place], [address], 07/17/2025 11:59:21 07/17/20 25 07/17/2025 CMP (FEMA LE) sodium 141.0 mmol/ L 136.0- 145.0 Not Available [facility] [address] [facility] 1, [place], [address], 07/17/2025 11:59:21 07/17/20 25 07/17/2025 CMP (FEMA LE) potassium 4.6 mmol/ L 3.5-5. 1 Not Available [facility] [address] [facility] 1, [place], [address], 07/17/2025 11:59:21 07/17/20 25 07/17/2025 CMP (FEMA LE) chloride 104.0 mmol/ L 98.0-1 10.0 normal Not Available [facility] [address] [facility] 1, [place], [address], 07/17/2025 11:59:21 07/17/20 25 07/17/2025 CMP (FEMA LE) C02 30.0 mmol/ L 22.0-3 1.0 Not Available [facility] [address] [facility] 1, [place], [address], 07/17/2025 11:59:21 07/17/2007/17/2025 CMP (FEMA LE) anion gap 7.0 calc Not Available [facility] [address] [facility] 1, [place], [address], 07/17/2025 11:59:21 07/17/2007/17/2025 CMP (FEMA LE) osmolality 293.9 calc Not Available [facility] [address] [facility] 1, [place], [address], 07/17/2025 11:59:21 07/17/20 25 07/17/2025 LIPID PROFI LE (FEMA LE) cholesterol 186.0 mg/dL 0.0-20 0.0 Not Available [facility] [address] [facility], [place], [address], 07/17/2025 11:59:23 07/17/20 25 07/17/2025 LIPID PROFI LE (FEMA LE) trig 131.0 mg/dL 0.0-15 0.0 Not Available [facility] [address] [facility], [place], [address], 07/17/2025 11:59:23 07/17/20 25 07/17/2025 LIPID PROFI LE (FEMA LE) HDL - direct 49.0 mg/dL >40.0 Not Available [facility] [address] [facility] [facility], [place], [address], 07/17/2025 11:59:23 07/17/20 25 07/17/2025 LIPID PROFI LE (FEMA LE) VLDL - direct 26.2 mg/dL Not Available [facility] [address] [facility] 1, [place], [address], 07/17/2025 11:59:23 07/17/2007/17/2025 LIPID PROFI LE (FEMA LE) LDL - direct 110.8 mg/dL 0.0-13 0.0 Not Available [facility] [address] [facility] 1, [place], [address], 07/17/2025 11:59:23 07/17/2007/23/2025 ALBUM IN, RANDO M URINE W/CRE ATINI NE creatinine, random urine 55 mg/dL 20-275 normal Not Available [facility] [address] [place], [address], 07/23/2025 16:19:10 07/17/2007/23/2025 ALBUM IN, RANDO M URINE W/CRE ATINI NE albumin, urine 0.3 mg/dL see note: normal Refer ence Range : Refer ence Range Not estab lishe d Not Available [address] [address] [place], [address], 07/23/2025 16:19:10 07/17/2007/23/2025 ALBUM IN, RANDO M [...] d be abnor mal befor e consi imra g a patie nt to be withi n a diagn ostic categ ory. Not Available [facility] [address] [place], [address], 07/23/2025 16:19:10 07/17/2007/23/2025 ALPHA FETOP ROTEI N, [...] not be inter prete d as absol [place] evide nce of the prese nce or absen ce of disea se. Not Available [facility] [address] [place], [address], 07/23/2025 16:19:11 07/17/2007/17/2025 PT/IN R Protime 12.7 Not Available [facility] ([facility]) [address] [place] [address], [address], 07/17/2025 10:33:44 07/17/2007/17/2025 PT/IN R INR 1.1 Not Available [facility] ([facility]) [address] [place] [address], [address], 07/17/2025 10:33:44 Result Notes None recorded. Problems Name Problem SNOMED Code Status Onset Date Resolution Date Notes Provider Name and Address Organization Details Recorded Time Gastroes ophageal reflux disease 190409313 Active SHU ramires [facility] 13:39:46 Gastriti s 6536527 Completed 04/28/2025 hx of Mago ramires [facility] 20:58:30 Anxiety state 527487360 Completed 201102/02/2012 anxiety - Status is Inactive ; 02/02/20 12 1:42PM by Shu Bean LPN, Annotati on/Adden dum; Promoted ; acuity set as *; Not Available [facility] 3 03:08:48 Oophorec roxane Completed 201210/23/2012 oophore roxane, unilater al - Status is Inactive ; pt is unsure which one was removed; 10/23/19 13 2:07PM by Keely Maynard MD, Annotati on/Adden dum; Promoted ; acuity set as *; Not Available [facility] 3 03:08:48 Migraine 74674677 Active 2022 SHU BEAN null, [facility] 5 13:41:33 Fibromya lgia 309312644 Active 2022 SHU BEAN null, [facility] 5 13:41:27 Generali zed anxiety disorder 29748075 Active 2022 SHU BEAN null, [facility] 5 13:39:47 Type 2 diabetes mellitus 88937862 Active 2022 SHU BEAN null, [facility] 4 14:56:32 Hyperlip idemia 93580496 Active 2022 SHU BEAN null, [facility] 5 13:39:47 Chronic neck pain 16827338479 07 Active 2022 SHU BEAN null, [facility] 5 13:39:47 Chronic back pain 616237815 Active 2022 SHU BEAN null, [facility] 5 13:39:47 Non-alco holic fatty liver 152378756 Active 2022 Not Available [facility] 3 22:05:43 Chronic respirat ory failure 12524028 Active 2022 SHU BEAN null, [facility] 5 10:43:40 Disorder of nerve root and/or plexus 358285499 Active 2022 Not Available [facility] 3 22:05:43 Iron deficien cy 15773016 Active 2022 Not Available [facility] 3 22:05:43 Restless legs syndrome 68725299 Active 2022 Not Available [facility] 3 22:05:43 [facility] l hyperten tuyet 32567743 Active 2022 Not Available [facility] 3 22:05:43 History of neoplasm of urinary bladder 557185394 Active 2022 Not Available [facility] 3 22:05:43 Pulmonar y hyperten tuyet 55177366 Active 2022 Not Available [facility] 3 22:05:43 Obstruct carolin sleep apnea syndrome 09088364 Active 2022 SHU ramires, [facility] 5 10:56:24 Cirrhosi s of liver 00111592 Active 2023 SHU ramires, [facility] 4 14:59:01 Supraven tricular tachycar kelly 7997915 Active 2023 SHU ramires, [facility] 5 13:39:47 Deficien cy of vitamin D3 994299058 Active 2023 SHU ramires, [facility] 5 13:39:47 Insulin treated type 2 diabetes mellitus 834879065 Active 2023 SHU ramires, [facility] 5 13:39:47 Moderate recurren t major depressi on 48497678 Active 2024 SHU ramires [facility] 5 14:01:11 Dysuria 93656199 Completed 202404/28/2025 Mago ramires [facility] 5 20:58:17 Constipa tion 41638231 Completed 202404/28/2025 Mago Tj ramires [facility] 5 20:58:11 Livan is 84513839 Active 2024 [facility] 10:36:02 Problem Notes None recorded. Procedures Surgical History Date Name Laterality Status Provider Name and Address Organization Details Recorded Time 2023 total knee replacement completed [facility] 4 13:51:48 2022 esophagogastroduodenoscopy completed ALESSANDRA CAZARES [facility] 3 16:47:49 2022 repair of umbilical hernia completed ALESSANDRA CAZARES [facility], [facility] 3 09:18:48 2020 colonoscopy completed [facility], [facility] 3 18:03:01 2016 laminectomy completed [facility], [facility] 3 17:56:13 total knee replacement completed HARRY BEAN [facility], [facility] 4 14:37:15 cholecystectomy completed SHU [facility], [facility] 3 17:51:44 [facility] Jaimie[facility] 3 17:51:51 hysterectomy completed SHU [facility], [facility]aimieLGinoSofia 3 17:55:31 reconstruction of pe lvic floor completed SHU BEAN [facility] 3 17:56:26 Imaging Results None recorded. Procedure Notes None recorded. Medical Equipment None Reported. Allergies Allergen ID Allergen Name Allergen Category Reaction Reaction Severity Criticality Documentation Date Start Date Code Code System Note Provider Name and Address Organization Details Recorded Time 98537 No known allergy (situatio n) Not available Not available Not available Not available 05/09/2024 99890 6003 SNOMED Génesis [place] ike [facility] 4 15:40:43 No known drug allergies [...] completed Recorded 12/23/19 23 3:16PM by Keely Maynard MD, Office Visit; Refill Quantity : 15; Tablet; Not Available Not Available Not Available acetamino phen 650mg q6h active Not Available Not Available No t Available acyclovir two times daily 07/04 completed 436; Recorded 11/21/19 23 10:34AM by Shu Bean LPN (Authori dee through Keely Maynard MD), Refill Request; Refill Quantity : 180; Tablet; Not Available Not Available Not Available EpiPen once 2014 active take at the first sign of throat closing Not Available Not Available Not Available aspirin 81mg bid 06/26 completed Not Available Not Available Not Available fluoxetin e daily 07/04 completed 436; Recorded 09/12/20 22 2:11PM by Shu Bean LPN (Authori erind through Keely Maynard MD), Refill Request; Mail Order Quantity : 90 Capsule; Mail Order Days: 90 Days; Refill Quantity : 90; Capsule; Not Available Not Available Not Available metoprolo l tartrate two times daily 07/04 completed 436; Recorded 12/26/19 21 9:02AM by Shu Bean LPN (Authori erind through Keely Maynard MD), Annotati on/Adden dum; Refill Quantity : 180; Tablet; Not Available Not Available Not Available ferrous gluconate daily 07/04 completed take with 500 units Vitamin C; 436; Recorded 03/17/20 22 5:35PM by Shu Bean LPN (Authori dee through Keely Maynard MD), Refill Request; Refill Quantity : 90; Tablet; Not Available Not Available Not Available Pyridium three times daily 07/04 completed Recorded 09/27/20 22 12:14PM by Berta Ocampo RN, Office Visit; Refill Quantity : 30; Tablet; Not Available Not Available Not Available metformin daily 07/04 completed 436; Recorded 05/16/20 22 7:46AM by Shu Bean LPN (Authori zed through Keely Maynard MD), Refill Request; Refill Quantity : 90; Tablet; Not Available Not Available Not Available Transderm -Scop behind the left ear every 3 days 07/04 completed Recorded 12/23/19 23 3:19PM by Keely Maynard MD, Office Visit; Refill Quantity : 3; Patch; Not Available Not Available Not Available gabapenti n three times daily 05/22 completed 436; Recorded 09/12/20 22 2:20PM by Shu Bean LPN (Authori zed through Keely Maynard MD), Refill Request; Mail Order Quantity : 450 Capsule; Refill Quantity : 90; Capsule; Not Available Not Available Not Available Pen Needle daily 06/26 completed Not Available Not Available Not Available Cymbalta daily 07/04 completed 436; Recorded 08/15/20 22 7:18AM by Shu Bean LPN (Authori zed through Keely Maynard MD), Annotati on/Adden dum; Mail Order Quantity [...] Berta Ocampo RN (Authori dee through Keely Maynard MD), Annotati on/Adden dum; Refill Quantity : [...] 3 pre-fill ed pens; 436; Recorded 12/20/19 23 12:20PM by Shu Bean LPN (Authori dee through Keely Maynard MD), Annotati on/Adden dum; Mail Order Quantity [...] Updated DateTime 5 170.18 cm 33.7 kg/m2 78277.3 6 g 96.9 [degF] 100 /min 92 % 148/88 mm[Hg] Berta Kayla [facility] 5 15:00:32 Social History Question Answer Notes LastModified by [employer] Details LastModified Time Tobacco Smoking Status Never Smoker SHU [facility]ires [facility] 07/04/2023 09:17:37 Do You Or Have You Ever Used Marijuana? Never Used Information not available 08/04/2025 What Was The Date Of Your Most Recent Tobacco Screening? 08/04/2025 Information not available 08/04/2025 Sex: Unknown Functional Status Question Answer Note LastModified by [employer] Details LastModified Time Do you use any illicit or recreational drugs? No [email or web address] Information not available 07/04/2023 Do you or have you ever used any other forms of tobacco or nicotine? No [email or web address] Information not available 07/04/2023 What is your level of alcohol consumption? None [email or web address] Information not available 07/04/2023 Do you or have you ever used any nicotine-free cigarettes, vape, or chewing tobacco? No [email or web address] Information not available 06/26/2024 Mental Status None recorded. Family History Relationship Description Onset Age of this Age Resolved Age Notes LastModified by Organization Details LastModified Time Sister Diabetes mellitus [email or web address] Not available 07/04 17:51:23 Father Diabetes mellitus [email or web address] Not available 07/04 17:51:23 Medical History No medical history recorded. Gynecological HistoryNo gynecological history recorded. Obstetrics History GPAL:G 0 P 0 0 0 0 Immunizations Vaccine Type Date Status Note Provider Nam e and Address Organization Details Recorded Time Pneumococcal conjugate PCV20, polysaccharide ZCT504 conjugate, adjuvant, PF 5 completed SHU ramires [facility] 01/15/2025 16:02:51 Influenza, split virus, trivalent, preservative 0 completed Not Available [facility] 12/06/2023 14:50:46 COVID-19, mRNA, LNP-S, PF, 100 mcg/0.5mL dose or 50 mcg/0.25mL dose 1 completed Not Available [facility] 12/06/2023 14:50:46 COVID-19, mRNA, LNP-S, PF, 100 mcg/0.5mL dose or 50 mcg/0.25mL dose 1 completed Not Available [facility] 12/06/2023 14:50:46 Influenza, adjuvanted, trivalent, PF 5 completed SHU BEAN null, [facility] 08/05/2025 08:17:11 Influenza, split virus, quadrivalent, PF 8 completed Génesis West null, [facility] 05/09/2024 15:40:34 zoster recombinant 4 completed SHU BEAN null, [facility] 01/15/2025 14:54:21 Influenza, high-dose, trivalent, PF 4 completed SHU BEAN null, [facility] 01/15/2025 14:54:21 zoster recombinant 2 completed Not Available [facility] 10/02/2023 22:05:43 COVID-19, mRNA, LNP-S, bivalent, PF, 50 mcg/0.5 mL or 25mcg/0.25 mL dose 2 completed Not Available [facility] 10/02/2023 22:05:43 Influenza, split virus, quadrivalent, PF 2 completed Not Available [facility] 10/02/2023 22:05:43 Past Encounters Encounter ID Performer Location Encounter Start Date Encounter Closed Date Diagnosis/Indication Diagnosis SNOMED-CT Code Diagnosis ICD10 Code Diagnosis IMO Codes Diagnosis Note [id number] Keely Maynard MD [facility] ([facility]) [address] [place] [address] 07/17/2025 10:29:40 07/18/2025 09:48:42 Essential hypertension 16389987 I10 Type 2 kelly betes mellitus 61699766 E11.69 Hyperlipidemia 67715627 E78.5 Cirrhosis of liver 007 K74.60 [id number] Keely Maynard MD [facility] ([facility]) [address] [place] [address] 08/04/2025 13:51:20 08/05/2025 15:43:24 Constipation 07835407 K59.00 Chronic depression 09336 0009 F32.A 762133 she has failed so many medication s. feels blah more depressed not suicidal. has been referred for tms previously . i once again recommende d psychiatri c evaluation and considerat ion of tms. Obstructiv e sleep apnea syndrome 47101062 G47.33 Cirrhosis of liver 007 K74.60 Health Concerns Section Related Observation LastModified by Organization Detai ls LastModified Time None Recorded Concern Status LastModified by Organization Details LastModified Time None Recorded Payers Encounter Date Sequence Insurance Name Policy Number Policy Salazar Covered Member ID Salazar Member ID Guarantor Name 08/04/2025 1 [place] Lisa Magaña [id number] Lisa Magaña 08/04/2025 2 [employer] (MEDICARE SUPPLEMENT) Lisa Magaña [id number] Lisa Magaña Notes Date Note Type Note Provider Name and Address Organization Details Recorded Time 5 text/html DiabetesReported by PatientHPIFor duration, patient [...] oxygen with her with her back pain. Anxiety/DepressionReporte d by PatientHPIFor context, patient reportschronic pain. For associated symptoms, patient reportsanxiety,depression , andpanic symptoms. For duration, patient reportschronic. For onset/timing, patient reportsgradual.Pt states that she feels her depression and anxiety are very bad right now.ROS as noted in the HPI Pt is here to discuss labs. Keely Maynard MD [address] [place] [address], [phone], [facility] [place] 08/04/2025 15:27:05 OBGyn Episode No OBEpisode recorded.
--- OUTSIDE RECORDS SUMMARY | 2025-09-15 21:27 | XMS_ITS | Encounter Summary ---
Author Organization [facility] Address [address] [place] [address] Care Team Providers Care Public Transit Bus Driver Name Role Phone Joseph Baker MD Primary Care Provider [phone] Encounter Details Date Type Department Care Team (Latest Contact Info) Description 06/22/2006 Outpatient Historical [facility] [address] [facility] [address] [place] [address] [place] Addison Thoracic or Lumbosacral Neuritis or Radiculitis, Unspecified (Primary Dx) Social History Tobacco Use Types Packs/Day Years Used Date Smoking Tobacco: Never Assessed Comments Unknown Sex and Gender Information Value Date Recorded Sex Assigned at Not on file Legal 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
--- OUTSIDE RECORDS SUMMARY | 2025-09-15 21:27 | XMS_ITS | Encounter Summary ---
Author Organization [facility] Address [address] [place] [address] Care Team Providers Care Instructor Trainer Canine Service Name Role Phone Joseph Baker MD Primary Care Provider [phone] Encounter Details Date Type Department Care Team (Latest Contact Info) Description 06/21/[address] 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 History: 46-year-old female, neck pain and upper extremity radiculopathy. Technique: Multiplanar, multisequence MR images were obtained through the cervical spine withoutcontrast. Findings: Cervical lordosis is straightened. This is seen with a mild grade left convex curvature. Mild diffuse cervical discogenic degeneration is present, not significantly inconsistent withpatient age. Findings manifest as disc desiccation and annular bulging over all levels. Nosignificant central canal stenosis or cord effect. Cord size and signal normal. Marrow signalappears normal. Axial images show annular bulging and rightward asymmetric uncovertebral hypertrophy at C3-Q0bgpaiftkk in at least moderate grade right-sided neural foraminal narrowing. Findings at C4-C5 and C5-C6 are near normal. At C6-C7, bilateral uncovertebral hypertrophy results in mild bilateral neural foraminalnarrowing. IMPRESSION: Age-appropriate cervical discogenic degeneration with a straightened lordosis and leftconvex curvature which may be positional. No significant discogenic central canal stenosis or cordeffect. Rightward asymmetric facet arthropathy and uncovertebral hypertrophy at C3-C4 result inmoderate to high grade right-sided neural foraminal narrowing. Mild bilateral neural foraminalnarrowing at C6-C7. - Dictated By: Olvin Saab D.O. Electronically Signed By: Olvin Saab D.O. Date Signed: 06/22/06 Procedure Note 09/04/2009 MRI CERVICAL SPINE WITHOUT CONTRASTDate: 06/21/2006. History: 46-year-old female, neck pain and upper extremity radiculopathy. Technique: Multiplanar, multisequence MR images were obtained through the cervicalspine withoutcontrast. Findings: Cervical lordosis is straightened. This is seen with a mild grade leftconvex curvature. Mild diffuse cervical discogenic degeneration is present, notsignificantly inconsistent withpatient age. Findings manifest as disc desiccation and annular bulging over alllevels. Nosignificant central canal stenosis or cord effect. Cord size and signal normal. Marrow signalappearsnormal. Axial images show annular bulging and rightward asymmetric uncovertebralhypertrophy at C3-M3jgypsvwdl in at least moderate grade right-sided neural foraminal narrowing. Findings at C4-C5 and C5-C6 are near normal. At C6-C7, bilateral uncovertebral hypertrophy results in mild bilateralneural foraminalnarrowing. IMPRESSION: Age-appropriate cervical discogenic degeneration with a straightenedlordosis and leftconvex curvature which may be positional. No significant discogenic central canal stenosisor cordeffect. Rightward asymmetric facet arthropathy and uncovertebral hypertrophy at C3-C4 resultinmoderate to high grade right-sided neural foraminal narrowing. Mild bilateral neuralforaminalnarrowing at C6-C7. - Dictated By: Olvin Saab D.O. Electronically Signed By: Olvin Saab D.O. Date Signed: 06/22/06 [place] Addison MR ORDERABLES Final Result * MRI LUMBAR WO CONTRAST (06/21/2006 12:01 AM CDT) Anatomical Region Laterality Modality Spine Other 06/21/2006 12:0 1 AM CDT Narrative 06/21/2006 12:01 AM CDT MRI of the Lumbar Spine Without Contrast: Technique: Sagittal T1, sagittal T2, sagittal IR, axial T1, axial T2 images of the lumbar spine wereperformed. No contrast agent was utilized. Findings: Sagittal images show signal loss and volume loss throughout the lumbar interspaces. Osteoannular bulgeis present in virtually every level. A high signal intensity zone is present centrally at L4-L5. AtL1-L2 there is an asymmetric high signal intensity osteoannular lesion eccentric to the rightentering the right L1-L2 foramen and effacing the exiting L1 root. No reparative endplate changesare noted. A slight reverse subluxation of L3 on 4 is present. Greatest degree of narrowing andspurring is at L2-L3. No abnormal signal from within the conus or cauda equina is noted. The transaxial images parallel to the lumbar interspaces show an asymmetric osteoannular lesion on theright at L1-L2 effacing the exiting right L1 nerve root. L2-L3 shows a circumferential osteoannularbulge and marked narrowing of the disc space. L3-L4 shows an osteoannular bulge with a slightreversed subluxation. L4-L5 shows bilateral facet hypertrophy. L5-S1 shows bilateral facethypertrophy. Impression: Multilevel changes of aging. Most prominent osteoannular lesion is on the right at L1-L2in the foramen. - Dictated By: Roland Ortiz M.D. Electronically Signed By: Roland Ortiz M.D. Date Signed: 06/21/06 [facility] Procedure Note 09/04/2009 MRI of the Lumbar Spine Without Contrast: Technique: Sagittal T1, sagittal T2, sagittal IR, axial T1, axial T2 images of thelumbar spine wereperformed. No contrast agent was utilized. Findings: Sagittal images show signal loss and volume loss throughout the lumbarinterspaces. Osteoannular bulgeis present in virtually every level. A high signal intensity zone is presentcentrally at L4-L5. AtL1-L2 there is an asymmetric high signal intensity osteoannular lesion eccentricto the rightentering the right L1-L2 foramen and effacing the exiting L1 root. No reparative endplatechangesare noted. A slight reverse subluxation of L3 on 4 is present. Greatest degree of narrowingandspurring is at L2-L3. No abnormal signal from within the conus or cauda equina is noted. The transaxial images parallel to the lumbar interspaces show anasymmetric osteoannular lesion on theright at L1-L2 effacing the exiting right L1 nerve root. L2-L3 shows acircumferential osteoannularbulge and marked narrowing of the disc space. L3-L4 shows anosteoannular bulge with a slightreversed subluxation. L4-L5 shows bilateral facet hypertrophy.L5-S1 shows bilateral facethypertrophy. Impression: Multilevel changes of aging. Most prominent osteoannular lesion is on theright at L1-L2in the foramen. - Dictated By: Roland Otriz M.D. Electronically Signed By: Roland Ortiz M.D. Date Signed: 06/21/06 [facility] [place] Addison MR ORDERABLES Final Result documented in this encounter Visit Diagnoses Diagnosis Carpal tunnel syndrome- Primary Skin sensation disturb Disturbance of skin sensation documented in this encounter Care Teams Instructor Trainer Canine Service Relationship Specialty Start Date End Date Joseph Baker MD [address] [phone] PCP - General 12/09/08 documented as of this encounter
--- OUTSIDE RECORDS SUMMARY | 2025-09-15 21:27 | XMS_ITS | Encounter Summary ---
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
--- OUTSIDE RECORDS SUMMARY | 2025-09-15 21:27 | XMS_ITS | Encounter Summary ---
Author Organization [facility] Address [address] [place] [address] Care Team Providers Care Low Pressure Boiler Tender Name Role Phone Joseph Baker MD Primary Care Provider [phone] Encounter Details Date Type Department Care Team (Latest Contact Info) Description 01/31/2006 Outpatient Historical [facility] [place] Add[place] No Proc/Contraindicatio n (Primary Dx) Social History Tobacco Use Types Packs/Day Years Used Date Smoking Tobacco: Never Assessed Comments Unknown Sex and Gender Information Value Date Recorded Sex Assigned at Not on file 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
--- OUTSIDE RECORDS SUMMARY | 2025-09-15 21:27 | XMS_ITS | Encounter Summary ---
Author Organization [facility] Address [address] [place] [address] Care Team Providers Care Motorboat Mechanic Inboard Name Role Phone Joseph Baker MD Primary Care Provider [phone] Encounter Details Date Type Department Care Team (Latest Contact Info) Description 08/09/2006 Outpatient Historical [facility] Procedures [address] 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
--- OUTSIDE RECORDS SUMMARY | 2025-09-15 21:27 | XMS_ITS | Encounter Summary ---
Author Organization [facility] Address [address] [place] [address] Care Team Providers Care Frog Shaker Name Role Phone Joseph Baker MD Primary Care Provider Encounter Details Date Type Department Care Team (Latest Contact Info) Description 08/09/2006 Outpatient Historical [facility] [address] 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
--- OUTSIDE RECORDS SUMMARY | 2025-09-15 21:27 | XMS_ITS | Encounter Summary ---
Author Organization [facility] Address [address] [place] [address] Care Team Providers Care Therapist Speech Name Role Phone Joseph Baker MD Primary Care Provider [phone] Encounter Details Date Type Department Care Team (Latest Contact Info) Description 08/02/2006 Outpatient Historical [facility] [address] 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
--- NOTE | 2025-09-15 21:41 | ECG_ITS ---
[facility] Test Date: 2025-09-15 Pat Name: Lisa Magaña Department: Room: Gender: Female Galley Hand: : 1960 Requested By: Adair Zhao Order Number: [id number] Sary MD: Aida Trejo M.D. Measurements Intervals [place] Rate: 100 P: 237 PA: 76 QRS: -19 QRSD: 86 T: 37 QT: 319 QTc: 413 Interpretive Statements SINUS TACHYCARDIA WITH SHORT PA INTERVAL WITH OCCASIONAL SUPRAVENTRICULAR PREMATURE COMPLEXES LOW QRS VOLTAGE IN PRECORDIAL LEADS [QRS DEFLECTION < 1.0 mV IN CHEST LEADS] POSSIBLE ANTERIOR MYOCARDIAL INFARCTION , OF INDETERMINATE AGE [30 ms Q WAVE IN V3/V4, OR R < 0.2 mV IN V4] INTERPRETATION BASED ON A DEFAULT AGE OF 40 YEARS Compared to ECG 05/20/2023 14:52:39 Short PA interval now present Myocardial infarct finding now present Sinus rhythm no longer present Electronically Signed On 09-16-2025 18:59:55 ADMINISTRATIVE OFFICE ASSISTANT by Aida Trejo M.D. [email or web address] [id number]
--- NOTE | 2025-09-15 22:55 | XRR_ITS ---
PROCEDURE INFORMATION: Exam: XR Chest Exam date and time: 09/15/2025 11:11 PM Age: 65 years old Clinical indication: Cough TECHNIQUE: Imaging protocol: Radiologic exam of the chest. Views: 1 view. COMPARISON: CT angio chest PE protcl [id number] 05/20/2023 2:37 PM FINDINGS: Lungs: Unremarkable. No consolidation. Pleural spaces: No focal consolidation, pleural effusion, or pneumothorax. Heart/Mediastinum: Unremarkable. No cardiomegaly. Bones/joints: Right shoulder arthroplasty. XR/XR chest 1V [id number] IMPRESSION: No focal consolidation, pleural effusion, or pneumothorax.
[2025-09-15 23:40] LABS: Alanine Aminotransferase 19 U/L (0-33); Albumin Level 4.1 g/dL (3.5-5.2); Alkaline Phosphatase 96 U/L (35-105); Anion Gap 16.9 (5-19); Aspartate Amino Transferase 38 U/L (0-32); Blood Urea Nitrogen 9 mg/dL (8-23); Calcium 9.1 mg/dL (8.5-10.5); Carbon Dioxide 24 mmol/L (22-29); Chloride 102 mmol/L (98-107); Globulin 2.8 g/dL (1.3-4.6); Glucose 162 mg/dL (65-115); Lipase 40 U/L (13-60); Osmolality Calculated 290 mOsm/kg (285-295); Potassium 3.9 mmol/L (3.5-5.1); Sodium 139 mmol/L (136-145); Total Protein 6.9 g/dL (6.6-8.7)
[2025-09-15 23:42] LABS: Lactic Sepsis W/Reflex 2.0 mmol/L (0.5-2.2)
[2025-09-15] MEDS: cefTRIAXone 1,000 mg SDV 1000 MG IVP (23:42)
[2025-09-16] VITALS (24 sets, daily range): BP systolic 128–171; BP diastolic 81–105; PULSE 85–109; RESP 13–36; O2SAT 93–96
[2025-09-16 00:18] LABS: Hematocrit 41.8 % (36-47); Hemoglobin 14.70 g/dL (11.27-16.99); Mean Corpuscular HGB Conc 35.2 g/dL (30-55); Mean Corpuscular Hemoglobin 29.6 pg (27-33); Mean Corpuscular Volume 84.3 fl (85-98); Nucleated Red Blood Cells % 0 %; Platelet Count 93 10^3/cmm (157-399); Red Blood Count 4.96 10^6/uL (3.85-5.65); Slide Review Slide Review Perform; White Blood Count 6.94 10^3/uL (3.29-11.43)
[2025-09-16 01:01] LABS: Glucose Urine UA Negative (Normal); Nitrate Urine Negative (Negative); Specific Gravity, Urine 1.016 (1.005-1.030)
[2025-09-16 01:06] LABS: Add Urine Microscopic? YES
--- NOTE | 2025-09-16 01:10 | W.ED.URI ---
HPI - URI/Sore Throat General: Chief Complaint: Upper Respiratory Infection Stated Complaint: Weak\SOB\Heart Hurts\Sore Throat History of Present Illness: 65-year-old female past medical history significant for hypertension, diabetes, liver cirrhosis, fibromyalgia, Presenting to the emergency department with a 2-day history of cough, associated with vomiting and diarrhea approximately 2 episodes per day nonbloody, subjective fever at home and fever of 102.7 in triage, green sputum production associated with the cough, also reports associated diffuse body aches and headache, denies specific abdominal pain, denies urinary symptoms, attempted Mucinex and Benadryl at home without improvement, no sick contacts or recent travel Related Data Home Medications ?Medication ?Instructions ?Recorded ?Confirmed clonazepam 0.5 mg tablet 0.5 mg PO TID 01/18/21 05/20/23 fluoxetine 20 mg capsule 40 mg PO QAM 01/18/21 05/20/23 metformin 500 mg tablet,extended 500 mg PO QAM 01/18/21 05/20/23 release 24 hr pantoprazole 40 mg tablet,delayed 40 mg PO DAILY 01/18/21 05/20/23 release sumatriptan succinate 100 mg 100 mg PO Q2H PRN Migraine Headache 01/18/21 05/20/23 tablet (Imitrex) acyclovir 400 mg tablet 400 mg PO BID 07/17/21 05/20/23 gabapentin 100 mg capsule See Rx Instructions .Route .COMPLEX 03/28/23 05/20/23 duloxetine 60 mg capsule,delayed 60 mg PO DAILY 05/20/23 05/20/23 release ferrous gluconate 324 mg (38 mg 324 mg PO DAILY 05/20/23 05/20/23 iron) tablet hydrocodone 5 mg-acetaminophen 325 1 tab PO TID PRN Pain 05/20/23 05/20/23 mg tablet insulin detemir U-100 100 unit/mL 8 unit SUBCUT BEDTIME 05/20/23 05/20/23 (3 mL) subcutaneous pen (Levemir FlexPen) ondansetron HCl 8 mg tablet 8 mg PO Q8H PRN Nausea And Vomiting 05/20/23 05/20/23 rosuvastatin 10 mg tablet 10 mg PO DAILY 05/20/23 05/20/23 Previous Rx's ?Medication ?Instructions ?Recorded metoprolol tartrate 100 mg tablet 100 mg PO BID #60 tabs 03/18/23 diazepam 2 mg tablet (Valium) 2 mg PO TID PRN muscle spasm #10 05/20/23 tabs furosemide 20 mg tablet (Lasix) 20 mg PO DAILY #7 tabs 05/20/23 potassium chloride 8 mEq 8 meq PO DAILY #7 caps 05/20/23 capsule,extended release oxycodone-acetaminophen 5 mg-325 1 tab PO Q6H PRN pain #20 tabs 03/03/24 mg tablet (Percocet) ondansetron HCl 4 mg tablet 4 mg PO Q8H PRN nausea and 09/16/25 vomiting 5 days #15 tabs Allergies Allergy/AdvReac Type Severity Reaction Status Date / Time No Known Allergies Allergy Verified 09/15/25 21:46 [facility] PFSH: Medical History SVT (supraventricular tachycardia) Depression Diabetes Surgical History H/O total hysterectomy Hx of cholecystectomy Family History Father Diabetes Other Hypertension Social History Smoking and tobacco/nicotine status: never used tobacco/nicotine Physical Exam Narrative: EXAM NARRATIVE: Gen: A&Ox4, no acute distress, nontoxic appearing HEENT: Normocephalic, atraumatic, no scleral icterus, external ears normal, moist mucous membranes Neck: Supple, full range of motion, no observable masses Lungs: No Respiratory distress, Lungs clear to auscultation bilaterally no rales, rhonchi, wheezing CV: Mildly tachycardic, regular rhythm, no murmur, no pitting edema to lower extremities bilaterally Abdomen: Soft, nondistended, mildly tender to the epigastrium, no right upper quadrant tenderness, negative Ramirez sign, no hepatosplenomegaly, no right lower quadrant/McBurney point tenderness, no suprapubic tenderness to palpation MSK: No joint swelling, FROM all 4 extremities Skin: No rashes, petechiae, lesions. Normal color per patient. Neuro: Alert and oriented, no slurred speech, sensation and strength grossly intact all 4 extremities Psych: Appropriate for situation. Course Reevaluation(s): Reevaluation #1: Patient reassessed at this time, appears well, workup showing COVID-positive status with otherwise reassuring laboratory evaluation and negative chest x-ray, will recommend supportive care for her various symptoms with OTC Tylenol Motrin Imodium as needed for fever/pain and diarrhea, will prescribe Zofran as needed for vomiting, close monitoring of symptoms at home with return precautions and counseling for expected course of illness, notification of any recent exposure, avoidance of any fragile or chronically ill people to reduce spread. Time: 02:04 Vital Signs: Vital signs: Vital Signs Temperature 102.7 F H 09/15/25 21:36 Pulse Rate 91 09/16/25 00:35 Respiratory Rate 27 H 09/16/25 00:35 Blood Pressure 129/81 09/16/25 01:55 Pulse Oximetry 96 09/16/25 01:40 Oxygen Delivery Me thod Room Air 09/15/25 21:36 MDM - URI/Sore Throat Medical Decision Making 65-year-old female with a history of hypertension diabetes liver cirrhosis and fibromyalgia presenting the emergency department with a 2-day history of productive cough headache myalgias vomiting and diarrhea, febrile in the emergency department with mild tachycardia meeting sepsis criteria, plan for broad-spectrum antibiotic and IV fluids while awaiting workup, clinically her symptoms appear most consistent with a viral upper respiratory tract infection with associated gastroenteritis although bacterial pneumonia is a consideration as well given the productive green sputum, plan for chest x-ray, reassess for disposition Lab Data Labs showing no leukocytosis or anemia, normal urine without UTI, no LFT elevation, there is a mild hyperbilirubinemia with normal alk phos, normal creatinine, normal lactate 2.0, COVID-positive on swab 09/15/25 23:15 09/15/25 23:15 Radiology Impressions Chest X-Ray 09/15/25 22:55 IMPRESSION: No focal consolidation, pleural effusion, or pneumothorax. Laboratory Results WBC 6.94 10^3/uL (3.29-11.43) 09/15/25 23:15 RBC 4.96 10^6/uL (3.85-5.65) 09/15/25 23:15 Hgb 14.70 g/dL (11.27-16.99) 09/15/25 23:15 Hct 41.8 % (36-47) 09/15/25 23:15 MCV 84.3 fl (85-98) L 09/15/25 23:15 MCH 29.6 pg (27-33) 09/15/25 23:15 MCHC 35.2 g/dL (30-55) 09/15/25 23:15 RDW 13.0 % (12.1-15.1) 09/15/25 23:15 Plt Count 93 10^3/cmm (157-399) L 09/15/25 23:15 MPV 9.6 fL (7.4-10.4) 09/15/25 23:15 Neut % (Auto) 78.6 % 09/15/25 23:15 Lymph % (Auto) 9.4 % 09/15/25 23:15 [place] % (Auto) 10.1 % 09/15/25 23:15 Eos % (Auto) 0.4 % 09/15/25 23:15 Baso % (Auto) 0.9 % 09/15/25 23:15 Neut # (Auto) 5.46 10^3/uL (1.8-7.7) 09/15/25 23:15 Lymph # (Auto) 0.7 10^3/uL (0.8-4.8) L 09/15/25 23:15 [place] # (Auto) 0.7 10^3/uL (0.2-0.9) 09/15/25 23:15 Eos # (Auto) 0.0 10^3/uL (0.0-0.8) 09/15/25 23:15 Baso # (Auto) 0.1 10^3/uL (0.0-0.1) 09/15/25 23:15 Nucleated RBC % (auto) 0 % 09/15/25 23:15 Nucleated RBCs # 0.0 /100WBC 09/15/25 23:15 Sodium 139 mmol/L (136-145) 09/15/25 23:15 Potassium 3.9 mmol/L (3.5-5.1) 09/15/25 23:15 Chloride 102 mmol/L (98-107) 09/15/25 23:15 Carbon Dioxide 24 mmol/L (22-29) 09/15/25 23:15 Anion Gap 16.9 (5-19) 09/15/25 23:15 BUN 9 mg/dL (8-23) 09/15/25 23:15 Creatinine 0.5 mg/dL (0.5-0.9) 09/15/25 23:15 GFR Calculation 123.1 mL/min (90-130) 09/15/25 23:15 Glucose 162 mg/dL (65-115) H 09/15/25 23:15 Calculated Osmolality 290 mOsm/kg (285-295) 09/15/25 23:15 Lactic Acid 2.0 mmol/L (0.5-2.2) 09/15/25 23:15 Calcium 9.1 mg/dL (8.5-10.5) 09/15/25 23:15 Total Bilirubin 1.5 mg/dL (0.15-1.2) H 09/15/25 23:15 AST 38 U/L (0-32) H 09/15/25 23:15 ALT 19 U/L (0-33) 09/15/25 23:15 Alkaline Phosphatase 96 U/L (35-105) 09/15/25 23:15 Total Protein 6.9 g/dL (6.6-8.7) 09/15/25 23:15 Albumin 4.1 g/dL (3.5-5.2) 09/15/25 23:15 Globulin 2.8 g/dL (1.3-4.6) 09/15/25 23:15 Lipase 40 U/L (13-60) 09/15/25 23:15 Urine Color Dark yellow (Yellow) A 09/16/25 00:45 Urine Appearance Clear (CLEAR) 09/16/25 00:45 Urine pH 6.0 (5-7) 09/16/25 00:45 Ur Specific [place] 1.016 (1.005-1.030) 09/16/25 00:45 Urine Protein Negative (Negative) 09/16/25 00:45 Urine Glucose (UA) Negative (Normal) 09/16/25 00:45 Urine Ketones Trace (Negative) 09/16/25 00:45 Urine Blood Negative (Negative) 09/16/25 00:45 Urine Nitrate Negative (Negative) 09/16/25 00:45 Urine Bilirubin Negative (Negative) 09/16/25 00:45 Urine Urobilinogen 2.0 mg/dL (Negative) H 09/16/25 00:45 Ur Leukocyte Esterase Negative (Negative) 09/16/25 00:45 Urine RBC 0-2 /hpf (0-2) 09/16/25 00:45 Urine WBC 0-5 /hpf (0-5) 09/16/25 00:45 Ur Squamous Epith Cells 0-5 /hpf (0-5) 09/16/25 00:45 Amorphous Sediment Not Reportable 09/16/25 00:45 Urine Bacteria None seen /hpf (NONE) 09/16/25 00:45 Hyaline Casts 1.21 /lpf 09/16/25 00:45 Influenza A (PCR) Negative (Negative) 09/16/25 00:39 Influenza Type B (PCR) Negative (Negative) 09/16/25 00:39 RSV (PCR) Negative (Negative) 09/16/25 00:39 SARS-CoV-2 (PCR) Positive (Negative) A 09/16/25 00:39 All radiology interpretation(s) finalized by discharge ED provider radiology interpretation(s): Chest x-ray negative for focal consolidation/pneumonia Discharge Plan Discharge Patient Disposition: Home Clinical Impression: COVID-19 Condition: Stable Prescriptions: New ondansetron HCl 4 mg tablet 4 mg PO Q8H PRN (Reason: nausea and vomiting) 5 Days Qty: 15 0RF No Action metformin 500 mg tablet extended release 24 hr 500 mg PO QAM pantoprazole 40 mg tablet,delayed release (DR/EC) 40 mg PO DAILY fluoxetine 20 mg capsule 40 mg PO QAM clonazepam 0.5 mg tablet 0.5 mg PO TID sumatriptan succinate [Imitrex] 100 mg tablet 100 mg PO Q2H PRN (Reason: Migraine Headache) Rx Instructions: do not exceed 2 doses per 24 hrs gabapentin 100 mg capsule See Rx Instructions .ROUTE .COMPLEX Rx Instructions: 3 caps (300mg) qam and 2 caps (200mg) qpm acyclovir 400 mg tablet 400 mg PO BID Percocet 5-325 mg tablet 1 tab PO Q6H PRN (Reason: pain) Qty: 20 0RF metoprolol tartrate 100 mg tablet 100 mg PO BID Qty: 60 0RF hydrocodone-acetaminophen 5-325 mg tablet 1 tab PO TID PRN (Reason: Pain) ondansetron HCl 8 mg tablet 8 mg PO Q8H PRN (Reason: Nausea And Vomiting) rosuvastatin 10 mg tablet 10 mg PO DAILY duloxetine 60 mg capsule,delayed release(DR/EC) 60 mg PO DAILY Levemir FlexPen 100 unit/mL (3 mL) insulin pen 8 unit SUBCUT BEDTIME ferrous gluconate 324 mg (38 mg iron) tablet 324 mg PO DAILY Lasix 20 mg tablet 20 mg PO DAILY Qty: 7 0RF potassium chloride 8 mEq capsule, extended release 8 meq PO DAILY Qty: 7 0RF Valium 2 mg tablet 2 mg PO TID PRN (Reason: muscle spasm) Qty: 10 0RF Discharge Orders: Discharge ED (Routine); Ordered 09/16/25 Ordered By: Adair Zhao Referrals: Joseph Baker MD [Primary Care Provider, Family Practice] Patient Instructions: COVID-19 (Coronavirus Disease 2019) (ED), Patient Portal & Neil Instructions Print Language: Sami Coding Level of Care Code ED Clinical Research Assistant for Magnolia Conley
[2025-09-16 01:22] LABS: Respiratory Syncytial Virus Ce NEGATIVE (Negative)
[2025-09-16 01:40] LABS: SARS-CoV-2 PCR Positive (Negative)
== END 2025-09-16 02:20 | disposition home or self-care (01) ==
PROVIDERS: Emergency Provider Student in an Organized Health Care Education/Training Program; PCP Family Medicine
DX: U07.1 COVID-19 (principal); Z79.84 Long term (current) use of oral hypoglycemic drugs; Z11.52 Encounter for screening for COVID-19; E11.9 Type 2 diabetes mellitus without complications
CPT/HCPCS: 36415; 71045; 80053; 81001; 83605; 83690; 85025; 87040; 87637; 93005; 96374; 96375; 99285; J0696; J1885; J7030; J9999